=== PATIENT | female | born 1990 | race Caucasian/White ===

== ENCOUNTER 2023-04-16 10:00 | Outpatient (RCR) | payer BC, SELFPAY | END 2023-06-29 08:00 | disposition home or self-care (01) | LOC: PT 10:00 | DX: N81.89 Other female genital prolapse (principal) | CPT/HCPCS: 20561; 97110; 97112; 97161 ==

== ENCOUNTER 2023-06-30 09:12 | Outpatient (RCR) | payer BC, SELFPAY | END 2023-07-16 15:53 | disposition home or self-care (01) | LOC: PT 09:12 | PROVIDERS: PCP Advanced Practice Midwife; Visit Provider Advanced Practice Midwife | DX: N81.89 Other female genital prolapse (principal) | CPT/HCPCS: 20561; 97110 ==

== ENCOUNTER 2025-01-07 07:20 | Observation (INO) | payer BC, SELFPAY ==
[2025-01-07 07:20] VITALS: BP 78/54; PULSE 110; O2SAT 98
[2025-01-07 07:32] VITALS: BP 109/59; PULSE 89; O2SAT 100
[2025-01-07] MEDS: 0.9 % SODIUM CHLORIDE 1,000 ML 999 ML IV ×2 (07:40→09:01)
--- OUTSIDE RECORDS SUMMARY | 2025-01-07 07:45 | XMS_ITS | Encounter Summary ---
Author Organization [facility] Address [address] [place] [address] Care Team Providers Care Funeral Service Apprentice Name Role Phone Caren Travis APRN.CNM Unavailable [phone] Source Comments In the event this information is protected by the Federal Confidentiality of Alcohol and Drug AbusePatient Records regulations: The Federal rules restrict any use of the information to criminally investigate or prosecute any alcohol or drug abuse patient.[facility] Encounter Details Date Type Department Care Team (Late st Contact Info) Description 06/24/2024 Patient Msg Psychiatry [address] [place] [address] Provider, Ccf neuro psych testing Social History Tobacco Use Types Packs/Day Years Used Date Smoking Tobacco: Former Cigarettes Q uit: 11/2019 Smokeless Tobacco: Never Alcohol Use Standard Drinks/Week Comments No 0 (1 standard drink = 0.6 oz pur e alcohol) PHQ-2 Answer Date Recorded PHQ-2 score 2 06/23/2024 [place] Depression Scale Answer Date Recorded [place] Depression Scale Total 21 07/10/2023 The thought of harming myself has occurred to me . Never 07/10/2023 Area Deprivation Index Answer Date Rafael rded National Score (1-100), lower number is lower ri 78 11/05/2022 State Score (1-10), lower number is lower risk 6 11/05/2022 Data from: https://www.neighborhoodatlas.medicine.[facility]/. Last address used for calculation [address] 11/05/2022 Comments Unknown Sex and Gender Information Value Date Recorded Sex Assigned at Female 10/31/2020 8:49 PM EDT Legal Sex Female 10:06 AM EST Gender Identity Female 10/31/2020 8:49 PM EDT Sexual Orientation Straight 10/31/2020 8: 49 PM EDT documented as of this encounter Functional Status * Are you deaf or do you have serious difficulty hearing? Answer Date of Assessment Author No 02/05/2023 7:49 AM EDT Darya Mckeon APRN.CNM * Are you blind or do you have serious difficulty seeing, even when wearing glasses? Answer Date of Assessment Author No 02/05/2023 7:49 AM EDT Darya Mckeon APRN.CNM * Do you have serious difficulty walking or climbing stairs? Answer Date of Assessment Author No 02/05/2023 7:49 AM EDT Darya Mckeon APRN.CNM * Do you have difficulty dressing or bathing? Answer Date of Assessment Author No 02/05/2023 7:49 AM EDT Darya Mckeon APRN.CNM * Because of a physical, mental, or emotional condition, do you have difficulty doing errands alone such as visiting a doctor's office or shopping? Answer Date of Assessment Author No 02/05/2023 7:49 AM EDT Darya Mckeon APRN.CNM documented as of this encounter Mental Status * Because of a physical, mental, or emotional condition, do you have serious difficulty concentrating, remembering, or making decisions? Answer Entry Date Author No 02/05/2023 7:49 AM EDT Darya Mckeon APRN.CNM documented in this encounter Plan of Treatment Upcoming Encounters Date Type Department Care Team (Late st Contact Info) Description 01/10/2025 6:00 PM EDT Routine Office Visit Maternal Medicine [address] [facility] [address] [place] [address] Anatomy 01/20/2025 3:00 PM EDT Routine Office Visit Obstetrics/Gynecolog y [address] [address] Marina Mnaley, MICROBIOLOGY LAB ASSISTANT.CNM [address] [place] [address] ob/ per Marina 02/10/2025 2:30 PM EDT Office Visit Obstetrics/Gynecolog y [address] [address] Marina Manley, MICROBIOLOGY LAB ASSISTANT.CNM [address] [place] [address] Annual 02/22/2025 1:15 PM EDT Routine Office Visit Obstetrics/Gynecolog y [address] [address] Marina Manley, MICROBIOLOGY LAB ASSISTANT.CNM [address] [place] [address] OB monthly 03/22/2025 10:45 AM EDT Routine Office Visit Obstetrics/Gynecolog y [address] [address] Marina Manley, MICROBIOLOGY LAB ASSISTANT.CNM [address] [place] [address] OB bi-weekly 04/05/2025 10:45 AM EDT Routine Office Visit Obstetrics/Gynecolog y [address] [address] Marina Manley, MICROBIOLOGY LAB ASSISTANT.CNM [address] [place] [address] OB bi-weekly 04/19/2025 10:30 AM EDT Routine Office Visit Obstetrics/Gynecolog y [address] [address] Marina Manley, MICROBIOLOGY LAB ASSISTANT.CNM [address] [place] [address] OB bi-weekly 05/03/2025 8:45 AM EST Routine Office Visit Obstetrics/Gynecolog y [address] [address] Marina Manley, MICROBIOLOGY LAB ASSISTANT.CNM [address] [place] [address] OB weekly 05/10/2025 8:45 AM EST Routine Office Visit Obstetrics/Gynecolog y [address] [address] Marina Manley, MICROBIOLOGY LAB ASSISTANT.CNM [address] [place] [address] OB weekly 05/17/2025 8:45 AM EST Routine Office Visit Obstetrics/Gynecolog y [address] [address] Marina Manley, MICROBIOLOGY LAB ASSISTANT.CNM [address] [place] [address] OB weekly 05/24/2025 8:45 AM EST Routine Office Visit Obstetrics/Gynecolog y [address] [address] Marina Manley, MICROBIOLOGY LAB ASSISTANT.CNM [address] [place] [address] OB weekly 05/31/2025 8:45 AM EST Routine Office Visit Obstetrics/Gynecolog y [address] [address] Marina Manley, MICROBIOLOGY LAB ASSISTANT.CNM [address] [place] [address] OB weekly 06/07/2025 8:45 AM EST Routine Office Visit Obstetrics/Gynecolog y [address] [address] Marina Manley, MICROBIOLOGY LAB ASSISTANT.CNM [address] [place] [address] OB weekly documented as of this encounter Visit Diagnoses Not on filedocumented in this encounter Care Teams Funeral Service Apprentice Relationship Specialty Start Date End Date Caren Travis APRN.CNM [address] [place] [address] Vocational Training Director Stock Grader 02/03/23 documented as of this encounter
--- OUTSIDE RECORDS SUMMARY | 2025-01-07 07:45 | XMS_ITS | Encounter Summary ---
Author Organization [facility] Address [address] [place] [address] Care Team Providers Care Healthcare Market Consultant Name Role Phone Caren Travis APRN.CNM Unavailable Source Comments In the event this information is protected by the Federal Confidentiality of Alcohol and Drug AbusePatient Records regulations: The Federal rules restrict any use of the information to criminally investigate or prosecute any alcohol or drug abuse patient.[facility] Encounter Details Date Type Department Care Team (Late st Contact Info) Description 01/10/2023 Patient Msg Obstetrics/Gynecolog y [address] [place] [address] Tamy Rand MD [address] [place] [address] Questionnaire Submission Social History Tobacco Use Types Packs/Day Years Used Date Smoking Tobacco: Former Cigarettes Q uit: 11/2019 Smokeless Tobacco: Never Alcohol Use Standard Drinks/Week Comments No 0 (1 standard drink = 0.6 oz pur e alcohol) Fields Depression Scale Answer Date Recorded Fields Depression Scale Total 2 01/30/2021 The thought of harming myself has occurred to me . Never 01/30/2021 Area Deprivation Index Answer Date Rafael rded National Score (1-100), lower number is lower ri sk 78 11/05/2022 State Score (1-10), lower number is lower risk 6 11/05/2022 Data from: https://www.neighborhoodatlas.medicine.[facility]/. Last address used for calculation [address] 11/05/2022 Comments Yes Sex and Gender Information Value Date Recorded Sex Assigned at Female 10/31/2020 8:49 PM EDT Legal Sex Female 10:06 AM EST Gender Identity Female 10/31/2020 8:49 PM EDT Sexual Orientation Straight 10/31/2020 8: 49 PM EDT documented as of this encounter Functional Status * Are you deaf or do you have serious difficulty hearing? Answer Date of Assessment Author No 01/10/2021 10:30 AM EDT Christen Smith RN * Are you blind or do you have serious difficulty seeing, even when wearing glasses? Answer Date of Assessment Author No 01/10/2021 10:30 AM EDT Christen Smith RN * Do you have serious difficulty walking or climbing stairs? Answer Date of Assessment Author No 01/10/2021 10:30 AM SAJANT Christen Smith RN * Do you have difficulty dressing or bathing? Answer Date of Assessment Author No 01/10/2021 10:30 AM EDT Christen Smith RN * Because of a physical, mental, or emotional condition, do you have difficulty doing errands alone such as visiting a doctor's office or shopping? Answer Date of Assessment Author No 01/10/2021 10:30 AM EDChristen Farley RN documented as of this encounter Mental Status * Because of a physical, mental, or emotional condition, do you have serious difficulty concentrating, remembering, or making decisions? Answer Entry Date Author No 01/10/2021 10:30 AM Christen Camacho RN documented in this encounter Plan of Treatment Upcoming Encounters Date Type Department Care Team (Late st Contact Info) Description 01/10/2025 6:00 PM EDT Routine Office Visit Maternal Medicine 850 [place] [address] Anatomy 01/20/2025 3:00 PM EDT Routine Office Visit Obstetrics/Gynecolog y [address] [address] Marina Manley, FINANCIAL INSTITUTION MANAGER.CNM [address] [place] [address] ob/ per Marina 02/10/2025 2:30 PM EDT Office Visit Obstetrics/Gynecolog y [address] [address] Marina Manley, FINANCIAL INSTITUTION MANAGER.CNM [address] [place] [address] Annual 02/22/2025 1:15 PM EDT Routine Office Visit Obstetrics/Gynecolog y [address] [address] Marina Manley, FINANCIAL INSTITUTION MANAGER.CNM [address] [place] [address] OB monthly 03/22/2025 10:45 AM EDT Routine Office Visit Obstetrics/Gynecolog y [address] [address] Marina Manley, FINANCIAL INSTITUTION MANAGER.CNM [address] [place] [address] OB bi-weekly 04/05/2025 10:45 AM EDT Routine Office Visit Obstetrics/Gynecolog y [address] [address] Marina Manley, FINANCIAL INSTITUTION MANAGER.CNM [address] [place] [address] OB bi-weekly 04/19/2025 10:30 AM EDT Routine Office Visit Obstetrics/Gynecolog y [address] [address] Marina Manley, FINANCIAL INSTITUTION MANAGER.CNM [address] [place] [address] OB bi-weekly 05/03/2025 8:45 AM EST Routine Office Visit Obstetrics/Gynecolog y [address] [address] Marina Manley, FINANCIAL INSTITUTION MANAGER.CNM [address] [place] [address] OB weekly 05/10/2025 8:45 AM EST Routine Office Visit Obstetrics/Gynecolog y [address] [address] Marina Manley, FINANCIAL INSTITUTION MANAGER.CNM [address] [place] [address] OB weekly 05/17/2025 8:45 AM EST Routine Office Visit Obstetrics/Gynecolog y [address] [address] Marina Manley, FINANCIAL INSTITUTION MANAGER.CNM [address] [place] [address] OB weekly 05/24/2025 8:45 AM EST Routine Office Visit Obstetrics/Gynecolog y [address] [address] Marina Manley, FINANCIAL INSTITUTION MANAGER.CNM [address] [place] [address] OB weekly 05/31/2025 8:45 AM EST Routine Office Visit Obstetrics/Gynecolog y [address] [address] Marina Manley, FINANCIAL INSTITUTION MANAGER.CNM [address] [place] [address] OB weekly 06/07/2025 8:45 AM EST Routine Office Visit Obstetrics/Gynecolog y [address] [address] Marina Manley, FINANCIAL INSTITUTION MANAGER.CNM [address] [place] [address] OB weekly documented as of this encounter Visit Diagnoses Not on filedocumented in this encounter Care Teams Healthcare Market Consultant Relationship Specialty Start Date End Date Caren Travis APRN.TREVON [address] [place] [address] Junior Designer Photoengraving Photographer 02/03/23 documented as of this encounter
--- OUTSIDE RECORDS SUMMARY | 2025-01-07 07:45 | XMS_ITS | Encounter Summary ---
Author Organization [facility] Address [address] [place] [address] Care Team Providers Care Roustabout Name Role Phone Caren Travis APRN.CNM Unavailable [phone] Source Comments In the event this information is protected by the Federal Confidentiality of Alcohol and Drug AbusePatient Records regulations: The Federal rules restrict any use of the information to criminally investigate or prosecute any alcohol or drug abuse patient.[facility] Encounter Details Date Type Department Care Team (Late st Contact Info) Description 01/07/2023 Patient M[address] [address] Provider, Ccf Completed FMLA Social History Tobacco Use Types Packs/Day Years Used Date Smoking Tobacco: Former Cigarettes Q uit: 11/2019 Smokeless Tobacco: Never Alcohol Use Standard Drinks/Week Comments No 0 (1 standard drink = 0.6 oz pur e alcohol) Hopkins Depression Scale Answer Date Recorded [place] Depression Scale Total 2 01/30/2021 The thought of harming myself has occurred to me . Never 01/30/2021 Area Deprivation Index Answer Date Rafael rded National Score (1-100), lower number is lower ri sk 78 11/05/2022 State Score (1-10), lower number is lower risk 6 11/05/2022 Data from: https://www.neighborhoodatlas.[facility]/. Last address used for calculation [address] 11/05/2022 Comments Yes Sex and Gender Information [...] 01/10/2021 10:30 AM SAJANT Christen Smith RN documented as of this encounter Mental Status * Because of a physical, mental, or emotional condition, do you have serious difficulty concentrating, remembering, or making decisions? Answer Entry Date Author No 01/10/2021 10:30 AM EDT Christen Smith RN documented in this encounter Plan of Treatment Upcoming Encounters Date Type Department Care Team (Late st Contact Info) Description 01/10/2025 6:00 PM EDT Routine Office Visit Maternal Medicine [address] [place] [address] Anatomy 01/20/2025 3:00 PM EDT Routine Office Visit Obstetrics/Gynecolog y [address] [place] [address] Marina Manley, DRIVER MESSENGER.CNM [address] [place] [address] ob/ per Marina 02/10/2025 2:30 PM EDT Office Visit Obstetrics/Gynecolog y [address] [address] Marina Manley, DRIVER MESSENGER.CNM [address] [place] [address] Annual 02/22/2025 1:15 PM EDT Routine Office Visit Obstetrics/Gynecolog y [address] [address] Marina Manley, DRIVER MESSENGER.CN [address] [place] [address] OB monthly 03/22/2025 10:45 AM EDT Routine Office Visit Obstetrics/Gynecolog y [address] [address] Marina Manley, DRIVER MESSENGER.CNM [address] [place] [address] OB bi-weekly 04/05/2025 10:45 AM EDT Routine Office Visit Obstetrics/Gynecolog y [address] [address] Marina Manley, DRIVER MESSENGER.CNM [address] [place] [address] OB bi-weekly 04/19/2025 10:30 AM EDT Routine Office Visit Obstetrics/Gynecolog y [address] [address] Marina Manley, DRIVER MESSENGER.CNM [address] [place] [address] OB bi-weekly 05/03/2025 8:45 AM EST Routine Office Visit Obstetrics/Gynecolog y [address] [address] Marina Manley, DRIVER MESSENGER.CNM [address] [place] [address] OB weekly 05/10/2025 8:45 AM EST Routine Office Visit Obstetrics/Gynecolog y [address] [address] Marina Manley, DRIVER MESSENGER.CNM [address] [place] [address] OB weekly 05/17/2025 8:45 AM EST Routine Office Visit Obstetrics/Gynecolog y [address] [address] Marina Manley, DRIVER MESSENGER.CNM [address] [place] [address] OB weekly 05/24/2025 8:45 AM EST Routine Office Visit Obstetrics/Gynecolog y [address] [address] Marina Manley, DRIVER MESSENGER.CNM [address] [place] [address] OB weekly 05/31/2025 8:45 AM EST Routine Office Visit Obstetrics/Gynecolog y [address] [address] Marina Manley, DRIVER MESSENGER.CNM [address] [place] [address] OB weekly 06/07/2025 8:45 AM EST Routine Office Visit Obstetrics/Gynecolog y [address] [address] Marina Manley, DRIVER MESSENGER.CNM [address] [place] [address] OB weekly documented as of this encounter Visit Diagnoses Not on filedocumented in this encounter Care Teams Roustabout Relationship Specialty Start Date End Date Caren Travis APRN.TREVON [address] [place] [id number] Veterinarian Poultry Patient Navigator 02/03/23 documented as of this encounter
--- OUTSIDE RECORDS SUMMARY | 2025-01-07 07:45 | XMS_ITS | Encounter Summary ---
Author Organization [facility] Address [address] [place] [address] Care Team Providers Care Ferryboat Ticket Taker Name Role Phone Caren Travis APRN.CNM Unavailable [phone] Source Comments In the event this information is protected by the Federal Confidentiality of Alcohol and Drug AbusePatient Records regulations: The Federal rules restrict any use of the information to criminally investigate or prosecute any alcohol or drug abuse patient.[facility] Encounter Details Date Type Department Care Team (Late st Contact Info) Description 12/02/2022 Patient Msg Obstetrics/Gynecology [address] [place] [id number] Provider, Ccf please call to yasmani 12/16 Chrissie Patel Social History Tobacco Use Types Packs/Day Years Used Date Smoking Tobacco: Former Cigarettes Q uit: 11/2019 Smokeless Tobacco: Never Alcohol Use Standard Drinks/Week Comments No 0 (1 standard drink = 0.6 oz pur e alcohol) Eidson Depression Scale Answer Date Recorded E[place]son Depression Scale Total 2 01/30/2021 The thought of harming myself has occurred to me . Never 01/30/2021 Area Deprivation Index Answer Date Rafael rded National Score (1-100), lower number is lower ri 78 11/05/2022 State Score (1-10), lower number is lower risk 6 11/05/2022 Data from: https://www.neighborhoodatlas.[facility]/. Last address used for calculation [address] [...] Assessment Author No 01/10/2021 10:30 AM EDT Chritsen Smith RN * Do you have difficulty dressing or bathing? Answer Date of Assessment Author No 01/10/2021 10:30 AM EDT Christen Smith RN * Because of a physical, mental, or emotional condition, do you have difficulty doing errands alone such as visiting a doctor's office or shopping? Answer Date of Assessment Author No 01/10/2021 10:30 AM EDT Christen Smith RN documented as of this [...] EDT Routine Office Visit Maternal Medicine [address] [place] [address] Anatomy 01/20/2025 3:00 PM EDT Routine Office Visit Obstetrics/Gynecolog y 850 [facility] [address] [place] [address] Marina Manley, MECHANICAL INTEGRITY ENGINEER.CNM [address] [place] [address] ob/ per Marina 02/10/2025 2:30 PM EDT Office Visit Obstetrics/Gynecolog y [address] [address] Marina Manley, MECHANICAL INTEGRITY ENGINEER.CNM [address] [place] [address] Annual 02/22/2025 1:15 PM EDT Routine Office Visit Obstetrics/Gynecolog y [address] [address] Marina Manley, MECHANICAL INTEGRITY ENGINEER.CNM [address] [place] [address] OB monthly 03/22/2025 10:45 AM EDT Routine Office Visit Obstetrics/Gynecolog y [address] [address] Marina Manley, MECHANICAL INTEGRITY ENGINEER.CNM [address] [place] [address] OB bi-weekly 04/05/2025 10:45 AM EDT Routine Office Visit Obstetrics/Gynecolog y [address] [address] Marina Manley, MECHANICAL INTEGRITY ENGINEER.CNM [address] [place] [address] OB bi-weekly 04/19/2025 10:30 AM EDT Routine Office Visit Obstetrics/Gynecolog y [address] [address] Marina Manley, MECHANICAL INTEGRITY ENGINEER.CNM [address] [place] [address] OB bi-weekly 05/03/2025 8:45 AM EST Routine Office Visit Obstetrics/Gynecolog y [address] [address] Marina Manley, MECHANICAL INTEGRITY ENGINEER.CNM [address] [place] [address] OB weekly 05/10/2025 8:45 AM EST Routine Office Visit Obstetrics/Gynecolog y [address] [address] Marina Manley, MECHANICAL INTEGRITY ENGINEER.CNM [address] [place] [address] OB weekly 05/17/2025 8:45 AM EST Routine Office Visit Obstetrics/Gynecolog y [address] [address] Marina Manley, MECHANICAL INTEGRITY ENGINEER.CNM [address] [place] [address] OB weekly 05/24/2025 8:45 AM EST Routine Office Visit Obstetrics/Gynecolog y [address] [address] Marina Manley, MECHANICAL INTEGRITY ENGINEER.CNM [address] [place] [address] OB weekly 05/31/2025 8:45 AM EST Routine Office Visit Obstetrics/Gynecolog y [address] [address] Marina Manley, MECHANICAL INTEGRITY ENGINEER.CNM [address] [place] [address] OB weekly 06/07/2025 8:45 AM EST Routine Office Visit Obstetrics/Gynecolog y [address] [address] Marina Manley, MECHANICAL INTEGRITY ENGINEER.CNM [address] [place] [address] OB weekly documented as of this encounter Visit Diagnoses Not on filedocumented in this encounter Care Teams Ferryboat Ticket Taker Relationship Specialty Start Date End Date Caren Travis APRN.CNM [address] [place] [address] Trouble Locater Sheet Metal Welder 02/03/23 documented as of this encounter
--- OUTSIDE RECORDS SUMMARY | 2025-01-07 07:45 | XMS_ITS | Encounter Summary ---
Author Organization [facility] Address [address] [place] [address] Care Team Providers Care Knitting Machine Operator Automatic Name Role Phone Caren Travis APRN.CNM Unavailable [phone] Source Comments In the event this information is protected by the Federal Confidentiality of Alcohol and Drug AbusePatient Records regulations: The Federal rules restrict any use of the information to criminally investigate or prosecute any alcohol or drug abuse patient.[facility] Encounter Details Date Type Department Care Team (Late st Contact Info) Description 05/14/2024 Patient Msg Psychiatry [address] [place] [address] Provider, Ccf Appointment Request Social History Tobacco Use Types Packs/Day Years Used Date Smoking Tobacco: Former Cigarettes Q uit: 11/2019 Smokeless Tobacco: Never Alcohol Use Standard Drinks/Week Comments No 0 (1 standard drink = 0.6 oz pur e alcohol) PHQ-2 Answer Date Recorded PHQ-2 score 1 04/30/2024 [place] Depression Scale Answer Date Recorded [place] Depression Scale Total 21 07/10/2023 The thought of harming myself has occurred to me . Never 07/10/2023 Area Deprivation Index Answer Date Rafael rded National Score (1-100), lower number is lower ri 78 11/05/2022 State Score (1-10), lower number is lower risk 6 11/05/2022 Data from: https://www.neighborhoodatlas.[facility]/. Last address used for calculation [address] [...] EDT Routine Office Visit Maternal Medicine [address] [facility] [address] [place] [address] Anatomy 01/20/2025 3:00 PM EDT Routine Office Visit Obstetrics/Gynecolog y [address] [address] Marina Manley, RESEARCH ASST.CNM [address] [place] [address] ob/ per Marina 02/10/2025 2:30 PM EDT Office Visit Obstetrics/Gynecolog y [address] [address] Marina Manley, RESEARCH ASST.CNM [address] [place] [address] Annual 02/22/2025 1:15 PM EDT Routine Office Visit Obstetrics/Gynecolog y [address] [address] Marina Manley, RESEARCH ASST.CNM [address] [place] [address] OB monthly 03/22/2025 10:45 AM EDT Routine Office Visit Obstetrics/Gynecolog y [address] [address] Marina Manley, RESEARCH ASST.CNM [address] [place] [address] OB bi-weekly 04/05/2025 10:45 AM EDT Routine Office Visit Obstetrics/Gynecolog y [address] [address] Marina Manley, RESEARCH ASST.CNM [address] [place] [address] OB bi-weekly 04/19/2025 10:30 AM EDT Routine Office Visit Obstetrics/Gynecolog y [address] [address] Marina Manley, RESEARCH ASST.CNM [address] [place] [address] OB bi-weekly 05/03/2025 8:45 AM EST Routine Office Visit Obstetrics/Gynecolog y [address] [address] Marina Manley, RESEARCH ASST.CNM [address] [place] [address] OB weekly 05/10/2025 8:45 AM EST Routine Office Visit Obstetrics/Gynecolog y [address] [address] Marina Manley, RESEARCH ASST.CNM [address] [place] [address] OB weekly 05/17/2025 8:45 AM EST Routine Office Visit Obstetrics/Gynecolog y [address] [address] Marina Manley, RESEARCH ASST.CNM [address] [place] [address] OB weekly 05/24/2025 8:45 AM EST Routine Office Visit Obstetrics/Gynecolog y [address] [address] Marina Manley, RESEARCH ASST.CNM [address] [place] [address] OB weekly 05/31/2025 8:45 AM EST Routine Office Visit Obstetrics/Gynecolog y [address] [address] Marina Manley, RESEARCH ASST.CNM [address] [place] [address] OB weekly 06/07/2025 8:45 AM EST Routine Office Visit Obstetrics/Gynecolog y [address] [address] Marina Manley, RESEARCH ASST.CNM [address] [place] [address] OB weekly documented as of this encounter Visit Diagnoses Not on filedocumented in this encounter Care Teams Knitting Machine Operator Automatic Relationship Specialty Start Date End Date Caren Travis APRN.CNM [address] [place] [address] Javascript Front End Developer Greens Picker 02/03/23 documented as of this encounter
--- OUTSIDE RECORDS SUMMARY | 2025-01-07 07:45 | XMS_ITS | Encounter Summary ---
Author Organization [facility] Address [address] [place] [address] Care Team Providers Care Java Software Architect Name Role Phone Caren Travis APRN.CNM Unavailable [phone] Source Comments In the event this information is protected by the Federal Confidentiality of Alcohol and Drug AbusePatient Records regulations: The Federal rules restrict any use of the information to criminally investigate or prosecute any alcohol or drug abuse patient.[facility] Encounter Details Date Type Department Care Team (Late st Contact Info) Description 10/08/2024 Patient Msg Gynecology [address] [id number] Torito Zavala, Research Coordinator [facility] and [facility] Researchers seek your help with a study Social History Tobacco Use Types Packs/Day Years Used Date Smoking Tobacco: Former Cigarettes Q uit: 11/2019 Smokeless Tobacco: Never Alcohol Use Standard Drinks/Week Comments No 0 (1 standard drink = 0.6 oz pur e alcohol) PHQ-2 Answer Date Recorded PHQ-2 score 1 08/03/2024 [place] Depression Scale Answer Date Recorded [place] Depression Scale Total 21 07/10/2023 The thought of harming myself has occurred to me . Never 07/10/2023 Area Deprivation Index Answer Date Rafael rded National Score (1-100), lower number is lower ri sk 78 11/05/2022 State Score (1-10), lower number is lower risk 6 11/05/2022 Data from: https://www.neighborhoodatlas.medicine.[facility].edu/. Last address used for calculation [address] [...] EDT Routine Office Visit Maternal Medicine [address] [place] [address] Anatomy 01/20/2025 3:00 PM EDT Routine Office Visit Obstetrics/Gynecolog y [address] [address] Marina Manley, HEALTH AND SAFETY INSPECTOR.CNM [address] [place] [address] ob/ per Marina 02/10/2025 2:30 PM EDT Office Visit Obstetrics/Gynecolog y [address] [address] Marina Manley, HEALTH AND SAFETY INSPECTOR.CNM [address] [place] [address] Annual 02/22/2025 1:15 PM EDT Routine Office Visit Obstetrics/Gynecolog y [address] [address] Marina Manley, HEALTH AND SAFETY INSPECTOR.CNM [address] [place] [address] OB monthly 03/22/2025 10:45 AM EDT Routine Office Visit Obstetrics/Gynecolog y [address] [address] Marina Manley, HEALTH AND SAFETY INSPECTOR.CNM [address] [place] [address] OB bi-weekly 04/05/2025 10:45 AM EDT Routine Office Visit Obstetrics/Gynecolog y [address] [address] Marina Manley, HEALTH AND SAFETY INSPECTOR.CNM [address] [place] [address] OB bi-weekly 04/19/2025 10:30 AM EDT Routine Office Visit Obstetrics/Gynecolog y [address] [address] Marina Manley, HEALTH AND SAFETY INSPECTOR.CNM [address] [place] [address] OB bi-weekly 05/03/2025 8:45 AM EST Routine Office Visit Obstetrics/Gynecolog y [address] [address] Marina Manley, HEALTH AND SAFETY INSPECTOR.CNM [address] [place] [address] OB weekly 05/10/2025 8:45 AM EST Routine Office Visit Obstetrics/Gynecolog y [address] [address] Marina Manley, HEALTH AND SAFETY INSPECTOR.CN [address] [place] [address] OB weekly 05/17/2025 8:45 AM EST Routine Office Visit Obstetrics/Gynecolog y [address] [address] Marina Manley, HEALTH AND SAFETY INSPECTOR.CNM [address] [place] [address] OB weekly 05/24/2025 8:45 AM EST Routine Office Visit Obstetrics/Gynecolog y [address] [address] Marina Manley, HEALTH AND SAFETY INSPECTOR.CN [address] [place] [address] OB weekly 05/31/2025 8:45 AM EST Routine Office Visit Obstetrics/Gynecolog y [address] [address] Marina Manley, HEALTH AND SAFETY INSPECTOR.CNM [address] [place] [address] OB weekly 06/07/2025 8:45 AM EST Routine Office Visit Obstetrics/Gynecolog y [address] [address] Marina Manley, HEALTH AND SAFETY INSPECTOR.OSIRISM [address] [place] [address] OB weekly documented as of this encounter Visit Diagnoses Not on filedocumented in this encounter Care Teams Java Software Architect Relationship Specialty Start Date End Date Caren Travis, HEALTH AND SAFETY INSPECTOR.TREVON [address] [place] [address] Zumba Instructor Ironer Hand 02/03/23 documented as of this encounter
--- OUTSIDE RECORDS SUMMARY | 2025-01-07 07:45 | XMS_ITS | Encounter Summary ---
Author Organization [facility] Address [address] [place] [address] Care Team Providers Care Pellet Post Inspector Name Role Phone Caren Travis APRN.CNM Unavailable [phone] Source Comments In the event this information is protected by the Federal Confidentiality of Alcohol and Drug AbusePatient Records regulations: The Federal rules restrict any use of the information to criminally investigate or prosecute any alcohol or drug abuse patient.[facility] Encounter Details Date Type Department Care Team (Late st Contact Info) Description 02/04/2023 [place] [id number] [phone] Provider, Ccf Technical Lead Enrollment Social History Tobacco Use Types Packs/Day Years Used Date Smoking Tobacco: Former Cigarettes Q uit: 11/2019 Smokeless Tobacco: Never Alcohol Use Standard Drinks/Week Comments No 0 (1 standard drink = 0.6 oz pur e alcohol) [place] Depression Scale Answer Date Recorded [place] Depression Scale Total 2 01/30/2021 The thought of harming myself has occurred to me . Never 01/30/2021 Area Deprivation Index Answer Date Rafael rded National Score (1-100), lower number is lower ri sk 78 11/05/2022 State Score (1-10), lower number is lower risk 6 11/05/2022 Data from: https://www.neighborhoodatlas.[facility]/. Last address used for calculation [address] 11/05/2022 Comments No Sex and Gender Information Value Date Recorded [...] EDT Routine Office Visit Maternal Medicine [address] [place] [address] Anatomy 01/20/2025 3:00 PM EDT Routine Office Visit Obstetrics/Gynecolog y [address] [facility] [address] [place] [address] Marina Manley, WEIGHER PRODUCTION.CNM [address] [place] [address] ob/ per Marina 02/10/2025 2:30 PM EDT Office Visit Obstetrics/Gynecolog y [address] [address] Marina Manley, WEIGHER PRODUCTION.CN [place] [place] [address] Annual 02/22/2025 1:15 PM EDT Routine Office Visit Obstetrics/Gynecolog y [address] [address] Marina Manley, WEIGHER PRODUCTION.CN [address] [place] [address] OB monthly 03/22/2025 10:45 AM EDT Routine Office Visit Obstetrics/Gynecolog y [address] [address] Marina Manley, WEIGHER PRODUCTION.CNM [address] [address] OB bi-weekly 04/05/2025 10:45 AM EDT Routine Office Visit Obstetrics/Gynecolog y [address] [address] Marina Manley, WEIGHER PRODUCTION.CN [address] [place] [address] OB bi-weekly 04/19/2025 10:30 AM EDT Routine Office Visit Obstetrics/Gynecolog y [address] [address] Marina Manley, WEIGHER PRODUCTION.CNM [address] [address] OB bi-weekly 05/03/2025 8:45 AM EST Routine Office Visit Obstetrics/Gynecolog y [address] [address] Marina Manley, WEIGHER PRODUCTION.CNM [address] [place] [address] OB weekly 05/10/2025 8:45 AM EST Routine Office Visit Obstetrics/Gynecolog y [address] [address] Marina Manley, WEIGHER PRODUCTION.CNM [address] [place] [address] OB weekly 05/17/2025 8:45 AM EST Routine Office Visit Obstetrics/Gynecolog y [address] [address] Marina Manley, WEIGHER PRODUCTION.CNM [address] [place] [address] OB weekly 05/24/2025 8:45 AM EST Routine Office Visit Obstetrics/Gynecolog y [address] [address] Marina Manley, WEIGHER PRODUCTION.CNM [address] [place] [address] OB weekly 05/31/2025 8:45 AM EST Routine Office Visit Obstetrics/Gynecolog y [address] [address] Marina Manley, WEIGHER PRODUCTION.CNM [address] [place] [address] OB weekly 06/07/2025 8:45 AM EST Routine Office Visit Obstetrics/Gynecolog y [address] [address] Marina Manley, WEIGHER PRODUCTION.CNM [address] [place] [address] OB weekly documented as of this encounter Visit Diagnoses Not on filedocumented in this encounter Care Teams Pellet Post Inspector Relationship Specialty Start Date End Date Caern Travis APRN.TREVON [address] [place] [id number] Pediatric Surgeon Hand Violin Maker 02/03/23 documented as of this encounter
--- OUTSIDE RECORDS SUMMARY | 2025-01-07 07:45 | XMS_ITS | Clinical Summary ---
Author Organization [employer] Address [id number] [address] [place] [address] Care Team Providers Care Photographic Intelligence Officer Name Role Phone Unavailable Primary Care Provider Unavailabl e Allergies No known active allergies Medications magnesium oxide (MAGOX) 400 mg tablet Active SYMBICORT 160-4.5 mcg/actuation inhaler Inhale 2 puffs in the morning and 2 puffs before bedtime. 04/15/2022 Active aspirin-acetami nophen-caffeine (EXCEDRIN EXTRA STRENGTH) 250-250-65 mg per tablet 2 tablets as needed Orally every 6 hrs Active albuterol (PROVENTIL HFA;VENTOLIN HFA) 90 mcg/actuation inhaler every 6 (six) hours as needed. Active vit,qzvw11-vulx -folic 29 mg iron- 1 mg tablet Take by mouth daily. Active ascorbic acid, vitamin C, (VITAMIN C) 1000 mg tablet Take 1 tablet (1,000 mg total) by mouth in the morning. Takes 4-5 times a week. Active Active Problems Problem Noted Date Diagnosed Date Dizziness 04/04/2022 Headache 04/04/2022 Bilateral hearing loss 04/04/2022 Family History Medical History Relation Name Comments Hearing loss Father Cancer Maternal Grandmother uterine and ovarian Cancer Paternal Grandfather colon a nd lung Relation Name Status Comments Father Maternal Grandmother Paternal Grandfather Social History Tobacco Use Types Packs/Day Years Used Date Smoking Tobacco: Former Cigarettes 0.5 6 2 014 - 2020 Smokeless Tobacco: Never Tobacco Cessation:Counseling Given: Not Answered Alcohol Use Standard Drinks/Week Comments Not Currently 0 (1 standard drink = 0.6 oz pur e alcohol) Childcare Answer Date Recorded Childcare Unknown 12/07/2018 Employment Answer Date Recorded Employment Unknown 12/07/2018 Comments Unknown Sex and Gender Information Value Date Recorded Sex Assigned at Not on file Legal Sex Female 12:04 PM EDT Gender Identity Not on file Sexual Orientation Not on file Last Filed Vital Signs Vital Sign Reading Time Taken Comments Blood Pressure - - Pulse - - Temperature 36.8 C (98.3 F) 03/05/2023 9:47 AM EDT Respiratory Rate - - Oxygen Saturation - - Inhaled Oxygen Concentration - - Weight 75.8 kg (167 lb) 03/05/2023 9:47 AM EDT Height 149.9 cm (4' 11 ) 03/05/2023 9:47 AM EDT Body Mass Index 33.73 03/05/2023 9:47 AM EDT Plan of Treatment Health Maintenance Due Date Last Done Comments Depression Screening 2004 Pap Smear 2013 COVID-19 Vaccine (5 - 4-2 5 season) 2024 04/27/2022, 09/27/2021, 03/20/2021, Additional history exists Adult BMI Screening 03/05/2024 03/05/2023 Tobacco Screening 03/05/2024 03/05/2023 Influenza Vaccine 02/28/2025 04/27/2022 DTaP,Tdap and Td Vaccines (7 - Td or Tdap) 11/06/2032 11/06/2022, 12/26/1997, 08/20/1994, Additional history exists Medical Devices Not on file Insurance [facility]
--- OUTSIDE RECORDS SUMMARY | 2025-01-07 07:45 | XMS_ITS | Encounter Summary ---
Author Organization [facility] Address [address] [place] [address] Care Team Providers Care Information Systems Specialist Name Role Phone Caren Travis APRN.CNM Unavailable [phone] Source Comments In the event this information is protected by the Federal Confidentiality of Alcohol and Drug AbusePatient Records regulations: The Federal rules restrict any use of the information to criminally investigate or prosecute any alcohol or drug abuse patient.[facility] Encounter Details Date Type Department Care Team (Late st Contact Info) Description 04/30/2024 Patient Msg Psychiatry [address] [place] [address] Provider, Ccf Behavioral Health Appt Social History Tobacco Use Types Packs/Day Years Used Date Smoking Tobacco: Former Cigarettes Q uit: 11/2019 Smokeless Tobacco: Never Alcohol Use Standard Drinks/Week Comments No 0 (1 standard drink = 0.6 oz pur e alcohol) PHQ-2 Answer Date Recorded PHQ-2 score 1 04/30/2024 [place] Depression Scale Answer Date Recorded [place] Depression Scale Total 21 07/10/2023 The thought of harming myself has occurred to me . Never 07/10/2023 Area Deprivation Index Answer Date Rafael rded National Score (1-100), lower number is lower ri 78 11/05/2022 State Score (1-10), lower number is lower risk 6 11/05/2022 Data from: https://www.neighborhoodatlas.medicine.[facility]/. Last address used for calculation [address] [...] EDT Routine Office Visit Maternal Medicine [address] [place] [address] Anatomy 01/20/2025 3:00 PM EDT Routine Office Visit Obstetrics/Gynecolog y [address] [address] Marina Manley, SHIP PAINTER HELPER.CNM [address] [place] [address] ob/ per Marina 02/10/2025 2:30 PM EDT Office Visit Obstetrics/Gynecolog y [address] [address] Marina Manley, SHIP PAINTER HELPER.CNM [address] [place] [address] Annual 02/22/2025 1:15 PM EDT Routine Office Visit Obstetrics/Gynecolog y [address] [address] Marina Manley, SHIP PAINTER HELPER.CNM [address] [place] [address] OB monthly 03/22/2025 10:45 AM EDT Routine Office Visit Obstetrics/Gynecolog y [address] [address] Marina Manley, SHIP PAINTER HELPER.CNM [address] [place] [address] OB bi-weekly 04/05/2025 10:45 AM EDT Routine Office Visit Obstetrics/Gynecolog y [address] [address] Marina Manley, SHIP PAINTER HELPER.CNM [address] [place] [address] OB bi-weekly 04/19/2025 10:30 AM EDT Routine Office Visit Obstetrics/Gynecolog y [address] [address] Marina Manley, SHIP PAINTER HELPER.CNM [address] [place] [address] OB bi-weekly 05/03/2025 8:45 AM EST Routine Office Visit Obstetrics/Gynecolog y [address] [address] Marina Manley, SHIP PAINTER HELPER.CNM [address] [place] [address] OB weekly 05/10/2025 8:45 AM EST Routine Office Visit Obstetrics/Gynecolog y [address] [address] Marina Manley, SHIP PAINTER HELPER.CNM [address] [place] [address] OB weekly 05/17/2025 8:45 AM EST Routine Office Visit Obstetrics/Gynecolog y [address] [address] Marina Manley, SHIP PAINTER HELPER.CNM [address] [place] [address] OB weekly 05/24/2025 8:45 AM EST Routine Office Visit Obstetrics/Gynecolog y [address] [address] Marina Manley, SHIP PAINTER HELPER.CNM [address] [place] [address] OB weekly 05/31/2025 8:45 AM EST Routine Office Visit Obstetrics/Gynecolog y [address] [address] Marina Manley, SHIP PAINTER HELPER.CNM [address] [place] [address] OB weekly 06/07/2025 8:45 AM EST Routine Office Visit Obstetrics/Gynecolog y [address] [address] Marina Manley, SHIP PAINTER HELPER.CNM [address] [place] [address] OB weekly documented as of this encounter Visit Diagnoses Not on filedocumented in this encounter Care Teams Information Systems Specialist Relationship Specialty Start Date End Date Caren Travis APRN.CNM [address] [place] [address] Paper Sample Clerk Electric Dolly Operator 02/03/23 documented as of this encounter
--- OUTSIDE RECORDS SUMMARY | 2025-01-07 07:45 | XMS_ITS | Encounter Summary ---
Author Organization [facility] Address [address] [place] [address] Care Team Providers Care Laser Engraver Name Role Phone Caren Travis APRN.CNM Unavailable [phone] Source Comments In the event this information is protected by the Federal Confidentiality of Alcohol and Drug AbusePatient Records regulations: The Federal rules restrict any use of the information to criminally investigate or prosecute any alcohol or drug abuse patient.[facility] Encounter Details Date Type Department Care Team (Late st Contact Info) Description 01/13/2024 Patient [facility] [address] [place] [address] Provider, Ccdaniela HEWITT APPNT WITH Lauro CASTILLO Social History Tobacco Use Types Packs/Day Years Used Date Smoking Tobacco: Former Cigarettes Q uit: 11/2019 Smokeless Tobacco: Never Alcohol Use Standard Drinks/Week Comments No 0 (1 standard drink = 0.6 oz pur e alcohol) PHQ-2 Answer Date Recorded PHQ-2 score 2 09/14/2023 [place] Depression Scale Answer Date Recorded [place] Depression Scale Total 21 07/10/2023 The thought of harming myself has occurred to me . Never 07/10/2023 Area Deprivation Index Answer Date Rafael rded National Score (1-100), lower number is lower ri sk 78 11/05/2022 State Score (1-10), lower number is lower risk 6 11/05/2022 Data from: https://www.neighborhoodatlas.medicine.[facility]/. Last address used for calculation [address] [...] EDT Routine Office Visit Maternal Medicine [address] [facility] [address] [place] [address] Anatomy 01/20/2025 3:00 PM EDT Routine Office Visit Obstetrics/Gynecolog y [address] [address] Marina Manley, DINKEY SKINNER.CNM [address] [place] [address] ob/ per Marina 02/10/2025 2:30 PM EDT Office Visit Obstetrics/Gynecolog y [address] [address] Marina Manley, DINKEY SKINNER.CNM [address] [place] [address] Annual 02/22/2025 1:15 PM EDT Routine Office Visit Obstetrics/Gynecolog y [address] [address] Marina Manley, DINKEY SKINNER.CNM [address] [place] [address] OB monthly 03/22/2025 10:45 AM EDT Routine Office Visit Obstetrics/Gynecolog y [address] [address] Marina Manley, DINKEY SKINNER.CNM [address] [place] [address] OB bi-weekly 04/05/2025 10:45 AM EDT Routine Office Visit Obstetrics/Gynecolog y [address] [address] Marina Manley, DINKEY SKINNER.CNM [address] [place] [address] OB bi-weekly 04/19/2025 10:30 AM EDT Routine Office Visit Obstetrics/Gynecolog y [address] [address] Marina Manley, DINKEY SKINNER.CNM [address] [place] [address] OB bi-weekly 05/03/2025 8:45 AM EST Routine Office Visit Obstetrics/Gynecolog y [address] [address] Marina Manley, DINKEY SKINNER.CNM [address] [place] [address] OB weekly 05/10/2025 8:45 AM EST Routine Office Visit Obstetrics/Gynecolog y [address] [address] Marina Manley, DINKEY SKINNER.CNM [address] [place] [address] OB weekly 05/17/2025 8:45 AM EST Routine Office Visit Obstetrics/Gynecolog y [address] [address] Marina Manley, DINKEY SKINNER.CNM [address] [place] [address] OB weekly 05/24/2025 8:45 AM EST Routine Office Visit Obstetrics/Gynecolog y [address] [address] Marina Manley, DINKEY SKINNER.CNM [address] [place] [address] OB weekly 05/31/2025 8:45 AM EST Routine Office Visit Obstetrics/Gynecolog y [address] [address] Marina Manley, DINKEY SKINNER.CNM [address] [place] [address] OB weekly 06/07/2025 8:45 AM EST Routine Office Visit Obstetrics/Gynecolog y [address] [address] Marina Manley, DINKEY SKINNER.OSIRISM [address] [place] [address] OB weekly documented as of this encounter Visit Diagnoses Not on filedocumented in this encounter Care Teams Laser Engraver Relationship Specialty Start Date End Date Caren Travis, DINKEY SKINNER.OSIRIS [address] [place] [address] Sales Consultant Insurance Schedule Announcer 02/03/23 documented as of this encounter
--- OUTSIDE RECORDS SUMMARY | 2025-01-07 07:45 | XMS_ITS | Encounter Summary ---
Author Organization [facility] Address [address] [place] [address] Care Team Providers Care Floral Design Teacher Name Role Phone Caren Travis APRN.CNM Unavailable [phone] Source Comments In the event this information is protected by the Federal Confidentiality of Alcohol and Drug AbusePatient Records regulations: The Federal rules restrict any use of the information to criminally investigate or prosecute any alcohol or drug abuse patient.[facility] Encounter Details Date Type Department Care Team (Late st Contact Info) Description 10/06/2024 Patient Msg Obstetrics/Gynecology 1450 [facility] [address] [place] [id number] Provider, Ccf Important: Your 10/13/24 Appointment Has Changed Times. Social History Tobacco Use Types Packs/Day Years Used Date Smoking Tobacco: Former Cigarettes Q uit: 11/2019 Smokeless Tobacco: Never Alcohol Use Standard Drinks/Week Comments No 0 (1 standard drink = 0.6 oz pur e alcohol) PHQ-2 Answer Date Recorded PHQ-2 score 1 08/03/2024 [place] Depression Scale Answer Date Recorded [place] Depression Scale Total 21 07/10/2023 The thought of harming myself has occurred to me . Never 07/10/2023 Area Deprivation Index Answer Date Rafael rded National Score (1-100), lower number is lower ri sk 78 11/05/2022 State Score (1-10), lower number is lower risk 6 11/05/2022 Data from: https://www.neighborhoodatlas.medicine.[facility]/. Last address used for calculation 128 [...] Author No 02/05/2023 7:49 AM EDT Darya Mckoen APRN.CNM documented in this encounter Plan of Treatment Upcoming Encounters Date Type Department Care Team (Late st Contact Info) Description 01/10/2025 6:00 PM EDT Routine Office Visit Maternal Medicine [address] [place] [address] Anatomy 01/20/2025 3:00 PM EDT Routine Office Visit Obstetrics/Gynecolog y [address] [address] Marina Manley, YARN TESTER.CNM [address] [place] [address] ob/ per Marina 02/10/2025 2:30 PM EDT Office Visit Obstetrics/Gynecolog y [address] [address] Marina Manley, YARN TESTER.CNM 1450 [place] [address] Annual 02/22/2025 1:15 PM EDT Routine Office Visit Obstetrics/Gynecolog y [address] [address] Marina Manley, YARN TESTER.CNM 1450 [place] [address] OB monthly 03/22/2025 10:45 AM EDT Routine Office Visit Obstetrics/Gynecolog y [address] [address] Marina Manley, YARN TESTER.CNM 1450 [place] [address] OB bi-weekly 04/05/2025 10:45 AM EDT Routine Office Visit Obstetrics/Gynecolog y [address] [address] Marina Manley, YARN TESTER.CNM 1450 [place] [address] OB bi-weekly 04/19/2025 10:30 AM EDT Routine Office Visit Obstetrics/Gynecolog y [address] [address] Marina Manley, YARN TESTER.CNM 1450 [facility] [place] [address] OB bi-weekly 05/03/2025 8:45 AM EST Routine Office Visit Obstetrics/Gynecolog y [address] [facility] RAS [address] [place] [address] Marina Manley, YARN TESTER.CNM [address] [place] [address] OB weekly 05/10/2025 8:45 AM EST Routine Office Visit Obstetrics/Gynecolog y [address] [address] Marina Manley, YARN TESTER.CN [address] [place] [address] OB weekly 05/17/2025 8:45 AM EST Routine Office Visit Obstetrics/Gynecolog y [address] [address] Marina Manley, YARN TESTER.CNM [address] [place] [address] OB weekly 05/24/2025 8:45 AM EST Routine Office Visit Obstetrics/Gynecolog y [address] [address] Marina Manley, YARN TESTER.CN [address] [place] [address] OB weekly 05/31/2025 8:45 AM EST Routine Office Visit Obstetrics/Gynecolog y [address] [address] Marina Manley, YARN TESTER.CNM [address] [place] [address] OB weekly 06/07/2025 8:45 AM EST Routine Office Visit Obstetrics/Gynecolog y [address] [address] Marina Manley, YARN TESTER.TREVON [address] [place] [address] OB weekly documented as of this encounter Visit Diagnoses Not on filedocumented in this encounter Care Teams Floral Design Teacher Relationship Specialty Start Date End Date Caren Travis, YARN TESTER.TREVON [address] [place] [address] Social Science Professor Resident Care Associate 02/03/23 documented as of this encounter
--- OUTSIDE RECORDS SUMMARY | 2025-01-07 07:45 | XMS_ITS | Encounter Summary ---
Author Organization [facility] Address [address] [place] [address] Care Team Providers Care Admitted Attorneys Name Role Phone Caren Travis APRN.CNM Unavailable [phone] Source Comments In the event this information is protected by the Federal Confidentiality of Alcohol and Drug AbusePatient Records regulations: The Federal rules restrict any use of the information to criminally investigate or prosecute any alcohol or drug abuse patient.[facility] Encounter Details Date Type Department Care Team (Late st Contact Info) Description 09/18/2023 Patient Msg Psychiatry [address] [facility] [address] [phone] Nettie Asif, Research Nurse After-Visit Summary Social History Tobacco Use Types Packs/Day Years Used Date Smoking Tobacco: Former Cigarettes Q uit: 11/2019 Smokeless Tobacco: Never Alcohol Use Standard Drinks/Week Comments No 0 (1 standard drink = 0.6 oz pur e alcohol) PHQ-2 Answer Date Recorded PHQ-2 score 2 09/14/2023 [place] Depression Scale Answer Date Recorded [place] Depression Scale Total 21 07/10/2023 The thought of harming myself has occurred to me . Never 07/10/2023 Area Deprivation Index Answer Date Rafael rded National Score (1-100), lower number is lower ri sk 78 11/05/2022 State Score (1-10), lower number is lower risk 6 11/05/2022 Data from: https://www.neighborhoodatlas.medicine.[facility]/. Last address used for calculation [address] [...] EDT Routine Office Visit Maternal Medicine [address] [place], [place] [id number] Anatomy 01/20/2025 3:00 PM EDT Routine Office Visit Obstetrics/Gynecolog y [address] [address] Marina Manley, LOAN ASSOCIATE.CNM [address] [place] [address] ob/ per Marina 02/10/2025 2:30 PM EDT Office Visit Obstetrics/Gynecolog y [address] [address] Marina Manley, LOAN ASSOCIATE.CNM [address] [place] [address] Annual 02/22/2025 1:15 PM EDT Routine Office Visit Obstetrics/Gynecolog y [address] [address] Marina Manley, LOAN ASSOCIATE.CNM [address] [place] [address] OB monthly 03/22/2025 10:45 AM EDT Routine Office Visit Obstetrics/Gynecolog y [address] [address] Marina Manley, LOAN ASSOCIATE.CNM 1450 [place] [address] OB bi-weekly 04/05/2025 10:45 AM EDT Routine Office Visit Obstetrics/Gynecolog y [address] [address] Marina Manley, LOAN ASSOCIATE.CNM 1450 [place] [address] OB bi-weekly 04/19/2025 10:30 AM EDT Routine Office Visit Obstetrics/Gynecolog y [address] [address] Marina Manley, LOAN ASSOCIATE.CNM [address] [place] [address] OB bi-weekly 05/03/2025 8:45 AM EST Routine Office Visit Obstetrics/Gynecolog y [address] [address] Marina Manley, LOAN ASSOCIATE.CNM [address] [place] [address] OB weekly 05/10/2025 8:45 AM EST Routine Office Visit Obstetrics/Gynecolog y [address] [address] Marina Manley, LOAN ASSOCIATE.CNM [address] [place] [address] OB weekly 05/17/2025 8:45 AM EST Routine Office Visit Obstetrics/Gynecolog y [address] [address] Marina Manley, LOAN ASSOCIATE.CNM 1450 [place] [address] OB weekly 05/24/2025 8:45 AM EST Routine Office Visit Obstetrics/Gynecolog y [address] [address] Marina Manley, LOAN ASSOCIATE.CNM 1450 [place] [address] OB weekly 05/31/2025 8:45 AM EST Routine Office Visit Obstetrics/Gynecolog y [address] [address] Marina Manley, LOAN ASSOCIATE.CNM [address] [place] [address] OB weekly 06/07/2025 8:45 AM EST Routine Office Visit Obstetrics/Gynecolog y [address] [address] Marina Manley, LOAN ASSOCIATE.CNM [address] [place] [address] OB weekly documented as of this encounter Visit Diagnoses Not on filedocumented in this encounter Care Teams Admitted Attorneys Relationship Specialty Start Date End Date Caren Travis, LOAN ASSOCIATE.OSIRIS [address] [place] [address] House Principal Election Judge 02/03/23 documented as of this encounter
--- OUTSIDE RECORDS SUMMARY | 2025-01-07 07:45 | XMS_ITS | Encounter Summary ---
Author [facility] Address [id number] [address] [place] [address] Care Team Providers Care Quartz Orientator Name Role Phone Unavailable Primary Care Provider Unavailabl e Encounter Details Date Type Department Care Team (Late st Contact Info) Description 08/28/2022 Orders Only [facility] - ENT [address] [place] [address], [address] [place] [phone] Christian Bryan MD [address] [place] [address] [address] [place] [address] Social History Tobacco Use Types Packs/Day Years Used Date Smoking Tobacco: Former Smokeless Tobacco: Never Alcohol Use Standard Drinks/Week Comments Not Currently 0 (1 standard drink = 0.6 oz pur e alcohol) Childcare Answer Date Recorded Childcare Unknown 12/07/2018 Employment Answer Date Recorded Employment Unknown 12/07/2018 Comments Unknown Sex and Gender Information Value Date Recorded Sex Assigned at Not on file Legal Sex Female 12:04 PM EDT Gender Identity Not on file Sexual Orientation Not on file COVID-19 Exposure Response Date Recorded In the last month, have you been in contact with someone who was confirmed or suspected to have Coronavirus / COVID-19? No / Unsure 08/28/2022 9:23 AM EST documented as of this encounter Plan of Treatment Not on file documented as of this encounter Procedures Procedure Name Priority Date/Time Associated Diagnosis Comments COMPREHENSIVE HEARING TEST Routine 08/28/2022 9:30 AM EST documented in this encounter Results * Comprehensive hearing test (08/28/2022 9:30 AM EST) Narrative MANUALLY TRANSCRIBED RESULTS - 08/28/2022 9:30 AM EST Audiology evaluation was completed on 08/28/2022 us Christian Bryan MD AUDIOLOGY SERVICES ORDERABLE S Final Result MANUALLY TRANSCRIBED RESULTS documented in this encounter Visit Diagnoses Not on filedocumented in this encounter
--- OUTSIDE RECORDS SUMMARY | 2025-01-07 07:45 | XMS_ITS | Encounter Summary ---
Author Organization [facility] Address [address] [place] [address] Care Team Providers Care Assistant Casino Shift Manager Name Role Phone Caren Travis APRN.CNM Unavailable Source Comments In the event this information is protected by the Federal Confidentiality of Alcohol and Drug AbusePatient Records regulations: The Federal rules restrict any use of the information to criminally investigate or prosecute any alcohol or drug abuse patient.[facility] Encounter Details Date Type Department Care Team (Late st Contact Info) Description 10/01/2024 [place] [address] Provider, Ccf Resource Guide Social History Tobacco Use Types Packs/Day Years Used Date Smoking Tobacco: Former Cigarettes Q uit: 11/2019 Smokeless Tobacco: Never Alcohol Use Standard Drinks/Week Comments No 0 (1 standard drink = 0.6 oz pur e alcohol) PHQ-2 Answer Date Recorded PHQ-2 score 1 08/03/2024 [place] Depression Scale Answer Date Recorded [place] Depression Scale Total 21 07/10/2023 The thought of harming myself has occurred to me . Never 07/10/2023 Area Deprivation Index Answer Date Rafael rded National Score (1-100), lower number is lower ri sk 78 11/05/2022 State Score (1-10), lower number is lower risk 6 11/05/2022 Data from: https://www.neighborhoodatlas.[facility]/. Last address used for calculation [...] EDT Routine Office Visit Maternal Medicine [address] [place] [address] Anatomy 01/20/2025 3:00 PM EDT Routine Office Visit Obstetrics/Gynecolog y [address] [address] Marina Manley, ELDERLY SITTER.CNM [address] [place] [address] ob/ per Marina 02/10/2025 2:30 PM EDT Office Visit Obstetrics/Gynecolog y [address] [address] Marina Manley, ELDERLY SITTER.CNM [address] [place] [address] Annual 02/22/2025 1:15 PM EDT Routine Office Visit Obstetrics/Gynecolog y [address] [address] Marina Manley, ELDERLY SITTER.CNM [address] [place] [address] OB monthly 03/22/2025 10:45 AM EDT Routine Office Visit Obstetrics/Gynecolog y [address] [address] Marina Manley, ELDERLY SITTER.CNM [address] [place] [address] OB bi-weekly 04/05/2025 10:45 AM EDT Routine Office Visit Obstetrics/Gynecolog y [address] [address] Marina Manley, ELDERLY SITTER.CNM [address] [place] [address] OB bi-weekly 04/19/2025 10:30 AM EDT Routine Office Visit Obstetrics/Gynecolog y [address] [address] Mraina Manley, ELDERLY SITTER.CNM [address] [place] [address] OB bi-weekly 05/03/2025 8:45 AM EST Routine Office Visit Obstetrics/Gynecolog y [address] [address] Marina Manley, ELDERLY SITTER.CNM [address] [place] [address] OB weekly 05/10/2025 8:45 AM EST Routine Office Visit Obstetrics/Gynecolog y [address] [address] Marina Manley, ELDERLY SITTER.CNM 1450 [place] [address] OB weekly 05/17/2025 8:45 AM EST Routine Office Visit Obstetrics/Gynecolog y [address] [address] Marina Manley, ELDERLY SITTER.CNM 1450 [place] [address] OB weekly 05/24/2025 8:45 AM EST Routine Office Visit Obstetrics/Gynecolog y [address] [address] Marina Manley, ELDERLY SITTER.CNM 1450 [place] [address] OB weekly 05/31/2025 8:45 AM EST Routine Office Visit Obstetrics/Gynecolog y [address] [address] Marina Manley, ELDERLY SITTER.CNM 1450 [place] [address] OB weekly 06/07/2025 8:45 AM EST Routine Office Visit Obstetrics/Gynecolog y [address] [address] Marina Manley, ELDERLY SITTER.CNM 1450 [place] [address] OB weekly documented as of this encounter Visit Diagnoses Not on filedocumented in this encounter Care Teams Assistant Casino Shift Manager Relationship Specialty Start Date End Date Caren Travis APRN.TREVON [address] [place] [address] Mobile Phone Salesperson Photo Retoucher 02/03/23 documented as of this encounter
--- OUTSIDE RECORDS SUMMARY | 2025-01-07 07:45 | XMS_ITS | Encounter Summary ---
Author Organization [employer] Address [id number] [address] [place] [address] Care Team Providers Care Trim Technician Name Role Phone Unavailable Primary Care Provider Unavailabl e Reason for Referral * Diagnostic Imaging (Routine) - Closed Specialty Diagnoses / Procedures Referred By Contac t Referred To Contact Radiology Diagnoses Pain Procedures MR brain with and without contrast [facility] [address] [place] [phone] Phone: tel: fax: Referral ID Status Reason Start Date Expiration Date Visits Re quested Visits Authorized [id number] Closed 05/13/2022 05/13/2023 1 1 Encounter Details Date Type Department Care Team (Late st Contact Info) Description 05/13/2022 Orders Only [facility] [address] [place] [phone] Transcribe, Orders Support User Pain (Primary Dx) Social History Tobacco Use Types Packs/Day Years [...] have Coronavirus / COVID-19? No / Unsure 05/15/2022 10:47 AM EST documented as of this encounter Plan of Treatment Not on file documented as of this encounter Results * MR brain with and without contrast (04/11/2022 10:20 AM EDT) us Scanning Provider External IMG MRI ORDERABLES Fi nal Result documented in this encounter Visit Diagnoses Diagnosis Pain- Primary Generalized pain documented in this encounter
--- OUTSIDE RECORDS SUMMARY | 2025-01-07 07:45 | XMS_ITS | Encounter Summary ---
Author Organization [facility] Address [address] [place] [address] Care Team Providers Care Lead Systems Analyst Name Role Phone Caren Travis APRN.CNM Unavailable [phone] Source Comments In the event this information is protected by the Federal Confidentiality of Alcohol and Drug AbusePatient Records regulations: The Federal rules restrict any use of the information to criminally investigate or prosecute any alcohol or drug abuse patient.[facility] Encounter Details Date Type Department Care Team (Late st Contact Info) Description 01/13/2024 Patient Msg Physical Therapy [address] [place] [address] Christen Arce, PT [address] [place] [address] Appointment Request Social History Tobacco Use Types Packs/Day Years Used Date Smoking Tobacco: Former Cigarettes Q uit: 11/2019 Smokeless Tobacco: Never Alcohol Use Standard Drinks/Week Comments No 0 (1 standard drink = 0.6 oz pur e alcohol) PHQ-2 Answer Date Recorded PHQ-2 score 2 09/14/2023 [place] Depression Scale Answer Date Recorded [place] Depression Scale Total 21 07/10/2023 The thought of harming myself has occurred to me . Never 07/10/2023 Area Deprivation Index Answer Date Rafael rded National Score (1-100), lower number is lower ri sk 78 11/05/2022 State Score (1-10), lower number is lower risk 6 11/05/2022 Data from: https://www.neighborhoodatlas.medicine.[facility]/. Last address used for calculation 128 [...] Visit Maternal Medicine [address] [place] [address] Anatomy 01/20/2025 3:00 PM EDT Routine Office Visit Obstetrics/Gynecolog y [address] [address] Marina Manley, TECHNICIAN SUBMARINE CABLE EQUIPMENT.CNM 1450 [place] [address] ob/ per Marina 02/10/2025 2:30 PM EDT Office Visit Obstetrics/Gynecolog y [address] [address] Marina Manley, TECHNICIAN SUBMARINE CABLE EQUIPMENT.CNM 1450 [place] [address] Annual 02/22/2025 1:15 PM EDT Routine Office Visit Obstetrics/Gynecolog y [address] [address] Marina Manley, TECHNICIAN SUBMARINE CABLE EQUIPMENT.CNM 1450 [place] [address] OB monthly 03/22/2025 10:45 AM EDT Routine Office Visit Obstetrics/Gynecolog y [address] [address] Marina Manley, TECHNICIAN SUBMARINE CABLE EQUIPMENT.CN [address]50 [place] [address] OB bi-weekly 04/05/2025 10:45 AM EDT Routine Office Visit Obstetrics/Gynecolog y [address] [address] Marina Manley, TECHNICIAN SUBMARINE CABLE EQUIPMENT.CNM [address] [place] [address] OB bi-weekly 04/19/2025 10:30 AM EDT Routine Office Visit Obstetrics/Gynecolog y [address] [address] Marina Manley, TECHNICIAN SUBMARINE CABLE EQUIPMENT.CNM [address] [place] [address] OB bi-weekly 05/03/2025 8:45 AM EST Routine Office Visit Obstetrics/Gynecolog y [address] [address] Marina Manley, TECHNICIAN SUBMARINE CABLE EQUIPMENT.CNM [address] [place] [address] OB weekly 05/10/2025 8:45 AM EST Routine Office Visit Obstetrics/Gynecolog y [address] [address] Marina Manley, TECHNICIAN SUBMARINE CABLE EQUIPMENT.CNM [address] [place] [address] OB weekly 05/17/2025 8:45 AM EST Routine Office Visit Obstetrics/Gynecolog y [address] [address] Marina Manley, TECHNICIAN SUBMARINE CABLE EQUIPMENT.CNM [address] [place] [address] OB weekly 05/24/2025 8:45 AM EST Routine Office Visit Obstetrics/Gynecolog y [address] [address] Marina Manley, TECHNICIAN SUBMARINE CABLE EQUIPMENT.CNM [address] [place] [address] OB weekly 05/31/2025 8:45 AM EST Routine Office Visit Obstetrics/Gynecolog y [address] [address] Marina Manley, TECHNICIAN SUBMARINE CABLE EQUIPMENT.CNM [address] [place] [address] OB weekly 06/07/2025 8:45 AM EST Routine Office Visit Obstetrics/Gynecolog y [address] [address] Marina Manley, TECHNICIAN SUBMARINE CABLE EQUIPMENT.TREVON [address] [place] [address] OB weekly documented as of this encounter Visit Diagnoses Not on filedocumented in this encounter Care Teams Lead Systems Analyst Relationship Specialty Start Date End Date Caren Travis, TECHNICIAN SUBMARINE CABLE EQUIPMENT.TREVON [address] [place] [address] Lead Designer Setter Up 02/03/23 documented as of this encounter
--- NOTE | 2025-01-07 07:46 | CA_ITS ---
Patient Name: NELLA DA SILVA MR#: [id number] : 1990 Exam Date: 01/07/2025 Ordering Doctor: DR JAY NEGRON . ECHOCARDIOGRAM REPORT PROCEDURE: CA ECHO LIMITED INDICATIONS: Lightheadedness, 19 weeks COMPARISON: None. DESCRIPTION: Limited ECHOCARDIOGRAM Real-time transthoracic echocardiography with 2D and M-mode performed. QUALITY: Technical quality was good. Limited echocardiogram per physician order. LEFT VENTRICLE: Normal chamber size. Normal left ventricular wall thickness. Normal left ventricle systolic function without segmental motion abnormalities, estimated left ventricular ejection fraction is 65%. LV EF: Normal left ventricular ejection fraction, (>55%). DIASTOLIC: ATRIAL SEPTUM: Appears intact LEFT ATRIUM: Normal chamber size. RIGHT ATRIUM: Normal chamber size. RIGHT VENTRICLE: Normal chamber size. TRICUSPID VALVE: Normal mobility and thickness. MITRAL VALVE: Normal mobility and thickness. There is no mitral annular calcification. AORTIC VALVE: Normal trileaflet appearance. No visible sclerosis. Normal leaflet mobility. AORTIC ROOT: Normal diameter and appearance. PULMONIC VALVE: Normal thickness and mobility. PERICARDIUM: No evidence of pericardial effusion. IVC: Collapes with inspirations. IVC is normal in size. PLEURA: CONCLUSION: Normal left ventricular systolic function without wall motion abnormalities, estimated ejection fraction 65% Adult Echocardiography Procedure Report Left Ventricle LVEDD (3.7 - 5.6 cm): 3.94 cm LVESD (2.2 - 4.0 cm): 2.68 cm LVIVS thickness (0.6 - 1.2 cm): 1.05 cm LVPW thickness (0.5 - 1.0 cm): 0.96 cm e': E - e': LVOT Max Gradient: LVOT Area (cm2): Peak Velocity (LVOT): Mean Velocity (LVOT): LVOT Diameter 2.12 cm Left Ventricular Ejection Fraction: 75.27 % Left Atrium LA Volume Index (2D A2C): 28.76 ml/m2 Left Atrium Systolic Dimension: 3.02 cm Mitral Valve MV E to A Ratio: MV Max Gradient: MV Mean Gradient: Mitral Valve A-Wave Peak Velocity: Mitral Valve E-Wave Peak Velocity: Cardiovascular Orifice Area: Right Ventricle RV Internal Diastolic Dimension: Aorta AO Root Diam: 2.77 cm Ascending Ao Diam: Aortic Valve AoV Area (Peak Juan M): AoV Area (VTI): Deceleration [place]: Pressure Half-Time: Peak Velocity(Antegrade Flow): Peak Gradient(Antegrade Flow): Mean Velocity(Antegrade Flow): Mean Gradient(Antegrade Flow): Velocity Time Integral: Tricuspid Valve Peak Velocity (Regurgitant Flow): Peak Velocity: Pulmonic Valve Mean Gradient: Mean Velocity: Peak Velocity: Peak Gradient: Right Atrium Right Atrium Systolic Pressure: 54.44 ml, 54.44 ml Dictated by: Emma Cardoza MD on 01/07/2025 at 17:04 Approved by: Emma Cardoza MD on 01/07/2025 at 17:09
--- NOTE | 2025-01-07 07:46 | ECG_ITS ---
[facility] Test Date: 2025-01-07 Pat Name: NELLA DA SILVA Department: Room: 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
--- OUTSIDE RECORDS SUMMARY | 2025-01-07 07:46 | XMS_ITS | Encounter Summary ---
Author Organization [facility] Address [address] [place] [address] Care Team Providers Care Storm Sash Maker Name Role Phone Caren Travis CNM Unavailable [phone] Source Comments In the event this information is protected by the Federal Confidentiality of Alcohol and Drug AbusePatient Records regulations: The Federal rules restrict any use of the information to criminally investigate or prosecute any alcohol or drug abuse patient.[facility] Encounter Details Date Type Department Care Team (Late st Contact Info) Description 12/17/2024 [place] [address] [place] [address] Marina Manley APRN.CNM [address] [place] [address] Social History Tobacco Use Types Packs/Day Years Used Date Smoking Tobacco: Former Cigarettes Q uit: 11/2019 Passive Smoke Exposure: Never Smokeless Tobacco: Never Alcohol Use Standard Drinks/Week Comments No 0 (1 standard drink = 0.6 oz pur e alcohol) PHQ-2 Answer Date Recorded PHQ-2 score 1 10/31/2024 [place] Depression Scale Answer Date Recorded [place] Depression Scale Total 21 07/10/2023 The thought of harming myself has occurred to me . Never 07/10/2023 Area Deprivation Index Answer Date Rafael rded National Score (1-100), lower number is lower ri sk 65 10/13/2024 State Score (1-10), lower number is lower risk 4 10/13/2024 Data from: https://www.neighborhoodatlas.medicine.[facility]/. Last address used for calculation [address] 10/13/2024 Estimated Date of Delivery Comme nts Yes 06/04/2025 Based on Ultraso und Sex and Gender Information Value Date Recorded [...] Entry Date Author No 02/05/2023 7:49 AM EDDarya Mckeon APRN.CNM documented in this encounter Plan of Treatment Upcoming Encounters Date Type Department Care Team (Late st Contact Info) Description 01/10/2025 6:00 PM EDT Routine Office Visit Maternal Medicine [address] [address] Anatomy 01/20/2025 3:00 PM EDT Routine Office Visit Obstetrics/Gynecolog y [address] [address] Marina Manley, FEED IN WORKER.CNM [address] [place] [address] ob/ per Marina 02/10/2025 2:30 PM EDT Office Visit Obstetrics/Gynecolog y [address] [address] Marina Manley, FEED IN WORKER.CNM [address] [place] [address] Annual 02/22/2025 1:15 PM EDT Routine Office Visit Obstetrics/Gynecolog y [address] [address] Marina Manley, FEED IN WORKER.CNM [address] [place] [address] OB monthly 03/22/2025 10:45 AM EDT Routine Office Visit Obstetrics/Gynecolog y [address] [address] Marina Manley, FEED IN WORKER.CNM [address] [place] [address] OB bi-weekly 04/05/2025 10:45 AM EDT Routine Office Visit Obstetrics/Gynecolog y [address] [address] Marina Manley, FEED IN WORKER.CNM [address] [place] [address] OB bi-weekly 04/19/2025 10:30 AM EDT Routine Office Visit Obstetrics/Gynecolog y [address] [address] Marina Manley, FEED IN WORKER.CNM [address] [place] [address] OB bi-weekly 05/03/2025 8:45 AM EST Routine Office Visit Obstetrics/Gynecolog y [address] [address] Marina Manley, FEED IN WORKER.CNM [address] [place] [address] OB weekly 05/10/2025 8:45 AM EST Routine Office Visit Obstetrics/Gynecolog y [address] [address] Marina Manley, FEED IN WORKER.CNM [address] [place] [address] OB weekly 05/17/2025 8:45 AM EST Routine Office Visit Obstetrics/Gynecolog y [address] [address] Marina Manley, FEED IN WORKER.CNM [address] [place] [address] OB weekly 05/24/2025 8:45 AM EST Routine Office Visit Obstetrics/Gynecolog y [address] [address] Marina Manley, FEED IN WORKER.CNM [address] [place] [address] OB weekly 05/31/2025 8:45 AM EST Routine Office Visit Obstetrics/Gynecolog y [address] [address] Marina Manley, FEED IN WORKER.CNM [address] [place] [address] OB weekly 06/07/2025 8:45 AM EST Routine Office Visit Obstetrics/Gynecolog y [address] [place] [address] Marina Manley, FEED IN WORKER.TREVON [address] [place] [address] OB weekly documented as of this encounter Visit Diagnoses Not on filedocumented in this encounter Care Teams Storm Sash Maker Relationship Specialty Start Date End Date Caren Travis, FEED IN WORKER.TREVON [address] [place] [address] Boiler Maker Head Of Partner Development 02/03/23 documented as of this encounter
--- OUTSIDE RECORDS SUMMARY | 2025-01-07 07:46 | XMS_ITS | Encounter Summary ---
Author Organization [facility] Address [address] [place] [address] Care Team Providers Care Sba Business Development Officer Name Role Phone Caren Travis APRN.CNM Unavailable [phone] Source Comments In the event this information is protected by the Federal Confidentiality of Alcohol and Drug AbusePatient Records regulations: The Federal rules restrict any use of the information to criminally investigate or prosecute any alcohol or drug abuse patient.[facility] Encounter Details Date Type Department Care Team (Late st Contact Info) Description 06/11/2022 [place] [address] Provider, [facility] Questionnaire Submission Social History Tobacco Use Types Packs/Day Years Used Date Smoking Tobacco: Former Cigarettes Q uit: 11/2019 Smokeless Tobacco: Never Alcohol Use Standard Drinks/Week Comments No 0 (1 standard drink = 0.6 oz pur e alcohol) [place] Depression Scale Answer Date Recorded [place] Depression Scale Total 2 01/30/2021 The thought of harming myself has occurred to me . Never 01/30/2021 Area Deprivation Index Answer Date Rafael rded National Score (1-100), lower number is lower ri sk Not on file 12/28/2020 State Score (1-10), lower number is lower risk N ot on file 12/28/2020 Data from: https://www.[facility] systematlas.[facility]/. Last address used for calculation Not on file 12/28/2020 Comments No Sex and Gender Information Value [...] EDT Routine Office Visit Maternal Medicine [address] [place] [address] Anatomy 01/20/2025 3:00 PM EDT Routine Office Visit Obstetrics/Gynecolog y [address] [place] [address] Marina Manley, REWORKER.CNM [address] [place] [address] ob/ per Marina 02/10/2025 2:30 PM EDT Office Visit Obstetrics/Gynecolog y [address] [place] [address] Marina Manley, REWORKER.CNM [address] [place] [address] Annual 02/22/2025 1:15 PM EDT Routine Office Visit Obstetrics/Gynecolog y [address] [place] [address] Marina Manley, REWORKER.CNM [address] [place] [address] OB monthly 03/22/2025 10:45 AM EDT Routine Office Visit Obstetrics/Gynecolog y [address] [address] Marina Manley, REWORKER.CNM [address] [place] [address] OB bi-weekly 04/05/2025 10:45 AM EDT Routine Office Visit Obstetrics/Gynecolog y [address] [address] Marina Manley, REWORKER.CNM [address] [place] [address] OB bi-weekly 04/19/2025 10:30 AM EDT Routine Office Visit Obstetrics/Gynecolog y [address] [address] Marina Manley, REWORKER.CNM [address] [place] [address] OB bi-weekly 05/03/2025 8:45 AM EST Routine Office Visit Obstetrics/Gynecolog y [address] [place] [address] Marina Manley, REWORKER.CNM [address] [place] [address] OB weekly 05/10/2025 8:45 AM EST Routine Office Visit Obstetrics/Gynecolog y [address] [address] Marina Manley, REWORKER.CNM [address] [place] [address] OB weekly 05/17/2025 8:45 AM EST Routine Office Visit Obstetrics/Gynecolog y [address] [address] Marina Manley, REWORKER.CNM [address] [place] [address] OB weekly 05/24/2025 8:45 AM EST Routine Office Visit Obstetrics/Gynecolog y [address] [address] Marina Manley, REWORKER.CNM [address] [place] [address] OB weekly 05/31/2025 8:45 AM EST Routine Office Visit Obstetrics/Gynecolog y [address] [address] Marina Manley, REWORKER.CNM [address] [place] [address] OB weekly 06/07/2025 8:45 AM EST Routine Office Visit Obstetrics/Gynecolog y [address] [address] Marina Manley, REWORKER.CNM [address] [place] [address] OB weekly documented as of this encounter Visit Diagnoses Not on filedocumented in this encounter Care Teams Sba Business Development Officer Relationship Specialty Start Date End Date Caren Travis APRN.OSIRIS [address] [place] [id number] Crayon Grader Senior Java Programmer Analyst 02/03/23 documented as of this encounter
--- OUTSIDE RECORDS SUMMARY | 2025-01-07 07:46 | XMS_ITS | Clinical Summary ---
Author Organization [facility] Address [facility] [place] [address] Care Team Providers Care Lease Broker Name Role Phone Caren Travis APRN.CNM Unavailable [phone] Allergies No known active allergies Medications budesonide-form oterol (SYMBICORT) 160-4.5 mcg/actuation inhaler Active vit/iron fum/folic ac ( 1 + 1 ORAL) Active albuterol HFA (PROVENTIL HFA, VENTOLIN HFA) 90 mcg/actuation inhaler 2 puffs as needed Inhalation every 4 hrs Active cholecalciferol (VITAMIN D-3) 50 mcg (2,000 unit) tablet Take 2,000 Units by mouth once daily. Active magnesium oxide (MAG-OX) 400 mg (241.3 mg magnesium) tablet TAKE 1 TABLET BY MOUTH TWICE A DAY 180 tablet 2 4 Active FLUoxetine (PROZAC) 20 mg capsuleIndicati ons:ELISA (generalized anxiety disorder),Post- depression Take 1 capsule by mouth once daily. Take in addition to the 10mg tab for a total of 30mg 90 capsule 2 4 03/21/20 25 Active aspirin, enteric coated (ECOTRIN LOW STRENGTH) 81 mg EC tabletIndicatio ns: care, subsequent in first trimester (HCC) Take 1 tablet by mouth once daily. 90 tablet 3 5 Active buPROPion XL (WELLBUTRIN XL) 150 mg 24 hr tabletIndicatio ns:ELISA (generalized anxiety disorder),Post- depression Take 1 tablet by mouth once daily. 90 tablet 1 5 Active FLUoxetine (PROZAC) 10 mg capsuleIndicati ons:ELISA (generalized anxiety disorder),Post- depression TAKE 1 CAPSULE BY MOUTH ONCE DAILY. TAKE IN ADDITION TO THE 20MG FOR A TOTAL OF 30MG 90 capsule 5 03/02/20 25 Active ondansetron (ZOFRAN) 4 mg tablet Take 1 tablet by mouth every 8 hours as needed for nausea/vomiting . 60 tablet 1 5 Active Active Problems Problem Noted Date Diagnosed Date care, subsequent in [facility] 10/13/2024 Overview (10/13/2024): Care Checklist Vaccines: [] Flu vaccine [] declined [] RSV vaccine 32 - 36 12/04 (Feb - Jul) [] declined [] COVID vaccine [] declined [] TDaP 27-36 [] declined First trimester: [x] Dating US [x] 1st tri labs [x] Pap smear (repeat jan 2025 for HPV pos) [] Carrier screening [x] declined [] NIPT screening [x] declined [] First trimester anatomy scan [x] declined [x] universal ASA ordered (start 12w-16w) [] declined [] M Power Consult [x] not indicated [x] declined Second trimester: [] Anatomy scan [] Mode of Delivery - [] Feeding - [] Pump ordered [] Diabetes screen [] CBC, RPR [] Behavioral Health Screening Third trimester (28-30 weeks): [] Consent [] Contraception [] Math And Science Instructor [] TeamBirth handout Third trimester (36-40 weeks): [] GBS [] Presentation - [] Scheduled [] yes - Hibiclens, pre-op instructions, CBC, T&S ordered [] no [] H&P [] Preferences worksheet [] Scanned in EMR [] Patient to bring copy to hospital [] Declined Spasm of muscle 08/29/2023 Coccydynia 08/29/2023 Chronic tension-type headache, not intractable 0 07/10/2022 Migraines 11/01/2020 Mild intermittent asthma without complication Overview (01/15/2023): Hospitalized as a child and 2018 as an adult. Never intubated. No problems since starting steriods. Estimated Date of Delivery Comme nts Yes 06/04/2025 Based on Ultraso und Resolved Problems Problem Noted Date Diagnosed Date Resolved Date Encounter for planned induction of labor 02/03/2023 02/03/2023 Normal labor and delivery 02/03/2023 Vaginal delivery 02/03/2023 03/31/2023 Encounter for supervision of normal first in second trimester 09/04/2022 02/03/2023 Heart palpitations 07/10/2022 Overview (09/04/2022): 09/04/22: Pt stopped taking metop and stopped using/needing inhaler. Intermittent, but was affecting sleep. Started on metoprolol in Jun 2020. Discussed risk and benefits of use during . If using will need FG starting at 28 weeks. - Nancy Quiroga APRN.CNM Amniotic fluid leaking 01/08/202101/08 care following vaginal delivery 01/08/2021 03/31/2023 At risk for difficulty 01/08/2021 07/10/2022 History of premature rupture of membranes (PPROM) 11/01/2020 01/09/2021 Overview (11/01/2020): PPROM and delivery at 36w6d. Reports was in a stressful relationship with FOB#1. - Nancy Quiroga APRN.CNM History of pre-eclampsia 11/01/202012/2022 Overview (12/30/2022): Noted in chart with first but not reported by client. Without severe features. With FOB#1. - Nancy Quiroga APRN.CNM Low-lying placenta 11/01/2020 Overview (11/01/2020): Noted on anatomy scan at 18 wks on 08/16/20 1 cm from the internal os . Has been on pelvic rest. Is having a repeat US at 32wks at [place]. Will provide copy of US after completion. - Nancy Quiroga APRN.CNM History of depression 11/01/2020 01/09/2021 Overview (11/01/2020): Related to challenges with FOB#1. - Nancy Quiroga APRN.CNM History of delivery, currently 11/01/2020 01/09/2021 Overview (11/01/2020): See PPROM Rh negative state in antepartum period 11/01/2020 02/03/2023 Overview (11/01/2020): Received 3rd trimester Rhogam. - Nancy Quiroga APRN.CNM Encounters Date Type Department Care Team Description 12/30/2024 Get Medical Advice Obstetrics/Gynecol ogy [address] [facility] [address] [place] [address] Marina Manley APRN.CNM Anti-emetic 12/17/2024 [place] [address] [place] [address] Marina Manley APRN.CNM 12/16/2024 9:00 AM EDT Routine Office Visit Obstetrics/Gynecol ogy [address] [facility] [address] [place] [address] Marina Manley APRN.CNM 15 weeks gestation of (HCC) (Primary Dx); care, subsequent in second trimester (HCC) 12/14/2024 Travel 12/02/2024 Refill Psychiatry [address] [facility] [address] [place] [address] Camille Pavon APRN.RN ONCOLOGY RESEARCH Refill Request 11/11/2024 9:00 AM EDT Routine Office Visit Obstetrics/Gynecol ogy [address] [facility] [address] [place] [address] Marina Manley APRN.CNM care, subsequent in first trimester (HCC) (Primary Dx) 11/11/2024 Travel 11/05/2024 Get Medical Advice Obstetrics/Gynecol ogy [address] [place] [address] Marina Manley APRN.CNM Appt on 11/1111/02/2024 9:30 AM EDT [facility] Psychiatry [address] [place] [address] Camille Pavon APRN.RN ONCOLOGY RESEARCH Obsessive-compulsive disorder, unspecified type (Primary Dx); ELISA (generalized anxiety disorder); Post- depression 10/13/2024 9:30 AM EDT Initial Office Visit Obstetrics/Gynecol ogy [address] [place] [address] Marina Manley APRN.CNM care, subsequent in first trimester (HCC) (Primary Dx); 6 weeks gestation of (HCC) [Z3A.01] 10/13/2024 Get Medical Advice Obstetrics/Gynecol ogy [address] [place] [address] Marina Manley APRN.CNM Question about restrictions 10/13/2024 Get Medical Advice Psychiatry [address] [place] [phone] Provider, [facility] Medication change 10/08/2024 Patient Msg Gynecology [address] [address] Torito Zavala, Research Coordinator [facility] and [facility] Researchers seek your help with a study from Last 3 Months Immunizations Immunization Administration Dates Next Due Haemophilus influenzae b (Hi b) vaccine, unspecified formulation 09/04/1993,01/31/1993,1992 RhoD immune globulin 11/06/2022 diphtheria tetanus pertussis (DTP) vaccine 09/04/1993,01/31/1993,1992 diphtheria tetanus pertussis (DTaP) vaccine, unspecified formulation 12/26/1997,08/20/1994 hepatitis B (HepB) vaccine, 3-dose series, age 0 yr - 19 yr (ENGERIX B-PEDS, RECOMBIVAX HB-PEDS) 09/04/1993,01/31/1993,1992 influenza (ccIIV4) vaccine, age 6+ mo, quadrivalent, PF (FLUCELVAX) 04/27/2022 measles mumps rubella (MMR) vaccine (M-M-R II, PRIORIX) 12/26/1997,09/04/1993 poliovirus (OPV) vaccine, tr ivalent, live, oral (ORIMUNE) 12/26/1997,09/04/1993,01/31/1993,1992 tetanus diphtheria pertussis (Tdap) vaccine, age 7+ yr (ADACEL, BOOSTRIX) 11/06/2022 Family History Medical History Relation Comments Cervical Cancer Maternal Grandmother Uterine Cancer Maternal Grandmother Colon Cancer Paternal Grandfather Relation Status Comments Maternal Grandmother Paternal Grandfather Social History Tobacco Use Types Packs/Day Years Used Date Smoking Tobacco: Former Cigarettes Q uit: 11/2019 Passive Smoke Exposure: Never Smokeless Tobacco: Never Tobacco Cessation:Counseling Given: Not Answered Alcohol Use Standard Drinks/Week Comments No 0 (1 standard drink = 0.6 oz pur e alcohol) PHQ-2 Answer Date Recorded PHQ-2 score 1 10/31/2024 [place] Depression Scale Answer Date Recorded [place] Depression Scale Total 21 07/10/2023 The thought of harming myself has occurred to me . Never 07/10/2023 Area Deprivation Index Answer Date Rafael rded National Score (1-100), lower number is lower ri sk 65 10/13/2024 State Score (1-10), lower number is lower risk 4 10/13/2024 Data from: https://www.neighborhoodatlas.medicine.[facility].edu/. Last address used for calculation [address] 10/13/2024 Estimated Date of Delivery Comme nts Yes 06/04/2025 Based on Ultraso und Sex and Gender Information Value Date Recorded Sex Assigned at Female 10/31/2020 8:49 PM EDT Legal Sex Female 10:06 AM EST Gender Identity Female 10/31/2020 8:49 PM EDT Sexual Orientation Straight 10/31/2020 8: 49 PM EDT Last Filed Vital Signs Vital Sign Reading Time Taken Comments Blood Pressure 102/64 12/16/2024 8:55 AM EDT Pulse 84 12/16/2024 8:55 AM EDT Temperature 36.5 C (97.7 F) 02/05/2023 8:21 AM EDT Respiratory Rate 17 02/05/2023 8:21 AM EDT Oxygen Saturation 97% 02/05/2023 8:21 AM EDT Inhaled Oxygen Concentration - - Weight 76 kg (167 lb 8.8 oz) 12/16/2024 8:55 AM EDT Height 149.9 cm (4' 11 ) 02/03/2024 2:10 PM EDT Body Mass Index 33.84 02/03/2024 2:10 PM EDT Plan of Treatment Upcoming Encounters Date Type Department Care Team (Late st Contact Info) Description 01/10/2025 6:00 PM EDT Routine Office Visit Maternal Medicine [address] [facility] [address] [place] [id number] Anatomy 01/20/2025 3:00 PM EDT Routine Office Visit Obstetrics/Gynecolog y [address] [address] Marina Manley, STAFF WEAPONS OFFICER.CNM [address] [place] [address] ob/ per Marina 02/10/2025 2:30 PM EDT Office Visit Obstetrics/Gynecolog y [address] [address] Marina Manley, STAFF WEAPONS OFFICER.CNM [address] [place] [address] Annual 02/22/2025 1:15 PM EDT Routine Office Visit Obstetrics/Gynecolog y [address] [address] Marina Manley, STAFF WEAPONS OFFICER.CNM [address] [place] [address] OB monthly 03/22/2025 10:45 AM EDT Routine Office Visit Obstetrics/Gynecolog y [address] [address] Marina Manley, STAFF WEAPONS OFFICER.CNM [address] [place] [address] OB bi-weekly 04/05/2025 10:45 AM EDT Routine Office Visit Obstetrics/Gynecolog y [address] [address] Marina Manley, STAFF WEAPONS OFFICER.CNM [address] [place] [address] OB bi-weekly 04/19/2025 10:30 AM EDT Routine Office Visit Obstetrics/Gynecolog y [address] [address] Marina Manley, STAFF WEAPONS OFFICER.CNM [address] [place] [address] OB bi-weekly 05/03/2025 8:45 AM EST Routine Office Visit Obstetrics/Gynecolog y [address] [address] Marina Manley, STAFF WEAPONS OFFICER.CNM [address] [place] [address] OB weekly 05/10/2025 8:45 AM EST Routine Office Visit Obstetrics/Gynecolog y [address] [address] Marina Manley, STAFF WEAPONS OFFICER.CNM [address] [place] [address] OB weekly 05/17/2025 8:45 AM EST Routine Office Visit Obstetrics/Gynecolog y [address] [address] Marina Manley, STAFF WEAPONS OFFICER.CNM [address] [place] [address] OB weekly 05/24/2025 8:45 AM EST Routine Office Visit Obstetrics/Gynecolog y [address] [address] Marina Manley, STAFF WEAPONS OFFICER.CNM [address] [place] [address] OB weekly 05/31/2025 8:45 AM EST Routine Office Visit Obstetrics/Gynecolog y [address] [place] [address] Marina Manley, STAFF WEAPONS OFFICER.CNM [address] [place] [address] OB weekly 06/07/2025 8:45 AM EST Routine Office Visit Obstetrics/Gynecolog y [address] [place] [address] Marina Manley, STAFF WEAPONS OFFICER.CNM [address] [place] [address] OB weekly Health Maintenance Due Date Last Done Comments Annual PCP Team Chronic Dise ase Visit 2010 Anxiety Screening 2010 Depression Screening 2010 Covid-19 Vaccine (6 2023-2 5 season) 2024 05/15/2023, 04/27/2022, 09/27/2021, Additional history exists Cervical Cancer Screening 02/02/20252023, 02/03/2024, 03/08/2021 Influenza Vaccine (#1) 2025 , 04/14/2023, 04/27/2022 RSV Vaccine (1 - Risk pregna nt 1-dose series) 04/09/2025 DTaP,Tdap,Td Vaccine (7 - Td or Tdap) 11/06/2032 11/06/2022, 12/26/1997, 08/20/1994, Additional history exists Hepatitis B Vaccine Completed 09/04/1993, 01/31/1993, 1992 HIV Screening Completed 12/16/2024, 07/10/2022 Hepatitis C Screening Completed 12/16/2024, 023 Procedures Procedure Name Priority Date/Time Associated Diagnosis Comments PROTEIN CREATININE RATIO Routine 12/16/2024 12:20 PM EDT care, subsequent in first trimester (HCC) TYPE + SCREEN Routine 06/19/202 5 8:40 AM EDT care, subsequent in first trimester (HCC) COMPREHENSIVE METABOLIC PANEL Routine 12/16/2024 8:40 AM EDT care, subsequent in first trimester (HCC) COMPLETE BLOOD COUNT Routine 12/16/2024 8:40 AM EDT care, subsequent in first trimester (HCC) HEPATITIS C ANTIBODY IA WITH CONFIRMATION Routine 12/16/2024 8:40 AM EDT care, subsequent in first trimester (HCC) HEP B SURF AG SCRN Routine 12/16/2024 8: 40 AM EDT care, subsequent in first trimester (HCC) HIV 1/2 COMBO WITH REFLEX TO DIFFERENTIATION Routine 12/16/2024 8:40 AM EDT care, subsequent in first trimester (HCC) SYPHILIS TREPONEMAL W/REFLEX Routine 12/16/2024 8:40 AM EDT care, subsequent in first trimester (HCC) RUBELLA IGG AB Routine 12/16/2024 8:40 AM EDT care, subsequent in first trimester (HCC) TSH BLD Routine 12/16/2024 8:40 AM EDT care, subsequent in first trimester (HCC) VITAMIN D 25 HYDROXY Routine 12/16/2024 8:40 AM EDT care, subsequent in first trimester (HCC) HEMOGLOBIN A1C Routine 12/16/2024 8:40 AM EDT care, subsequent in first trimester (HCC) URINE OB DIP B/O Routine 12/16/2024 15 weeks gestation of (HCC) BACTERIAL CULTURE, URINE Routine 10/13/2024 10:27 AM EDT care, subsequent in first trimester (HCC) POC RAT TRAPPER ULTRASOUND Routine 10/13/2024 9:3 6 AM EDT care, subsequent in first trimester (HCC) PAP TEST Routine 02/03/2024 2:46 PM EDT Encounter for screening for malignant neoplasm of cervix from Last 3 Months or Most Recently Relevant to Health Maintenance Results * PROTEIN / CREATININE RATIO (12/16/2024 12:20 PM EDT) Protein, Urine Random <4 0 - 20 mg/dL 12/16/2024 6:25 PM EDT [facility] Creatinine, Ur Random (UCRR) 55.1 20.0 - 300.0 mg/dL 12/16/2024 6:25 PM EDT [facility] Protein/Creat Ratio <0.07 <0.15 mg/mg 12/16/2024 6:25 PM EDT [facility] Comment: Adult Proteinuria Categories: <0.15 mg/mg is considered normal to mildly increased 0.15 - 0.50 mg/mg is considered moderately increased >0.50 mg/mg is considered severely increased KDIGO. (2013). KDIGO 2012 Clinical Practice Guideline for the Evaluation and Management of Chronic Kidney Disease. Official Journal of the International Society of Nephrology, 3(1), 1-150. Urine URINE SPECIMEN / Unknown Non Blood / Unknown 12/16/2024 12:20 PM EDT 12/16/2024 12:20 PM EDT us Marina Manley APRN.[facility] Final Res ult [facility] [address] [facility] [place] [address] [address], * SYPHILIS TREPONEMAL W/REFLEX (12/16/2024 8:40 AM EDT) Syphilis Treponemal Screen Nonreactive Nonreactive 12/16/2024 9:18 PM EDT [facility] Syphilis Interpretation Cannot exclude recent Treponemal infection if specimen collected within 7-10 days after appearance of suspect lesions or 2-3 weeks after an exposure. Clinical correlation is required. 12/16/2024 9:18 PM EDT [facility] Blood BLOOD SPECIMEN / Unknown Venipuncture / Unknown 12/16/2024 8:40 AM EDT 12/16/2024 8:41 AM EDT us Marina T Vineet STAFF WEAPONS OFFICER.CNM LABORATORY Final Res ult Performing Organization Address [facility]/ZIP Co de Phone Number [facility] [address] [address], [place] * HIV 1/2 COMBO WITH REFLEX TO DIFFERENTIATION (12/16/2024 8:40 AM EDT) HIV 12 Combo (Ag/Ab) Nonreactive Nonreactive 12/16/2024 9:14 PM EDT [facility] HIV-1/2 AB (Confirmatory) 12/16/2024 9:14 PM EDT [facility] Comment:Test not indicated. HIV Interpretation 12/16/2024 9:14 PM EDT [facility] Comment: No evidence of HIV-1 or HIV-2 infection. Should recent infection be suspected, repeat testing may be considered 2-3 weeks after this draw. [place] Rev. Code 3701.243(E): This information has been disclosed to you from confidential records protected from disclosure by state law. You shall make no further disclosure of this information without the specific, written, and informed release of the individual to whom it pertains or as otherwise permitted by state law. A general authorization for the release of medical or other information is not sufficient for the purpose of the release of HIV test results or diagnoses. Blood BLOOD SPECIMEN / Unknown Venipuncture / Unknown 12/16/2024 8:40 AM EDT 12/16/2024 8:41 AM EDT us Marina T Vineet STAFF WEAPONS OFFICER.CNM LABORATORY Final Res ult Performing Organization Address City/[facility]/ZIP Co de Phone Number [facility] [address] [facility] [place] [address] [address], [place] * RUBELLA IGG ANTIBODY (12/16/2024 8:40 AM EDT) Rubella IgG, Qual Positive Positive 12/16/2024 10:14 PM EDT [facility] Comment:The result suggests recent or past exposure to Rubella virus or history of Rubella vaccination. Positive result may also be seen due to presence of passively-transferred antibodies. Please correlate with patient's history. Blood BLOOD SPECIMEN / Unknown Venipuncture / Unknown 12/16/2024 8:40 AM EDT 12/16/2024 8:41 AM EDT Marina Manley APRN.[facility]Best LABORAT[facility] Final Res ult Performing Organization Address [facility] Co de Phone Number [facility] [address] [place], [place] [phone], [place] * VITAMIN D 25 HYDROXY (12/16/2024 8:40 AM EDT) Pathologist [facility] Vitamin D 25 Hydroxy 33.5 31.0 - 80.0 ng/mL 12/16/2024 10:15 PM EDT [facility] Blood BLOOD SPECIMEN / Unknown Venipuncture / Unknown 12/16/2024 8:40 AM EDT 12/16/2024 8:41 AM EDT Marina Manley APRN.CN LABORATORY Final Res ult Performing Organization Address City/[facility]/ZIP Co de Phone Number [facility] [address] [place], [place] [phone], [place] * THYROID STIMULATING HORMONE (12/16/2024 8:40 AM EDT) TSH 3.510 0.270 - 4.200 mIU/L 12/16/2024 8:37 PM EDT [facility] Comment: If the patient is , TSH reference range varies by gestational period: First Trimester (weeks 9-12): 0.180-2.990 mIU/L Second Trimester: 0.110-3.980 mIU/L Third Trimester: 0.480-4.710 mIU/L Ld Machado et al. A Practical Approach for the Verifications and Determination of Site- and Trimester-Specific Reference Intervals for Thyroid Function tests in . Thyroid, 2019:29:3:412-420. Peryc Barrios et al. 2017 Guidelines of the [place] Thyroid Association for the Diagnosis and Management of Thyroid Disease during and the . Thyroid, 2017:27:3:315-389. Blood BLOOD SPECIMEN / Unknown Venipuncture / Unknown 12/16/2024 8:40 AM EDT 12/16/2024 8:41 AM EDT us Marina T Vineet STAFF WEAPONS OFFICER.CN LABORATORY Final Res ult Performing Organization Address [facility] Co de Phone Number [facility] [address] [place] [address], [place] * HEMOGLOBIN A1C (12/16/2024 8:40 AM EDT) Pathologist [facility] Hemoglobin A1C 4.8 4.3 - 5.6 % 12/16/2024 10:15 PM EDT [facility] Comment:[place] Diabetes As sociation guidelines indicate that patients with HgbA1c in the range 5.7-6.4% are at increased risk for development of diabetes, and intervention by lifestyle modification may be beneficial. HgbA1c greater or equal to 6.5% is considered diagnostic of diabetes. Estimated Average Glucose 91 mg/dL 12/16/2024 10:15 PM EDT [facility] Comment:eAG: (Estimated aver age glucose) is a calculated value from HgbA1c and is service support representative of the average blood glucose level in the last 2-3 month period. Blood BLOOD SPECIMEN / Unknown Venipuncture / Unknown 12/16/2024 8:40 AM EDT 12/16/2024 8:41 AM EDT us Marina T Vineet STAFF WEAPONS OFFICER.CNM LABORATORY Final Res ult Performing Organization Address City/[facility]/ZIP Co de Phone Number [facility] [address] [place] [address], [place] * HEPATITIS B SURFACE ANTIGEN (12/16/2024 8:40 AM EDT) [facility] HBsAg Negative Negative 12/16/2024 9:13 PM EDT [facility] Blood BLOOD SPECIMEN / Unknown Venipuncture / Unknown 12/16/2024 8:40 AM EDT 12/16/2024 8:41 AM EDT us Marina Manley STAFF WEAPONS OFFICER.CNM LABORATORY Final Res ult [facility] [address] [facility] [address] [place] [address], [place] * (ABNORMAL) COMPREHENSIVE METABOLIC PANEL (12/16/2024 8:40 AM EDT) [facility] Protein, Total 6.3 6.3 - 8.0 g/dL 12/16/2024 8:33 PM EDT [facility] Albumin 3.6(L) 3.9 - 4.9 g/dL 12/16/2024 8:33 PM EDT [facility] Calcium, Total 9.1 8.5 - 10.2 mg/dL 12/16/2024 8:33 PM EDT [facility] Bilirubin, Total 0.2 0.2 - 1.3 mg/dL 12/16/2024 8:33 PM EDT [facility] Alkaline Phosphatase 75 34 - 123 U/L 12/16/2024 8:33 PM EDT [facility] AST 23 13 - 35 U/L 12/16/2024 8:33 PM EDT [facility] ALT 19 7 - 38 U/L 12/16/2024 8:33 PM EDT [facility] Glucose 71(L) 74 - 99 mg/dL 12/16/2024 8:33 PM EDT [facility] Comment: The [place] Diabetes Association (ADA) provides guidance for cutoff values for fasting glucose and random glucose. The ADA defines fasting as no caloric intake for at least 8 hours. Fasting plasma glucose results between 100 to 125 mg/dL indicate increased risk for diabetes (prediabetes). Fasting plasma glucose results greater than or equal to 126 mg/dL meet the criteria for diagnosis of diabetes. In the absence of unequivocal hyperglycemia, results should be confirmed by repeat testing. In a patient with classic symptoms of hyperglycemia or hyperglycemic crisis, random plasma glucose results greater than or equal to 200 mg/dL meet the criteria for diagnosis of diabetes. Reference: Standards of Medical Care in Diabetes 2016, [place] Diabetes Association. Diabetes Care. 2016.39(Suppl 1). BUN 7 7 - 21 mg/dL 12/16/2024 8:33 PM EDT [facility] Creatinine 0.60 0.58 - 0.96 mg/dL 12/16/2024 8:33 PM EDT [facility] Sodium 136 136 - 144 mmol/L 12/16/2024 8:33 PM EDT [facility] Potassium 3.8 3.7 - 5.1 mmol/L 12/16/2024 8:33 PM EDT [facility] Chloride 104 98 - 107 mmol/L 12/16/2024 8:33 PM EDT [facility] CO2 19(L) 22 - 30 mmol/L 12/16/2024 8:33 PM EDT [facility] Anion Gap 13 8 - 15 mmol/L 12/16/2024 8:33 PM EDT [facility] Estimated Glomerular Filtration Rate 122 >=60 mL/min/1.7 3m 12/16/2024 8:33 PM EDT [facility] Comment:Estimated Glomerular Filtration Rate (eGFR) is calculated using the 2020 CKD-EPI creatinine equation. This equation utilizes serum creatinine, sex, and age as parameters. The creatinine assay has traceable calibration to isotope dilution- mass spectrometry. Refer to KDIGO guidelines for clinical interpretation. In patients with unstable renal function, e.g. those with acute kidney injury, the eGFR may not accurately reflect actual GFR. Blood BLOOD SPECIMEN / Unknown Venipuncture / Unknown 12/16/2024 8:40 AM EDT 12/16/2024 8:41 AM EDT us Marina Manley STAFF WEAPONS OFFICER.[facility] Final Res ult [facility] [address] [address], [place] * COMPLETE BLOOD COUNT (12/16/2024 8:40 AM EDT) WBC 7.49 3.70 - 11.00 k/uL 12/16/2024 12:01 PM EDT [facility] RBC 4.17 3.90 - 5.20 m/uL 12/16/2024 12:01 PM EDT [facility] Hemoglobin 12.0 11.5 - 15.5 g/dL 12/16/2024 12:01 PM EDT [facility] Hematocrit 36.5 36.0 - 46.0 % 12/16/2024 12:01 PM EDT [facility] MCV 87.5 80.0 - 100.0 fL 12/16/2024 12:01 PM EDT [facility] MCH 28.8 26.0 - 34.0 pg 12/16/2024 12:01 PM EDT [facility] MCHC 32.9 30.5 - 36.0 g/dL 12/16/2024 12:01 PM EDT [facility] RDW-CV 13.2 11.5 - 15.0 % 12/16/2024 12:01 PM EDT [facility] Platelet Count 215 150 - 400 k/uL 12/16/2024 12:01 PM EDT [facility] MPV 10.8 9.0 - 12.7 fL 12/16/2024 12:01 PM EDT [facility] Absolute nRBC <0.01 <0.01 k/uL 12/16/2024 12:01 PM EDT [facility] Blood BLOOD SPECIMEN / Unknown Venipuncture / Unknown 12/16/2024 8:40 AM EDT 12/16/2024 8:41 AM EDT us Marina Manley STAFF WEAPONS OFFICER.CNM LABORATORY Final Res ult [facility] [address] [id number], [place] * TYPE + SCREEN (12/16/2024 8:40 AM EDT) Pathologist [facility] ABO A 12/16/2024 4:02 PM EDT [facility] Rh(D) Negative 12/16/2024 4:02 PM EDT [facility] Comment:Corrected result: Pr eviously reported as Invalid on 12/16/2024 at 4:01 PM EDT. Antibody Screen Negative 4:02 PM EDT [facility] Comment:Patient has a previo us clinically significant antibody Type and Screen Expiration 12/19/2024 23:59 12/16/2024 4:02 PM EDT [facility] Blood BLOOD SPECIMEN / Unknown Venipuncture / Unknown 12/16/2024 8:40 AM EDT 12/16/2024 8:41 AM EDT us Marina Manley STAFF WEAPONS OFFICER.OS[facility]IS BLOOD BANK Edited Re sult - Final Performing Organization Address City/[facility]/ZIP Co de Phone Number [facility] BLOOD BANK [address] [address], [place] * HEPATITIS C ANTIBODY IA WITH CONFIRMATION (12/16/2024 8:40 AM EDT) [facility] Hep C Antibody IA Negative Negative 12/16/2024 9:51 PM EDT [facility] Comment:The result suggests no evidence of infection with Hepatitis C virus. Should recent infection be suspected, repeat testing may be considered 4-6 weeks after this draw. Blood BLOOD SPECIMEN / Unknown Venipuncture / Unknown 12/16/2024 8:40 AM EDT 12/16/2024 8:41 AM EDT us Marina Manley STAFF WEAPONS OFFICER.CNM LABORATORY Final Res ult Performing Organization Address City/[facility]/ZIP Co de Phone Number [facility] [address] [address], [place] * URINE OB DIP B/O (12/16/2024) Pathologist [facility] Protein, Urine neg Neg mg/dL Glucose, Urine neg Neg mg/dL Back Office Procedure us Marina Manley APRN.CNM BACK OFFICE PROCEDURES Fi nal Result * BACTERIAL CULTURE, URINE (10/13/2024 10:27 AM EDT) Culture, Urine No growth (<1,000 CFU/ml) 10/14/2024 10:18 AM EDT [facility] Urine MID-STREAM URINE SPECIMEN / Unknown Non Blood / Unknown 10/13/2024 10:27 AM EDT 10/13/2024 3:54 PM EDT us Marina Manley APRN.CNM MICROBIOLOGY Final Res ult [facility] [address] [address], [place] * POC RAT TRAPPER ULTRASOUND (10/13/2024 9:36 AM EDT) Anatomical Region Laterality Modality Other 10/13/2024 9:36 AM EDT Narrative 10/13/2024 12:22 PM EDT Indication Viability; confirm cardiac activity Impression Single intrauterine gestational sac, CRL indicates discrepancy from clinical dates, DIANDRA 06/04/2025 based on today's ultrasound, FHR 113 bpm cardiac activity is visualized Recommendations Follow up for 1st Trimester Anatomy with Nuchal Translucency as clinically indicated if desired. Method Transabdominal ultrasound examination, Transvaginal ultrasound examination Caballero . Number of embryos: 1 Dating LMP on: 08/22/2024 GA by LMP 7 w + 3 d DIANDRA by LMP: 05/29/2025 Ultrasound examination on: 10/13/2024 GA by U/S based upon: CRL GA by U/S 6 w + 4 d DIANDRA by U/S: 06/04/2025 Assigned: based on the LMP, selected on 10/13/2024 Assigned GA 7 w + 3 d Assigned DIANDRA: 05/29/2025 Biometry Standard FHR 113 bpm CRL 6.9 mm 6w 4d <1% Hadlock Assessment Gestational sac: visualized Location: intrauterine Yolk sac: visualized Embryo: visualized CRL 6.9 mm 6w 4d <1% Hadlock Cardiac activity: present FHR 113 bpm General Evaluation Cardiac activity present. FHR 113 bpm Performed By: Marina Manley CNM Read By: Marina Manley CNM Marina Manley APRN.CNM [facility] Final Res ult * PAP TEST (02/03/2024 2:46 PM EDT) Case Report Gynecologic Cytology Report Case: [id number] Authorizing Provider: Marina Manley APRN.CNM Collected: 02/03/2024 02:46 PM Ordering Location: Obstetrics/Gyneco logy Received: 02/03/2024 06:19 PM First Screen: Marissa Slater Rescreen: Rody Gilmore CT, ASCP Specimen: Pap Test, ThinPrep, Cervix 02/16/2024 9:19 AM EDT [facility] Specimen Adequacy Satisfactory for interpretation. 02/16/2024 9:19 AM EDT [facility] Interpretation Negative for intraepithelial lesion or malignancy. 02/16/2024 9:19 AM [facility] at 0919 EDT Clinical History Routine Exam 2023 9:19 AM EDT [facility] LMP 10/27/2023 02/16/2024 9:19 AM EDT [facility] HPV Reflex Yes HPV 02/16/2024 9:19 AM EDT [facility] Pap Disclaimer The Pap Smear is a screening test for cervical cancer. False negative results occur with all screening tests, emphasizing the need for rescreening at recommended intervals, and clinical correlation. 02/16/2024 9:19 AM EDT [facility] PAP Vegetable Grader Comment This specimen has been analyzed by the CashsquarePrep Imaging System, an automated imaging and review system, which assists the laboratory in evaluating cells on ThinPrep Pap tests. Following automated imaging, selected dotson from every slide are reviewed by a epic cadence analyst. 02/16/2024 9:19 AM EDT [facility] Performing Lab Technical component, epic cadence analyst screening performed at [facility], [address] [place] [address] CLIA# [id number] Diagnostic interpretation performed at [facility], [address] [place] [address] CLIA# [id number] Phototypesetter Operator: Ck Matthews M.D. 02/16/2024 9:19 AM EDT [facility] Sterile Fluid/Body Fluid CERVICAL / Unknown Non Blood / Unknown 02/03/2024 2:46 PM EDT 02/03/2024 6:19 PM EDT us Marina Manley APRN.TREVON CYTOLOGY Final Res ult [facility] [address] [place] [address], [facility] [address] [facility] [address] [place] [address], [email or web address] [address] [place] [address], from Last 3 Months or Most Recently Relevant to Health Maintenance Insurance [facility] PPO Care Teams Lease Broker Relationship Specialty Start Date End Date Caren Travis APRN.CNM [address] [place] [address] [facility] Director 02/03/23
--- OUTSIDE RECORDS SUMMARY | 2025-01-07 07:46 | XMS_ITS | Encounter Summary ---
Author Organization [facility] Address [address] [place] [address] Care Team Providers Care Automotive Tire Tester Name Role Phone Caren Travis APRN.CNM Unavailable [phone] Source Comments In the event this information is protected by the Federal Confidentiality of Alcohol and Drug AbusePatient Records regulations: The Federal rules restrict any use of the information to criminally investigate or prosecute any alcohol or drug abuse patient.[facility] Encounter Details Date Type Department Care Team (Late st Contact Info) Description 07/16/2023 Patient Msg Obstetrics/Gynecology [address] [facility] [address] [place] [address] Provider, [facility] resources Social History Tobacco Use Types Packs/Day Years Used Date Smoking Tobacco: Former Cigarettes Q uit: 11/2019 Smokeless Tobacco: Never Alcohol Use Standard Drinks/Week Comments No 0 (1 standard drink = 0.6 oz pur e alcohol) Goodman Depression Scale Answer Date Recorded Goodman Depression Scale Total 21 07/10/2023 The thought of harming myself has occurred to me . Never 07/10/2023 Area Deprivation Index Answer Date Rafael rded National Score (1-100), lower number is lower ri sk 78 11/05/2022 State Score (1-10), lower number is lower risk 6 11/05/2022 Data from: https://www.neighborhoodatlas.[facility]/. Last address used for calculation [address] [...] EDT Routine Office Visit Maternal Medicine [address] [place] [address] Anatomy 01/20/2025 3:00 PM EDT Routine Office Visit Obstetrics/Gynecolog y [address] [address] Marina Manley, ASSISTANT COOK.CNM [address] [place] [address] ob/ per Marina 02/10/2025 2:30 PM EDT Office Visit Obstetrics/Gynecolog y [address] [address] Marina Manley, ASSISTANT COOK.CNM [address] [place] [address] Annual 02/22/2025 1:15 PM EDT Routine Office Visit Obstetrics/Gynecolog y [address] [address] Marina Manley, ASSISTANT COOK.CNM [address] [place] [address] OB monthly 03/22/2025 10:45 AM EDT Routine Office Visit Obstetrics/Gynecolog y [address] [address] Marina Manley, ASSISTANT COOK.CNM [address] [place] [address] OB bi-weekly 04/05/2025 10:45 AM EDT Routine Office Visit Obstetrics/Gynecolog y [address] [address] Marina Manley, ASSISTANT COOK.CNM [address] [place] [address] OB bi-weekly 04/19/2025 10:30 AM EDT Routine Office Visit Obstetrics/Gynecolog y [address] [address] Marina Manley, ASSISTANT COOK.CNM [address] [place] [address] OB bi-weekly 05/03/2025 8:45 AM EST Routine Office Visit Obstetrics/Gynecolog y [address] [address] Marina Manley, ASSISTANT COOK.CNM [address] [place] [address] OB weekly 05/10/2025 8:45 AM EST Routine Office Visit Obstetrics/Gynecolog y [address] [address] Marina Manley, ASSISTANT COOK.CNM [address] [place] [address] OB weekly 05/17/2025 8:45 AM EST Routine Office Visit Obstetrics/Gynecolog y [address] [address] Marina Manley, ASSISTANT COOK.CNM [address] [place] [address] OB weekly 05/24/2025 8:45 AM EST Routine Office Visit Obstetrics/Gynecolog y [address] [address] Marina Manley, ASSISTANT COOK.CNM [address] [place] [address] OB weekly 05/31/2025 8:45 AM EST Routine Office Visit Obstetrics/Gynecolog y [address] [address] Marina Manley, ASSISTANT COOK.CNM [address] [place] [address] OB weekly 06/07/2025 8:45 AM EST Routine Office Visit Obstetrics/Gynecolog y [address] [address] Marina Manley, ASSISTANT COOK.CNM [address] [place] [address] OB weekly documented as of this encounter Visit Diagnoses Not on filedocumented in this encounter Care Teams Automotive Tire Tester Relationship Specialty Start Date End Date Caren Travis APRN.TREVON [address] [place] [address] Certified Peer Specialist Supervisor Metalizing 02/03/23 documented as of this encounter
--- OUTSIDE RECORDS SUMMARY | 2025-01-07 07:46 | XMS_ITS | Encounter Summary ---
Author Organization [facility] Address [address] [place] [address] Care Team Providers Care Electric Frying Pan Repairer Name Role Phone Pcp, Liberty MAYFIELD Primary Care Provider Caren Wiggins APRN.[facility] Unavailable [phone] Source Comments In the event this information is protected by the Federal Confidentiality of Alcohol and Drug AbusePatient Records regulations: The Federal rules restrict any use of the information to criminally investigate or prosecute any alcohol or drug abuse patient.[facility] Encounter Details Date Type Department Care Team (Late st Contact Info) Description 01/30/2021 Patient Msg Obstetrics/Gynecology [address] [facility] [address] [place] [address] Provider, [facility]cf resources Social History Tobacco Use Types Packs/Day Years Used Date Smoking Tobacco: Former Cigarettes Q uit: 11/2019 Smokeless Tobacco: Never Alcohol Use Standard Drinks/Week Comments No 0 (1 standard drink = 0.6 oz pur e alcohol) Kiron Depression Scale Answer Date Recorded Kiron Depression Scale Total 2 01/30/2021 The thought of harming myself has occurred to me . Never 01/30/2021 Area Deprivation Index Answer Date Rafael rded National Score (1-100), lower number is lower ri sk Not on file 12/28/2020 State Score (1-10), lower number is lower risk N ot on file 12/28/2020 Data from: https://www.neighborhoodatlas.medicine[facility]/. Last address used for calculation Not on file 12/28/2020 Comments No Sex and Gender Information Value Date Recorded Sex Assigned at Female 10/31/2020 8:49 PM EDT Legal Sex Female 10:06 AM EST Gender Identity Female 10/31/2020 8:49 PM EDT Sexual Orientation Straight 10/31/2020 8: 49 PM EDT COVID-19 Exposure Response Date Recorded In the last month, have you been in contact with someone who was confirmed or suspected to have Coronavirus / COVID-19? No / Unsure 01/11/2021 1:13 PM EDT documented as of this encounter [...] Maternal Medicine [address] [place] [address] Anatomy 01/20/2025 3:00 PM EDT Routine Office Visit Obstetrics/Gynecolog y [address] [address] Marina Manley, PORTABLE TRACKMAN.CNM [address] [place] [address] ob/ per Marina 02/10/2025 2:30 PM EDT Office Visit Obstetrics/Gynecolog y [address] [address] Marina Manley, PORTABLE TRACKMAN.CNM [address] [place] [address] Annual 02/22/2025 1:15 PM EDT Routine Office Visit Obstetrics/Gynecolog y [address] [address] Marina Manley, PORTABLE TRACKMAN.CNM [address] [place] [address] OB monthly 03/22/2025 10:45 AM EDT Routine Office Visit Obstetrics/Gynecolog y [address] [address] Marina Manley, PORTABLE TRACKMAN.CNM [address] [place] [address] OB bi-weekly 04/05/2025 10:45 AM EDT Routine Office Visit Obstetrics/Gynecolog y [address] [address] Marina Manley, PORTABLE TRACKMAN.CNM [address] [place] [address] OB bi-weekly 04/19/2025 10:30 AM EDT Routine Office Visit Obstetrics/Gynecolog y [address] [address] Marina Manley, PORTABLE TRACKMAN.CNM [address] [place] [address] OB bi-weekly 05/03/2025 8:45 AM EST Routine Office Visit Obstetrics/Gynecolog y [address] [address] Marina Manley, PORTABLE TRACKMAN.CNM [address] [place] [address] OB weekly 05/10/2025 8:45 AM EST Routine Office Visit Obstetrics/Gynecolog y [address] [address] Marina Manley, PORTABLE TRACKMAN.CNM [address] [place] [address] OB weekly 05/17/2025 8:45 AM EST Routine Office Visit Obstetrics/Gynecolog y [address] [address] Marina Manley, PORTABLE TRACKMAN.CNM [address] [place] [address] OB weekly 05/24/2025 8:45 AM EST Routine Office Visit Obstetrics/Gynecolog y [address] [address] Marina Manley, PORTABLE TRACKMAN.CN [address] [place] [address] OB weekly 05/31/2025 8:45 AM EST Routine Office Visit Obstetrics/Gynecolog y [address] [address] Marina Manley, PORTABLE TRACKMAN.CNM [address] [place] [address] OB weekly 06/07/2025 8:45 AM EST Routine Office Visit Obstetrics/Gynecolog y [address] [place] [address] Marina Manley, PORTABLE TRACKMAN.TREVON [address] [place] [address] OB weekly documented as of this encounter Visit Diagnoses Not on filedocumented in this encounter Care Teams Electric Frying Pan Repairer Relationship Specialty Start Date End Date Liberty Darling APRN PCP - General 10/18/20 05/29/21 Caren Travis, PORTABLE TRACKMAN.CN [address] [place] [address] Timing Adjuster Ordnance Keeper 02/03/23 documented as of this encounter
--- OUTSIDE RECORDS SUMMARY | 2025-01-07 07:46 | XMS_ITS | Encounter Summary ---
Author Organization [facility] Address [address] [place] [address] Care Team Providers Care Associate Broker Name Role Phone Caren Travis CNM Unavailable [phone] Source Comments In the event this information is protected by the Federal Confidentiality of Alcohol and Drug AbusePatient Records regulations: The Federal rules restrict any use of the information to criminally investigate or prosecute any alcohol or drug abuse patient.[facility] Encounter Details Date Type Department Care Team (Late st Contact Info) Description 12/30/2024 Get Medical Advice Obstetrics/Gynecology [address] [place] [id number] Marina Manley APRN.M [address] [place] [address] Anti-emetic Social History Tobacco Use Types Packs/Day Years Used Date Smoking Tobacco: Former Cigarettes Q uit: 11/2019 Passive Smoke Exposure: Never Smokeless Tobacco: Never Alcohol Use Standard Drinks/Week Comments No 0 (1 standard drink = 0.6 oz pur e alcohol) PHQ-2 Answer Date Recorded PHQ-2 score 1 10/31/2024 Solomon Depression Scale Answer Date Recorded Solomon Depression Scale Total 21 07/10/2023 The thought of harming myself has occurred to me . Never 07/10/2023 Area Deprivation Index Answer Date Rafael rded National Score (1-100), lower number is lower ri sk 65 10/13/2024 State Score (1-10), lower number is lower risk 4 10/13/2024 Data from: https://www.neighborhoodatlas.[facility]/. Last address used for calculation [address] [...] of Assessment Author No 02/05/2023 7:49 AM SAJANT Darya Mckeon APRN.CNM * Do you have serious difficulty walking or climbing stairs? Answer Date of Assessment Author No 02/05/2023 7:49 AM SAJANT Darya Mckeon APRN.CNM * Do you have difficulty dressing or bathing? Answer Date of Assessment Author No 02/05/2023 7:49 AM EDT Darya Mckeon APRN.CNM * Because of a physical, mental, or emotional condition, do you have difficulty doing errands alone such as visiting a doctor's office or shopping? Answer Date of Assessment Author No 02/05/2023 7:49 AM Darya Elizabeth APRN.CNM documented as of this encounter Mental [...] EDT Routine Office Visit Maternal Medicine [address] [address] Anatomy 01/20/2025 3:00 PM EDT Routine Office Visit Obstetrics/Gynecolog y [address] [address] Marina Manley, ORTHOTICS TECHNICIAN.CNM [address] [place] [address] ob/ per Marina 02/10/2025 2:30 PM EDT Office Visit Obstetrics/Gynecolog y [address] [address] Marina Manley, ORTHOTICS TECHNICIAN.CNM [address] [place] [address] Annual 02/22/2025 1:15 PM EDT Routine Office Visit Obstetrics/Gynecolog y [address] [address] Marina Manley, ORTHOTICS TECHNICIAN.CNM [address] [place] [address] OB monthly 03/22/2025 10:45 AM EDT Routine Office Visit Obstetrics/Gynecolog y [address] [address] Marina Manley, ORTHOTICS TECHNICIAN.CNM [address] [place] [address] OB bi-weekly 04/05/2025 10:45 AM EDT Routine Office Visit Obstetrics/Gynecolog y [address] [address] Marina Manley, ORTHOTICS TECHNICIAN.CNM [address] [place] [address] OB bi-weekly 04/19/2025 10:30 AM EDT Routine Office Visit Obstetrics/Gynecolog y [address] [address] Marina Manley, ORTHOTICS TECHNICIAN.CNM [address] [place] [address] OB bi-weekly 05/03/2025 8:45 AM EST Routine Office Visit Obstetrics/Gynecolog y [address] [address] Marina Manley, ORTHOTICS TECHNICIAN.CNM [address] [place] [address] OB weekly 05/10/2025 8:45 AM EST Routine Office Visit Obstetrics/Gynecolog y [address] [address] Marina Manley, ORTHOTICS TECHNICIAN.CNM [address] [place] [address] OB weekly 05/17/2025 8:45 AM EST Routine Office Visit Obstetrics/Gynecolog y [address] [address] Marina Manley, ORTHOTICS TECHNICIAN.CNM [address] [place] [address] OB weekly 05/24/2025 8:45 AM EST Routine Office Visit Obstetrics/Gynecolog y [address] [address] Marina Manley, ORTHOTICS TECHNICIAN.CNM [address] [place] [address] OB weekly 05/31/2025 8:45 AM EST Routine Office Visit Obstetrics/Gynecolog y [address] [address] Marina Manley, ORTHOTICS TECHNICIAN.CNM [address] [place] [address] OB weekly 06/07/2025 8:45 AM EST Routine Office Visit Obstetrics/Gynecolog y [address] [place] [address] Marina Manley, ORTHOTICS TECHNICIAN.TREVON [address] [place] [address] OB weekly documented as of this encounter Visit Diagnoses Not on filedocumented in this encounter Care Teams Associate Broker Relationship Specialty Start Date End Date Caren Traivs, ORTHOTICS TECHNICIAN.TREVON [address] [place] [address] Spaghetti Machine Operator Certified Scrum Master 02/03/23 documented as of this encounter
--- OUTSIDE RECORDS SUMMARY | 2025-01-07 07:48 | XMS_ITS | CCD ---
Author Organization [facility] Care Team Providers Care Change Management Expert Name Role Phone MATHIEU MCCLAIN Admitting Unavailable MATHIEU MCCLAIN Attending Unavailable ZANDRA, DR SANCHEZ Primary Care Unavailable MATHIEU MCCLAIN Consulting Unavailable MISC, DR HOBSON Admitting Unavailable MISC, DR HOBSON Attending Unavailable DE PAZ, DR SANCHEZ Primary Care Unavailable Unavailable Primary Care Provider UnavailKEVYN De La O Attending Linda vailable KEVYN STEWARD Admitting Linda vailable Angy CREDIT ASSOCIATE.Caren LESTER Unavailable [phone] KD TRIPP Attending Unavailable PAVONMONI Attending Unavailable SELF Referring Unavailable PAVON MONI Attending Unavailable PAVON, MONI Attending Unavailable PAVON, MONI Referring Unavailable ELI, MARINA T Attending Unavailable PAVON, MONI Attending Unavailable SELF Referring Unavailable ELI, MARINA T Attending Unavailable ELI, MARINA T Attending Unavailable ELI, MARINA T Referring Unavailable ELI, MARINA T Attending Unavailable Allergies Allergy Classification Reported Allergen(s) Allergy Type Date of Onset Reaction(s) Facility (1 source) [facility]; Translations: [Mis-ENV] Propensity to adverse reactions (disorder) 4 [facility] Medications Current Medications Medication Drug Class(es) Dates Sig (Normalized) Sig (Original) aspirin 81 mg delayed release oral tablet (19 sources) Platelet Aggregation Inhibitor, Nonsteroidal Anti-inflammatory Drug Start: 10-13-2024 take 1 tablet by mouth once daily aspirin, enteric coated (ECOTRIN LOW STRENGTH) 81 mg EC tablet Indications: care, subsequent in first trimester (HCC) Take 1 tablet by mouth once daily. 90 tablet 3 10/13/2024 Active aspirin, enteric coated (ASPIRIN, ENTERIC COATED) 81 mg EC tablet Take 81 mg by mouth. 0 Active Comment on above: Take 81 mg by mouth. Budesonide / formoterol (20 sources) Corticosteroid, beta2-Adrenergic Agonist budesonide-form oterol (SYMBICORT) 160-4.5 mcg/actuation inhaler Active budesonide-formo terol (SYMBICORT) 160-4.5 mcg/actuation inhaler 24 hr buPROPion hydrochloride 150 mg extended release oral tablet (20 sources) Aminoketone Start: 2023 End: 11-02-2024 take 1 tablet by mouth once daily buPROPion XL (WELLBUTRIN XL) 150 mg 24 hr tablet Indications: ELISA (generalized anxiety disorder) , Post- depression Take 1 tablet by mouth once daily. 90 tablet 1 11/02/2024 Active Start: 07-10-2023 End: 2023 take 1 tablet by mouth twice daily buPROPion SR (WELLBUTRIN SR) 150 mg 12 hr tablet Indications: anxiety Take 1 tablet by mouth two times a day. 180 tablet 1 07/10/2023 2023 Discontinued Comment on above: Take 1 tablet by rik th once daily. Take 1 tablet by rik th two times a day. cholecalciferol 0.05 mg oral tablet (20 sources) Vitamin D take 1 tablet by mouth once daily cholecalciferol (VITAMIN D-3) 50 mcg (2,000 unit) tablet Take 2,000 Units by mouth once daily. Active Comment on above: Take 2,000 Units by mouth once daily. FLUoxetine 10 mg oral capsule (20 sources) Serotonin Reuptake Inhibitor Start: 03-24-20 End: 03-02-20 take 1 capsule by mouth once daily FLUoxetine (PROZAC) 10 mg capsule Indications: ELISA (generalized anxiety disorder) , Post- depression TAKE 1 CAPSULE BY MOUTH ONCE DAILY. TAKE IN ADDITION TO THE 20MG FOR A TOTAL OF 30MG 90 capsule 12/02/2024 03/02/2025 Active Start: 09-18-2023 End: 03-21-2025 take 1 capsule by mouth once daily FLUoxetine (PROZAC) 20 mg capsule Indications: ELISA (generalized anxiety disorder) , Post- depression Take 1 capsule by mouth once daily. Take in addition to the 10mg tab for a total of 30mg 90 capsule 2 06/24/2024 03/21/2025 Active Start: 08-19-2023 End: 09-25-2023 take 1 capsule by mouth once daily, then take 2 capsules by mouth once daily FLUoxetine (PROZAC) 10 mg capsule Take 1 capsule by mouth once daily for 7 days, THEN 2 capsules once daily. 90 capsule 0 08/19/2023 09/18/2023 Discontinued Comment on above: Take 1 capsule by mo [facility] once daily for 7 days, THEN 2 capsules once daily. Take 1 capsule by mo [facility] once daily. magnesium oxide 400 mg oral tablet (20 sources) Start: 06-13-2023 End: 05-10-2024 take 1 tablet by mouth twice daily magnesium oxide (MAG-OX) 400 mg (241.3 mg magnesium) tablet TAKE 1 TABLET BY MOUTH TWICE A DAY 180 tablet 2 05/10/2024 Active Start: 07-10-2022 take 1 tablet by rik twice daily magnesium oxide (MAG-OX) 400 mg (241.3 mg magnesium) tablet Take 1 tablet by mouth twice daily. 120 tablet 3 07/10/2022 Active End: 07-10-2022 magnesium oxide 400 mg magne sium tab Comment on above: Take 1 tablet by rik twice daily. take 1 tablet by rik twice a day ondansetron 4 mg oral tablet (1 source) Serotonin-3 Receptor Antagonist Start: take 1 tablet by mouth every eight hours as needed ondansetron (ZOFRAN) 4 mg tablet Take 1 tablet by mouth every 8 hours as needed for nausea/vomiting. 60 tablet 1 12/30/2024 Active vit/iron fum/folic ac ( 1 + 1 ORAL) (20 sources) vit/iro n fum/folic ac ( 1 + 1 ORAL) Active vit/iro n fum/folic ac ( 1 + 1 ORAL) Completed/Discontinued Medications Medication Drug Class(es) Dates Sig (Normalized) Sig (Original) acetaminophen 250 mg / aspirin 250 mg / caffeine 65 mg oral tablet (1 source) Platelet Aggregation Inhibitor, Nonsteroidal Anti-inflammatory Drug, Central Nervous System Stimulant, Methylxanthine End: 07-10-2022 take 2 tablets by mouth every six hours as needed Aspirin-Acetamino phen-Caffeine (EXCEDRIN MIGRAINE) 250-250-65 mg per tablet 2 tablets as needed Orally every 6 hrs 0 07/10/2022 Discontinued (Course of therapy completed) Comment on above: 2 tablets as needed Orally every 6 hrs [id number] 200 actuat albuterol 0.09 mg/actuat metered dose inhaler (20 sources) beta2-Adrenergic Agonist Start: 10-20-2020 End: 08-07-2022 albuterol HFA (PROVENTIL HFA, VENTOLIN HFA) 90 mcg/actuation inhaler take 2 puff(s) by in halation every four hours as needed albuterol HFA (PROVENTIL HFA, VENTOLIN H FA) 90 mcg/actuation inhaler 2 puffs as needed Inhalation every 4 hrs Active Comment on above: 2 puffs as needed In halation every 4 hrs Ascorbic Acid (1 source) Vitamin C End: 07-10-19 ascorbic acid (VITAMIN C ORAL) Take by mouth. 0 07/10/2022 Discontinued (Course of therapy completed) Comment on above: Take by mouth. cyproheptadine hydrochloride 4 mg oral tablet (6 sources) Start: 10-02-19 End: 12-31-19 take 1 tablet by mouth every eight hours as needed cyproheptadine (PERIACTIN) 4 mg tablet Take 1 tablet by mouth three times daily as needed. 30 tablet 1 10/01/2022 12/30/2022 Discontinued (Discontinued by Patient) Comment on above: Take 1 tablet by rik three times daily as needed. fluconazole 200 mg oral tablet (1 source) Azole Antifungal Start: 02-29-20 fluconazole (DIFLUCAN) 200 mg tablet Take two tablets on the first day. Then take one tablet daily for 14 days. 16 tablet 0 02/28/2023 Active Comment on above: Take two tablets on the first day. Then take one tablet daily for 14 days. Folic Acid (1 source) End: 07-10-19 FOLIC ACID ORAL Take by mouth. 0 07/10/2022 Discontinued Comment on above: Take by mouth. metoclopramide 10 mg oral tablet (6 sources) Dopamine-2 Receptor Antagonist Start: 10-02-19 End: 12-31-19 take 1 tablet by mouth every eight hours as needed metoclopramide HCl (REGLAN) 10 mg tablet Take 1 tablet by mouth three times daily as needed. 30 tablet 1 10/01/2022 12/30/2022 Discontinued (Discontinued by Patient) Comment on above: Take 1 tablet by rik three times daily as needed. 24 hr metoprolol succinate 25 mg extended release oral tablet (4 sources) beta-Adrenergic Kirill Start: 04-15-20 End: 08-07-19 23 take 1 tablet by mouth every twenty-four hours metoprolol succinate ER (TOPROL XL) 25 mg 24 hr tablet Take 25 mg by mouth. 0 04/15/2022 08/07/2022 Discontinued (Discontinued by Patient) Comment on above: Take 25 mg by mouth. vit B complex no.12/niacin,B3, (VITAMIN B COMPLEX NO.12-NIACIN ORAL) (1 source) End: 07-10-19 23 vit B complex no.12/niacin,B3, (VITAMIN B COMPLEX NO.12-NIACIN ORAL) Take by mouth. 0 07/10/2022 Discontinued (Course of therapy completed) Comment on above: Take by mouth. Problems Active Problems Problem Classification Problem Date Documented Da te Episodic/Chronic Anxiety disorders (12 sources) Generalized anxiety disorder; Translations: [Generalized anxiety disorder] Onset: 03-24-2024 2023 Chronic Asthma (20 sources) Mild intermittent asthma; Translations: [Mild intermittent asthma, uncomplicated] Onset: 07-26-2004 Chronic Headache; including migraine (20 sources) Chronic tension-type headache; Translations: [Chronic tension-type headache, not intractable] Onset: 11-01-2020 Chronic Miscellaneous mental health disorders (9 sources) depression; Translations: [ depression] Onset: 03-24-2024 09-18-2023 Episodic Other complications of (1 source) ; Translations: [ with inconclusive viability, not applicable or unspecified] Episodic Other complications of (1 source) Anxiety; Translations: [Other mental disorders complicating the puerperium] 2023 Episodic Other and delivery including normal (20 sources) Normal ; Translations: [Encounter for supervision of other normal , first trimester] Onset: 01-08-2021 Resolved: 03-31-2023 Episodic Other screening for suspected conditions (not mental disorders or infectious disease) (3 sources) Patient encounter status; Translations: [Encounter for other specified screening] Episodic Residual codes; unclassified (1 source) Gestation period, 19 weeks; Translations: [19 weeks gestation of ] Episodic Residual codes; unclassified (1 source) Gestation period, 23 weeks; Translations: [23 weeks gestation of ] Episodic Residual codes; unclassified (1 source) Gestation period, 28 weeks; Translations: [28 weeks gestation of ] Episodic Residual codes; unclassified (1 source) Gestation period, 34 weeks; Translations: [34 weeks gestation of ] Episodic Residual codes; unclassified (1 source) Gestation period, 36 weeks; Translations: [36 weeks gestation of ] Episodic Residual codes; unclassified (2 sources) Gestation period, 37 weeks; Translations: [37 weeks gestation of ] 01-06-2023 Episodic Residual codes; unclassified (1 source) Gestation period, 40 weeks; Translations: [40 weeks gestation of ] 01-27-2023 Episodic Residual codes; unclassified (1 source) 40 weeks gestation of ; Translations: [40 weeks gestation of ] Onset: 02-03-2023 Episodic Residual codes; unclassified (1 source) Failed encounter; Translations: [No-show for appointment] 04-30-2024 Episodic Residual codes; unclassified (1 source) Gestation period, 6 weeks; Translations: [Less than 8 weeks gestation of ] 10-13-2024 Episodic Residual codes; unclassified (1 source) 15 weeks gestation of ; Translations: [15 weeks gestation of (HCC)] Onset: 12-16-2024 Episodic Residual codes; unclassified (1 source) Less than 8 weeks gestation of ; Translations: [6 weeks gestation of (HCC)] Onset: 10-13-2024 Episodic Residual codes; unclassified (1 source) Gestation period, 15 weeks; Translations: [15 weeks gestation of ] 12-16-2024 Episodic Past or Other Problems Problem Classification Problem Date Documented Date Episodic/Chronic Cardiac dysrhythmias (20 sources) Palpitations; Translations: [Palpitations] Onset: 07-25-2021 Resolved: 09-04-2022 Episodic Hemorrhage during ; abruptio placenta; placenta previa (20 sources) Low lying placenta; Translations: [Low lying placenta NOS or without hemorrhage, unspecified trimester] Onset: 11-01-2020 Resolved: 01-08-2021 01-08-2021 Episodic Other complications of (20 sources) RhD negative; Translations: [Other specified related conditions, unspecified trimester] Onset: 11-01-2020 Resolved: 02-03-2023 01-09-2021 Episodic Other complications of (20 sources) H/O: premature delivery; Translations: [Supervision of other high risk pregnancies, unspecified trimester] Onset: 11-01-2020 Resolved: 01-09-2021 01-09-2021 Episodic Other complications of (2 sources) Other mental disorders complicating the puerperium; Translations: [Mental disorders of mother, condition or complication] Onset: 03-24-2024 03-24-2024 Episodic Other connective tissue disease (20 sources) Spasm; Translations: [Other muscle spasm] Onset: 08-29-2023 08-29-2023 Episodic Polyhydramnios and other problems of amniotic cavity (20 sources) Amniotic fluid leaking; Translations: [Premature rupture of membranes, unspecified as to length of time between rupture and onset of labor, unspecified weeks of gestation] Onset: 01-08-2021 Resolved: 01-08-2021 01-08-2021 Episodic Residual codes; unclassified (20 sources) History of pre-eclampsia; Translations: [Personal history of other complications of , childbirth and the puerperium] Onset: 11-01-2020 Resolved: 02-03-2023 Episodic Residual codes; unclassified (20 sources) History of premature rupture of membranes; Translations: [Personal history of other complications of , childbirth and the puerperium] Onset: 11-01-2020 Resolved: 01-09-2021 01-09-2021 Episodic Residual codes; unclassified (20 sources) H/O: depression; Translations: [Personal history of other complications of , childbirth and the puerperium] Onset: 11-01-2020 Resolved: 01-09-2021 01-09-2021 Episodic Residual codes; unclassified (20 sources) At risk for difficulty; Translations: [Other specified personal risk factors, not elsewhere classified] Onset: 01-08-2021 Resolved: 07-10-2022 07-10-2022 Episodic Spondylosis; intervertebral disc disorders; other back problems (20 sources) Pain in the coccyx; Translations: [Sacrococcygeal disorders, not elsewhere classified] Onset: 08-29-2023 08-29-2023 Episodic Results Test Name Value Interpretation Reference Range Facil ity 25(OH)D3 Paulina 2024 25-hydroxyvitamin D3 [Mass/Vol] 33.5 ng/mL Normal 31.0-80.0 [facility] Comment on above: Order Comment: Speci men Type: BLOOD SPECIMEN Ordering Facility: [facility] Address: [address] [place] [address] Performed By: #### R MILIG, 1986-08 #### [facility] CLIA [id number] [address] [place] [address] [place] CBC panel Auto (Bld)on 12-16 Erythrocyte distribution width (RBC) [Ratio] 13.2 % Normal 11.5-15.0 [facility] Comment on above: Order Comment: Speci men Type: BLOOD SPECIMEN Ordering Facility: [facility] Address: [address] [place] [address] Performed By: #### 5 8410-2 #### [facility] CLIA [id number] [address] [place] [address] [place] Hematocrit (Bld) [Volume fraction] 36.5 % Normal 36.0-46.0 [facility] Comment on above: Order Comment: Speci men Type: BLOOD SPECIMEN Ordering Facility: [facility] Address: [address] [place] [address] Performed By: #### 5 8410-2 #### [facility] CLIA [id number] [address] [place] [address] [place] Hemoglobin (Bld) [Mass/Vol] 12.0 g/dL Normal 11.5-15.5 [facility] Comment on above: Order Comment: Speci men Type: BLOOD SPECIMEN Ordering Facility: [facility] Address: [address] [place] [address] Performed By: #### 5 8410-2 #### [facility] CLIA [id number] [address] [place] [address] [place] MCH (RBC) [Entitic mass] 28.8 pg Normal 26.0-34.0 [facility] Comment on above: Order Comment: Speci men Type: BLOOD SPECIMEN Ordering Facility: [facility] Address: [address] [place] [address] Performed By: #### 5 8410-2 #### [facility] CLIA [id number] [address] [place] [address] [place] MCHC (RBC) [Mass/Vol] 32.9 g/dL Normal 30.5-36.0 [facility] Comment on above: Order Comment: Speci men Type: BLOOD SPECIMEN Ordering Facility: [facility] Address: [address] [place] [address] Performed By: #### 5 8410-2 #### [facility] CLIA [id number] [address] [place] [address] [place] MCV (RBC) [Entitic vol] 87.5 fL Normal 80.0-100.0 [facility] Comment on above: Order Comment: Speci men Type: BLOOD SPECIMEN Ordering Facility: [facility] Address: [address] [place] [address] Performed By: #### 5 8410-2 #### [facility] CLIA [id number] [address] [place] [address] [place] Nucleated RBC (Bld) [#/Vol] 10*3/uL Normal <0.01 [facility] Comment on above: Order Comment: Speci men Type: BLOOD SPECIMEN Ordering Facility: [facility] Address: [address] [place] [address] Performed By: #### 5 8410-2 #### [facility] CLIA [id number] [address] [id number] [address] [place] Platelet mean volume (Bld) [Entitic vol] 10.8 fL Normal 9.0-12.7 [facility] Comment on above: Order Comment: Speci men Type: BLOOD SPECIMEN Ordering Facility: [facility] Address: [address] [place] [address] Performed By: #### 5 8410-2 #### [facility] CLIA [id number] [address] [place] [address] [place] Platelets (Bld) [#/Vol] 215 10*3/uL Normal 150-400 [facility] Comment on above: Order Comment: Speci men Type: BLOOD SPECIMEN Ordering Facility: [facility] Address: [address] [place] [address] Performed By: #### 5 8410-2 #### [facility] CLIA [id number] [address] [place] [address] [place] RBC (Bld) [#/Vol] 4.17 10*6/uL Normal 3.90-5.20 [facility] Comment on above: Order Comment: Speci men Type: BLOOD SPECIMEN Ordering Facility: [facility] Address: [address] [place] [address] Performed By: #### 5 8410-2 #### [facility] CLIA [id number] [address] [place] [address] [place] WBC (Bld) [#/Vol] 7.49 10*3/uL Normal 3.70-11.00 [facility] Comment on above: Order Comment: Speci men Type: BLOOD SPECIMEN Ordering Facility: [facility] Address: [address] [place] [address] Performed By: #### 5 8410-2 #### [facility] CLIA [id number] [address] [place] [address] [place] Comprehensive metabolic 2000 panelon 12-16-2024 Albumin [Mass/Vol] 3.6 g/dL Low 3.9-4.9 [facility] Comment on above: Order Comment: Speci men Type: BLOOD SPECIMEN Ordering Facility: [facility] Address: [address] [place] [address] Performed By: #### 3 016-3, 58777-5 #### [facility] CLIA [id number] [address] [place] [address] [place] ALP [Catalytic activity/Vol] 75 U/L Normal 34-123 [facility] Comment on above: Order Comment: Speci men Type: BLOOD SPECIMEN Ordering Facility: [facility] Address: [address] [place] [address] Performed By: #### 3 016-3, 29090-8 #### [facility] CLIA [id number] [address] [place] [address] [place] ALT [Catalytic activity/Vol] 19 U/L Normal 7-38 [facility] Comment on above: Order Comment: Speci men Type: BLOOD SPECIMEN Ordering Facility: [facility] Address: [address] [place] [address] Performed By: #### 3 016-3, 59111-1 #### [facility] CLIA [id number] [address] [place] [address] [place] Anion gap [Moles/Vol] 13 mmol/L Normal 8-15 [facility] Comment on above: Order Comment: Speci men Type: BLOOD SPECIMEN Ordering Facility: [facility] Address: [address] [place] [address] Performed By: #### 3 016-3, 58769-9 #### [facility] CLIA [id number] [address] [place] [address] [place] AST [Catalytic activity/Vol] 23 U/L Normal 13-35 [facility] Comment on above: Order Comment: Speci men Type: BLOOD SPECIMEN Ordering Facility: [facility] Address: [address] [place], [place] [id number] Performed By: #### 3 016-3, #### [facility] CLIA [id number] [address] [place] [address] [place] Bilirubin [Mass/Vol] 0.2 mg/dL Normal 0.2-1.3 [facility] Comment on above: Order Comment: Speci men Type: BLOOD SPECIMEN Ordering Facility: [facility] Address: [address] [place] [address] Performed By: #### 3 016-3, #### [facility] CLIA [id number] [address] [place] [address] [place] Calcium [Mass/Vol] 9.1 mg/dL Normal 8.5-10.2 [facility] Comment on above: Order Comment: Speci men Type: BLOOD SPECIMEN Ordering Facility: [facility] Address: [address] [place] [address] Performed By: #### 3 3, #### [facility] CLIA [id number] [address] [place] [address] [place] Chloride [Moles/Vol] 104 mmol/L Normal 98-107 [facility] Comment on above: Order Comment: Speci men Type: BLOOD SPECIMEN Ordering Facility: [facility] Address: [address] [place] [address] Performed By: #### 3 016-3, #### [facility] CLIA [id number] [address] [place] [address] [place] CO2 [Moles/Vol] 19 mmol/L Low 22-30 [facility] Comment on above: Order Comment: Speci men Type: BLOOD SPECIMEN Ordering Facility: [facility] Address: [address] [place] [address] Performed By: #### 3 016-3, #### [facility] CLIA [id number] [address] [place] [address] [place] Creatinine [Mass/Vol] 0.60 mg/dL Normal 0.58-0.96 [facility] Comment on above: Order Comment: Renata hunt Type: BLOOD SPECIMEN Ordering Facility: [facility] Address: [address] [place] [address] Performed By: #### 3 016-3, 18162-9 #### [facility] CLIA [id number] [address] [place] [address] [place] Creatinine and Glomerular filtration rate.predicted panel (S/P/Bld) 122 mL/min/1.73m??? Normal >=60 [facility] Comment on above: Order Comment: Renata hunt Type: BLOOD SPECIMEN Ordering Facility: [facility] Address: [address] [place] [address] Result Comment: Isabela mated Glomerular Filtration Rate (eGFR) is calculated using the 2020 CKD-EPI creatinine equation. This equation utilizes serum creatinine, sex, and age as parameters. The creatinine assay has traceable calibration to isotope dilution-mass spectrometry. Refer to KDIGO guidelines for clinical interpretation. In patients with unstable renal function, e.g. those with acute kidney injury, the eGFR may not accurately reflect actual GFR. Performed By: #### 3 016-3, 31473-1 #### [facility] CLIA [id number] [address] [place] [address] [place] Glucose [Mass/Vol] 71 mg/dL Low 74-99 [facility] Comment on above: Order Comment: Renata hunt Type: BLOOD SPECIMEN Ordering Facility: [facility] Address: [address] [place] [address] Result Comment: The [place] [employer] (ADA) provides guidance for cutoff [...] Standards of Medical Care in Diabetes 2016, [place] [employer]. Diabetes Care. 2016.39(Suppl 1). Performed By: #### 3 016-3, 16490-6 #### [facility] CLIA [id number] [address] [place] [address] [place] Potassium [Moles/Vol] 3.8 mmol/L Normal 3.7-5.1 [facility] Comment on above: Order Comment: Speci men Type: BLOOD SPECIMEN Ordering Facility: [facility] Address: [address] [place] [address] Performed By: #### 3 -3, 59284-2 #### [facility] CLIA [id number] [address] [place] [place] [address] [place] Protein [Mass/Vol] 6.3 g/dL Normal 6.3-8.0 [facility] Comment on above: Order Comment: Speci men Type: BLOOD SPECIMEN Ordering Facility: [facility] Address: [address] [place] [address] Performed By: #### 3 3, 79338-0 #### [facility] CLIA [id number] [address] [place] [address] [place] Sodium [Moles/Vol] 136 mmol/L Normal 136-144 [facility] Comment on above: Order Comment: Speci men Type: BLOOD SPECIMEN Ordering Facility: [facility] Address: [address] [place], [place] [address] Performed By: #### 3 016-3, 04046-9 #### [facility] CLIA [id number] [address] [place], [place] [address] [place] Urea nitrogen [Mass/Vol] 7 mg/dL Normal 7-21 [facility] Comment on above: Order Comment: Speci men Type: BLOOD SPECIMEN Ordering Facility: [facility] Address: [address] [place], [place] [address] Performed By: #### 3 -3, 90328-5 #### [facility] CLIA [id number] [address] [place] [address] [place] HBV surface Ag Ser Qlon 11-28 HBV surface Ag Ql (S) Negative Normal Negative [facility] Comment on above: Order Comment: Speci men Type: BLOOD SPECIMEN Ordering Facility: [facility] Address: [address] [place] [address] Performed By: #### 5 195-3, 97369-6, 58054-7 #### [facility] CLIA [id number] [address] [place] [address] [place] HCV Ab Ser Qlon 12-16-2024 HCV Ab Ql (S) Negative Normal Negative [facility] Comment on above: Order Comment: Speci men Type: BLOOD SPECIMEN Ordering Facility: [facility] Address: [address] [place] [address] Result Comment: The result suggests no evidence of infection with Hepatitis C virus. Should recent infection be suspected, repeat testing may be considered 4-6 weeks after this draw. Performed By: #### 1 6128-1 #### [facility] CLIA [id number] [address] [place] [address] [place] [facility] [place] HIV 1+2 Ab IA Qlon HIV 1 and 2 Ab IA.rapid Nom (S/P/Bld) Normal [facility] Comment on above: Order Comment: Speci men Type: BLOOD SPECIMEN Ordering Facility: [facility] Address: [address] [place] [address] Result Comment: Test not indicated. Performed By: #### 5 195-3, 99389-6, 69802-1 #### [facility] CLIA [id number] [address] [place] [address] [place] [facility] [place] HIV 1+2 Ab+HIV1 p24 Ag IA Ql Non-Reactive Normal Nonreactive [facility] Comment on above: Order Comment: Speci men Type: BLOOD SPECIMEN Ordering Facility: [facility] Address: [address] [place] [address] Performed By: #### 5 195-3, 61020-6, 70801-5 #### [facility] CLIA [id number] [address] [place] [address] [place] HIV immunoassay testing algorithm interpretation (S/P/Bld) [Interp] Normal [facility] Comment on above: Order Comment: Speci men Type: BLOOD SPECIMEN Ordering Facility: [facility] Address: [address] [place] [address] Result Comment: No e vidence of HIV-1 or HIV-2 infection. Should recent infection be suspected, repeat testing may be considered 2-3 weeks after this draw. [place] Rev. Code 3701.243(E): This information has been [...] release of HIV test results or diagnoses. Performed By: #### 5 195-3, 00506-6, 13212-6 #### [facility] CLIA [id number] [address] [place] [address] [place] HbA1c (Bld)on 12-16-2024 Average glucose Estimated from glycated hemoglobin (Bld) [Mass/Vol] 91 mg/dL Normal [facility] Comment on above: Order Comment: Speci men Type: BLOOD SPECIMEN Ordering Facility: [facility] Address: [address] [place] [address] Result Comment: eAG: (Estimated average glucose) is a calculated value from HgbA1c and is territory account representative of the average blood glucose level in the last 2-3 month period. Performed By: #### 5 5454-3 #### [facility] CLIA [id number] [address] [place] [address] [place] HbA1c (Bld) [Mass fraction] 4.8 % Normal 4.3-5.6 [facility] Comment on above: Order Comment: Renata hunt Type: BLOOD SPECIMEN Ordering Facility: [facility] Address: [address] [place] [address] Result Comment: [place] Diabetes Association guidelines indicate that patients with HgbA1c in the range 5.7-6.4% are at increased risk for development of diabetes, and intervention by lifestyle modification may be beneficial. HgbA1c greater or equal to 6.5% is considered diagnostic of diabetes. Performed By: #### 5 5454-3 #### [facility] CLIA [id number] [address] [place] [address] [place] Prot/Creat Uron 12-16-2024 Protein/Creatinine (U) [Mass ratio] mg/g Normal <0.15 [facility] Comment on above: Order Comment: Renata hunt Type: BLOOD SPECIMEN Ordering Facility: [facility] Address: [address] [place] [address] Result Comment: Adul t Proteinuria Categories: <0.15 mg/mg is considered normal to mildly increased 0.15 - 0.50 mg/mg is considered moderately increased >0.50 mg/mg is considered severely increased KDIGO. (2013). KDIGO 2012 Clinical Practice Guideline for the Evaluation and Management of Chronic Kidney Disease. Official Journal of the International Society of Nephrology, 3(1), 1-150. Performed By: #### 5 195-3, 56572-1, 10157-7 #### [facility] CLIA [id number] [address] [place] [address] [place] Protein/Creatinine (U) [Mass ratio]on 12-16-2024 Creatinine (U) [Mass/Vol] 55.1 mg/dL Normal 20.0-300.0 [facility] Comment on above: Order Comment: Renata hunt Type: BLOOD SPECIMEN Ordering Facility: [facility] Address: [address] [place] [address] Performed By: #### 5 195-3, 19743-7, 09909-0 #### [facility] CLIA [id number] [address] [place] [address] [place] Protein (U) [Mass/Vol] mg/dL Normal 0-20 [facility] Comment on above: Order Comment: Renata hunt Type: BLOOD SPECIMEN Ordering Facility: [facility] Address: [address] [place] [address] Performed By: #### 5 195-3, 21363-1, 68597-5 #### [facility] CLIA [id number] [address] [place] [address] [place] RUBELLA IGG ANTIBODYon 12-16 RUBELLA IGG AB, QUAL Positive Normal Positive [facility] Comment on above: Order Comment: Renata hunt Type: BLOOD SPECIMEN Ordering Facility: [facility] Address: [address] [place] [address] Result Comment: The result suggests recent or past exposure to Rubella virus or history of Rubella vaccination. Positive result may also be seen due to presence of passively-transferred antibodies. Please correlate with patient's history. Performed By: #### R UBIGG, 1986-08 #### [facility] CLIA [id number] [address] [place] [address] [place] Reagin and Treponema pallidu m IgG and IgM [Interp]on 12-16-2024 T. pallidum IgG+IgM IA Ql (S) Non-Reactive Normal Nonreactive [facility] Comment on above: Order Comment: Renata hunt Type: BLOOD SPECIMEN Ordering Facility: [facility] Address: [address] [place] [address] Performed By: #### 5 195-3, 31751-0, 59779-9 #### [facility] CLIA [id number] [address] [place] [address] [place] Reagin+T pallidum IgG+IgM Se rPl-Impon 12-16-2024 Reagin and Treponema pallidum IgG and IgM [Interp] Cannot exclude recent Treponemal infection if specimen collected within 7-10 days after appearance of suspect lesions or 2-3 weeks after an exposure. Clinical correlation is required. Normal [facility] Comment on above: Order Comment: Speci marilee Type: BLOOD SPECIMEN Ordering Facility: [facility] Address: [address] [place] [address] Performed By: #### 5 195-3, 98622-2, 52358-2 #### [facility] CLIA [id number] [address] [place] [address] [place] TSH SerPl-aCncon 12-16-2024 TSH Qn 3.510 m[IU]/L Normal 0.270-4.200 [facility] Comment on above: Order Comment: Renata hunt Type: BLOOD SPECIMEN Ordering Facility: [facility] Address: [address] [place] [address] Result Comment: If t he patient is , TSH reference range varies by gestational period: First Trimester (weeks 9-12): 0.180-2.990 mIU/L Second Trimester: 0.110-3.980 mIU/L Third Trimester: 0.480-4.710 mIU/L Ld Machado et al. A Practical Approach for the Verifications and Determination of Site- and Trimester-Specific Reference Intervals for Thyroid Function tests in . Thyroid, 2019:29:3:412-420. Percy Barrios, et al. 2017 Guidelines of the [place] Thyroid Association for the Diagnosis and Management of Thyroid Disease during and the . Thyroid, 2017:27:3:315-389. Performed By: #### 3 016-3, 87078-9 #### [facility] CLIA [id number] [address] [place] [address] [place] TYPE + SCREEN PRENATALon ABO A Normal [facility] Comment on above: Order Comment: Renata hunt Type: BLOOD SPECIMEN Ordering Facility: [facility] Address: [address] [place] [address] Performed By: #### 5 195-3, 65614-6, 11684-1 #### [facility] CLIA [id number] [address] [place] [address] [place] Rh Nom (Bld) Negative Normal [facility] Comment on above: Order Comment: Speci men Type: BLOOD SPECIMEN Ordering Facility: [facility] Address: [address] [place] [address] Result Comment: [place] ected result: Previously reported as Invalid on 12/16/2024 at 4:01 PM EDT. Performed By: #### 5 195-3, 00244-6, 45724-2 #### [facility] CLIA [id number] [address] [place] [address] [place] [facility] TYPE AND SCREEN EXPIRATION 12/19/2024 23:59 Normal [facility] Comment on above: Order Comment: Speci men Type: BLOOD SPECIMEN Ordering Facility: [facility] Address: [address] [place] [address] Performed By: #### 5 195-3, 85236-7, 29935-3 #### [facility] CLIA [id number] [address] [place] [address] [place] URINE OB DIP B/Oon 5 Glucose Ql (U) Negative Neg mg/dL [facility] Protein.monoclonal (U) [Mass/Vol] Negative Neg mg/dL [facility] Bacteria Ur Culton 5 Bacteria identified Cx Nom (U) CULTURE, URINE: No growth (<1,000 CFU/ml) Normal [facility] Comment on above: Performed By: #### 5 195-3, 23379-2, 77614-6 #### [facility] CLIA [id number] [address] [place] [address] [place] POC ANALYST COMPETITIVE INTELLIGENCE ULTRASOUNDon 10-14-19 25 Indication Viability; confirm cardiac activity Impression Single intrauterine gestational sac, CRL indicates discrepancy from clinical dates, DIANDRA 06/04/2025 based on today's ultrasound, FHR 113 bpm cardiac activity is visualized Recommendations Follow up for 1st Trimester Anatomy with Nuchal Translucency as clinically indicated if desired. Method Transabdominal ultrasound examination, Transvaginal ultrasound examination Tran . Number of embryos: 1 Dating LMP [...] present. FHR 113 bpm Performed By: Marina Benitez CNM Read By: Marina Benitez CNM MATERNAL MEDICINE [facility] Radiology Study observation (narrative) [facility] CNOVon 02-03-2024 CNOV Office Visit ([facility] ) NELLA DA SILVA ([id number]) 1990 F Date Time Provider Department 02/03/24 2:00 PM MARINA BENITEZ [facility] During your visit today, we recorded the following information about you: Blood pressure Weight Height 112/58 76.8 kg 1.499 m Michelle Cifuentes MA 02/03/2024 2:11 PM Signed Reserve Officer offered: Patient declines. Marina Benitez APRN.CNM 02/03/2024 2:38 PM Signed Nella is a 33 year old who presents for an annual gynecologic exam without complaints. Menses: no cycles with nursing. 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 Without severe features. - Nancy Quiroga APRN.CNM 11/01/2020: History of delivery, currently Comment: See PPROM No date: depression 11/01/2020: Rh negative state in antepartum period Comment: Received 3rd trimester Rhogam. - Nancy Quiroga APRN.CNM PAST SURGICAL HISTORY 2005: PAST SURGICAL HISTORY OF Comment: right foot FAMILY HISTORY Problem Relation Age of Onset Cervical Cancer Maternal Grandmother Uterine Cancer Maternal Grandmother Colon Cancer Paternal Grandfather SOCIAL HISTORY Social History Tobacco Use Smoking status: Former Types: Cigarettes Quit date: 11/2019 Years since quittin.1 Smokeless tobacco: Never Vaping Use Vaping Use: Never used Substance Use Topics Alcohol use: No Drug use: No REVIEW OF SYSTEMS Abdomen: No abdominal pain, nausea, vomiting, diarrhea, or constipation. No bloating, early satiety, indigestion, or increased flatulence. Bladder: No dysuria, gross hematuria, urinary frequency, urinary urgency, or incontinence. Breast: No breast lumps, nipple d/c, overlying skin changes, redness or skin retraction. Allergies and current medication updated:Yes EXAM: BP 112/58 Ht 4' 11 (1.50m) Wt 169 lb 6.4 oz (76.8kg) LMP 04/22/2022 BMI 34.20 kg/(m2). GENERAL: pleasant, female in no apparent distress HEENT: Normocephalic, atraumatic, mucus membranes moist, and no lesions NECK: Supple, full range of motion, no adenopathy, and thyroid normal DERMATOLOGY: Normal, without lesions, non-icteric, and non-hirsute BREAST: soft, non-tender, symmetric, no dominant mass, normal nipple-areolar complex, no lymphadenopathy, and no nipple discharge CHEST: Normal inspiratory effort ABDOMEN: soft, non-tender, and no masses PELVIC: external genitalia normal, normal Bartholin's glands, urethra, [place]'s glands, no vulvar lesions, no cervical lesions, good vaginal support, physiologic discharge present, normal appearing perineal body and perianal region BIMANUAL: uterus normal size, shape and consistency, no adnexal masses, and non-tender RECTOVAGINAL: deferred. NEURO: alert and oriented x3,exam grossly non-focal EXTREMITIES: normal ASSESSMENT/PLAN: 1) Health maintenance: Pap done with HPV. Mammogram starting age 40. Nutrition, exercise and routine health maintenance exams reviewed. 2) Contraception: none. Contraceptive options reviewed and information provided. TTC. Discussed SSRI use and prenatals. 3) STD screening: Declined STD check. 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 #:[id number] Prescriptions as of 02/03/2024 - FLUoxetine (PROZAC) 20 mg capsule Take 1 capsule by mouth once daily. - buPROPion XL (WELLBUTRIN XL) 150 mg 24 hr tablet Take 1 tablet by mouth once daily. - magnesium oxide (MAG-OX) 400 mg (241.3 mg magnesium) tablet take 1 tablet by mouth twice a day - cholecalciferol (VITAMIN D-3) 50 mcg (2,000 unit) tablet Take 2,000 Units by mouth once daily. - albuterol HFA (PROVENTIL HFA, VENTOLIN HFA) 90 mcg/actuation inhaler 2 puffs as needed Inhalation every 4 hrs - budesonide-formoterol (SYMBICORT) 160-4.5 mcg/actuation inhaler - prenata (more content not included)... Normal [facility] HIGH RISK HUMAN PAPILLOMA INES (HPV), PCR FOR DETECTION AND GENOTYPINGon 02-03-2024 HPV 16 Ag Ql (Unsp spec) Not detected Normal Not detected [facility] Comment on above: Order Comment: Speci men Type: BLOOD SPECIMEN Ordering Facility: [facility] Address: [address] [place] [address] Performed By: #### 5 195-3, 50907-5, 25761-8 #### [facility] CLIA [id number] [address] [place] [address] [place] HPV 18 Ag Ql (Unsp spec) Not detected Normal Not detected [facility] Comment on above: Order Comment: Speci men Type: BLOOD SPECIMEN Ordering Facility: [facility] Address: [address] [place] [address] Performed By: #### 5 195-3, 60091-4, 91534-3 #### [facility] CLIA [id number] [address] [place] [address] [place] HPV 31+33+35+39+45+51+5 2+56+58+59+66+68 DNA ADA+probe Ql (Cvx) Detected Abnormal Not detected [facility] Comment on above: Order Comment: Speci men Type: BLOOD SPECIMEN Ordering Facility: [facility] Address: [address] [place] [address] Result Comment: High Risk HPV Other Type includes HPV types 31, 33, 35, 39, 45, 51, 52, 56, 58, 59, 66 and 68. Performed By: #### 5 195-3, 24174-0, 76644-8 #### [facility] CLIA [id number] [address] [place] [address] [place] PAP TESTon 02-03-2024 ADEQUACY Satisfactory for interpretation. Normal [facility] Comment on above: Order Comment: Speci men Type: BLOOD SPECIMEN Ordering Facility: [facility] Address: [address] [place] [address] Performed By: #### 5 195-3, 12436-0, 65331-0 #### [facility] CLIA [id number] [address] [place] [address] [place] CASE REPORT Normal [facility] Comment on above: Order Comment: Speci men Type: BLOOD SPECIMEN Ordering Facility: [facility] Address: [address] [place] [address] Result Comment: Gyne cologic Cytology Report Case: [id number] Authorizing Provider: Marina Benitez APRN.CNBest Collected: 02/03/2024 02:46 PM Ordering Location: Obstetrics/Gynecology Received: 02/03/2024 06:19 PM First Screen: Manosky, Marissa Rescreen: Deirdre, Rody, CT, ASCP Specimen: Pap Test, ThinPrep, Cervix Performed By: #### 5 195-3, 56538-1, 38864-5 #### [facility] CLIA [id number] [address] [place] [address] [place] CLINICAL HISTORY, CYTOLOGY, BROOM HANDLE DIPPER Routine Exam Normal [facility] Comment on above: Order Comment: Speci men Type: BLOOD SPECIMEN Ordering Facility: [facility] Address: [address] [place] [address] Performed By: #### 5 195-3, 85320-0, 51193-8 #### [facility] CLIA [id number] [address] [place], [place] [address] [place] FINAL PERFORMING LAB Normal [facility] Comment on above: Order Comment: Speci men Type: BLOOD SPECIMEN Ordering Facility: [facility] Address: [address] [place], [place] [address] Result Comment: Tech nical component, assembler installer general screening performed at [facility], [address] [place] [address] CLIA# [id number] Diagnostic interpretation performed at [facility], [address] [place] [address] CLIA# [id number] Singing Waiter Or Waitress: Ck Matthews M.D. Performed By: #### 5 195-3, 14825-2, 00410-6 #### [facility] CLIA [id number] [address] [place] [address] [place] HPV REFLEX Yes HPV Normal [facility] Comment on above: Order Comment: Speci men Type: BLOOD SPECIMEN Ordering Facility: [facility] Address: [address] [place], [place] [address] Performed By: #### 5 195-3, 32691-3, 69488-9 #### [facility] CLIA [id number] [address] [place], [place] [address] [place] INTERPRETATION, CYTOLOGY, BROOM HANDLE DIPPER Normal [facility] Comment on above: Order Comment: Speci men Type: BLOOD SPECIMEN Ordering Facility: [facility] Address: [address] [place] [address] Result Comment: Nega tive for intraepithelial lesion or malignancy. Performed By: #### 5 195-3, 55469-8, 87840-4 #### [facility] CLIA [id number] [address] [place] [address] [place] LMP 10/27/2023 Normal [facility] Comment on above: Order Comment: Speci men Type: BLOOD SPECIMEN Ordering Facility: [facility] Address: [address] [place] [address] Performed By: #### 5 195-3, 69200-2, 60266-7 #### [facility] CLIA [id number] [address] [place], [place] [address] [place] PAP DISCLAIMER COMMENT The Pap Smear is a screening test for cervical cancer. False negative results occur with all screening tests, emphasizing the need for rescreening at recommended intervals, and clinical correlation. Normal [facility] Comment on above: Order Comment: Speci men Type: BLOOD SPECIMEN Ordering Facility: [facility] Address: [address] [place] [address] Performed By: #### 5 195-3, 27283-2, 14446-5 #### [facility] CLIA [id number] [address] [place] [address] OF [facility] PAP ANALOG IC DESIGN ARCHITECT COMMENT This specimen has been analyzed by the ThinPrep Imaging System, an automated imaging and review system, which assists the laboratory in evaluating cells on ThinPrep Pap tests. Following automated imaging, selected dotson from every slide are reviewed by a assembler installer general. Normal [facility] Comment on above: Order Comment: Speci men Type: BLOOD SPECIMEN Ordering Facility: [facility] Address: [address] [place] [address] Performed By: #### 5 195-3, 72800-6, 13116-6 #### [facility] CLIA [id number] [address] [place] [address] [place] CBC panel Auto (Bld)on 02-03 Erythrocyte distribution width (RBC) [Ratio] 13.4 % Normal 11.5-15.0 [facility] Comment on above: Order Comment: Speci men Type: BLOOD SPECIMEN Ordering Facility: [facility] Address: [address] [place] [address] Performed By: #### 5 8410-2 #### [facility] CLIA [id number] [address] [place] [address] [place] Hematocrit (Bld) [Volume fraction] 36.0 % Normal 36.0-46.0 [facility] Comment on above: Order Comment: Speci men Type: BLOOD SPECIMEN Ordering Facility: [facility] Address: [address] [address] Performed By: #### 5 8410-2 #### [facility] CLIA [id number] [address] [place] [address] [place] Hemoglobin (Bld) [Mass/Vol] 12.1 g/dL Normal 11.5-15.5 [facility] Comment on above: Order Comment: Speci men Type: BLOOD SPECIMEN Ordering Facility: [facility] Address: [address] [place] [address] Performed By: #### 5 8410-2 #### [facility] CLIA [id number] [address] [place] [address] STATES [facility] MCH (RBC) [Entitic mass] 29.5 pg Normal 26.0-34.0 [facility] Comment on above: Order Comment: Speci men Type: BLOOD SPECIMEN Ordering Facility: [facility] Address: [address] [place] [address] Performed By: #### 5 8410-2 #### [facility] CLIA [id number] [address] [place] [address] [place] MCHC (RBC) [Mass/Vol] 33.6 g/dL Normal 30.5-36.0 [facility] Comment on above: Order Comment: Speci men Type: BLOOD SPECIMEN Ordering Facility: [facility] Address: [address] [place] [address] Performed By: #### 5 8410-2 #### [facility] CLIA [id number] [address] [place] [address] STATES [facility] MCV (RBC) [Entitic vol] 87.8 fL Normal 80.0-100.0 [facility] Comment on above: Order Comment: Speci men Type: BLOOD SPECIMEN Ordering Facility: [facility] Address: [address] [place] [address] Performed By: #### 5 8410-2 #### [facility] CLIA [id number] [address] [place] [address] [place] Nucleated RBC (Bld) [#/Vol] 10*3/uL Normal <0.01 [facility] Comment on above: Order Comment: Speci men Type: BLOOD SPECIMEN Ordering Facility: [facility] Address: [address] [place] [address] Performed By: #### 5 8410-2 #### [facility] CLIA [id number] [address] [place] [address] [place] Platelet mean volume (Bld) [Entitic vol] 11.1 fL Normal 9.0-12.7 [facility] Comment on above: Order Comment: Speci men Type: BLOOD SPECIMEN Ordering Facility: [facility] Address: [address] [address] Performed By: #### 5 8410-2 #### [facility] CLIA [id number] [place] [address] [place] Platelets (Bld) [#/Vol] 157 10*3/uL Normal 150-400 [facility] Comment on above: Order Comment: Speci men Type: BLOOD SPECIMEN Ordering Facility: [facility] Address: [address] [place] [address] Performed By: #### 5 8410-2 #### [facility] CLIA [id number] [address] [place] [address] [place] RBC (Bld) [#/Vol] 4.10 10*6/uL Normal 3.90-5.20 [facility] Comment on above: Order Comment: Speci men Type: BLOOD SPECIMEN Ordering Facility: [facility] Address: [address] [place] [address] Performed By: #### 5 8410-2 #### [facility] CLIA [id number] [address] [place] [address] [place] WBC (Bld) [#/Vol] 11.19 10*3/uL High 3.70-11.00 [facility] Comment on above: Order Comment: Speci men Type: BLOOD SPECIMEN Ordering Facility: [facility] Address: [address] [place] [address] Performed By: #### 5 8410-2 #### [facility] CLIA [id number] [address] [place] [address] [place] HISTORY PHYSICALon HISTORY PHYSICAL HNO ID: [id number] Author: Kevyn Steward APRN.CNM Service: Obstetrics Author Type: Sponge Clipper Type: HANDP Filed: 02/03/2023 10:04 AM Note Text: SERVICE DATE: 02/03/2023 SERVICE TIME: 8:45 AM PHYSICAL EXAM MUST BE COMPLETED ON ADMISSION The History and Physical (completed in the past 30 days) has been reviewed and the patient has been examined. The contents accurately reflect the patient's condition with the following additions or revisions since the HANDP was completed. CC: Induction of labor for late term BP 109/68 Pulse 90 Temp 36.5 ?C (97.7 ?F) (Oral) Resp 20 Ht 149.9 cm (4' 11 ) Wt 83 kg (183 lb) LMP 04/22/2022 SpO2 98% BMI 36.96 kg/m? POST DELIVERY CONTRACEPTION: Discussed post-delivery contraception options. Patient received written information about post-delivery contraception options. Patient does not desire post-delivery contraception. Examination indicates no changes. Current OB/Cervical examination indicates: Dilation: 1.5 (02/03/23942 : Brenda Shore, KATHIE) cm Station: -3 (02/03/23942 : Brenda Shore, KATHIE) Effacement: 50 (02/03/23942 : Brenda Shore, KATHIE) % Pelvimetry: Pelvimetry clinically assessed as adequate; last baby 6 lb 11 oz (2020) Presentation: Vertex, asynclitic- on LBSUS eye sockets visualized facing maternal abdomen and arm over face EFW: 7.5# per Senthil's EFM: Category I, reactive GBS: negative Current OB plan: Proceed with Induction: misoprostol (Cytotec) and Cervical ripening balloon (CRB). Traditional admission orders placed. Encouraged patient to perform forward leaning inversions in order to better position fetus in the pelvis. Plan of care discussed with: Provider, RN, Patient and Family/Significant Other: Rj . This HANDP can be found in notes on 01/15 completed by Nancy Quiroga APRN.CNM. SIGNATURE: Kevyn Steward APRN.CNM PATIENT NAME: Nella Da Silva DATE: 02/03/2023 TIME: 8:45 AM PAGER: Mckinley Meeks [facility] LD NOTEon 02-03-2023 LD NOTE HNO ID: [id number] Author: Kevyn Steward APRN.CNM Service: Obstetrics Author Type: Sponge Clipper Type: LANDD Delivery Note Filed: 02/03/2023 6:39 PM Note Text: OBSTETRICS DELIVERY SUMMARY - VAGINAL DELIVERY Gestational Age at Delivery: 41w0d Service Date: 02/03/2023 Service Time: 6:20 PM Labor Events Rupture Date: 02/03/2023 Rupture Time: 5:32 PM Total Time from ROM to Delivery: 0h 07m Rupture Type: SROM Fluid Color: Clear Fluid Odor: No Odor Induction: Yes Induction Method: Misoprostol;Cervical Ripening Balloon (CRB) Pedrito Da Silva [[id number]] Episiotomy/Laceration : Episiotomy: None Lacerations: None Date and Time of : Date of : 02/03/23 Time of : 1739 Delivery Information: Primary Reason for Delivery : Late Term - 41 weeks Additional Clinicial Indicator(s) for delivery: N/A Delivery type: Vaginal, Spontaneous Intrapartum Complications: None Delivery between 24 - 34 weeks?: No Presentation: Vertex Shoulder Dystocia Present: No Vacuum Used: No Forceps Used: No Presentation AND Position Presentation: Vertex Position: OA, MEAGAN Cord: Complications: Nuchal with Compression Nuchal Cord Findings: x 1 Delayed Cord Clampin-60 sec Placenta: Delivered: 02/03/2023 5:46 PM Removal: Spontaneous Appearance: Intact Anesthesia: Method: None Measurements, Apgars: One Minute : 7 Five Minute : 9 Resuscitation Team Present: Yes Type of Resuscitation Team Needed: Planned Resuscitation Needed: No, see Peds Delivery Attendance Note/Progress Note I/O Blood Loss per time range on right. 02/03/23 1615 - 02/03/23 1811 Calculated Blood Loss (mL) Hospital Encounter 100 Total 100 cc This CNM called by bedside RN d/t patient spontaneously pushing with contractions Upon entering the room, CNM found patient laboring in the tub, uncomfortable and endorsing constant pressure Patient stood up in the tub and SROM'd FHR noted to be in 80s. Patient assisted to bed by CNM and RN Cervix checked, found to be C/C/+1. No cord appreciated Patient initially in hands and knees position but then assisted onto her back where she pushed effectively over two contractions Infant head delivered in OA and restituted to MEAGAN position over intact perineum Nuchal x1 was easily reducable With next contraction, anterior shoulder delivered with ease followed by posterior shoulder and the rest of the body Baby was born into FOB's hands to maternal abdomen, delayed cord clamping x30 seconds Cord was doubly clamped and cut by FOB. Infant handed off to awaiting peds team Cord gasses and type and screen collected and sent Jaspreet placenta delivered spontaneously, appears grossly intact with 3VC Fundus firm and below level of umbilicus. Bleeding minimal. Vulva and vagina inspected, no lacerations noted Delivery events reviewed with patient and , all questions and concerns addressed No LARC A digital sweep of the vaginal canal was performed by Kevyn Steward APRN.CNM and it was ascertained that no instruments or other foreign bodies are retained within the cavity. Sponge, lap, and needle counts were correct times two. Mother and baby are stable and bonding and skin to skin. Baby is in mother's arms. Expected post-delivery care and anticipated transfer reviewed. Plan of care discussed with: Provider, RN, Patient and Family/Significant Other: Rj . SIGNATURE: Kevyn Steward APRN.CNM PATIENT NAME: Nella Da Silva DATE: February 03, 2023 TIME: 6:11 PM [facility] TYPE + SCREEN PRENATALon ABO A Normal [facility] Comment on above: Order Comment: Speci men Type: BLOOD SPECIMEN Ordering Facility: [facility] Address: [address] [place] [address] Performed By: #### T SPN #### [facility] CLIA [id number] [address] [place] [address] [place] HISTORICAL AB SCR STATUS Negative [facility] Comment on above: Order Comment: Speci men Type: BLOOD SPECIMEN Ordering Facility: [facility] Address: [address] [address] Performed By: #### T SPN #### [facility] CLIA [id number] [place] [address] [place] Rh Nom (Bld) Negative [facility] Comment on above: Order Comment: Speci men Type: BLOOD SPECIMEN Ordering Facility: [facility] Address: [address] [address] Performed By: #### T SPN #### [facility] CLIA [id number] [id number] [facility] TYPE AND SCREEN EXPIRATION 02/06/2023 23:59 Normal [facility] Comment on above: Order Comment: Speci men Type: BLOOD SPECIMEN Ordering Facility: [facility] Address: [place] [address] Performed By: #### T SPN #### [facility] CLIA [id number] [id number] [place] URINE OB DIP B/Oon 3 Glucose Ql (U) Negative Neg mg/dL [facility] Protein.monoclonal (U) [Mass/Vol] Negative Neg mg/dL [facility] URINE OB DIP B/Oon 3 Glucose Ql (U) Negative Neg mg/dL [facility] Protein.monoclonal (U) [Mass/Vol] Negative Neg mg/dL [facility] URINE OB DIP B/Oon 3 Glucose Ql (U) Negative Neg mg/dL [facility] Protein.monoclonal (U) [Mass/Vol] Negative Neg mg/dL [facility] URINE OB DIP B/Oon 3 Glucose Ql (U) Negative Neg mg/dL [facility] Protein.monoclonal (U) [Mass/Vol] Negative Neg mg/dL [facility] CBC panel Auto (Bld)on 11-06 Erythrocyte distribution width (RBC) [Ratio] 13.2 % 11.5 - 15.0 % [facility] Hematocrit (Bld) [Volume fraction] 38.8 % 36.0 - 46.0 % [facility] Hemoglobin (Bld) [Mass/Vol] 12.5 g/dL 11.5 - 15.5 g/dL [facility] MCH (RBC) [Entitic mass] 29.8 pg 26.0 - 34.0 pg [facility] MCHC (RBC) [Mass/Vol] 32.2 g/dL 30.5 - 36.0 g/dL [facility] MCV (RBC) [Entitic vol] 92.4 fL 80.0 - 100.0 fL [facility] Nucleated RBC (Bld) [#/Vol] <0.01 k/uL [facility] Platelet mean volume (Bld) [Entitic vol] 10.5 fL 9.0 - 12.7 fL [facility] Platelets (Bld) [#/Vol] 179 10*3/uL 150 - 400 k/uL [facility] RBC (Bld) [#/Vol] 4.20 10*6/uL 3.90 - 5.20 m/uL [facility] WBC (Bld) [#/Vol] 10.38 10*3/uL 3.70 - 11 .00 k/uL [facility] GEST GLUC SCREEN, 1-HR, 50 G M, NON-FASTINGon 11-06-2022 Glucose [Mass/Vol] 126 mg/dL 74 - 134 mg/dL Cl [facility] TYPE + SCREEN PRENATALon ABO A [facility] HIstorical Ab Scr Status Negative [facility] Rh Nom (Bld) Negative [facility] Type and Screen Expiration 11/09/2022 23:59 [facility] URINE OB DIP B/Oon Glucose Ql (U) Negative Neg mg/dL [facility] Protein.monoclonal (U) [Mass/Vol] Negative Neg mg/dL [facility] OBSTETRIC ULTRASOUND WHIon 0 09-04-2022 [facility] TYPE + SCREEN PRENATALon ABO A [facility] HIstorical Ab Scr Status Negative [facility] Rh Nom (Bld) Negative [facility] Type and Screen Expiration 07/13/2022 23:59 [facility] CBC panel Auto (Bld)on 07-10 Erythrocyte distribution width (RBC) [Ratio] 12.5 % 11.5 - 15.0 % [facility] Hematocrit (Bld) [Volume fraction] 38.4 % 36.0 - 46.0 % [facility] Hemoglobin (Bld) [Mass/Vol] 13.0 g/dL 11.5 - 15.5 g/dL [facility] MCH (RBC) [Entitic mass] 29.6 pg 26.0 - 34.0 pg [facility] MCHC (RBC) [Mass/Vol] 33.9 g/dL 30.5 - 36.0 g/dL [facility] MCV (RBC) [Entitic vol] 87.5 fL 80.0 - 100.0 fL [facility] Nucleated RBC (Bld) [#/Vol] <0.01 k/uL [facility] Platelet mean volume (Bld) [Entitic vol] 10.6 fL 9.0 - 12.7 fL [facility] Platelets (Bld) [#/Vol] 212 10*3/uL 150 - 400 k/uL [facility] RBC (Bld) [#/Vol] 4.39 10*6/uL 3.90 - 5.20 m/uL [facility] WBC (Bld) [#/Vol] 7.82 10*3/uL 3.70 - 11. 00 k/uL [facility] POC ANALYST COMPETITIVE INTELLIGENCE ULTRASOUNDon 07-10-19 23 [facility] Vital Signs Date Time Vital Sign Value Performing Clinician Faci lity 12-16-2024 08:55-0400 Body mass index (BMI) [Ratio] 33.84 kg/m2 Marina Eli CREDIT ASSOCIATE.CNM Work Phone: [facility] 12-16-2024 08:55-0400 Body weight 76 kg Marina Eli CREDIT ASSOCIATE.CNM Work Phone: [facility] 12-16-2024 08:55-0400 Diastolic blood pressure 64 mm[Hg] Marina Eli CREDIT ASSOCIATE.CNM Work Phone: [facility] 12-16-2024 08:55-0400 Heart rate 84 /min Marina Eli CREDIT ASSOCIATE.CNM Work Phone: [facility] 12-16-2024 08:55-0400 Systolic blood pressure 102 mm[Hg] Marina Eli CREDIT ASSOCIATE.CNM Work Phone: [facility] 02-03-2024 14:10-0400 Body height 149.9 cm Marina Eli CREDIT ASSOCIATE.CNM Work Phone: [facility] 02-03-2024 14:10-0400 Body mass index (BMI) [Ratio] 34.21 kg/m2 Marina Eli CREDIT ASSOCIATE.CNM Work Phone: [facility] 02-03-2024 14:10-0400 Body weight 76.84 kg Marina Eli CREDIT ASSOCIATE.CNM Work Phone: [facility] 02-03-2024 14:10-0400 Diastolic blood pressure 58 mm[Hg] Marina Lei CREDIT ASSOCIATE.CNM Work Phone: [facility] 02-03-2024 14:10-0400 Systolic blood pressure 112 mm[Hg] Marina Eli CREDIT ASSOCIATE.CNM Work Phone: [facility] 01-27-2023 14:46-0400 Body height 149.9 cm Chrissie Patel CREDIT ASSOCIATE.CN P Work Phone: [facility] 01-27-2023 14:46-0400 Body weight 83.01 kg Chrissie Patel CREDIT ASSOCIATE.CN P Work Phone: [facility] 01-27-2023 14:46-0400 Diastolic blood pressure 64 mm[Hg] Chrissie Patel CREDIT ASSOCIATE.SCHOOL PHOTOGRAPHER Work Phone: [facility] 01-27-2023 14:46-0400 Heart rate 102 /min Chrissie Patel CREDIT ASSOCIATE.CN P Work Phone: [facility] 01-27-2023 14:46-0400 Systolic blood pressure 104 mm[Hg] Chrissie Patel CREDIT ASSOCIATE.SCHOOL PHOTOGRAPHER Work Phone: [facility] 01-06-2023 12:00-0400 Body height 149.9 cm Nancy Wan CREDIT ASSOCIATE.CNM Work Phone: [facility] 01-06-2023 12:00-0400 Body weight 80.74 kg Nancy Wan CREDIT ASSOCIATE.CNM Work Phone: [facility] 01-06-2023 12:00-0400 Diastolic blood pressure 63 mm[Hg] Nancy Wan CREDIT ASSOCIATE.CNM Work Phone: [facility] 01-06-2023 12:00-0400 Heart rate 104 /min Nancy Wan CREDIT ASSOCIATE.CNM Work Phone: [facility] 01-06-2023 12:00-0400 Systolic blood pressure 110 mm[Hg] Nancy Wan CREDIT ASSOCIATE.CNM Work Phone: [facility] 12-30-2022 14:06-0400 Body height 149.9 cm Nancy Quiroga CREDIT ASSOCIATE.CNM Work Phone: [facility] 12-30-2022 14:06-0400 Body weight 80.29 kg Nancy Junaid CREDIT ASSOCIATE.CNM Work Phone: [facility] 12-30-2022 14:06-0400 Diastolic blood pressure 62 mm[Hg] Nancy Wan CREDIT ASSOCIATE.CNM Work Phone: [facility] 12-30-2022 14:06-0400 Heart rate 103 /min Nancy Wan CREDIT ASSOCIATE.CNM Work Phone: [facility] 12-30-2022 14:06-0400 Systolic blood pressure 130 mm[Hg] Nancy Wan CREDIT ASSOCIATE.CNM Work Phone: [facility] 12-16-2022 11:12-0400 Body height 149.9 cm Chrissie Patel CREDIT ASSOCIATE.CN P Work Phone: [facility] 12-16-2022 11:12-0400 Body weight 78.02 kg Chrissie Patel CREDIT ASSOCIATE.CN P Work Phone: [facility] 12-16-2022 11:12-0400 Diastolic blood pressure 70 mm[Hg] Chrissie Patel CREDIT ASSOCIATE.SCHOOL PHOTOGRAPHER Work Phone: [facility] 12-16-2022 11:12-0400 Heart rate 91 /min Chrissie Patel CREDIT ASSOCIATE.CN P Work Phone: [facility] 12-16-2022 11:12-0400 Systolic blood pressure 110 mm[Hg] Chrissie Patel CREDIT ASSOCIATE.SCHOOL PHOTOGRAPHER Work Phone: [facility] 11-05-2022 13:45-0400 Body height 149.9 cm Marina Eli CREDIT ASSOCIATE.CNM Work Phone: [facility] 11-05-2022 13:45-0400 Body weight 74.12 kg Marina Eli CREDIT ASSOCIATE.CNM Work Phone: [facility] 11-05-2022 13:45-0400 Diastolic blood pressure 59 mm[Hg] Marina Eli CREDIT ASSOCIATE.CNM Work Phone: [facility] 11-05-2022 13:45-0400 Heart rate 77 /min Marina Eli CREDIT ASSOCIATE.CNM Work Phone: [facility] 11-05-2022 13:45-0400 Systolic blood pressure 110 mm[Hg] Marian Eli CREDIT ASSOCIATE.CNM Work Phone: [facility] 10-01-2022 12:56-0400 Diastolic blood pressure 59 mm[Hg] Marina Eli CREDIT ASSOCIATE.CNM Work Phone: [facility] 10-01-2022 12:56-0400 Systolic blood pressure 100 mm[Hg] Marina Eli CREDIT ASSOCIATE.CNM Work Phone: [facility] 09-04-2022 09:40-0500 Body height 149.9 cm Amilcar Cardoza MD Work Phone: [facility] 09-04-2022 09:40-0500 Body weight 69.76 kg Amilcar Cardoza MD Work Phone: [facility] 07-10-2022 13:17-0500 Body height 149.9 cm Nancy Quiroga CREDIT ASSOCIATE.CNM Work Phone: [facility] 07-10-2022 13:17-0500 Body weight 65.32 kg Nancy Quiroga CREDIT ASSOCIATE.CNM Work Phone: [facility] 07-10-2022 13:17-0500 Diastolic blood pressure 62 mm[Hg] Nancy Quiroga CREDIT ASSOCIATE.CNM Work Phone: [facility] 07-10-2022 13:17-0500 Heart rate 88 /min Nancy Quiroga CREDIT ASSOCIATE.CNM Work Phone: [facility] 07-10-2022 13:17-0500 Systolic blood pressure 100 mm[Hg] Nancy Junaid CREDIT ASSOCIATE.CNM Work Phone: [facility] Encounters Encounter Date Encounter Type Care Provider Facility Start: 12-30-2024 End: 12-30-2024 ambulatory Marina T Eli CREDIT ASSOCIATE.CNBest Work Phone: Obstetrics/Gynecology Comment on above: Anti-emetic Start: 12-16-2024 End: 12-16-2024 Patient encounter procedure Marina T Eli CREDIT ASSOCIATE.CNBest Work Phone: Obstetrics/Gynecology Comment on above: 15 weeks gestation o f (HCC) (Primary Dx); care, subsequent in second trimester (HCC) Start: 12-16-2024 End: 12-16-2024 ambulatory MARINA T ELI Facility:[facility] Start: 12-02-2024 End: 12-02-2024 Refill Moni Pavon APRN.CNP Work Phone: Psychiatry Comment on above: Refill Request Start: 11-11-2024 End: 11-11-2024 Patient encounter procedure Marina T Eli CREDIT ASSOCIATE.TREVON Work Phone: Obstetrics/Gynecology Comment on above: care, subse quent in first trimester (HCC) (Primary Dx) Start: 11-11-2024 End: 11-11-2024 ambulatory MARINA T ELI Facility:[facility] Start: 11-05-2024 End: 11-09-2024 ambulatory Marina T Eli CREDIT ASSOCIATE.TREVON Work Phone: Obstetrics/Gynecology Comment on above: Appt on 10/28 Start: 11-02-2024 End: 11-02-2024 [facility] Moni Pavon APRN.CNP Work Phone: Psychiatry Comment on above: Obsessive-compulsive disorder, unspecified type (Primary Dx); ELISA (generalized anxiety disorder); Post- depression Start: 10-13-2024 End: 10-13-2024 Patient encounter procedure Marina T Eli CREDIT ASSOCIATE.TREVON Work Phone: Obstetrics/Gynecology Comment on above: care, subse quent in first trimester (HCC) (Primary Dx); 6 weeks gestation of (HCC) [Z3A.01] Start: 10-13-2024 End: 11-04-2024 ambulatory Marina T Eli CREDIT ASSOCIATE.CNM Work Phone: Obstetrics/Gynecology Comment on above: Question about pregn anahy restrictions Medication change Start: 08-30-2024 End: 08-30-2024 Refill Moni Pavon APRN.SCHOOL PHOTOGRAPHER Work Phone: Psychiatry Comment on above: Med Change Request Start: 2024 End: 2024 [facility] Moni Savanah LINDSAYN.SCHOOL PHOTOGRAPHER Work Phone: Psychiatry Comment on above: ELISA (generalized anx iety disorder) (Primary Dx); Post- depression Start: 06-24-2024 End: 06-24-2024 [facility] Monilainey Pavon CREDIT ASSOCIATE.SCHOOL PHOTOGRAPHER Work Phone: Psychiatry Comment on above: ELISA (generalized anx iety disorder) (Primary Dx); Post- depression Start: 05-09-2024 End: 05-10-2024 Refill Nancy Quiroga APRN.CNM Work Phone: Obstetrics/Gynecology Comment on above: Refill Request Start: 04-30-2024 End: 04-30-2024 Patient encounter procedure Moni Savanah [place].SCHOOL PHOTOGRAPHER Work Phone: Psychiatry Comment on above: No-show for appointm ent (Primary Dx) Start: 04-30-2024 End: 04-30-2024 Telemedicine consultation with patient Moni Torrezthanh [place].SCHOOL PHOTOGRAPHER Work Phone: Psychiatry Start: 03-24-2024 End: 03-24-2024 [facility] Moni Pavon CREDIT ASSOCIATE.SCHOOL PHOTOGRAPHER Work Phone: Psychiatry Comment on above: ELISA (generalized anx iety disorder) (Primary Dx); Post- depression; anxiety Start: 02-17-2024 End: 02-17-2024 ambulatory Marina T Eli CREDIT ASSOCIATE.CNM Work Phone: Obstetrics/Gynecology Comment on above: Pap results Start: 02-12-2024 Refill Moni degroot APRN.SCHOOL PHOTOGRAPHER Work Phone: Psychiatry Comment on above: Refill Request Start: 02-03-2024 End: 02-03-2024 ambulatory MARINA BENITEZ Facility:[facility] Start: 02-03-2024 End: 02-03-2024 Patient encounter procedure Marina Benitez APRN.CNM Work Phone: Obstetrics/Gynecology Comment on above: Encounter for screen ing for malignant neoplasm of cervix (Primary Dx); 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) w/o abn findings Start: 02-03-2024 End: 02-03-2024 Patient encounter status Marina Benitez CREDIT ASSOCIATE.CNM Work Phone: [facility] Start: 11-21-2023 End: 11-21-2023 ambulatory Christen Arce PT Work Phone: Physical Therapy Comment on above: Spasm of muscle (Marian clare Dx); Coccydynia Start: 10-17-2023 End: 10-17-2023 ambulatory Christen Arce PT Work Phone: Physical Therapy Comment on above: Spasm of muscle (Marian clare Dx); Coccydynia Start: 09-24-2023 End: 09-24-2023 ambulatory Christen Arce PT Work Phone: Physical Therapy Comment on above: Spasm of muscle (Marian clare Dx); Coccydynia Start: 09-18-2023 End: 09-18-2023 [facility] Nettie Asif APRN.SCHOOL PHOTOGRAPHER Work Phone: Psychiatry Comment on above: ELISA (generalized anx iety disorder) (Primary Dx); Post- depression Start: 08-29-2023 End: 08-29-2023 ambulatory Christen Arce PT Work Phone: Physical Therapy Comment on above: care foll owing vaginal delivery; Spasm of muscle; Coccydynia Start: 08-18-2023 ambulatory Nettie PECKSCHOOL PHOTOGRAPHER Work Phone: Psychiatry Comment on above: Medication Check-in Start: 08-15-2023 End: 08-15-2023 ambulatory KD TRIPP Not Available Start: 2023 End: 2023 [facility] Nettie Asif CREDIT ASSOCIATE.SCHOOL PHOTOGRAPHER Work Phone: Psychiatry Comment on above: ELISA (generalized anx iety disorder) (Primary Dx); anxiety Start: 04-17-2023 Telephone encounter Nancy DENNIS RN.OSIRISM Work Phone: Obstetrics/Gynecology Comment on above: Orders (PT initial e xamination form ) Start: 04-07-2023 Telephone encounter Nancy DENNIS RN.OSIRISM Work Phone: Obstetrics/Gynecology Comment on above: 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 Facility:[facility] Start: 01-27-2023 End: 01-27-2023 Patient encounter procedure Chrissie Patel CREDIT ASSOCIATE.SCHOOL PHOTOGRAPHER Work Phone: Obstetrics/Gynecology Comment on above: 40 weeks gestation o f (Primary Dx); Rh negative state in antepartum period; Encounter for supervision of normal first in second trimester; History of pre-eclampsia Start: 01-08-2023 End: 01-08-2023 Patient encounter procedure Tamy Rand MD Work Phone: Obstetrics/Gynecology Comment on above: 37 weeks gestation o f (Primary Dx) Start: 01-07-2023 Telephone encounter Nancy DENNIS RN.OSIRISM Work Phone: [facility] Comment on above: FMLA Paperwork Start: 01-06-2023 End: 01-06-2023 Patient encounter procedure Nancy Quiroga APRN.TREVON Work Phone: Obstetrics/Gynecology Comment on above: 37 weeks gestation o f (Primary Dx); Encounter for supervision of other normal in third trimester [Z34.83] Start: 12-30-2022 End: 12-30-2022 Patient encounter procedure Nancy Quiroga CREDIT ASSOCIATE.CNM Work Phone: Obstetrics/Gynecology Comment on above: Encounter for superv ision of other normal in third trimester (Primary Dx); History of pre-eclampsia; 36 weeks gestation of Start: 12-16-2022 End: 12-16-2022 Patient encounter procedure Chrissie Patel CREDIT ASSOCIATE.SCHOOL PHOTOGRAPHER Work Phone: Obstetrics/Gynecology Comment on above: 34 weeks gestation o f (Primary Dx); Encounter for supervision of normal first in second trimester; Rh negative state in antepartum period Start: 11-06-2022 End: 11-06-2022 Nursing evaluation of patient and report Nurse Vb Developer [facility] Work Phone: Obstetrics/Gynecology Comment on above: Rh negative state in antepartum period (Primary Dx) Start: 11-05-2022 End: 11-05-2022 Patient encounter procedure Marina T Eli CREDIT ASSOCIATE.CNM Work Phone: Obstetrics/Gynecology Comment on above: 28 weeks gestation o f (Primary Dx); care in third trimester Start: 10-22-2022 ambulatory Marina T Eli CREDIT ASSOCIATE.CNM Work Phone: [facility] Start: 10-22-2022 Patient encounter procedure Marina T Eli CREDIT ASSOCIATE.CNM Work Phone: Obstetrics/Gynecology Comment on above: Appointment scheduli ng Start: 10-01-2022 End: 10-01-2022 Patient encounter procedure Marina T Eli CREDIT ASSOCIATE.CNM Work Phone: Obstetrics/Gynecology Comment on above: care in sec ond trimester [Z34.92 (ICD-10-CM)] (Primary Dx); 23 weeks gestation of [Z3A.23 (ICD-10-CM)] Start: 09-04-2022 End: 09-04-2022 Patient encounter procedure Amilcar Cardoza MD Work Phone: Maternal Medicine Comment on above: Encounter for anatomic survey (Primary Dx); 19 weeks gestation of Start: 08-08-2022 End: 08-08-2022 Patient encounter procedure Marina T Eli CREDIT ASSOCIATE.CNM Work Phone: Obstetrics/Gynecology Comment on above: care in sec ond trimester (Primary Dx) Start: 08-07-2022 End: 08-07-2022 Patient encounter procedure Nancy Quiroga APRN.CNM Work Phone: Obstetrics/Gynecology Comment on above: Encounter for superv ision of other normal , second trimester [Z34.82 (ICD-10-CM)] (Primary Dx) Start: 08-07-2022 Telephone encounter Nancy DENNIS RN.CNM Work Phone: Obstetrics/Gynecology Comment on above: Appointment Start: 07-10-2022 Telephone encounter Nancy DENNIS RN.CNM Work Phone: Obstetrics/Gynecology Comment on above: Follow Up Start: 07-10-2022 End: 07-10-2022 Patient encounter procedure Nancy Quiroga APRN.CNM Work Phone: Obstetrics/Gynecology Comment on above: Encounter for superv ision of other normal in first trimester (Primary Dx); Chronic tension-type headache, not intractable; Mild intermittent asthma without complication; Heart palpitations with incon clusive viability, single or unspecified fetus (Primary Dx) Start: 04-11-[address] DOCTOR CARTER Facility :[facility] Start: 07-25-2021 End: 07-26-2021 ambulatory MATHIEU MCCLAIN Facility:[facility] Procedures Date Procedure Procedure Detail Performing Clinician Start: 12-16-2024 Urnls dip stick/tabl et rgnt non-auto w/o micrscp Marina Benitez APRN.CNM Work Phone: Start: 12-16-2024 Antibody screen MARINA CUMMINS Comment on above: Order Comment: Speci men Type: BLOOD SPECIMEN Ordering Facility: [facility] Address: [address] [place] [address] Result Comment: Kirsten ent has a previous clinically significant antibody Performed By: #### 5 [id number], [id number], 40225-6 #### [facility] CLIA [id number] [address] [place], [place] [id number] [place] Start: 10-13-2024 Us uterus l imited 1/> fetuses Marina T Eli CREDIT ASSOCIATE.CNM Work Phone: Start: 02-03-2023 Antibody screen CHANDANNATHAN NICHELLE Comment on above: Order Comment: Speci men Type: BLOOD SPECIMEN Ordering Facility: [facility] Address: [address] [place] [address] Performed By: #### T SPN #### [facility] CLIA [id number] [place] Start: 01-27-2023 URINE OB DIP B/O Chrissie E Patel CREDIT ASSOCIATE.SCHOOL PHOTOGRAPHER Work Phone: Start: 01-06-2023 URINE OB DIP B/O Nancy Wa n CREDIT ASSOCIATE.CNM Work Phone: Start: 12-30-2022 URINE OB DIP B/O Nancy Wa n CREDIT ASSOCIATE.CNM Work Phone: Start: 12-16-2022 URINE OB DIP B/O Chrissie E Patel CREDIT ASSOCIATE.SCHOOL PHOTOGRAPHER Work Phone: Start: 11-06-2022 Antibody screen Marina S hire CREDIT ASSOCIATE.CNM Work Phone: Start: 11-05-2022 URINE OB DIP B/O Marina T Eli CREDIT ASSOCIATE.CNM Work Phone: Start: 09-04-2022 Us preg uterus after 1st trimest 1/ gestation Marina T Eli CREDIT ASSOCIATE.CNM Work Phone: Start: 07-11-2022 Antibody screen Nancy Quiroga CREDIT ASSOCIATE.CNM Work Phone: Start: 07-10-2022 Us uterus l imited 1/> fetuses Nancy Quiroga CREDIT ASSOCIATE.CNM Work Phone: Plan of Treatment Date Care Activity Detail Author Start: 11-06-2032 Urine microalbumin profile [facility] Start: 03-08-2026 PAP TESTING PAP TESTING [facility] Start: 03-08-2026 Screening for malign ant neoplasm of cervix Pap Testing [facility] Start: 06-07-2025 End: 06-07-2025 Patient encounter procedure 06/07/2025 8:45 AM EST Routine Office Visit Obstetrics/Gynecology [address] [address] Marina Benitez, CREDIT ASSOCIATE.CNM [address] [place] [address] OB weekly Obstetrics/Gynecolog y Comment on above: OB weekly Start: 05-31-2025 End: 05-31-2025 Patient encounter procedure 05/31/2025 8:45 AM EST Routine Office Visit Obstetrics/Gynecology [address] [address] Marina Benitez, CREDIT ASSOCIATE.CNM [address] [place] [address] OB weekly Obstetrics/Gynecolog y Comment on above: OB weekly Start: 05-24-2025 End: 05-24-2025 Patient encounter procedure 05/24/2025 8:45 AM EST Routine Office Visit Obstetrics/Gynecology [address] [address] Marina Benitez, CREDIT ASSOCIATE.CNM [address] [place] [address] OB weekly Obstetrics/Gynecolog y Comment on above: OB weekly Start: 05-17-2025 End: 05-17-2025 Patient encounter procedure 05/17/2025 8:45 AM EST Routine Office Visit Obstetrics/Gynecology [address] [address] Marina Benitez, CREDIT ASSOCIATE.CNM [address] [place] [address] OB weekly Obstetrics/Gynecolog y Comment on above: OB weekly Start: 05-10-2025 End: 05-10-2025 Patient encounter procedure 05/10/2025 8:45 AM EST Routine Office Visit Obstetrics/Gynecology [address] [address] Marina Benitez APRN.CNM [address] [place] [address] OB weekly Obstetrics/Gynecolog y Comment on above: OB weekly Start: 05-03-2025 End: 05-03-2025 Patient encounter procedure 05/03/2025 8:45 AM EST Routine Office Visit Obstetrics/Gynecology [address] [address] Marina Benitez, CREDIT ASSOCIATE.CNM [address] [place] [address] OB weekly Obstetrics/Gynecolog y Comment on above: OB weekly Start: 04-19-2025 End: 04-19-2025 Patient encounter procedure 04/19/2025 10:30 AM EDT Routine Office Visit Obstetrics/Gynecology [address] [address] Marina Benitez, CREDIT ASSOCIATE.CNM [address] [place] [address] OB bi-weekly Obstetrics/Gynecolog y Comment on above: OB bi-weekly Start: 04-09-2025 RSV Vaccine (1 - Ris k 1-dose series) RSV Vaccine (1 - Risk 1-dose series) [facility] Start: 04-05-2025 End: 04-05-2025 Patient encounter procedure 04/05/2025 10:45 AM EDT Routine Office Visit Obstetrics/Gynecology [address] [address] Marina Benitez, CREDIT ASSOCIATE.CNM [address] [place] [address] OB bi-weekly Obstetrics/Gynecolog y Comment on above: OB bi-weekly Start: 03-22-2025 End: 03-22-2025 Patient encounter procedure 03/22/2025 10:45 AM EDT Routine Office Visit Obstetrics/Gynecology [address] [facility] [address] [place] [address] Marina Benitez APRN.CN [address] [place] [address] OB bi-weekly Obstetrics/Gynecolog y Comment on above: OB bi-weekly Start: 02-28-2025 Influenza vaccination Influenza Vacc ine (#1) [facility] Start: 02-22-2025 End: 02-22-2025 Patient encounter procedure 02/22/2025 1:15 PM EDT Routine Office Visit Obstetrics/Gynecology 850 [facility] [address] [place] [address] Marina Benitez APRN.CN [address] [place] [address] OB monthly Obstetrics/Gynecolog y Comment on above: OB monthly Start: 02-10-2025 End: 02-10-2025 Patient encounter procedure 02/10/2025 2:30 PM EDT Office Visit Obstetrics/Gynecology [address] [address] Marina Benitez APRN.CN [address] [place] [address] Annual Obstetrics/Gynecolog y Comment on above: Annual Start: 02-02-2025 Screening for malign ant neoplasm of cervix Cervical Cancer Screening [facility] Start: 01-20-2025 End: 01-20-2025 Patient encounter procedure 01/20/2025 3:00 PM EDT Routine Office Visit Obstetrics/Gynecology 850 [facility] [address] [place] [address] Marina Benitez APRN.CN [address] [place] [address] ob/ per Marina Obstetrics/Gynecolog y Comment on above: ob/ per Marina Start: 01-10-2025 End: 01-10-2025 Patient encounter procedure 01/10/2025 6:00 PM EDT Routine Office Visit Maternal Medicine [address] [facility] [address] [place] [address] Anatomy Maternal Medicine Comment on above: Anatomy Start: 01-04-2025 End: 01-04-2025 ambulatory 01/04/2025 8:30 AM EDT [facility] Psychiatry [address] [facility] [address] [place] [address] Moni Pavon, CREDIT ASSOCIATE.SCHOOL PHOTOGRAPHER [address] [facility] [address] [place] [address] virtual visit Psychiatry Comment on above: virtual visit Start: 12-16-2024 End: 12-16-2024 Patient encounter procedure 12/16/2024 9:00 AM EDT Routine Office Visit Obstetrics/Gynecology 850 [facility] [address] [place] [address] Marina Benitez APRN.CNM [address] [place] [address] ob/ per Marina Obstetrics/Gynecolog y Comment on above: ob/ per Marina Start: 11-11-2024 End: 11-11-2024 Patient encounter procedure 11/11/2024 9:00 AM EDT Routine Office Visit Obstetrics/Gynecology 850 [facility] [address] [place] [address] Marina Benitez APRN.CNM [address] [place] [address] ob per Marina Obstetrics/Gynecolog y Comment on above: ob per Marina Start: 11-02-2024 End: 11-02-2024 ambulatory 11/02/2024 9:30 AM EDT [facility] Psychiatry [address] [facility] [address] [place] [address] Moni Pavon, CREDIT ASSOCIATE.SCHOOL PHOTOGRAPHER [address] [facility] [place] [address] Psychiatry Start: 10-13-2024 End: 01-12-2025 25-hydroxyvitamin D3 [Mass/volume] in Serum or Plasma VITAMIN D 25 HYDROXY Lab Routine care, subsequent in first trimester (HCC) Expected: 10/13/2024, Expires: 01/12/2025 [facility] Comment on above: Expected: 10/13/2024 , Expires: 01/12/2025 Start: 10-13-2024 End: 01-12-2025 CBC panel - Blood by Automated count COMPLETE BLOOD COUNT Lab Routine care, subsequent in first trimester (HCC) Expected: 10/13/2024, Expires: 01/12/2025 [facility] Comment on above: Expected: 10/13/2024 , Expires: 01/12/2025 Start: 10-13-2024 End: 01-12-2025 Comprehensive metabolic 2000 panel - Serum or Plasma COMPREHENSIVE METABOLIC PANEL Lab Routine care, subsequent in first trimester (HCC) Expected: 10/13/2024, Expires: 01/12/2025 [facility] Comment on above: Expected: 10/13/2024 , Expires: 01/12/2025 Start: 10-13-2024 End: 01-12-2025 Hemoglobin A1c in Blood HEMOGLOBIN A1C Lab Routine care, subsequent in first trimester (HCC) Expected: 10/13/2024, Expires: 01/12/2025 [facility] Comment on above: Expected: 10/13/2024 , Expires: 01/12/2025 Start: 10-13-2024 End: 01-12-2025 Hepatitis B virus surface Ag [Presence] in Serum HEPATITIS B SURFACE ANTIGEN Lab Routine care, subsequent in first trimester (HCC) Expected: 10/13/2024, Expires: 01/12/2025 [facility] Comment on above: Expected: 10/13/2024 , Expires: 01/12/2025 Start: 10-13-2024 End: 01-12-2025 Hepatitis C virus Ab [Presence] in Serum HEPATITIS C ANTIBODY IA WITH CONFIRMATION Lab Routine care, subsequent in first trimester (HCC) Expected: 10/13/2024, Expires: 01/12/2025 [facility] Comment on above: Expected: 10/13/2024 , Expires: 01/12/2025 Start: 10-13-2024 End: 01-12-2025 HIV 1+2 Ab [Presence] in Serum or Plasma by Immunoassay HIV 1/2 COMBO WITH REFLEX TO DIFFERENTIATION Lab Routine care, subsequent in first trimester (HCC) Expected: 10/13/2024, Expires: 01/12/2025 [facility] Comment on above: Expected: 10/13/2024 , Expires: 01/12/2025 Start: 10-13-2024 End: 10-13-2025 OBSTETRIC ULTRASOUND WHI OBSTETRIC ULTRASOUND WHI Anc Imaging Routine care, subsequent in first trimester (HCC) Expected: 10/13/2024, Expires: 10/13/2025 [facility] Comment on above: Expected: 10/13/2024 , Expires: 10/13/2025 Start: 10-13-2024 End: 01-12-2025 Protein/Creatinine [Mass Ratio] in Urine PROTEIN / CREATININE RATIO Lab Routine care, subsequent in first trimester ([facility]) Expected: 10/13/2024, Expires: 01/12/2025 [facility] Comment on above: Expected: 10/13/2024 , Expires: 01/12/2025 Start: 10-13-2024 End: 01-12-2025 RUBELLA IGG ANTIBODY RUBELLA IGG ANTIBODY Lab Routine care, subsequent in first trimester ([facility]) Expected: 10/13/2024, Expires: 01/12/2025 [facility] Comment on above: Expected: 10/13/2024 , Expires: 01/12/2025 Start: 10-13-2024 End: 01-12-2025 SYPHILIS TREPONEMAL W/REFLEX SYPHILIS TREPONEMAL W/REFLEX Lab Routine care, subsequent in first trimester (HCC) Expected: 10/13/2024, Expires: 01/12/2025 [facility] Comment on above: Expected: 10/13/2024 , Expires: 01/12/2025 Start: 10-13-2024 End: 01-12-2025 Thyrotropin [Units/volume] in Serum or Plasma THYROID STIMULATING HORMONE Lab Routine care, subsequent in first trimester (HCC) Expected: 10/13/2024, Expires: 01/12/2025 [facility] Comment on above: Expected: 10/13/2024 , Expires: 01/12/2025 Start: 10-13-2024 End: 01-12-2025 TYPE + SCREEN TYPE + SCREEN Blood Bank Routine care, subsequent in first trimester (HCC) Expected: 10/13/2024, Expires: 01/12/2025 [facility] Comment on above: Expected: 10/13/2024 , Expires: 01/12/2025 Start: 2024 End: 2024 ambulatory 2024 2:30 PM EST [facility] Psychiatry [address] [place] [address] Moni Pavon, CREDIT ASSOCIATE.SCHOOL PHOTOGRAPHER [address] [place] [address] vv Psychiatry Comment on above: vv Start: 04-30-2024 End: 04-30-2024 ambulatory 04/30/2024 2:30 PM EDT [facility] Psychiatry [address] [facility] [address] [place] [id number] Moni Pavon, CREDIT ASSOCIATE.SCHOOL PHOTOGRAPHER [address] [place] [address] Psychiatry Start: 03-24-2024 End: 03-24-2024 ambulatory 03/24/2024 2:00 PM EDT [facility] Psychiatry [address] [facility] [address] [place] [address] Moni Pavon, CREDIT ASSOCIATE.SCHOOL PHOTOGRAPHER [address] [facility], [address] [place] [address] AKIKO former Nettie Asif pt/ med check Psychiatry Comment on above: AKIKO former Nettie orona pt/ med check Start: 03-08-2024 PAP TESTING PAP TESTING [facility] Start: 03-08-2024 Screening for malign ant neoplasm of cervix Cervical Cancer Screening [facility] Start: 02-29-2024 Covid-19 Vaccine ( season) Covid-19 Vaccine ( season) [facility] Start: 02-29-2024 Influenza vaccination Influenza Vacc ine (#1) [facility] Start: 02-03-2024 End: 02-03-2024 Patient encounter procedure 02/03/2024 2:00 PM EDT Office Visit Obstetrics/Gynecology [address] [place] [address] Marina Benitez, CREDIT ASSOCIATE.CN [address] [place] [address] Annual Obstetrics/Gynecolog y Comment on above: Annual Start: 12-26-2023 End: 12-26-2023 ambulatory 12/26/2023 12:30 PM EDT OT/PT/Speech Visit Physical Therapy [address] [place] [address] Christen Arce, PT [address] [place] [address] Z39.2 (ICD-10-CM) - care following vaginal delivery Physical Therapy Comment on above: Z39.2 (ICD-10-CM) - care following vaginal delivery Start: 11-21-2023 End: 11-21-2023 ambulatory 11/21/2023 9:45 AM EDT OT/PT/Speech Visit Physical Therapy [address] [place] [address] Christen Arce, PT [address] [place] [address] Z39.2 (ICD-10-CM) - care following vaginal delivery Physical Therapy Comment on above: Z39.2 (ICD-10-CM) - care following vaginal delivery Start: 10-17-2023 End: 10-17-2023 ambulatory 10/17/2023 9:45 AM EDT OT/PT/Speech Visit Physical Therapy [address] [place] [address] Christen Arce, PT [address] [place] [address] Z39.2 (ICD-10-CM) - care following vaginal delivery Physical Therapy Comment on above: Z39.2 (ICD-10-CM) - care following vaginal delivery Start: 06-30-2023 Depression Assessment Depression Ass [facility] Start: 02-28-2023 Covid-19 Vaccine () Covid-19 Vaccine () [facility] Start: 02-28-2023 Influenza vaccination [facility] Start: 11-05-2022 End: 01-05-2023 25-hydroxyvitamin D3 [Mass/volume] in Serum or Plasma VITAMIN D 25 HYDROXY Lab Routine 28 weeks gestation of Expected: 11/05/2022, Expires: 01/05/2023 [facility] Work Phone: Comment on above: Expected: 11/05/2022 , Expires: 01/05/2023 Start: 11-05-2022 End: 01-05-2023 SYPHILIS TOTAL W/REFLEX SYPHILIS TOTAL W/REFLEX Lab Routine 28 weeks gestation of Expected: 11/05/2022, Expires: 01/05/2023 [facility] Work Phone: Comment on above: Expected: 11/05/2022 , Expires: 01/05/2023 Start: 08-08-2022 End: 08-08-2023 OBSTETRIC ULTRASOUND WHI OBSTETRIC ULTRASOUND WHI Anc Imaging Routine care in second trimester Expected: 08/08/2022, Expires: 08/08/2023 [facility] Work Phone: Comment on above: Expected: 08/08/2022 , Expires: 08/08/2023 Start: 2022 HPV TESTING HPV TESTING [facility] Start: 2022 Screening for malign ant neoplasm of cervix HPV Testing [facility] Start: 07-10-2022 End: 07-10-2023 Hepatitis B virus surface Ag [Presence] in Serum [facility] Work Phone: Comment on above: Expected: 07/10/2022 (Approximate), Expires: 07/10/2023 Start: 07-10-2022 End: 09-09-2022 Hepatitis C virus Ab [Presence] in Serum [facility] Work Phone: Comment on above: Expected: 07/10/2022 (Approximate), Expires: 09/09/2022 Start: 07-10-2022 End: 01-11-2024 HIV 1+2 Ab [Presence] in Serum or Plasma by Immunoassay [facility] Work Phone: Comment on above: Expected: 07/10/2022 (Approximate), Expires: 07/10/2023 Start: 07-10-2022 End: 07-10-2023 RUBELLA IGG AB [facility] Work Phone: Comment on above: Expected: 07/10/2022 (Approximate), Expires: 07/10/2023 Start: 07-10-2022 End: 07-10-2023 SYPHILIS TOTAL W/REFLEX [facility] Work Phone: Comment on above: Expected: 07/10/2022 (Approximate), Expires: 07/10/2023 Start: 06-30-2022 DEPRESSION ASSESSMENT DEPRESSION ASS ESSMENT [facility] Start: 2011 Urine microalbumin profile DTAP,TDAP,TD (1 - Tdap) [facility] Start: 2010 ANNUAL PCP TEAM HOSPITALITY ASSOCIATE SARAH DISEASE VISIT ANNUAL PCP TEAM CHRONIC DISEASE VISIT [facility] Start: 2010 Anxiety Screening Anxiety Screening [facility] Start: 2010 Depression Screening Depression Scre ening [facility] Start: 2010 HEPATITIS C SCREENING HEPATITIS C SC REENING [facility] Start: 2010 HIV SCREENING HIV SCREENING [facility] Start: 2010 SPIROMETRY SPIROMETRY [facility] Start: 1998 PNEUMOCOCCAL (1 - PCV) PNEUMOCOCCAL (1 - PCV) [facility] Start: 1998 Pneumococcal vaccination [facility] Start: 1992 HEPATITIS B (1 of 3 - 3-dose series) HEPATITIS B (1 of 3 - 3-dose series) [facility] 25-hydroxyvitamin D3 [Mass/volume] in Serum or Plasma VITAMIN D 25 HYDROXY Lab Routine 28 weeks gestation of 11/06/2022 10:06 AM EDT [facility] Work Phone: Bacteria identified in Urine by Culture URINE CULTURE Microbiology Routine Encounter for supervision of other normal in first trimester 07/10/2022 2:18 PM EST [facility] Work Phone: Bacteria identified in Urine by Culture BACTERIAL CULTURE, URINE Microbiology Routine care, subsequent in first trimester ([facility]) 10/13/2024 10:27 AM T [facility] Chlamydia trachomatis+Neisseria gonorrhoeae DNA [Presence] in Unspecified specimen by ADA with probe detection GONORRHEA/CHLAMYDIA NAAT Lab Routine care, subsequent in first trimester ([facility]) Ordered: 10/13/2024 [facility] Work Phone: Comment on above: Ordered: 10/13/2024 INDUCTION L&D INDUCTION L&D Pr ocedures Routine 40 weeks gestation of 1 Occurrences starting 01/27/2023 [facility] Work Phone: Comment on above: 1 Occurrences starti ng 01/27/2023 PAP TEST PAP TEST Lab Elkin james Encounter for screening for malignant neoplasm of cervix 02/03/2024 2:46 PM [facility] Work Phone: POC ANALYST COMPETITIVE INTELLIGENCE ULTRASOUND POC ANALYST COMPETITIVE INTELLIGENCE ULTRASO UND Anc Imaging Routine Encounter for supervision of other normal in first trimester Ordered: 07/10/2022 [facility] Work Phone: Comment on above: Ordered: 07/10/2022 ROUTINE, GR OUP B STREP PCR ROUTINE, GROUP B STREP PCR Microbiology Routine 36 weeks gestation of Encounter for supervision of other normal in third trimester 12/30/2022 2:51 PM [facility] Work Phone: SYPHILIS TOTAL W/REFLEX SYPHILIS TOTAL W/REFLEX Lab Routine 28 weeks gestation of 11/06/2022 10:06 AM [facility] Work Phone: Therapeutic prophylactic/dx injection subq/im THER/PROPH/DIAG INJ, SC/IM Procedures Routine Rh negative state in antepartum period Ordered: 11/06/2022 [facility] Work Phone: Comment on above: Ordered: 11/06/2022 [facility] Immunizations Immunization Date Immunization Notes Care Provider Fa cili 04-21-2024 influenza virus vacc ine, unspecified formulation Marina Eli CREDIT ASSOCIATE.CNM Work Phone: [facility] 04-14-2023 influenza virus vacc ine, unspecified formulation Marina Eli CREDIT ASSOCIATE.CNM Work Phone: [facility] 11-06-2022 RHO(D) immune globul in- IV or IM Nurse Work Phone: [facility] 11-06-2022 tetanus toxoid, redu mario diphtheria toxoid, and acellular pertussis vaccine, adsorbed Nurse Work Phone: [facility] 04-27-2022 Influenza, injectabl e, Madin Crocker Canine Kidney, preservative free, quadrivalent Marina Eli CREDIT ASSOCIATE.CNM Work Phone: [facility] 04-27-2022 influenza virus vacc ine, unspecified formulation Nancy Junaid CREDIT ASSOCIATE.CNM Work Phone: [facility] 12-26-1997 diphtheria, tetanus toxoids and acellular pertussis vaccine, unspecified formulation Marina Eli CREDIT ASSOCIATE.CNM Work Phone: [facility] 12-26-1997 measles, mumps and rubella virus vaccine Marina Eli CREDIT ASSOCIATE.CNM Work Phone: [facility] 12-26-1997 trivalent poliovirus vaccine, live, oral Marina Eli CREDIT ASSOCIATE.CNM Work Phone: [facility] 08-20-1994 diphtheria, tetanus toxoids and acellular pertussis vaccine, unspecified formulation Marina Eli CREDIT ASSOCIATE.CNM Work Phone: [facility] 09-04-1993 diphtheria, tetanus toxoids and pertussis vaccine Marina Eli CREDIT ASSOCIATE.CNM Work Phone: [facility] 09-04-1993 haemophilus influenz ae type b vaccine, conjugate unspecified formulation Marina Eli CREDIT ASSOCIATE.CNM Work Phone: [facility] 09-04-1993 hepatitis B vaccine, pediatric or pediatric/adolescent dosage Marina Eli CREDIT ASSOCIATE.CNM Work Phone: [facility] 09-04-1993 measles, mumps and rubella virus vaccine Marina Eli CREDIT ASSOCIATE.CNM Work Phone: [facility] 09-04-1993 trivalent poliovirus vaccine, live, oral Marina Eli CREDIT ASSOCIATE.CNM Work Phone: [facility] 01-31-1993 diphtheria, tetanus toxoids and pertussis vaccine Marina Eli CREDIT ASSOCIATE.CNM Work Phone: [facility] 01-31-1993 haemophilus influenz ae type b vaccine, conjugate unspecified formulation Marina Eli CREDIT ASSOCIATE.CNM Work Phone: [facility] 01-31-1993 hepatitis B vaccine, pediatric or pediatric/adolescent dosage Marina Eli CREDIT ASSOCIATE.CNM Work Phone: [facility] 01-31-1993 trivalent poliovirus vaccine, live, oral Marina Eli CREDIT ASSOCIATE.CNM Work Phone: [facility] 1990 diphtheria, tetanus toxoids and pertussis vaccine Marina Eli CREDIT ASSOCIATE.CNM Work Phone: [facility] 1990 haemophilus influenz ae type b vaccine, conjugate unspecified formulation Marina Eli CREDIT ASSOCIATE.CNM Work Phone: [facility] 1990 hepatitis B vaccine, pediatric or pediatric/adolescent dosage Marina Eli CREDIT ASSOCIATE.CNM Work Phone: [facility] 1990 trivalent poliovirus vaccine, live, oral Marina Eli CREDIT ASSOCIATE.CNM Work Phone: [facility] Payers Date Payer Category [facility] [id number] 2022 Unknown [id number] 2020 Unknown [id number] 2019 Unknown [id number] 1992 Unknown [id number] 1992 Unknown [id number] 1992 Unknown [id number] Social History Date Type Detail Facility Start: 07-10-2022 End: 12-16-2024 Tobacco smoking status NHIS Ex-smoker [facility] End: 11-29-2019 History of tobacco use Current smoker [facility] End: 11-29-2019 History of tobacco use Cigarette Smoker [facility] Start: 07-10-2022 End: 12-16-2024 Tobacco use and exposure Smokeless tobacco non-user [facility] Start: 07-10-2022 End: 12-16-2024 Alcohol intake Current non-drinker of alcohol (finding) [facility] Start: 05-06-2022 [facility] Start: 1990 Sex Assigned At Female [facility] Start: 01-06-2023 End: 10-13-2024 History of Social function [facility] Start: 01-06-2023 End: 10-13-2024 Tobacco use panel [facility] The thought of gisselle ng myself has occurred to me Never [facility] National Score (1-100), lower number is lower risk 78 [facility] Start: 10-31-2020 Gender identity Identifies as female gender (finding) [facility] Start: 10-31-2020 Sexual orientation Heterosexual (flaca fleming) [facility] NEGATED: Highlighted rowStart: NINF History of tobacco use Passive smoker [facility] Goals Date Patient Goal Desired Activity /State Personal health goal Functional Status Date Assessment Result Facility 02-05-2023 Are you deaf, or do you have serious difficulty hearing No 02/05/2023 7:49 AM EDT Darya Mckeon APRN.CNM No [facility] Work Phone: 02-05-2023 Are you blind, or do you have serious difficulty seeing, even when wearing glasses No 02/05/2023 7:49 AM EDT Darya Mckeon, CHAPARRO.CNM [facility] 02-05-2023 Do you have serious difficulty walking or climbing stairs No 02/05/2023 7:49 AM EDT Darya Mckeon, CREDIT ASSOCIATE.CNM [facility] 02-05-2023 Do you have difficul ty dressing or bathing No 02/05/2023 7:49 AM EDT Darya Mckeon, CHAPARRO.CNM [facility] 02-05-2023 Because of a physica l, mental, or emotional condition, do you have difficulty doing errands alone such as visiting a physician's office or shopping No 02/05/2023 7:49 AM EDT Darya Mckeon, CHAPARRO.CNM No [facility] Mental Status Date Assessment Result Facility 02-05-2023 Because of a physica l, mental, or emotional condition, do you have serious difficulty concentrating, remembering, or making decisions No 02/05/2023 7:49 AM EDT Darya Mckeon APRN.CNM No [facility] Clinical Notes 01-08-2021 to 12-16-2024 Quick Notes - Marina Benitez APRN.OSIRISM - 12/16/2024 8:42 AM EDTPrenatal Quick Notes - Marina Benitez APRN.CNM - 12/16/2024 8:42 AM Moni Brown APRN.SCHOOL PHOTOGRAPHER - 11/02/2024 9:24 AM EDT Note Date & Type Note Facility 12-16-2024 Miscellaneous Notes Nella is a 34 yo here at 15 weeks for a return visit care Declines labs Declines 12 week/16 week scan Would like only anatomy scan No concerns today Getting new ob labs today F/U in 4 weeks Marina Bneitez CNM documented in this encounter [facility] 12-16-2024 Progress note Formatting of t his note might be different from the original. Nella is a 34 yo here at 15 weeks for a return visit care Declines labs Declines 12 week/16 week scan Would like only anatomy scan No concerns today Getting new ob labs today F/U in 4 weeks aMrina Benitez CNM [facility] 12-02-2024 Telephone encounter Note The following medication(s) is being requested: LAST APPT - 11/02/24 NEXT APPT - 01/04/25 Requested Prescriptions Pending Prescriptions Disp Refills FLUoxetine (PROZAC) 10 mg capsule [Pharmacy Med Name: FLUOXETINE HCL 10 MG CAPSULE] 90 capsule 0 Sig: TAKE 1 CAPSULE BY MOUTH ONCE DAILY. TAKE IN ADDITION TO THE 20MG FOR A TOTAL OF 30MG Please process accordingly Karla Lozano [facility] 12-02-2024 Miscellaneous Notes The following medication(s) is being requested: LAST APPT - 11/02/24 NEXT APPT - 01/04/25 Requested Prescriptions Pending Prescriptions Disp Refills FLUoxetine (PROZAC) 10 mg capsule [Pharmacy Med Name: FLUOXETINE HCL 10 MG CAPSULE] 90 capsule 0 Sig: TAKE 1 CAPSULE BY MOUTH ONCE DAILY. TAKE IN ADDITION TO THE 20MG FOR A TOTAL OF 30MG Please process accordingly Karla Lozano documented in this encounter [facility] 11-11-2024 Progress note Formatting of t his note might be different from the original. Virtual visit today- patient consents Nella is a 34 yo here at 10 weeks for a return OB visit care Needs blood pressure cuff, didn't get one at last visit Doppler 170 Still need anatomy scan on the book and new ob labs Still having nausea Bought unisom but didn't start taking it yet This last week has been better Encouraged labs, scheduling US F/U in 4 weeks Marina Benitez CNM [facility] 11-11-2024 Miscellaneous Notes Virtual visit today- patient consents Nella is a 34 yo here at 10 weeks for a return OB visit care Needs blood pressure cuff, didn't get one at last visit Doppler 170 Still need anatomy scan on the book and new ob labs Still having nausea Bought unisom but didn't start taking it yet This last week has been better Encouraged labs, scheduling US F/U in 4 weeks Marina Benitez CNM documented in this encounter [facility] 11-02-2024 Note HNO ID: [id number] Author: MONI PAVON APRN.CNP Service: ? Author Type: Nurse Practitioner Type: Progress Notes Filed: 11/02/2024 09:58 Note Text: FOLLOW UP - PSYCHIATRIC PROGRESS NOTE Visit Type:Virtual Visit utilizing two-way audio and video for at least a portion of the visit. Consent for virtual visit obtained verbally. Confidentiality limitations with virtual visits reviewed with the patient and guardian, if present, who have accepted the risk verbally prior to proceeding with encounter. I have communicated my name and active licensure. The patient's identity and physical location were verified at the time of this visit. Either the patient or their legal territory account representative has been informed of the risks and benefits of -- and alternatives to -- treatment through a remote evaluation and consents to proceed with the evaluation remotely. Reason for Visit: Outpatient follow-up and safety monitoring of previously prescribed psychiatric medication, psychotherapy or other treatment Recording using ambient Cloudamize software for draft documentation of the visit was discussed with the patient/authorized territory account representative; all questions welcomed and answered. Patient/authorized territory account representative agreed to proceed CC: Nella is a 34-year-old female with a history of anxiety, depression, and OCD, presenting for follow-up. Continued eval for ELISA, PPD, OCD HPI: Patient last seen on 08/04/24 Most recent meds: prozac 30mg, wellbutrin XL 150mg Counseling at [facility]- biweekly Anxiety and Depression: - Currently 9 weeks . - Noted increased anxiety and depressive symptoms during the first trimester. - Taking Prozac 30 mg and Wellbutrin 150mg; started Prozac last year. - Sees counselor biweekly at [facility] counseling - Previous improved mental health; experienced significant anxiety and depressive thoughts and obsessive thoughts in PP period - Recently completed weaning from . Obsessive-Compulsive Disorder: - Noted increase in OCD behaviors, particularly counting, over the past few weeks. - Describes counting as a comforting behavior when feeling overwhelmed. - OCD behaviors were previously less disruptive since starting Prozac. - Significant increase in OCD behaviors after the of her second child, which improved during her last . Risks and benefits of the medication, including any black box warnings, were discussed with the patient. Interval Progress: Same PATIENT DATA: Generalized Anxiety Disorder Scale (ELISA-7) 06/23/2024 08/03/2024 10/31/2024 ELISA - 7 SCORES Score 5 9 5 (0-4) minimal anxiety, (5-9) mild anxiety, (10-14) moderate anxiety, (15-21) severe anxiety Patient Health Questionnaire (PHQ-9) 06/23/2024 08/03/2024 10/31/2024 PHQ-9 Score 9 8 4 (0-4) minimal depression, (5-9) mild depression, (10-14) moderate depression, (15-19) moderately severe depression, (20-27) severe depression PROMIS Global Health 03/24/2024 06/23/2024 10/31/2024 PROMIS Global Health - (T-Scores - the mean of general population = 50. Five points is a clinically meaningful difference.) Physical T-Score 50.8 50.8 54.1 Mental T-Score 41.1 38.8 45.8 PAST MEDICAL HISTORY Diagnosis Date Anxiety state Asthma (HCC) Bilateral hearing loss History of pre-eclampsia 11/01/2020 Noted in chart with first but not reported by client. Without severe features. - Nancy Quiroga APRN.CNM History of delivery, currently ([facility]) 11/01/2020 See PPROM depression Rh negative state in antepartum period ([facility]) 11/01/2020 Received 3rd trimester Rhogam. - Nancy Quiroga APRN.CNM PAST SURGICAL HISTORY Procedure Laterality Date PAST SURGICAL HISTORY OF 2004 right foot Current Outpatient Medications Medication Sig Dispense Refill aspirin, enteric coated (ECOTRIN LOW STRENGTH) 81 mg EC tablet Take 1 tablet by mouth once daily. 90 tablet 3 FLUoxetine (PROZAC) 10 mg capsule Take 1 capsule by mouth once daily. Take in addition to the 20mg for a total of 30mg 90 capsule 0 buPROPion XL (WELLBUTRIN XL) 150 mg 24 hr tablet Take 1 tablet by mouth once daily. 90 tablet 1 FLUoxetine (PROZAC) 20 mg capsule Take 1 capsule by mouth once daily. Take in addition to the 10mg tab for a total of 30mg 90 capsule 2 magnesium oxide (MAG-OX) 400 mg (241.3 mg magnesium) tablet TAKE 1 TABLET BY MOUTH TWICE A DAY 180 tablet 2 cholecalciferol (VITAMIN D-3) 50 mcg (2,000 unit) tablet Take 2,000 Units by mouth once daily. (Patient not taking: Reported on 10/13/2024) albuterol HFA (PROVENTIL HFA, VENTOLIN HFA) 90 mcg/actuation inhaler 2 puffs as needed Inhalation every 4 hrs budesonide-formoterol (SYMBICORT) 160-4.5 mcg/actuation inhaler vit/iron fum/folic ac ( 1 + 1 ORAL) No current facility-administered medications for this visit. ROS: Denies acute physical health issues a this time PFSH: Lives in [facility] in house with and 4 children. W (more content not included)... [facility] 11-02-2024 History of Presen t illness Narrative FOLLOW UP - PSYCHIATRIC PROGRESS NOTE Visit Type:Virtual Visit utilizing two-way audio and video for at least a portion of the visit. Consent for virtual visit obtained verbally. Confidentiality limitations with virtual visits reviewed with the patient and guardian, if present, who have accepted the risk verbally prior to proceeding with encounter. I have communicated my name and active licensure. The patient's identity and physical location were verified at the time of this visit. Either the patient or their legal territory account representative has been informed of the risks and benefits of -- and alternatives to -- treatment through a remote evaluation and consents to proceed with the evaluation remotely. Reason for Visit: Outpatient follow-up and safety monitoring of previously prescribed psychiatric medication, psychotherapy or other treatment Recording using ambient Cloudamize software for draft documentation of the visit was discussed with the patient/authorized territory account representative; all questions welcomed and answered. Patient/authorized territory account representative agreed to proceed CC: Nella is a 34-year-old female with a history of anxiety, depression, and OCD, presenting for follow-up. Continued eval for ELISA, PPD, OCD HPI: Patient last seen on 08/04/24 Most recent meds: prozac 30mg, wellbutrin XL 150mg Counseling at [facility]- biweekly Anxiety and Depression: - Currently 9 weeks . - Noted increased anxiety and depressive symptoms during the first trimester. - Taking Prozac 30 mg and Wellbutrin 150mg; started Prozac last year. - Sees counselor biweekly at [facility] counseling - Previous improved mental health; experienced significant anxiety and depressive thoughts and obsessive thoughts in PP period - Recently completed weaning from . Obsessive-Compulsive Disorder: - Noted increase in OCD behaviors, particularly counting, over the past few weeks. - Describes counting as a comforting behavior when feeling overwhelmed. - OCD behaviors were previously less disruptive since starting Prozac. - Significant increase in OCD behaviors after the of her second child, which improved during her last . Risks and benefits of the medication, including any black box warnings, were discussed with the patient. Interval Progress: Same PATIENT DATA: Generalized Anxiety Disorder Scale (ELISA-7) 06/23/2024 08/03/2024 10/31/2024 ELISA - 7 SCORES Score 5 9 5 (0-4) minimal anxiety, (5-9) mild anxiety, (10-14) moderate anxiety, (15-21) severe anxiety Patient Health Questionnaire (PHQ-9) 06/23/2024 08/03/2024 10/31/2024 PHQ-9 Score 9 8 4 (0-4) minimal depression, (5-9) mild depression, (10-14) moderate depression, (15-19) moderately severe depression, (20-27) severe depression PROMIS Global Health 03/24/2024 06/23/2024 10/31/2024 PROMIS Global Health - (T-Scores - the mean of general population = 50. Five points is a clinically meaningful difference.) Physical T-Score 50.8 50.8 54.1 Mental T-Score 41.1 38.8 45.8 PAST MEDICAL HISTORY Diagnosis Date Anxiety state Asthma ([facility]) Bilateral hearing loss History of pre-eclampsia 11/01/2020 Noted in chart with [facility] but not reported by client. Without severe features. - Nancy Quiroga APRN.CNM History of delivery, currently ([facility]) 11/01/2020 See PPROM depression Rh negative state in antepartum period ([facility]) 11/01/2020 Received 3rd trimester Rhogam. - Nancy Quiroga APRN.CNM PAST SURGICAL HISTORY Procedure Laterality Date PAST SURGICAL HISTORY OF 2004 right foot Current Outpatient Medications Medication Sig Dispense Refill aspirin, enteric coated (ECOTRIN LOW STRENGTH) 81 mg EC tablet Take 1 tablet by mouth once daily. 90 tablet 3 FLUoxetine (PROZAC) 10 mg capsule Take 1 capsule by mouth once daily. Take in addition to the 20mg for a total of 30mg 90 capsule 0 buPROPion XL (WELLBUTRIN XL) 150 mg 24 hr tablet Take 1 tablet by mouth once daily. 90 tablet 1 FLUoxetine (PROZAC) 20 mg capsule Take 1 capsule by mouth once daily. Take in addition to the 10mg tab for a total of 30mg 90 capsule 2 magnesium oxide (MAG-OX) 400 mg (241.3 mg magnesium) tablet TAKE 1 TABLET BY MOUTH TWICE A DAY 180 tablet 2 cholecalciferol (VITAMIN D-3) 50 mcg (2,000 unit) tablet Take 2,000 Units by mouth once daily. (Patient not taking: Reported on 10/13/2024) albuterol HFA (PROVENTIL HFA, VENTOLIN HFA) 90 mcg/actuation inhaler 2 puffs as needed Inhalation every 4 hrs budesonide-formoterol (SYMBICORT) 160-4.5 mcg/actuation inhaler vit/iron fum/folic ac ( 1 + 1 ORAL) No current facility-administered medications for this visit. ROS: Denies acute physical health issues a this time PFSH: Lives in [facility] in house with and 4 children. 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 MENTAL STATUS EXAM: CONSTITUTIONAL: Well groomed, Appropriately dressed ORIENTATION: Person, Place, Time and Situation MEMORY: Recent intact, Remote intact CONCENTRATION: Normal MOOD: euthymic, but anxious AFFECT: Full and appropriate to topic SPEECH : Clear & distinct LANGUAGE : Normal ASSOCIATIONS: Intact THOUGHT PROCESS : Logical, Coherent, and Rational PROGRESSION : There was no evidence of disturbance in thought perception or progression. FUND OF KNOWLEDGE : Appropriate and Adequate SUICIDE: None HOMICIDE: None DATA REVIEWED: Psychiatric scales and Electronic medical record DIAGNOSIS: 1. ELISA (generalized anxiety disorder) (F41.1) -Anxiety higher d/t first trimester and recent weaning. This higher anxiety has led to increase compulsive behavioras noted below -Hold off on medication changes per patient preference 2. Obsessive-compulsive disorder, unspecified type (F42.9) - Noted increase in anxiety and OCD behaviors, including catastrophic thoughts and compulsive counting, likely exacerbated by hormonal changes associated with and recent weaning from . - Currently on Prozac 30 mg and Wellbutrin; discussed potential increase of Prozac to 40 mg if symptoms worsen. - Refilled Wellbutrin XL 150mg prescription at [facility] in [place]. - Continues biweekly counseling with Deborah Vasquez at [facility]. - Scheduled follow-up in two months on January 04 at 0830. 3. 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 - No new interventions required at this time. GAF: -70-61 Some mild symptoms or some difficulty in social, occupational, or school functioning, but generally functioning pretty well. TREATMENT PLAN: - Continue Prozac 30 mg PO QD. - Continue Wellbutrin XL 150mg - Patient to continue biweekly counseling sessions with [facility] - Discussed potential increase of Prozac to 40 mg if OCD behaviors become more disruptive; patient to notify if adjustment is desired. - Follow-up appointment scheduled for January 04 at 08:30. -Patient is first trimester- current medications have been reviewed for use in and patient perceives benefits to outweigh risks Discussed medication dosage, usage, goals of therapy, and side effects. MEDICATION CHANGES: See treatment plan above Follow Up: 8 weeks I spent a total of 24 minutes on the date of the service which included preparing to see the patient, [id number] patient care, completing clinical documentation, obtaining and/or reviewing separately obtained history, counseling and educating the patient/family/caregiver, and ordering medications, tests, or procedures. ADD ON PSYCHOTHERAPY CODE : No SIGNATURE: Moni Pavon APRN.CNP PATIENT NAME: Nella Da Silva DATE: November 02, 2024 TIME: 9:24 AM documented in this encounter [facility] 10-13-2024 Instructions Marina Benitez APRN.CN - 10/13/2024 10:03 AM EDT B6 (pyridoxine) and Unisom (Doxylamine) 1)Start with 10-12.5 mg of pyridoxine (vitamin B6) three times a day for 2 days. 2)If not fully effective, Increase to 12.5 mg of pyridoxine four times a day for 2 days. 3)If not fully effective, Increase to 25 mg of pyridoxine three times a day for 2 days. 4)If not fully effective, Continue 25 mg pyridoxine 3 times a day, and add 12.5 mg of doxylamine (1/2 Unisom) before bedtime each day for 2 days. 5)If not fully effective, Continue 25 mg pyridoxine 3 times a day, and take 12.5 mg of doxylamine (1/2 Unisom) twice a day. 6)If not fully effective, Continue 25 mg pyridoxine 3 times a day, and take 12.5 mg of doxylamine (1/2 Unisom) three times a day. 7)If not fully effective, Continue 25 mg pyridoxine 3 times a day, and 25mg doxylamine (Unisom) at night and 12.5mg doxylamine (1/2 unisom) in the morning and afternoon documented in this encounter [facility] 10-13-2024 Note HNO ID: [id number] Author: MARINA BENITEZ APRN.CNM Service: ? Author Type: Sponge Clipper Type: Progress Notes Filed: 10/13/2024 10:33 Note Text: INITIAL OB ASSESSMENT HPI: Nella is a 34 year old White Female here to establish Obstetrical Care. Patient's last menstrual period was 08/22/2024 (exact date). from OB Dating Form. was planned Complaints: No OB History Gravida5 Para3 Term2 Preterm1 AB1 Living3 SAB1 IAB0 Ectopic0 Multiple0 Live Births3 Previous history: Prior : No History of 4th degree laceration: No History of shoulder dystocia: No History of Hypertensive disorders including pre-eclampsia or gestational hypertension: Pre E without severe features in first History of gestational diabetes: No Patient's Risk Screening for delivery: Have you had a prior tran between 20w and 36w6d? No Did you present in active spontaneous labor or have ruptured membranes, or advanced cervical dilation (greater than or equal to 4 cm) or effacement? No How many pregnancies have you had before? 4 Did you have a previous baby with a GBS Infection? No Please select all that apply for any prior : N/A MEDICAL/PSYCHOSOCIAL HISTORY: History of hemorrhage or bleeding concerns: No Thyroid Disease: No History of chronic hypertension: No History of pre-existing diabetes: No ABO/RH(D) Date Value Ref Range Status 01/08/2021 A NEGATIVE Final No weight on file for this encounter. Last Pap: 02/16/2024 History of abnormal pap: No, HPV pos Prior treatment for cervical dysplasia: none. Last HPV: 02/16/2024 History of STDs: HPV Partner History of STDs: HPV Did you have a partner with Herpes? No Tobacco use: No E-Cigarette/Vaping Use: No Caffeine use: No Drug use: No Alcohol use: No Multivitamin with Folic acid: Yes Would refuse blood transfusion if medically necessary: No Social Needs: How often does this describe you? I don't have enough money to pay my bills: Never Within the past 12 months, have you worried that your food would run out before you had money to buy more? Never In the past 12 months, has lack of reliable transportation kept you from going to medical appointments or work, or from getting things needed for daily living? Never In the past 12 months, have you had any concerns about having a place to live, or about the condition or quality of your housing? Never Would you like more information on any of the following (please check all that apply)? Not interested Social History: Do you have any history of depression, anxiety, PTSD, or other mood problems? Yes Do you have a history of abuse or trauma that may impact your experience? No Are you currently employed? Yes Depression/Anxiety Screening: denies symptoms of depression. OB Depression and Anxiety Screening- This Encounter (since 10/12/2024) Over the past 2 weeks have you felt down, depressed, or hopeless? Negative Over the past two weeks, have you felt little interest or pleasure in doing things?? Negative Feeling nervous, anxious or on edge 0-Not at all Not being able to stop or control worrying 0-Not al all Anxiety Pre-Screening Total (If >/= 3 additional questions will be reviewed) 0 Genetic Screening: Partner present: Yes Patient verbalized knowledge of partner family health history: No Do you or your partner have any personal or family history of defects not previously discussed: No Do you have history of a complicated by anomaly, genetic condition, or demise: No Preeclampsia Risk Screening: Screening for prevention of preeclampsia: High risk factors: History of pre-eclampsia, especially when accompanied by an adverse outcome Moderate risk ractors: Obesity (body mass index greater than 30) OB Risk Screening: Completed, no positive findings documented. Marital Status:Co-habitating Partner: Name: Rj Age: 41 PAST MEDICAL HISTORY Diagnosis Date Anxiety state Asthma ([facility]) Bilateral hearing loss History of pre-eclampsia 11/01/2020 Noted in chart with first but not reported by client. Without severe features. - Nancy Quiroga APRN.TREVON History of delivery, currently ([facility]) 11/01/2020 See PPROM depression Rh negative state in antepartum period ([facility]) 11/01/2020 Received 3rd trimester Rhogam. - Nancy Quiroga APRN.TREVON PAST SURGICAL HISTORY Procedure Laterality Date PAST SURGICAL HISTORY OF 2004 right foot Current Outpatient Medications Medication Sig Dispense Refill buPROPion XL (WELLBUTRIN XL) 150 mg 24 hr tablet Take 1 tablet by mouth once daily. 90 tablet 1 FLUoxetine (PROZAC) 20 mg capsule Take 1 capsule by mouth once daily. Take in addition to the 10mg tab for a total of 30mg 90 capsule 2 budesonide-formoterol (SYMBICORT) 160-4.5 mcg/actuation inhaler vit/iron fum/folic ac ( 1 + 1 ORAL) (more content not included)... [facility] 10-13-2024 History of Presen t illness Narrative Images from the original note were not included. INITIAL OB ASSESSMENT HPI: Nella is a 34 year old White Female here to establish Obstetrical Care. Patient's last menstrual period was 08/22/2024 (exact date). from OB Dating Form. was planned Complaints: No OB History Gravida5 Para3 Term2 Preterm1 AB1 Living3 SAB1 IAB0 Ectopic0 Multiple0 Live Births3 Previous history: Prior : No History of 4th degree laceration: No History of shoulder dystocia: No History of Hypertensive disorders including pre-eclampsia or gestational hypertension: Pre E without severe features in first History of gestational diabetes: No Patient's Risk Screening for delivery: Have you had a prior tran between 20w and 36w6d? No Did you present in active spontaneous labor or have ruptured membranes, or advanced cervical dilation (greater than or equal to 4 cm) or effacement? No How many pregnancies have you had before? 4 Did you have a previous baby with a GBS Infection? No Please select all that apply for any prior : N/A MEDICAL/PSYCHOSOCIAL HISTORY: History of hemorrhage or bleeding concerns: No Thyroid Disease: No History of chronic hypertension: No History of pre-existing diabetes: No ABO/RH(D) Date Value Ref Range Status 01/08/2021 A NEGATIVE Final No weight on file for this encounter. Last Pap: 02/16/2024 History of abnormal pap: No, HPV pos Prior treatment for cervical dysplasia: none. Last HPV: 02/16/2024 History of STDs: HPV Partner History of STDs: HPV Did you have a partner with Herpes? No Tobacco use: No E-Cigarette/Vaping Use: No Caffeine use: No Drug use: No Alcohol use: No Multivitamin with Folic acid: Yes Would refuse blood transfusion if medically necessary: No Social Needs: How often does this describe you? I don't have enough money to pay my bills: Never Within the past 12 months, have you worried that your food would run out before you had money to buy more? Never In the past 12 months, has lack of reliable transportation kept you from going to medical appointments or work, or from getting things needed for daily living? Never In the past 12 months, have you had any concerns about having a place to live, or about the condition or quality of your housing? Never Would you like more information on any of the following (please check all that apply)? Not interested Social History: Do you have any history of depression, anxiety, PTSD, or other mood problems? Yes Do you have a history of abuse or trauma that may impact your experience? No Are you currently employed? Yes Depression/Anxiety Screening: denies symptoms of depression. OB Depression and Anxiety Screening- This Encounter (since 10/12/2024) Over the past 2 weeks have you felt down, depressed, or hopeless? Negative Over the past two weeks, have you felt little interest or pleasure in doing things? Negative Feeling nervous, anxious or on edge 0-Not at all Not being able to stop or control worrying 0-Not al all Anxiety Pre-Screening Total (If >/= 3 additional questions will be reviewed) 0 Genetic Screening: Partner present: Yes Patient verbalized knowledge of partner family health history: No Do you or your partner have any personal or family history of defects not previously discussed: No Do you have history of a complicated by anomaly, genetic condition, or demise: No Preeclampsia Risk Screening: Screening for prevention of preeclampsia: High risk factors: History of pre-eclampsia, especially when accompanied by an adverse outcome Moderate risk ractors: Obesity (body mass index greater than 30) OB Risk Screening: Completed, no positive findings documented. Marital Status:Co-habitating Partner: Name: Rj Age: 41 PAST MEDICAL HISTORY Diagnosis Date Anxiety state Asthma (HCC) Bilateral hearing loss History of pre-eclampsia 11/01/2020 Noted in chart with first but not reported by client. Without severe features. - Nancy Quiroga APRN.CNM History of delivery, currently ([facility]) 11/01/2020 See PPROM depression Rh negative state in antepartum period ([facility]) 11/01/2020 Received 3rd trimester Rhogam. - Nancy Quiroga APRN.CNM PAST SURGICAL HISTORY Procedure Laterality Date PAST SURGICAL HISTORY OF 2004 right foot Current Outpatient Medications Medication Sig Dispense Refill buPROPion XL (WELLBUTRIN XL) 150 mg 24 hr tablet Take 1 tablet by mouth once daily. 90 tablet 1 FLUoxetine (PROZAC) 20 mg capsule Take 1 capsule by mouth once daily. Take in addition to the 10mg tab for a total of 30mg 90 capsule 2 budesonide-formoterol (SYMBICORT) 160-4.5 mcg/actuation inhaler vit/iron fum/folic ac ( 1 + 1 ORAL) aspirin, enteric coated (ECOTRIN LOW STRENGTH) 81 mg EC tablet Take 1 tablet by mouth once daily. 90 tablet 3 FLUoxetine (PROZAC) 10 mg capsule Take 1 capsule by mouth once daily. Take in addition to the 20mg for a total of 30mg 90 capsule 0 magnesium oxide (MAG-OX) 400 mg (241.3 mg magnesium) tablet TAKE 1 TABLET BY MOUTH TWICE A DAY 180 tablet 2 cholecalciferol (VITAMIN D-3) 50 mcg (2,000 unit) tablet Take 2,000 Units by mouth once daily. (Patient not taking: Reported on 10/13/2024) albuterol HFA (PROVENTIL HFA, VENTOLIN HFA) 90 mcg/actuation inhaler 2 puffs as needed Inhalation every 4 hrs No current facility-administered medications for this visit. Allergies As of Date: 10/13/2024 (No Known Allergies) Fully Assessed 10/13/2024 Does patient have penicillin allergy: No REVIEW OF SYSTEMS: GENERAL: Negative for: Fever or Chills HEENT: Negative for: Headache, Impaired Vision, Ringing in Ears, Nosebleeds NECK: Negative for: Swelling, Pain, Stiffness RESPIRATORY: Negative for: Cough, Shortness of breath, Wheezing GASTROINTESTINAL: Negative for: Heartburn, Constipation, Diarrhea, Blood in stool, Vomiting MUSCULOSKELETAL: Negative for: Muscle or joint pain, stiffness, Joint swelling NEUROLOGIC/PSYCHIATRIC: Negative for: Weakness, Paralysis, Numbness, Tingling, Tremor, Anxiety, Depression, Memory loss SKIN: Negative for: Rash, Itching GENITOURINARY: Negative for: vaginal itching, vaginal discharge, hematuria or dysuria SENSITIVE EXAM: The sensitive examination was discussed with the Patient or Patient's Authorized Veneer Matcher. As applicable, any other physician, advance practice provider, medical student, or other health professional student that will be observing or involved in the sensitive examination for educational or training purposes was discussed with the Patient or Authorized Veneer Matcher. The Patient or Authorized Veneer Matcher has agreed to proceed with the sensitive examination. (Sensitive examination includes inspection and/or palpation of the breasts, pelvis, prostate and anorectal regions). PHYSICAL EXAM: LMP 08/22/2024 GENERAL: pleasant in no apparent distress DERMATOLOGY: Normal, without lesions, non-icteric, and non-hirsute NECK: Supple, full range of motion, no adenopathy, and thyroid normal CHEST: Normal inspiratory effort BREAST: deferred lymphadenopathy, and no nipple discharge ABDOMEN: soft, non-tender, and no masses NEURO: alert and oriented x3,exam grossly non-focal PELVIS: External genitalia normal without lesions. Perineal body intact. No vaginal or cervical lesions. Cervix closed. Uterus 6 week size. No adnexal masses or tenderness. Clinical Pelvimetry: Pelvimetry clinically assessed as adequate Limited OB ultrasound exam: single intrauterine and positive cardiac activity SBIRT Nella Da Silva was given the 4P's screening tool. Nella answered as follows: OB Opioid Screening - Last Recorded (since 01/17/2024) Did any of your parents have a problem with alcohol or other drug use? Yes MOB father alcoholic Does your partner have a problem with alcohol or other drug use? No In the past, have you had difficulties in your life because of alcohol or other drugs, including prescription medications? No In the past month have you drunk any alcohol or used other drugs? No Are you taking medication for pain during the either prescribed or not? No Based on the screen and further questions, she is considered at Low risk due to:No past or current use. Positive reinforcement of current behavior. Marina Benitez APRN.CNM ASSESSMENT: 34 year old at 6w4d wks gestational age PLAN: 1) Patient oriented to practice. Patient given new OB orientation folder. Discussed nutrition, folic acid supplementation, dietary guidelines, exercise, smoking, alcohol, caffeine, and drug use. Discussed gestational weight gain guidelines. Discussed routine OB labs including STD/HIV. Reviewed midwifery and rn provider relations services that are available. 2) Screening: Hemoglobin A1C: ordered Baby Aspirin: The patient has been counseled about the potential benefits of low dose aspirin in and our recommendation that this be offered to all patients, regardless of whether they meet the high risk criteria specified above. She Accepts Aneuploidy Screening: Discussed aneuploidy screening, nuchal translucency/first trimester early anatomy ultrasound and NIPT. The risks/benefits and limitations of NIPT/aneuploidy screening were reviewed including the potential for false negative and false positive results. The availability of genetic counseling was reviewed. Information on aneuploidy screening was provided. The patient declines screening Myriad Carrier Screening: Discussed myriad carrier screening. We discussed the availability of professional-society guided carrier screening and reviewed the conditions screened and limitations of screening. The availability of genetic counseling was reviewed. Information on carrier screening was provided. The patient Declines 3) Patient offered option of Virtual Visits. Patient unsure. May consider in future. 4) History of hypertension: Preeclampsia Discussed starting Aspirin 81 mg daily at 12 weeks. Ordered baseline CMP and Protein/Creatinine Ratio today 5) LMP irregular, dates changes based on early US Follow up in 4 weeks or sooner prn. Marina Benitez APRN.CNM OB point of care ultrasound was performed. See imaging tab for details. Marina Benitez APRN.CNM documented in this encounter [facility] 08-30-2024 Telephone encounter Note Next appt: 11/02/2024 Last appt: 2024 Request is for a 90 day supply [facility] Work Phone: 08-30-2024 Miscellaneous Notes Next appt: 11/02/2024 Last appt: 2024 Request is for a 90 day supply documented in this encounter [facility] 2024 Note HNO ID: [id number] Author: MONI PAVON APRN.SCHOOL PHOTOGRAPHER Service: ? Author Type: Nurse Practitioner Type: Progress Notes Filed: 2024 14:58 Note Text: FOLLOW UP - PSYCHIATRIC PROGRESS NOTE Visit Type:Virtual Visit utilizing two-way audio and video for at least a portion of the visit. Consent for virtual visit obtained verbally. Confidentiality limitations with virtual visits reviewed with the patient and guardian, if present, who have accepted the risk verbally prior to proceeding with encounter. I have communicated my name and active licensure. The patient's identity and physical location were verified at the time of this visit. Either the patient or their legal territory account representative has been informed of the risks and benefits of -- and alternatives to -- treatment through a remote evaluation and consents to proceed with the evaluation remotely. Reason for Visit: Outpatient follow-up and safety monitoring of previously prescribed psychiatric medication, psychotherapy or other treatment CC: I am feeling a bit better Continued eval for ELISA and PPD HPI: Patient last seen on 06/24/24 Most recent meds: Prozac 30mg, wellbutrin XL 150mg Patient states overall she is doing well. Did not follow-up with neuro psych testing for ADHD as she is currently trying to get . Reviewed and current meds. Prior to stabilization on current meds patient reports mood and anxiety is poorly controlled. Reviewed Antidepressants can increase risk for adaptation syndrome that is transient and self-limiting in up to one third of newborns exposed to antidepressants prenatally. Also reviewed risks of untreated anxiety during and including, but not limited to, intrauterine growth restriction, anxiety, depression AND psychosis, failure to thrive, AND deficits in childhood social-emotional development. Patient perceives benefits of meds ot outweigh rissk. Risks and benefits of the medication, including any black box warnings, were discussed with the patient. Interval Progress: Slightly improved PATIENT DATA: Generalized Anxiety Disorder Scale (ELISA-7) 04/30/2024 06/23/2024 08/03/2024 ELISA - 7 SCORES Score 5 5 9 (0-4) minimal anxiety, (5-9) mild anxiety, (10-14) moderate anxiety, (15-21) severe anxiety Patient Health Questionnaire (PHQ-9) 04/30/2024 06/23/2024 08/03/2024 PHQ-9 Score 5 9 8 (0-4) minimal depression, (5-9) mild depression, (10-14) moderate depression, (15-19) moderately severe depression, (20-27) severe depression PROMIS Global Health 11/21/2023 03/24/2024 06/23/2024 PROMIS Global Health - (T-Scores - the mean of general population = 50. Five points is a clinically meaningful difference.) Physical T-Score 50.8 50.8 50.8 Mental T-Score 45.8 41.1 38.8 PAST MEDICAL HISTORY Diagnosis Date Anxiety state Asthma Bilateral hearing loss History of pre-eclampsia 11/01/2020 Noted in chart with first but not reported by client. Without severe features. - Nancy Quiroga APRN.CNM History of delivery, currently 11/01/2020 See PPROM depression Rh negative state in antepartum period 11/01/2020 Received 3rd trimester Rhogam. - Nancy Quiroga APRN.CNM PAST SURGICAL HISTORY Procedure Laterality Date PAST SURGICAL HISTORY OF 2004 right foot Current Outpatient Medications Medication Sig Dispense Refill buPROPion XL (WELLBUTRIN XL) 150 mg 24 hr tablet Take 1 tablet by mouth once daily. 90 tablet 1 FLUoxetine (PROZAC) 20 mg capsule Take 1 capsule by mouth once daily. Take in addition to the 10mg tab for a total of 30mg 90 capsule 2 FLUoxetine (PROZAC) 10 mg capsule Take 1 capsule by mouth once daily. Take in addition to the 20mg for a total of 30mg 30 capsule 2 magnesium oxide (MAG-OX) 400 mg (241.3 mg magnesium) tablet TAKE 1 TABLET BY MOUTH TWICE A DAY 180 tablet 2 cholecalciferol (VITAMIN D-3) 50 mcg (2,000 unit) tablet Take 2,000 Units by mouth once daily. albuterol HFA (PROVENTIL HFA, VENTOLIN HFA) 90 mcg/actuation inhaler 2 puffs as needed Inhalation every 4 hrs budesonide-formoterol (SYMBICORT) 160-4.5 mcg/actuation inhaler vit/iron fum/folic ac ( 1 + 1 ORAL) No current facility-administered medications for this visit. ROS: Denies acute physical health issues PFSH: Lives in [facility] in house with and 4 children. 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 MENTAL STATUS EXAM: CONSTITUTIONAL: Well groomed, Appropriately dressed ORIENTATION: Person, Place, Time and Situation MEMORY: Recent intact, Remote intact CONCENTRATION: Normal MOOD: okay AFFECT: Full and appropriate to topic (more content not included)... [facility] 2024 History of Presen t illness Narrative FOLLOW UP - PSYCHIATRIC PROGRESS NOTE Visit Type:Virtual Visit utilizing two-way audio and video for at least a portion of the visit. Consent for virtual visit obtained verbally. Confidentiality limitations with virtual visits reviewed with the patient and guardian, if present, who have accepted the risk verbally prior to proceeding with encounter. I have communicated my name and active licensure. The patient's identity and physical location were verified at the time of this visit. Either the patient or their legal territory account representative has been informed of the risks and benefits of -- and alternatives to -- treatment through a remote evaluation and consents to proceed with the evaluation remotely. Reason for Visit: Outpatient follow-up and safety monitoring of previously prescribed psychiatric medication, psychotherapy or other treatment CC: I am feeling a bit better Continued eval for ELISA and PPD HPI: Patient last seen on 06/24/24 Most recent meds: Prozac 30mg, wellbutrin XL 150mg Patient states overall she is doing well. Did not follow-up with neuro psych testing for ADHD as she is currently trying to get . Reviewed and current meds. Prior to stabilization on current meds patient reports mood and anxiety is poorly controlled. Reviewed Antidepressants can increase risk for adaptation syndrome that is transient and self-limiting in up to one third of newborns exposed to antidepressants prenatally. Also reviewed risks of untreated anxiety during and including, but not limited to, intrauterine growth restriction, anxiety, depression & psychosis, failure to thrive, & deficits in childhood social-emotional development. Patient perceives benefits of meds ot outweigh rissk. Risks and benefits of the medication, including any black box warnings, were discussed with the patient. Interval Progress: Slightly improved PATIENT DATA: Generalized Anxiety Disorder Scale (ELISA-7) 04/30/2024 06/23/2024 08/03/2024 ELISA - 7 SCORES Score 5 5 9 (0-4) minimal anxiety, (5-9) mild anxiety, (10-14) moderate anxiety, (15-21) severe anxiety Patient Health Questionnaire (PHQ-9) 04/30/2024 06/23/2024 08/03/2024 PHQ-9 Score 5 9 8 (0-4) minimal depression, (5-9) mild depression, (10-14) moderate depression, (15-19) moderately severe depression, (20-27) severe depression PROMIS Global Health 11/21/2023 03/24/2024 06/23/2024 PROMIS Global Health - (T-Scores - the mean of general population = 50. Five points is a clinically meaningful difference.) Physical T-Score 50.8 50.8 50.8 Mental T-Score 45.8 41.1 38.8 PAST MEDICAL HISTORY Diagnosis Date Anxiety state Asthma Bilateral hearing loss History of pre-eclampsia 11/01/2020 Noted in chart with first but not reported by client. Without severe features. - Nancy Quiroga APRN.CNM History of delivery, currently 11/01/2020 See PPROM depression Rh negative state in antepartum period 11/01/2020 Received 3rd trimester Rhogam. - Nancy Quiroga APRN.CNM PAST SURGICAL HISTORY Procedure Laterality Date PAST SURGICAL HISTORY OF 2004 right foot Current Outpatient Medications Medication Sig Dispense Refill buPROPion XL (WELLBUTRIN XL) 150 mg 24 hr tablet Take 1 tablet by mouth once daily. 90 tablet 1 FLUoxetine (PROZAC) 20 mg capsule Take 1 capsule by mouth once daily. Take in addition to the 10mg tab for a total of 30mg 90 capsule 2 FLUoxetine (PROZAC) 10 mg capsule Take 1 capsule by mouth once daily. Take in addition to the 20mg for a total of 30mg 30 capsule 2 magnesium oxide (MAG-OX) 400 mg (241.3 mg magnesium) tablet TAKE 1 TABLET BY MOUTH TWICE A DAY 180 tablet 2 cholecalciferol (VITAMIN D-3) 50 mcg (2,000 unit) tablet Take 2,000 Units by mouth once daily. albuterol HFA (PROVENTIL HFA, VENTOLIN HFA) 90 mcg/actuation inhaler 2 puffs as needed Inhalation every 4 hrs budesonide-formoterol (SYMBICORT) 160-4.5 mcg/actuation inhaler vit/iron fum/folic ac ( 1 + 1 ORAL) No current facility-administered medications for this visit. ROS: Denies acute physical health issues PFSH: Lives in [facility] in house with and 4 children. 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 MENTAL STATUS EXAM: CONSTITUTIONAL: Well groomed, Appropriately dressed ORIENTATION: Person, Place, Time and Situation MEMORY: Recent intact, Remote intact CONCENTRATION: Normal MOOD: okay AFFECT: Full and appropriate to topic SPEECH : Clear & distinct LANGUAGE : Normal ASSOCIATIONS: Intact THOUGHT PROCESS : Logical, Coherent, and Rational PROGRESSION : There was no evidence of disturbance in thought perception or progression. FUND OF KNOWLEDGE : Appropriate and Adequate SUICIDE: None HOMICIDE: None DATA REVIEWED: Psychiatric scales and Electronic medical record DIAGNOSIS: ASSESSMENT/PLAN: 1. ELISA (generalized anxiety disorder) - ICD9: 300.02, ICD10: F41.1 (primary diagnosis) 2. 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 TREATMENT PLAN: 1. Continue prozac 30mg 2. Continue wellbutrin XL 150mg 3. Sent resources on neuro psych testing at previous appt- patient has Discussed medication dosage, usage, goals of therapy, and side effects. MEDICATION CHANGES: See treatment plan Follow Up: 4 weeks I spent a total of 12 minutes on the date of the service which included preparing to see the patient, [id number] patient care, completing clinical documentation, obtaining and/or reviewing separately obtained history, counseling and educating the patient/family/caregiver, and ordering medications, tests, or procedures. ADD ON PSYCHOTHERAPY CODE : SIGNATURE: Moni Pavon APRN.CNP PATIENT NAME: Nella Da Silva DATE: 2024 TIME: 2:45 PM documented in this encounter [facility] 06-24-2024 Note HNO ID: [id number] Author: MONI PAVON APRN.CNP Service: ? Author Type: Nurse Practitioner Type: Progress Notes Filed: 06/24/2024 08:52 Note Text: FOLLOW UP - PSYCHIATRIC PROGRESS NOTE Visit Type:Virtual Visit utilizing two-way audio and video for at least a portion of the visit. Consent for virtual visit obtained verbally. Confidentiality limitations with virtual visits reviewed with the patient and guardian, if present, who have accepted the risk verbally prior to proceeding with encounter. I have communicated my name and active licensure. The patient's identity and physical location were verified at the time of this visit. Either the patient or their legal territory account representative has been informed of the risks and benefits of -- and alternatives to -- treatment through a remote evaluation and consents to proceed with the evaluation remotely. Reason for Visit: Outpatient follow-up and safety monitoring of previously prescribed psychiatric medication, psychotherapy or other treatment CC: I have been good Continued eval for ELISA and PPD HPI: Patient last seen on 03/24/24 Most recent meds: Prozac 30mg, wellbutrin XL 150mg Currently connected to [facility] Patient reports that since changing to 30mg on the prozac she switched to daytime dosing as it was interfering with her sleep. States that anxiety is markedly improved on the increased dose. Motivation is somewhat exacerbated d/t seasonal changes. States that she does try to continue to get outside often to combat fatigue. Work is good - states she is doing a decent job staying focus. States that she has struggled at home with starting multiple tasks and not finishing. Patient reports no prior hx of ADHD dx- is agreeable to getting neuro psych testing- we discussed possible increase in wellbutrin to target executive dysfunction but patient wants to hold at this time Denies any personal cardiac issues States that she is still but starting the process of weaning. Sleep is okay averages about 6-7 hrs of sleep- denies any difficulty falling asleep or staying asleep - moderate daytime fatigue but states she is still able to function Risks and benefits of the medication, including any black box warnings, were discussed with the patient. Interval Progress: Slightly improved PATIENT DATA: Generalized Anxiety Disorder Scale (ELISA-7) 03/24/2024 04/30/2024 06/23/2024 ELISA - 7 SCORES Score 13 5 5 (0-4) minimal anxiety, (5-9) mild anxiety, (10-14) moderate anxiety, (15-21) severe anxiety Patient Health Questionnaire (PHQ-9) 03/24/2024 04/30/2024 06/23/2024 PHQ-9 Score 10 5 9 (0-4) minimal depression, (5-9) mild depression, (10-14) moderate depression, (15-19) moderately severe depression, (20-27) severe depression PROMIS Global Health 11/21/2023 03/24/2024 06/23/2024 PROMIS Global Health - (T-Scores - the mean of general population = 50. Five points is a clinically meaningful difference.) Physical T-Score 50.8 50.8 50.8 Mental T-Score 45.8 41.1 38.8 PAST MEDICAL HISTORY Diagnosis Date Anxiety state Asthma Bilateral hearing loss History of pre-eclampsia 11/01/2020 Noted in chart with [facility] but not reported by client. Without severe features. - Nancy Quiroga APRN.CNM History of delivery, currently 11/01/2020 See PPROM depression Rh negative state in antepartum period 11/01/2020 Received 3rd trimester Rhogam. - Nancy Quiroga APRN.CNM PAST SURGICAL HISTORY Procedure Laterality Date PAST SURGICAL HISTORY OF 2004 right foot Current Outpatient Medications Medication Sig Dispense Refill magnesium oxide (MAG-OX) 400 mg (241.3 mg magnesium) tablet TAKE 1 TABLET BY MOUTH TWICE A DAY 180 tablet 2 FLUoxetine (PROZAC) 20 mg capsule Take 1 capsule by mouth once daily. Take in addition to the 10mg tab for a total of 30mg 90 capsule 2 FLUoxetine (PROZAC) 10 mg capsule Take 1 capsule by mouth once daily. Take in addition to the 20mg for a total of 30mg 30 capsule 2 buPROPion XL (WELLBUTRIN XL) 150 mg 24 hr tablet Take 1 tablet by mouth once daily. 90 tablet 1 cholecalciferol (VITAMIN D-3) 50 mcg (2,000 unit) tablet Take 2,000 Units by mouth once daily. albuterol HFA (PROVENTIL HFA, VENTOLIN HFA) 90 mcg/actuation inhaler 2 puffs as needed Inhalation every 4 hrs budesonide-formoterol (SYMBICORT) 160-4.5 mcg/actuation inhaler vit/iron fum/folic ac ( 1 + 1 ORAL) No current facility-administered medications for this visit. ROS: Denies acute physical health issues at this time PFSH: Lives in [facility] in house with and 4 children. 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 ME (more content not included)... [facility] 06-24-2024 History of Presen t illness Narrative FOLLOW UP - PSYCHIATRIC PROGRESS NOTE Visit Type:Virtual Visit utilizing two-way audio and video for at least a portion of the visit. Consent for virtual visit obtained verbally. Confidentiality limitations with virtual visits reviewed with the patient and guardian, if present, who have accepted the risk verbally prior to proceeding with encounter. I have communicated my name and active licensure. The patient's identity and physical location were verified at the time of this visit. Either the patient or their legal territory account representative has been informed of the risks and benefits of -- and alternatives to -- treatment through a remote evaluation and consents to proceed with the evaluation remotely. Reason for Visit: Outpatient follow-up and safety monitoring of previously prescribed psychiatric medication, psychotherapy or other treatment CC: I have been good Continued eval for ELISA and PPD HPI: Patient last seen on 03/24/24 Most recent meds: Prozac 30mg, wellbutrin XL 150mg Currently connected to [facility] Patient reports that since changing to 30mg on the prozac she switched to daytime dosing as it was interfering with her sleep. States that anxiety is markedly improved on the increased dose. Motivation is somewhat exacerbated d/t seasonal changes. States that she does try to continue to get outside often to combat fatigue. Work is good - states she is doing a decent job staying focus. States that she has struggled at home with starting multiple tasks and not finishing. Patient reports no prior hx of ADHD dx- is agreeable to getting neuro psych testing- we discussed possible increase in wellbutrin to target executive dysfunction but patient wants to hold at this time Denies any personal cardiac issues States that she is still but starting the process of weaning. Sleep is okay averages about 6-7 hrs of sleep- denies any difficulty falling asleep or staying asleep - moderate daytime fatigue but states she is still able to function Risks and benefits of the medication, including any black box warnings, were discussed with the patient. Interval Progress: Slightly improved PATIENT DATA: Generalized Anxiety Disorder Scale (ELISA-7) 03/24/2024 04/30/2024 06/23/2024 ELISA - 7 SCORES Score 13 5 5 (0-4) minimal anxiety, (5-9) mild anxiety, (10-14) moderate anxiety, (15-21) severe anxiety Patient Health Questionnaire (PHQ-9) 03/24/2024 04/30/2024 06/23/2024 PHQ-9 Score 10 5 9 (0-4) minimal depression, (5-9) mild depression, (10-14) moderate depression, (15-19) moderately severe depression, (20-27) severe depression PROMIS Global Health 11/21/2023 03/24/2024 06/23/2024 PROMIS Global Health - (T-Scores - the mean of general population = 50. Five points is a clinically meaningful difference.) Physical T-Score 50.8 50.8 50.8 Mental T-Score 45.8 41.1 38.8 PAST MEDICAL HISTORY Diagnosis Date Anxiety state Asthma Bilateral hearing loss History of pre-eclampsia 11/01/2020 Noted in chart with [facility] but not reported by client. Without severe features. - Nancy Quiroga APRN.OSIRISM History of delivery, currently 11/01/2020 See PPROM depression Rh negative state in antepartum period 11/01/2020 Received 3rd trimester Rhogam. - Nancy Quiroga APRN.OSIRISM PAST SURGICAL HISTORY Procedure Laterality Date PAST SURGICAL HISTORY OF 2004 right foot Current Outpatient Medications Medication Sig Dispense Refill magnesium oxide (MAG-OX) 400 mg (241.3 mg magnesium) tablet TAKE 1 TABLET BY MOUTH TWICE A DAY 180 tablet 2 FLUoxetine (PROZAC) 20 mg capsule Take 1 capsule by mouth once daily. Take in addition to the 10mg tab for a total of 30mg 90 capsule 2 FLUoxetine (PROZAC) 10 mg capsule Take 1 capsule by mouth once daily. Take in addition to the 20mg for a total of 30mg 30 capsule 2 buPROPion XL (WELLBUTRIN XL) 150 mg 24 hr tablet Take 1 tablet by mouth once daily. 90 tablet 1 cholecalciferol (VITAMIN D-3) 50 mcg (2,000 unit) tablet Take 2,000 Units by mouth once daily. albuterol HFA (PROVENTIL HFA, VENTOLIN HFA) 90 mcg/actuation inhaler 2 puffs as needed Inhalation every 4 hrs budesonide-formoterol (SYMBICORT) 160-4.5 mcg/actuation inhaler vit/iron fum/folic ac ( 1 + 1 ORAL) No current facility-administered medications for this visit. ROS: Denies acute physical health issues at this time PFSH: Lives in [facility] in house with and 4 children. 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 MENTAL STATUS EXAM: CONSTITUTIONAL: Well groomed, Appropriately dressed ORIENTATION: Person, Place, Time and Situation MEMORY: Recent intact, Remote intact CONCENTRATION: Normal MOOD: euthymic AFFECT: Full and appropriate to topic SPEECH : Clear & distinct LANGUAGE : Normal ASSOCIATIONS: Intact THOUGHT PROCESS : Logical, Coherent, and Rational PROGRESSION : There was no evidence of disturbance in thought perception or progression. FUND OF KNOWLEDGE : Appropriate and Adequate SUICIDE: None HOMICIDE: None DATA REVIEWED: Psychiatric scales and Electronic medical record DIAGNOSIS: ASSESSMENT/PLAN: 1. ELISA (generalized anxiety disorder) - ICD9: 300.02, ICD10: F41.1 (primary diagnosis) - FLUOXETINE 20 MG CAPSULE - FLUOXETINE 10 MG CAPSULE - PROVIDER ORDERED FOLLOW UP 2. 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 Medical Decision Making: Problems: Moderate: 2+ stable chronic illnesses Risk: Moderate: Drug management Medical Decision Making Level: 4 - Moderate TREATMENT PLAN: 1. Continue prozac 30mg 2. Continue wellbutrin XL 150mg 3. Patient concerned about possible ADHD- sent neuro psych testing resources Discussed medication dosage, usage, goals of therapy, and side effects. MEDICATION CHANGES: Current medication regimen unchanged. Follow Up: 2 months I spent a total of 20 minutes on the date of the service which included preparing to see the patient, [id number] patient care, completing clinical documentation, obtaining and/or reviewing separately obtained history, counseling and educating the patient/family/caregiver, and ordering medications, tests, or procedures. ADD ON PSYCHOTHERAPY CODE : No SIGNATURE: Moni Pavon APRN.CNP PATIENT NAME: Nella Da Silva DATE: June 24, 2024 TIME: 8:32 AM documented in this encounter [facility] 05-10-2024 Telephone encounter Note Nella calling for Rx refill for: mag-ox Last visit with Clinic Nurse Provider: 06/10/2023 Medical Hx: PAST MEDICAL HISTORY Diagnosis Date Anxiety state Asthma Bilateral hearing loss History of pre-eclampsia 11/01/2020 Noted in chart with first but not reported by client. Without severe features. - Nancy Quiroga APRN.CNM History of delivery, currently 11/01/2020 See PPROM depression Rh negative state in antepartum period 11/01/2020 Received 3rd trimester Rhogam. - Nancy Quiroga APRN.CNM Problem List: ACTIVE PROBLEM LIST Mild Intermittent Asthma Without Complication Migraines Chronic Tension-Type Headache, Not Intractable Spasm of Muscle Coccydynia Last 10 BP values: Last 10 Encounter BP Readings: Date: BP: 02/03/2024 112/58 07/10/2023 106/70 03/31/2023 90/60 02/02/2023 107/66 01/27/2023 104/64 01/21/2023 115/60 01/15/2023 105/73 01/06/2023 110/63 12/30/2022 130/62 12/16/2022 110/70 Last Pap: pap neg +HPV 02/03/24 Pattie Claudio LPN [facility] 05-10-2024 Miscellaneous Notes Nella calling for Rx refill for: mag-ox Last visit with Clinic Nurse Provider: 06/10/2023 Medical Hx: PAST MEDICAL HISTORY Diagnosis Date Anxiety state Asthma Bilateral hearing loss History of pre-eclampsia 11/01/2020 Noted in chart with first but not reported by client. Without severe features. - Nancy Quiroga APRN.CNM History of delivery, currently 11/01/2020 See PPROM depression Rh negative state in antepartum period 11/01/2020 Received 3rd trimester Rhogam. - Nancy Quiroga APRN.TREVON Problem List: ACTIVE PROBLEM LIST Mild Intermittent Asthma Without Complication Migraines Chronic Tension-Type Headache, Not Intractable Spasm of Muscle Coccydynia Last 10 BP values: Last 10 Encounter BP Readings: Date: BP: 02/03/2024 112/58 07/10/2023 106/70 03/31/2023 90/60 02/02/2023 107/66 01/27/2023 104/64 01/21/2023 115/60 01/15/2023 105/73 01/06/2023 110/63 12/30/2022 130/62 12/16/2022 110/70 Last Pap: pap neg +HPV 02/03/24 Pattie Claudio LPN documented in this encounter [facility] 04-30-2024 Note HNO ID: [id number] Author: MONI PAVON APRN.CNP Service: ? Author Type: Nurse Practitioner Type: Progress Notes Filed: 04/30/2024 14:54 Note Text: Patient no showed for appointment. Will send my chart message with information on rescheduling. [facility] 04-30-2024 History of Presen t illness Narrative Patient no showed for appointment. Will send my chart message with information on rescheduling. documented in this encounter [facility] 03-24-2024 Note HNO ID: [id number] Author: MONI PAVON APRN.CNP Service: ? Author Type: Nurse Practitioner Type: Progress Notes Filed: 03/25/2024 09:47 Note Text: FOLLOW UP - PSYCHIATRIC PROGRESS NOTE Visit Type:Virtual Visit utilizing two-way audio and video for at least a portion of the visit. Consent for virtual visit obtained verbally. Confidentiality limitations with virtual visits reviewed with the patient and guardian, if present, who have accepted the risk verbally prior to proceeding with encounter. I have communicated my name and active licensure. The patient's identity and physical location were verified at the time of this visit. Either the patient or their legal territory account representative has been informed of the risks and benefits of -- and alternatives to -- treatment through a remote evaluation and consents to proceed with the evaluation remotely. Reason for Visit: Outpatient follow-up and safety monitoring of previously prescribed psychiatric medication, psychotherapy or other treatment Transfer from [facility] CC: Things are good Continued eval for ELISA and PPD HPI: Patient last seen on 09/18/23 Most recent meds: wellbutrin XL 150mg, prozac 20mg Reports since last seen she feels that mood and anxiety are overall well controlled Some mild OCD, states that she obsessive thoughts about cleaning, some compulsive counting (will count lines in the road, cracks on a sidewalk)- if not able to follow her routines gets very anxious. Sleep is fair , averages about 6 hrs, some nighttime waking d/t continued . Some daytime fatigue. Agreeable to increasing prozac to assist with anxiety/ OCD Patient feels there might be an ADHD component to what she is experiencing- reviewed that first step is to get anxiety/ ocd under control and long-term can work on assessing for ADHD Sees counselor once a week at [facility] Risks and benefits of the medication, including any black box warnings, were discussed with the patient. Interval Progress: Same PATIENT DATA: Generalized Anxiety Disorder Scale (ELISA-7) 2023 09/14/2023 03/24/2024 ELISA - 7 SCORES Score 21 8 13 (0-4) minimal anxiety, (5-9) mild anxiety, (10-14) moderate anxiety, (15-21) severe anxiety Patient Health Questionnaire (PHQ-9) 2023 09/14/2023 03/24/2024 PHQ-9 Score 17 13 10 (0-4) minimal depression, (5-9) mild depression, (10-14) moderate depression, (15-19) moderately severe depression, (20-27) severe depression PROMIS Global Health 2023 11/21/2023 03/24/2024 PROMIS Global Health - (T-Scores - the mean of general population = 50. Five points is a clinically meaningful difference.) Physical T-Score 50.8 50.8 50.8 Mental T-Score 33.8 45.8 41.1 PAST MEDICAL HISTORY Diagnosis Date Anxiety state Asthma Bilateral hearing loss History of pre-eclampsia 11/01/2020 Noted in chart with [facility] but not reported by client. Without severe features. - Nancy Quiroga APRN.CNM History of delivery, currently 11/01/2020 See PPROM depression Rh negative state in antepartum period 11/01/2020 Received 3rd trimester Rhogam. - Nancy Quiroga APRN.CNM PAST SURGICAL HISTORY Procedure Laterality Date PAST SURGICAL HISTORY OF 2005 right foot Current Outpatient Medications Medication Sig Dispense Refill buPROPion XL (WELLBUTRIN XL) 150 mg 24 hr tablet Take 1 tablet by mouth once daily. 90 tablet 1 FLUoxetine (PROZAC) 20 mg capsule Take 1 capsule by mouth once daily. 90 capsule 2 magnesium oxide (MAG-OX) 400 mg (241.3 mg magnesium) tablet take 1 tablet by mouth twice a day 180 tablet 2 cholecalciferol (VITAMIN D-3) 50 mcg (2,000 unit) tablet Take 2,000 Units by mouth once daily. albuterol HFA (PROVENTIL HFA, VENTOLIN HFA) 90 mcg/actuation inhaler 2 puffs as needed Inhalation every 4 hrs budesonide-formoterol (SYMBICORT) 160-4.5 mcg/actuation inhaler vit/iron fum/folic ac ( 1 + 1 ORAL) No current facility-administered medications for this visit. ROS: Denies acute physical healht issues at this time PFSH: Lives in [facility] in house with and 4 children. 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 MENTAL STATUS EXAM: CONSTITUTIONAL: Well groomed, Appropriately dressed ORIENTATION: Person, Place, Time and Situation MEMORY: Recent intact, Remote intact CONCENTRATION: Normal MOOD: anxious AFFECT: Full and appropriate to topic SPEECH : Clear AND distinct LANGUAGE : Normal ASSOCIATIONS: Intact THOUGHT PROCESS : Logical, Coherent, and Rational PROGRESSION : There was no evidence of disturbance in thought perception or progression. FUND OF KNOWLEDGE : Appropriate and Adequate SUICIDE: Non (more content not included)... [facility] 03-24-2024 History of Presen t illness Narrative FOLLOW UP - PSYCHIATRIC PROGRESS NOTE Visit Type:Virtual Visit utilizing two-way audio and video for at least a portion of the visit. Consent for virtual visit obtained verbally. Confidentiality limitations with virtual visits reviewed with the patient and guardian, if present, who have accepted the risk verbally prior to proceeding with encounter. I have communicated my name and active licensure. The patient's identity and physical location were verified at the time of this visit. Either the patient or their legal territory account representative has been informed of the risks and benefits of -- and alternatives to -- treatment through a remote evaluation and consents to proceed with the evaluation remotely. Reason for Visit: Outpatient follow-up and safety monitoring of previously prescribed psychiatric medication, psychotherapy or other treatment Transfer from [facility] CC: Things are good Continued eval for ELISA and PPD HPI: Patient last seen on 09/18/23 Most recent meds: wellbutrin XL 150mg, prozac 20mg Reports since last seen she feels that mood and anxiety are overall well controlled Some mild OCD, states that she obsessive thoughts about cleaning, some compulsive counting (will count lines in the road, cracks on a sidewalk)- if not able to follow her routines gets very anxious. Sleep is fair , averages about 6 hrs, some nighttime waking d/t continued . Some daytime fatigue. Agreeable to increasing prozac to assist with anxiety/ OCD Patient feels there might be an ADHD component to what she is experiencing- reviewed that first step is to get anxiety/ ocd under control and long-term can work on assessing for ADHD Sees counselor once a week at [facility] Risks and benefits of the medication, including any black box warnings, were discussed with the patient. Interval Progress: Same PATIENT DATA: Generalized Anxiety Disorder Scale (ELISA-7) 2023 09/14/2023 03/24/2024 ELISA - 7 SCORES Score 21 8 13 (0-4) minimal anxiety, (5-9) mild anxiety, (10-14) moderate anxiety, (15-21) severe anxiety Patient Health Questionnaire (PHQ-9) 2023 09/14/2023 03/24/2024 PHQ-9 Score 17 13 10 (0-4) minimal depression, (5-9) mild depression, (10-14) moderate depression, (15-19) moderately severe depression, (20-27) severe depression PROMIS Global Health 2023 11/21/2023 03/24/2024 PROMIS Global Health - (T-Scores - the mean of general population = 50. Five points is a clinically meaningful difference.) Physical T-Score 50.8 50.8 50.8 Mental T-Score 33.8 45.8 41.1 PAST MEDICAL HISTORY Diagnosis Date Anxiety state Asthma Bilateral hearing loss History of pre-eclampsia 11/01/2020 Noted in chart with [facility] but not reported by client. Without severe features. - Nancy Quiroga APRN.CNM History of delivery, currently 11/01/2020 See PPROM depression Rh negative state in antepartum period 11/01/2020 Received 3rd trimester Rhogam. - Nancy Quiroga APRN.CNM PAST SURGICAL HISTORY Procedure Laterality Date PAST SURGICAL HISTORY OF 2005 right foot Current Outpatient Medications Medication Sig Dispense Refill buPROPion XL (WELLBUTRIN XL) 150 mg 24 hr tablet Take 1 tablet by mouth once daily. 90 tablet 1 FLUoxetine (PROZAC) 20 mg capsule Take 1 capsule by mouth once daily. 90 capsule 2 magnesium oxide (MAG-OX) 400 mg (241.3 mg magnesium) tablet take 1 tablet by mouth twice a day 180 tablet 2 cholecalciferol (VITAMIN D-3) 50 mcg (2,000 unit) tablet Take 2,000 Units by mouth once daily. albuterol HFA (PROVENTIL HFA, VENTOLIN HFA) 90 mcg/actuation inhaler 2 puffs as needed Inhalation every 4 hrs budesonide-formoterol (SYMBICORT) 160-4.5 mcg/actuation inhaler vit/iron fum/folic ac ( 1 + 1 ORAL) No current facility-administered medications for this visit. ROS: Denies acute physical healht issues at this time PFSH: Lives in [facility] in house with and 4 children. 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 MENTAL STATUS EXAM: CONSTITUTIONAL: Well groomed, Appropriately dressed ORIENTATION: Person, Place, Time and Situation MEMORY: Recent intact, Remote intact CONCENTRATION: Normal MOOD: anxious AFFECT: Full and appropriate to topic SPEECH : Clear & distinct LANGUAGE : Normal ASSOCIATIONS: Intact THOUGHT PROCESS : Logical, Coherent, and Rational PROGRESSION : There was no evidence of disturbance in thought perception or progression. FUND OF KNOWLEDGE : Appropriate and Adequate SUICIDE: None HOMICIDE: None DATA REVIEWED: Psychiatric scales and Electronic medical record DIAGNOSIS: PRIMARY: ELISA and PPD, OCD traits Patient presents w/ some residual anxiety sx's and OCD traits. Agreeable to increase in prozac at this time. Also interested in exploring attention issues in the future but trying to conceive in the next year, discussed best practice is to get mood / anxiety in order and would recommend deferring any evaluation of attention until / completed and patient verbalized understanding. Denies si/hi GAF: -70-61 Some mild symptoms or some difficulty in social, occupational, or school functioning, but generally functioning pretty well. TREATMENT PLAN: 1. Increase prozac to 30mg at this time 2. Continue wellbutrin XL 150mg for energy/ concentration 3. Reviewed 988 in case of mental health emergency Discussed medication dosage, usage, goals of therapy, and side effects. MEDICATION CHANGES: See treatment plan Follow Up: 4 weeks I spent a total of 20 minutes on the date of the service which included preparing to see the patient, [id number] patient care, completing clinical documentation, obtaining and/or reviewing separately obtained history, counseling and educating the patient/family/caregiver, and ordering medications, tests, or procedures. ADD ON PSYCHOTHERAPY CODE : No SIGNATURE: Moni Pavon APRN.CNP PATIENT NAME: Nella Da Silva DATE: March 24, 2024 TIME: 2:10 PM documented in this encounter [facility] 02-17-2024 Telephone encounter Note FAMILY HISTORY[]Expand by Default FAMILY HISTORY Problem Relation Age of Onset Cervical Cancer Maternal Grandmother Uterine Cancer Maternal Grandmother Colon Cancer Paternal Grandfather [facility] 02-17-2024 Miscellaneous Notes FAMILY HISTORY[]Expand by Default FAMILY HISTORY Problem Relation Age of Onset Cervical Cancer Maternal Grandmother Uterine Cancer Maternal Grandmother Colon Cancer Paternal Grandfather documented in this encounter [facility] 02-12-2024 Telephone encounter Note The following medication(s) is being requested: Patient needs refill before appt with Lauro Pavon LAST APPT - 09/18/23 [facility] NEXT APPT - 03/24/24 Requested Prescriptions Pending Prescriptions Disp Refills buPROPion XL (WELLBUTRIN XL) 150 mg 24 hr tablet 90 tablet 1 Sig: Take 1 tablet by mouth once daily. Please process accordingly Brooke Turner [facility] 02-12-2024 Miscellaneous Notes The following medication(s) is being requested: Patient needs refill before appt with Lauro Pavon LAST APPT - 09/18/23 Lauro Asif NEXT APPT - 03/24/24 Requested Prescriptions Pending Prescriptions Disp Refills buPROPion XL (WELLBUTRIN XL) 150 mg 24 hr tablet 90 tablet 1 Sig: Take 1 tablet by mouth once daily. Please process accordingly Brooke Turner documented in this encounter [facility] 02-03-2024 Note HNO ID: [id number] Author: MARINA BENITEZ APRN.CNM Service: ? Author Type: Sponge Clipper Type: Progress Notes Filed: 02/03/2024 14:38 Note Text: Nella is a 33 year old who presents for an annual gynecologic exam without complaints. Menses: no cycles with nursing. 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 Without severe features. - Nancy Quiroga APRN.CNM 11/01/2020: History of delivery, currently Comment: See PPROM No date: depression 11/01/2020: Rh negative state in antepartum period Comment: Received 3rd trimester Rhogam. - Nancy Quiroga APRN.CNM PAST SURGICAL HISTORY 2005: PAST SURGICAL HISTORY OF Comment: right foot FAMILY HISTORY Problem Relation Age of Onset Cervical Cancer Maternal Grandmother Uterine Cancer Maternal Grandmother Colon Cancer Paternal Grandfather SOCIAL HISTORY Social History Tobacco Use Smoking status: Former Types: Cigarettes Quit date: 11/2019 Years since quittin.1 Smokeless tobacco: Never Vaping Use Vaping Use: Never used Substance Use Topics Alcohol use: No Drug use: No REVIEW OF SYSTEMS Abdomen: No abdominal pain, nausea, vomiting, diarrhea, or constipation. No bloating, early satiety, indigestion, or increased flatulence. Bladder: No dysuria, gross hematuria, urinary frequency, urinary urgency, or incontinence. Breast: No breast lumps, nipple d/c, overlying skin changes, redness or skin retraction. Allergies and current medication updated:Yes EXAM: BP 112/58 Ht 4' 11 (1.50m) Wt 169 lb 6.4 oz (76.8kg) LMP 04/22/2022 BMI 34.20 kg/(m2). GENERAL: pleasant, female in no apparent distress HEENT: Normocephalic, atraumatic, mucus membranes moist, and no lesions NECK: Supple, full range of motion, no adenopathy, and thyroid normal DERMATOLOGY: Normal, without lesions, non-icteric, and non-hirsute BREAST: soft, non-tender, symmetric, no dominant mass, normal nipple-areolar complex, no lymphadenopathy, and no nipple discharge CHEST: Normal inspiratory effort ABDOMEN: soft, non-tender, and no masses PELVIC: external genitalia normal, normal Bartholin's glands, urethra, [place]'s glands, no vulvar lesions, no cervical lesions, good vaginal support, physiologic discharge present, normal appearing perineal body and perianal region BIMANUAL: uterus normal size, shape and consistency, no adnexal masses, and non-tender RECTOVAGINAL: deferred. NEURO: alert and oriented x3,exam grossly non-focal EXTREMITIES: normal ASSESSMENT/PLAN: 1) Health maintenance: Pap done with HPV. Mammogram starting age 40. Nutrition, exercise and routine health maintenance exams reviewed. 2) Contraception: none. Contraceptive options reviewed and information provided. TTC. Discussed SSRI use and prenatals. 3) STD screening: Declined STD check. 4) Follow up one year or sooner as needed Marina Benitez APRN.TREVON [facility] 02-03-2024 History of Presen t illness Narrative Nella is a 33 year old who presents for an annual gynecologic exam without complaints. Menses: no cycles with nursing. 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 Without severe features. - Nancy Quiroga APRN.CNM 11/01/2020: History of delivery, currently Comment: See PPROM No date: depression 11/01/2020: Rh negative state in antepartum period Comment: Received 3rd trimester Rhogam. - Nancy Quiroga APRN.CNM PAST SURGICAL HISTORY 2005: PAST SURGICAL HISTORY OF Comment: right foot FAMILY HISTORY Problem Relation Age of Onset Cervical Cancer Maternal Grandmother Uterine Cancer Maternal Grandmother Colon Cancer Paternal Grandfather SOCIAL HISTORY Social History Tobacco Use Smoking status: Former Types: Cigarettes Quit date: 11/2019 Years since quittin.1 Smokeless tobacco: Never Vaping Use Vaping Use: Never used Substance Use Topics Alcohol use: No Drug use: No REVIEW OF SYSTEMS Abdomen: No abdominal pain, nausea, vomiting, diarrhea, or constipation. No bloating, early satiety, indigestion, or increased flatulence. Bladder: No dysuria, gross hematuria, urinary frequency, urinary urgency, or incontinence. Breast: No breast lumps, nipple d/c, overlying skin changes, redness or skin retraction. Allergies and current medication updated:Yes EXAM: BP 112/58 Ht 4' 11 (1.50m) Wt 169 lb 6.4 oz (76.8kg) LMP 04/22/2022 BMI 34.20 kg/(m^2). GENERAL: pleasant, female in no apparent distress HEENT: Normocephalic, atraumatic, mucus membranes moist, and no lesions NECK: Supple, full range of motion, no adenopathy, and thyroid normal DERMATOLOGY: Normal, without lesions, non-icteric, and non-hirsute BREAST: soft, non-tender, symmetric, no dominant mass, normal nipple-areolar complex, no lymphadenopathy, and no nipple discharge CHEST: Normal inspiratory effort ABDOMEN: soft, non-tender, and no masses PELVIC: external genitalia normal, normal Bartholin's glands, urethra, [place]'s glands, no vulvar lesions, no cervical lesions, good vaginal support, physiologic discharge present, normal appearing perineal body and perianal region BIMANUAL: uterus normal size, shape and consistency, no adnexal masses, and non-tender RECTOVAGINAL: deferred. NEURO: alert and oriented x3,exam grossly non-focal EXTREMITIES: normal ASSESSMENT/PLAN: 1) Health maintenance: Pap done with HPV. Mammogram starting age 40. Nutrition, exercise and routine health maintenance exams reviewed. 2) Contraception: none. Contraceptive options reviewed and information provided. TTC. Discussed SSRI use and prenatals. 3) STD screening: Declined STD check. 4) Follow up one year or sooner as needed Marina Benitez APRN.CNM documented in this encounter [facility] 02-03-2024 Nurse Note Reserve Officer offered: Patient declines. [facility] 02-03-2024 Nurse Note Reserve Officer offered: Patient declines. documented in this encounter [facility] 11-21-2023 History of Presen t illness Narrative Episode Visit Count: 4 Therapist That Will Accept/Oversee The Plan Of Care: Christen Arce Start of Care Date: 08/29/23 Onset Date: 02/03/23 Patient Identified by Name and Date of : Yes REHABILITATION AND SPORTS THERAPY PHYSICAL THERAPY TREATMENT NOTE ASSESSMENT: Nella Da Silva tolerated the session with no issues. She demonstrated improvements in core strength and lowered pain levels. Improved core strength. Doing well. More physically active. PLAN FOR NEXT VISIT: Progress core, side planks, more sagital plane hip work, manual therapy as needed. SUBJECTIVE: Doing core strengthening, feeling like belly is getting smaller. Gets muscle fatigue in back. More pain with more physical activity, gardening, etc. No pain / pressure vaginally. Pain: Pain Pain Level: 2 Pain Location: Low Back/Lumbar Spine- Midline Description: Dull Frequency: Continuous Post Treatment Pain Post Treatment Pain Level: No Change OBJECTIVE MEASURES WITH LEVEL OF FUNCTION: Pelvic Floor Muscle Assessment Consent for pelvic assessment/testing and treatment: Patient was educated regarding pelvic floor physical therapy assessment/treatment which may include pelvic floor and girdle muscle assessment externally or internally (vaginal or rectal approach)., Patient verbalized consent for the above treatment approaches today. Patient understands they have control of the treatment and an opportunity to stop treatment at any time. Pelvic Floor Manual Assessment Sacrum, sacral border: Bilateral Lumbar Paraspinals: Bilateral (min) Buttock: Bilateral (L>R min) Piriformis: Bilateral (L>R min) TREATMENT: Manual Therapy: 1: See above 2: Posterior low back, gluts 3: Distraction at SIJ Skilled Intervention: Manual skills to improve joint mobility, ROM, and decrease pain. Utilized anatomy knowledge of the therapist, and assessment of patient's response to intervention. Neuromuscular Re-Education: 1: Bridging with abduction 2: Quadruped arm/leg extension 3: Plank progression - wall to modified push up positions 4: Continue with heel slides / bridge Skilled Intervention: Patient education as noted. Billing Manual TherapyTreatment Minutes: 18 Neuromuscular Re-Education Treatment Minutes: 22 Total Session Time (minutes): 40 Session Start Time : 944 Session Stop Time : 1025 Christen Arce PT documented in this encounter [facility] 10-17-2023 History of Presen t illness Narrative Episode Visit Count: 3 Therapist That Will Accept/Oversee The Plan Of Care: Christen Arce Start of Care Date: 08/29/23 Onset Date: 02/03/23 Patient Identified by Name and Date of : Yes REHABILITATION AND SPORTS THERAPY PHYSICAL THERAPY TREATMENT NOTE ASSESSMENT: Nella Da Silva tolerated the session with no issues. She demonstrated onging low back pain. Constipation and pelvic floor symptoms improving. Needs work on TA / deep core correct activation and then progression. PLAN FOR NEXT VISIT: Ongoing progression of core, check in multiple positions, hip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 moderately severe depression, (20-27) severe depression PROMIS Global Health PROMIS Global Health - (T-Scores - the mean of general population = 50. Five points is a clinically meaningful difference.) 2023 Physical T-Score 50.8 Mental T-Score 33.8 MENTAL STATUS EXAMINATION: Appearance: Casually dressed Behavior: Behaves appropriately during the encounter Social relatedness: Euthymic Speech/Language: The patient demonstrates appropriate tone, prosody, meera, phonetics, and syntax Mood: 5-6 out of 10 most of the time Affect: Full and appropriate to topic Orientation: Person, Place, Time and Situation Associations: Intact and linear Hallucinations: None Delusions: None Suicidal Ideation: No suicidal ideation, intent or plan. Homicidal Ideation: No homicidal ideation, intent or plan. Insight: Appropriate Judgment: Appropriate IMPRESSION: Ms. Da Silva is a 33yo presenting with anxiety and depressive s/s. Was started on wellbutrin SR by CNM after discussing her s/s, including her concern/negative self-talk about weight gain and concern that mood could potentially worsen should that occur with an SSRI (which is why wellbutrin was chosen). Has been seeing some benefit from wellbutrin, though wonders if medication could be more helpful. Depressive s/s persist, reports recurring negative thoughts about herself, low motivation, difficulty concentrating d/t racing thoughts. Discussed options for med mgmt, including switching wellbutrin to XL to prevent inconsistent dosing with BID. After making this change to 150 mg, will consider further adjustments to regimen pending pt's response to this change (increasing wellbutrin v adding prozac-more wt neutral). Counseled pt to send update in a week after converting to XL. Risks and benefits of the medication, including any black box warnings, risks as applicable, the possible effect on any medical condition the patient may have, and the impact the medication may have on the patient's ability to safely operate any mode of transportation or machinery, and, any risk when taken with alcohol were discussed with the patient. Will also send refs for talk therapy as pt may benefit from additional cognitive restructuring skills as well as trauma-based therapy. DIAGNOSIS: PRIMARY: Anxiety Disorder Generalized Anxiety Disorder SECONDARY: Mood Disorder Major Depressive Disorder, Recurrent, Moderate and With Onset Other : post-traumatic s/s GAF: -60-51 Moderate symptoms or moderate difficulty in social, occupational or school functioning. PLAN: 1. Change wellbutrin SR to wellbutrin XL 150 mg, consider increase one week after change (pt to send MCM) -will start prozac for persisting/worsening anxiety or increase wellbutrin for mood 2. Therapy refs sent in AVS 3. RTC 6 weeks DISPOSITION: 09/17 1430 I spent a total of 60 minutes on the date of the service which included preparing to see the patient, [id number] patient care, and completing clinical documentation. ADD ON PSYCHOTHERAPY CODE : No SIGNATURE: Nettie Asif APRN.CNP PATIENT NAME: Nella Da Silva DATE: 2023 TIME: 9:05 AM PAGER : documented in this encounter [facility] 04-21-2023 Miscellaneous Notes Confirmation fax received regarding signed order. Pattie Claudio LPN Received PT initial examination form via fax from [facility] that requires provider signature. Placed on providers desk to review and sign (A.W) Pattie Claudio LPN documented in this encounter [facility] 04-07-2023 Miscellaneous Notes Pt called request PT orders be faxed to [facility] [phone] Faxed with confirmation Lynn Sun RN documented in this encounter [facility] 03-31-2023 Miscellaneous Notes Letter faxed Lynn Sun RN Please fax a letter for Nella noting she has been cleared to go back to work starting today, since her 6 wk PP visit. Her work fax is [phone] Attn: [employer] Administrator Work number [phone] Please also send her a copy of that letter via [employer] Thank you Nancy Quiroga APRN.CNM documented in this encounter [facility] 02-28-2023 Miscellaneous Notes Called pt and LVM that Diflucan sent to pharmacy. Silvia Portillo RN Please inform Diflucan treatment sent to pharmacy. Nancy Quiroga APRN.CNM Patient called with breast complaint. Symptoms: nipple pain and breast pain bilaterally : Yes: Date: 02/03/23 Fever/chills: no fever, feeling achy Any breast or nipple pain between feeds: Yes nipples cracked/bleeding: No Breast mass: No Breast redness: No Breast engorgement: No Breast Hardness: No 3 week infant being treated for thrust, pt using topical miconazole but over the last 3 day breast pain has worsen Will notify provider Gracie Tate RN documented in this encounter [facility] 02-05-2023 Note HNO ID: [id number] Author: Amelia Sue APRN.CNM Service: Obstetrics Author Type: Sponge Clipper Type: Progress Notes Filed: 02/05/2023 8:03 AM Note Text: Nella is a 32yo who is now on day#2, s/p uncomplicated . Patient is laying in bed and resting. Reports no questions or concerns. Feeling well overall, bleeding minimal. No issues with urination or BM. Pain level is appropriate. Reminded patient regarding her 2 week and 6 week visit. Already set up. Plan of care discussed with: Provider, RN, Patient and Family/Significant Other: Present . Amelia Sue APRN.CNM [facility] 02-04-2023 Note HNO ID: [id number] Author: Brandi Delgado APRN.CNM Service: Obstetrics Author Type: Sponge Clipper Type: Progress Notes Filed: 02/04/2023 10:18 AM Note Text: OBSTETRICS PROGRESS NOTE SERVICE DATE: February 04, 2023 SERVICE TIME: 10:17 AM ASSESSMENT: 32 year old female who is Day #1 status post Vaginal, Spontaneous delivery with male . Doing well, no concerns, going well. PLAN: Routine care. Encourage patient to use pain meds. . Control: none Discharge instructions given to patient regarding pelvic rest, bathing, stairs, walking, lifting, driving, and follow-up. Patient expresses understanding. Plan of care discussed with: Provider, RN, Patient. Anticipate discharge day: PPD #2 SUBJECTIVE: Patient has no current complaints. Tolerating PO intake. Urinating without difficulty. Passing flatus. Pain well controlled with current regimen. Lochia decreasing. Ambulating without difficulty. OBJECTIVE: PHYSICAL EXAM: Lungs: normal inspiratory effort Abdomen: Soft Fundus firm below umbilicus Non-distended Perineum: Perineum intact Extremities: No calf tenderness and No edema LAST VITALS: Pulse BP Resp O2 Sat Temp Pain 107 92/56 17 98 % 36.5 ?C (97.7 ?F) 2 Avg Min Max Vitals (last 12 hours) Flowsheet Row Name Average Min Max BP: Systolic 105 92 118 BP: Diastolic 59 56 62 Temp 36.6 ?C (97.8 ?F) 36.5 ?C (97.7 ?F) 36.6 ?C (97.9 ?F) Pulse 107 107 107 Resp 16.5 16 17 SpO2 98 % 98 % 98 % HT/WT/BMI: Height Weight BMI 149.9 cm (4' 11 ) 83 kg (183 lb) 36.96 LABS ABO/RH: 02/03/2023: A; Negative RUBELLA: 07/10/2022: Positive HANDH: Hematocrit (%) Date Value 02/03/2023 36.0 Hemoglobin (g/dL) Date Value 02/03/2023 12.1 Diagnostic tests reviewed for today's visit: Most recent labs SIGNATURE: Brandi Delgado APRN.CNM PATIENT NAME: Nella Da Silva DATE: February 04, 2023 TIME: 10:17 AM [facility] 02-03-2023 Note HNO ID: [id number] Author: Kevyn Steward APRN.CNM Service: Obstetrics Author Type: Sponge Clipper Type: Progress Notes Filed: 02/03/2023 3:14 PM Note Text: Misoprostol Progress Note Nella is endorsing more frequent, painful contractions. Pain is tolerable, requiring no interventions at this time. Aware of available pain management options. BP 112/62 Pulse 76 Temp 36.5 ?C (97.7 ?F) (Oral) Resp 20 Ht 149.9 cm (4' 11 ) Wt 83 kg (183 lb) LMP 04/22/2022 SpO2 98% BMI 36.96 kg/m? 02/03/23 0943 02/03/23 1455 Dilation: 1.5 1.5 Effacement (%): 50 50 Station: -3 -2 Presentation: Vertex EFM Category I Contractions q 2-3 mins - Miso #2 held d/t frequency of contractions and patient endorsing that she is feeling them. Kevyn Steward APRN.CNM [facility] 02-03-2023 Note HNO ID: [id number] Author: Kevyn Steward APRN.CNM Service: Obstetrics Author Type: Sponge Clipper Type: Procedures Filed: 02/03/2023 3:11 PM Note Text: Attestation signed by Caren Travis APRN.CNM at 02/03/2023 4:09 PM This CNM was present for kapadia CRB placement and exam. Back checked CRB which was found to be in position with cervix around. On Leopolds, head felt more engaged in the pelvis than with prior exam. Caren Travis APRN.CNM BEDSIDE PROCEDURE NOTE Cervical Ripening Balloon Procedure Date/Start Time: 02/03/2023 3:10 PM Performed by: Kevyn Steward APRN.CNM Authorized by: Kevyn Steward APRN.CNM Informed Consent Consent Obtained: Verbal [place] Protocol SIGN IN Personnel directly involved with the procedure wore the appropriate PPE. Special Equipment: N/A Patient/Surrogate Stated/Verified: Patient name, Date of , Relevant allergies and Intended procedure TIME OUT Procedure Details: Indications: Patient is a 32 year old year old female, 41w0d here for Induction of labor During digital exam, the catheter was guided over the registered nurse midwife's hand and into the cervix. A Kapadia Catheter was inserted through the cervical os, beyond internal os and approximately 70 cc of sterile saline slowly injected into the intrauterine portion of the balloon The catheter was taped to the inner thigh. Post-procedure Details: Patient tolerance: Patient tolerated the procedure well with no immediate complications Estimated Blood Loss (mL): 0 SIGNATURE: Kevyn Steward APRN.CNM PATIENT NAME: Nella Da Silva DATE: February 03, 2023 TIME: 3:10 PM [facility] 02-03-2023 History of Past i llness Narrative Problem Noted Date Diagnosed Date Resolved Date Encounter for planned induction of labor 02/03/2023 02/03/2023 Normal labor and delivery 02/03/2023 Encounter for supervision of normal first in second trimester 09/04/2022 02/03/2023 Heart palpitations 07/10/2022 Overview: 09/04/22: Pt stopped taking metop and stopped using/needing inhaler. Intermittent, but was affecting sleep. Started on metoprolol in Jun 2020. Discussed risk and benefits of use during . If using will need FG starting at 28 weeks. - Nancy Quiroga APRN.CNM Amniotic fluid leaking 01/08/202101/08 At risk for difficulty 01/08/2021 07/10/2022 History of premature rupture of membranes (PPROM) 11/01/2020 01/09/2021 Overview: PPROM and delivery at 36w6d. Reports was in a stressful relationship with FOB#1. - Nancy Quiroga APRN.CNM History of pre-eclampsia 11/01/202012/2022 Overview: Noted in chart with first but not reported by client. Without severe features. With FOB#1. - Nancy Quiroga APRN.CNM Low-lying placenta 11/01/2020 Overview: Noted on anatomy scan at 18 wks on 08/16/20 1 cm from the internal os . Has been on pelvic rest. Is having a repeat US at 32wks at [employer]. Will provide copy of US after completion. - Nancy Quiroga APRN.CNM History of depression 11/01/2020 01/09/2021 Overview: Related to challenges with FOB#1. - Nancy Quiroga APRN.CNM History of delivery, currently 11/01/2020 01/09/2021 Overview: See PPROM Rh negative state in antepartum period 11/01/2020 02/03/2023 Overview: Received 3rd trimester Rhogam. - Nancy Quiroga APRN.CNM documented as of this encounter (statuses as of 02/28/2023) [facility] History of Past illness Narrative* Problem Noted Date Diagnosed Date Resolved Date Encounter for planned induction of labor 02/03/2023 02/03/2023 Normal labor and delivery 02/03/2023 Vaginal delivery 02/03/2023 03/31/2023 Encounter for supervision of normal first in second trimester 09/04/2022 02/03/2023 Heart palpitations 07/10/2022 Overview: 09/04/22: Pt stopped taking metop and stopped [...] premature rupture of membranes (PPROM) 11/01/2020 01/09/2021 Overview: PPROM and delivery at 36w6d. Reports was in a stressful relationship with FOB#1. - Nancy Quiroga APRN.CNM History of pre-eclampsia 11/01/202012/2022 Overview: Noted in chart with first but not reported by client. Without severe features. With FOB#1. - Nancy Quiroga APRN.CNM Low-lying placenta 11/01/2020 Overview: Noted on anatomy scan at 18 wks on 08/16/20 1 cm from the internal os . Has been on pelvic rest. Is having a repeat US at 32wks at [place]. Will provide copy of US after completion. - Nancy Quiroga APRN.CNM History of depression 11/01/2020 01/09/2021 Overview: Related to challenges with FOB#1. - Nancy Quiroga APRN.CNM History of delivery, currently 11/01/2020 01/09/2021 Overview: See PPROM Rh negative state in antepartum period 11/01/2020 02/03/2023 Overview: Received 3rd trimester Rhogam. - Nancy Wan, CREDIT ASSOCIATE.CNM documented as of this encounter (statuses as of 04/01/2023) [facility] History of Past illness Narrative* Problem Noted Date Diagnosed Date Resolved Date Encounter for planned induction of labor 02/03/2023 02/03/2023 Normal labor and delivery 02/03/2023 Vaginal delivery 02/03/2023 03/31/2023 Encounter for supervision of normal first in second trimester 09/04/2022 02/03/2023 Heart palpitations 07/10/2022 Overview: 09/04/22: Pt stopped taking metop and stopped [...] premature rupture of membranes (PPROM) 11/01/2020 01/09/2021 Overview: PPROM and delivery at 36w6d. Reports was in a stressful relationship with FOB#1. - Nancy Quiroga APRN.CNM History of pre-eclampsia 11/01/202012/2022 Overview: Noted in chart with first but not reported by client. Without severe features. With FOB#1. - Nancy Quiroga APRN.CNM Low-lying placenta 11/01/2020 Overview: Noted on anatomy scan at 18 wks on 08/16/20 1 cm from the internal os . Has been on pelvic rest. Is having a repeat US at 32wks at [place]. Will provide copy of US after completion. - Nancy Quiroga APRN.CNM History of depression 11/01/2020 01/09/2021 Overview: Related to challenges with FOB#1. - Nancy Quiroga APRN.CNM History of delivery, currently 11/01/2020 01/09/2021 Overview: See PPROM Rh negative state in antepartum period 11/01/2020 02/03/2023 Overview: Received 3rd trimester Rhogam. - Nancy Quiroga APRN.CNM documented as of this encounter (statuses as of 04/11/2023) [facility]08-07-2023 History of Past illness Narrative* Problem Noted Date Diagnosed Date Resolved Date Encounter for planned induction of labor 02/03/2023 02/03/2023 Normal labor and delivery 02/03/2023 Vaginal delivery 02/03/2023 03/31/2023 Encounter for supervision of normal first in second trimester 09/04/2022 02/03/2023 Heart palpitations 07/10/2022 Overview: 09/04/22: Pt stopped taking metop and stopped [...] premature rupture of membranes (PPROM) 11/01/2020 01/09/2021 Overview: PPROM and delivery at 36w6d. Reports was in a stressful relationship with FOB#1. - Nancy Quiroga APRN.CNM History of pre-eclampsia 11/01/202012/2022 Overview: Noted in chart with first but not reported by client. Without severe features. With FOB#1. - Nancy Quiroga APRN.CNM Low-lying placenta 11/01/2020 Overview: Noted on anatomy scan at 18 wks on 08/16/20 1 cm from the internal os . Has been on pelvic rest. Is having a repeat US at 32wks at [place]. Will provide copy of US after completion. - Nancy Quiroga APRN.CNM History of depression 11/01/2020 01/09/2021 Overview: Related to challenges with FOB#1. - Nancy Quiroga APRN.CNM History of delivery, currently 11/01/2020 01/09/2021 Overview: See PPROM Rh negative state in antepartum period 11/01/2020 02/03/2023 Overview: Received 3rd trimester Rhogam. - Nancy Quiroga APRN.CNM documented as of this encounter (statuses as of 04/22/2023) [facility] History of Past illness Narrative* Problem Noted Date Diagnosed Date Resolved Date Encounter for planned induction of labor 02/03/2023 02/03/2023 Normal labor and delivery 02/03/2023 Vaginal delivery 02/03/2023 03/31/2023 Encounter for supervision of normal first in second trimester 09/04/2022 02/03/2023 Heart palpitations 07/10/2022 Overview: 09/04/22: Pt stopped taking metop and stopped [...] premature rupture of membranes (PPROM) 11/01/2020 01/09/2021 Overview: PPROM and delivery at 36w6d. Reports was in a stressful relationship with FOB#1. - Nancy Quiroga APRN.CNM History of pre-eclampsia 11/01/202012/2022 Overview: Noted in chart with first but not reported by client. Without severe features. With FOB#1. - Nancy Quiroga APRN.CNM Low-lying placenta 11/01/2020 Overview: Noted on anatomy scan at 18 wks on 08/16/20 1 cm from the internal os . Has been on pelvic rest. Is having a repeat US at 32wks at [place]. Will provide copy of US after completion. - Nancy Quiroga APRN.CNM History of depression 11/01/2020 01/09/2021 Overview: Related to challenges with FOB#1. - Nancy Quiroga APRN.CNM History of delivery, currently 11/01/2020 01/09/2021 Overview: See PPROM Rh negative state in antepartum period 11/01/2020 02/03/2023 Overview: Received 3rd trimester Rhogam. - Nancy Quiroga APRN.CNM documented as of this encounter (statuses as of 2023) [facility] History of Past illness Narrative* Problem Noted Date Diagnosed Date Resolved Date Encounter for planned induction of labor 02/03/2023 02/03/2023 Normal labor and delivery 02/03/2023 Vaginal delivery 02/03/2023 03/31/2023 Encounter for supervision of normal first in second trimester 09/04/2022 02/03/2023 Heart palpitations 07/10/2022 Overview: 09/04/22: Pt stopped taking metop and stopped [...] premature rupture of membranes (PPROM) 11/01/2020 01/09/2021 Overview: PPROM and delivery at 36w6d. Reports was in a stressful relationship with FOB#1. - Nancy Quiroga APRN.CNM History of pre-eclampsia 11/01/202012/2022 Overview: Noted in chart with first but not reported by client. Without severe features. With FOB#1. - Nancy Quiroga APRN.CNM Low-lying placenta 11/01/2020 Overview: Noted on anatomy scan at 18 wks on 08/16/20 1 cm from the internal os . Has been on pelvic rest. Is having a repeat US at 32wks at [place]. Will provide copy of US after completion. - Nancy Quiroga APRN.CNM History of depression 11/01/2020 01/09/2021 Overview: Related to challenges with FOB#1. - Nancy Quiroga APRN.CNM History of delivery, currently 11/01/2020 01/09/2021 Overview: See PPROM Rh negative state in antepartum period 11/01/2020 02/03/2023 Overview: Received 3rd trimester Rhogam. - Nancy Quiroga APRN.CNM documented as of this encounter (statuses as of 08/19/2023) [facility] History of Past illness Narrative* Problem Noted Date Diagnosed Date Resolved Date Encounter for planned induction of labor 02/03/2023 02/03/2023 Normal labor and delivery 02/03/2023 Vaginal delivery 02/03/2023 03/31/2023 Encounter for supervision of normal first in second trimester 09/04/2022 02/03/2023 Heart palpitations 07/10/2022 Overview: 09/04/22: Pt stopped taking metop and stopped [...] premature rupture of membranes (PPROM) 11/01/2020 01/09/2021 Overview: PPROM and delivery at 36w6d. Reports was in a stressful relationship with FOB#1. - Nancy Quiroga APRN.CNM History of pre-eclampsia 11/01/202012/2022 Overview: Noted in chart with first but not reported by client. Without severe features. With FOB#1. - Nancy Quiroga APRN.CNM Low-lying placenta 11/01/2020 Overview: Noted on anatomy scan at 18 wks on 08/16/20 1 cm from the internal os . Has been on pelvic rest. Is having a repeat US at 32wks at [place]. Will provide copy of US after completion. - Nancy Quiroga APRN.CNM History of depression 11/01/2020 01/09/2021 Overview: Related to challenges with FOB#1. - Nancy Quiroga APRN.CNM History of delivery, currently 11/01/2020 01/09/2021 Overview: See PPROM Rh negative state in antepartum period 11/01/2020 02/03/2023 Overview: Received 3rd trimester Rhogam. - Nancy Quiroga APRN.CNM documented as of this encounter (statuses as of 08/29/2023) [facility] History of Past illness Narrative* Problem Noted Date Diagnosed Date Resolved Date Encounter for planned induction of labor 02/03/2023 02/03/2023 Normal labor and delivery 02/03/2023 Vaginal delivery 02/03/2023 03/31/2023 Encounter for supervision of normal first in second trimester 09/04/2022 02/03/2023 Heart palpitations 07/10/2022 Overview: 09/04/22: Pt stopped taking metop and stopped [...] premature rupture of membranes (PPROM) 11/01/2020 01/09/2021 Overview: PPROM and delivery at 36w6d. Reports was in a stressful relationship with FOB#1. - Nancy Quiroga APRN.CNM History of pre-eclampsia 11/01/202012/2022 Overview: Noted in chart with first but not reported by client. Without severe features. With FOB#1. - Nancy Quiroga APRN.CNM Low-lying placenta 11/01/2020 Overview: Noted on anatomy scan at 18 wks on 08/16/20 1 cm from the internal os . Has been on pelvic rest. Is having a repeat US at 32wks at [place]. Will provide copy of US after completion. - Nancy Quiroga APRN.CNM History of depression 11/01/2020 01/09/2021 Overview: Related to challenges with FOB#1. - Nancy Quiroga APRN.CNM History of delivery, currently 11/01/2020 01/09/2021 Overview: See PPROM Rh negative state in antepartum period 11/01/2020 02/03/2023 Overview: Received 3rd trimester Rhogam. - Nancy Quiroga APRN.CNM documented as of this encounter (statuses as of 09/18/2023) [facility] History of Past illness Narrative* Problem Noted Date Diagnosed Date Resolved Date Encounter for planned induction of labor 02/03/2023 02/03/2023 Normal labor and delivery 02/03/2023 Vaginal delivery 02/03/2023 03/31/2023 Encounter for supervision of normal first in second trimester 09/04/2022 02/03/2023 Heart palpitations 07/10/2022 Overview: 09/04/22: Pt stopped taking metop and stopped [...] premature rupture of membranes (PPROM) 11/01/2020 01/09/2021 Overview: PPROM and delivery at 36w6d. Reports was in a stressful relationship with FOB#1. - Nancy Quiroga APRN.CNM History of pre-eclampsia 11/01/202012/2022 Overview: Noted in chart with first but not reported by client. Without severe features. With FOB#1. - Nancy Quiroga APRN.CNM Low-lying placenta 11/01/2020 Overview: Noted on anatomy scan at 18 wks on 08/16/20 1 cm from the internal os . Has been on pelvic rest. Is having a repeat US at 32wks at [place]. Will provide copy of US after completion. - Nancy Quiroga APRN.CNM History of depression 11/01/2020 01/09/2021 Overview: Related to challenges with FOB#1. - Nancy Quiroga APRN.CNM History of delivery, currently 11/01/2020 01/09/2021 Overview: See PPROM Rh negative state in antepartum period 11/01/2020 02/03/2023 Overview: Received 3rd trimester Rhogam. - Nancy Quiroga APRN.CNM documented as of this encounter (statuses as of 10/17/2023) [facility]08-07-2023 NoteHNO ID: [id number] Author: Kevyn Steward APRN.CNM Service: Obstetrics Author Type: Sponge Clipper Type: Progress Notes Filed: 02/03/2023 10:22 AM Note Text: Misoprostol Progress Note Nella is tolerating induction so far, no pain. BP 112/62 Pulse 76 Temp 36.5 ?C (97.7 ?F) (Oral) Resp 20 Ht 149.9 cm (4' 11 ) Wt 83 kg (183 lb) LMP 04/22/2022 SpO2 98% BMI 36.96 kg/m? 02/03/23 0943 Dilation: 1.5 Effacement (%): 50 Station: -3 Presentation: Vertex EFM Category I Contractions endorsed q 3 mins, patient not feeling them - Miso #1 placed vaginally by this CNBest Steward APRN.CNMMalden [id number] Miscellaneous Notes* Quick Notes - Chrissie Patel APRN.SCHOOL PHOTOGRAPHER - 01/27/2023 3:27 PM EDT at 40w0d Feeling well, no complaints Reports good FM No lof, vb or consistent contractions Desires elective induction at 41 weeks, scheduled for 6am on 02/03 Precautions reviewed/when to call Chrissie Patel APRN.CNP Problem List Items Addressed This Visit Hematology Rh negative state in antepartum period Overview Received 3rd trimester Rhogam. - Nancy Quiroga APRN.CNM Other History of pre-eclampsia Overview Noted in chart with first but not reported by client. Without severe features. With FOB#1. - Nancy Quiroga APRN.CNM Encounter for supervision of normal first in second trimester Other Visit Diagnoses 40 weeks gestation of - Primary Relevant Orders URINE OB DIP B/O (Completed) INDUCTION L&D [facility] Nurse Note* Meli Tompkins Ma - 01/27/2023 2:48 PM EDT Reserve Officer offered: Patient declines. documented in this encounterC[facility]07-12-2023 Miscellaneous Notes* Quick Notes - Tamy Rand MD - 01/08/2023 9:58 AM EDT AMBULATORY VIRTUAL VISIT Present at the visit today: Nella Da Silva Prior to beginning care, patient identified by and address. Patient consents to receiving care via a zoom interphase. Pt here for virtual consent. Pt without complaints. +FM, -LOF, -VB, -ctxns. Not able to check vitals or FHR at the moment. But has been reassuring and + FM. Discused L&D consents. Questions answered. Expressed understanding. Despite IT intervention and trouble shooting, unable to send via my chart. Will try to attach to this visit at a later time or sign in person. Tamy Rand MD documented in this encounterC[facility]07-[facility]-2023 Miscellaneous Notes* Telephone Encounter - Pattie Claudio LPN - 01/07/2023 3:22 PM EDT Signed FMLA completed. Patient notified. Pattie Claudio LPN * Telephone Encounter - Pattie Claudio LPN - 01/07/2023 2:34 PM EDT Received FMLA forms to complete. Filled out and placed on providers desk for signature. (R.S) Pattie Claudio LPN * Telephone Encounter - Marcy Roldan - 01/07/2023 12:01 PM EDTSummary: fmla Patient has been identified by name and date of : Yes, Provider Nancy Quiroga APRN.CNM Date 01/07/23Time 12pm Type of form: FMLA Form received via: Walk in When form is completed, send back via [employer]. Form has been forwarded to: DHEERAJ Roldan documented in this encounterC[facility]07-[facility]-2023 Miscellaneous Notes* Quick Notes - Nancy Quiroga APRN.CNM - 01/06/2023 12:13 PM EDT S: 32 year old at 37w0d here for return visit. Denies VB, LOF, or decreased FM No LARC Has appt with MD for consent to care Problems (from 07/10/22 to present) Problem Noted Resolved Encounter for supervision of normal first in second trimester 09/04/2022 by Miriam Macias No Chronic tension-type headache, not intractable 07/10/2022 by Nancy Quiroga APRN.TREVON No Rh negative state in antepartum period 11/01/2020 by Nancy Quiroga APRN.CNM No Overview Signed 11/01/2020 9:13 AM by Nancy Quiroga APRN.CNM Received 3rd trimester Rhogam. - Nancy Quiroga APRN.CNM Mild intermittent asthma without complication 07/26/2004 by Christiano John No Overview Addendum 09/04/2022 6:03 PM by Nancy Quiroga APRN.CNM Heart palpitations 07/10/2022 by Nancy Quiroga APRN.CNM 09/04/2022 by Miriam Macias Overview Addendum 09/04/2022 12:26 PM by Miriam Macias 09/04/22: Pt stopped taking metop and stopped using/needing inhaler. Intermittent, but was affecting sleep. Started on metoprolol in Jun 2020. Discussed risk and benefits of use during . If using will need FG starting at 28 weeks. - Nancy Quiroga APRN.CNM -labor precautions Nancy Quiroga APRN.CNM documented in this encounterCher[facility]07-03-2023 Miscellaneous Notes* Quick Notes - Nancy Quiroga APRN.CNM - 12/30/2022 2:41 PM EDT S: 32 year old at 36w0d here for return visit. Denies VB, LOF, or decreased FM GBS today Problems (from 07/10/22 to present) Problem Noted Resolved Encounter for supervision of normal first in second trimester 09/04/2022 by Miriam Macias No Chronic tension-type headache, not intractable 07/10/2022 by Nancy Quiroga APRN.CNM No Rh negative state in antepartum period 11/01/2020 by Nancy Quiroga APRN.CNM No Overview Signed 11/01/2020 9:13 AM by Nancy Quiroga APRN.CNM Received 3rd trimester Rhogam. - Nancy Quiroga APRN.CNM Mild intermittent asthma without complication 07/26/2004 by Christiano John No Overview Addendum 09/04/2022 6:03 PM by Nancy Quiroga APRN.CNBest Heart palpitations 07/10/2022 by Nancy Quiroga APRN.CNM 09/04/2022 by Miriam Macias Overview Addendum 09/04/2022 12:26 PM by Miriam Macias 09/04/22: Pt stopped taking metop and stopped using/needing inhaler. Intermittent, but was affecting sleep. Started on metoprolol in Jun 2020. Discussed risk and benefits of use during . If using will need FG starting at 28 weeks. - Nancy Quiroga APRN.CNM -[facility] virtual visit for consent -labor precuations -RTO weekly Nancy Quiroga APRN.CNM documented in this encounterC[facility]06-19-2023 Miscellaneous Notes* Quick Notes - Chrissie Patel APRN.CNP - 12/16/2022 11:22 AM EDT at 34w0d Reports good FM No lof, vb or cx Precautions reviewed Rtc x 2 weeks Chrissie Patel APRN.CNP Problem List Items Addressed This Visit Hematology Rh negative state in antepartum period Overview Received 3rd trimester Rhogam. - Nancy Quiroga APRN.CNM Other Encounter for supervision of normal first in second trimester Other Visit Diagnoses 34 weeks gestation of - Primary Relevant Orders URINE OB DIP B/O (Completed) documented in this encounterCher[facility] Hospital05-10-2023 History of Present illness Narrative* Pattie Claudio LPN - 11/06/2022 10:39 AM EDT Patient identified by name and date of . Nella Da Silva presents today for a vaccination of Tdap. Patient denies an allergy to latex: yes Patient denies a severe (life-threatening) allergy to a previous dose of Tdap, DTP, DTaP, DT or Td vaccine. Yes Patient denies history of epilepsy or neurological problems: Yes Patient is afebrile and denies being moderately or severely ill: Yes Patient denies history of Guillain-[place] Syndrome (a severe paralytic illness): Yes Tdap Adacel injection was given without incident. See immunizations for details of immunizations administered today. VIS sheet provided: Yes Provider Chrissie Patel CNP was present in office at time of injection. Pattie Claudio LPN * Pattie Claudio LPN - 11/06/2022 10:18 AM EDT Nella Da Silva 32 year old is here for her injection of Rhophylac. Nella Da Silva ABO/RH(D) (no units) Date Value 01/08/2021 A NEGATIVE Antibody Screen (no units) Date Value 07/10/2022 Negative 01/08/2021 POS Antibody Identified (no units) Date Value 01/08/2021 ANTI-D PRESENT. Nella Da Silva is RH Negative Rhophylac was given without incident. See immunizations for details of immunizations administered today. Provider Chrissie Patel CNP was present in office at time of injection Nella Da Silva was given her Rhophylac pocket card. Pattie Claudio LPN documented in this encounterC[facility]05-09-2023 Miscellaneous Notes* Quick Notes - Marina Benitez APRN.CNM - 11/05/2022 2:26 PM EDT Feeling well, good movement. No contractions, bleeding or leaking of fluid. RH neg- needs Rho D Needs glucose Will return tomorrow for glucose, TDAP and Rho D F/u in 2 weeks Marina Benitez CNM documented in this encounterCher[facility] Hospital04-25-2023 Miscellaneous Notes* Telephone Encounter - Lynn Sun - 10/22/2022 12:19 PM EDT Transferred to [facility] for scheduling Lynn Sun RN documented in this encounterCherrington Hospital04-04-2023 Miscellaneous Notes* Quick Notes - Marina Benitez APRN.CNM - 10/01/2022 12:51 PM EDT Virtual visit today Feeling well, good movement. No contractions, bleeding or leaking of fluid. Fatigue Still having headaches- magnesium and tylenol not helping Periactin and reglan ordered Glucose screening labs next visit will need Rho D at 28 weeks F/U in 4 weeks Marina Benitez CNM documented in this encounterCherrington Hospital02-09-2023 Miscellaneous Notes* Quick Notes - Marina Benitez APRN.CNM - 08/08/2022 4:47 PM EST Virtual visit today Feel well No bleeding or cramping Starting to feel movement Reviewed labs, ultrasound timing No concerns today F/U in 4 weeks Marina Benitez CNM documented in this encounterCherrington Hospital02-08-2023 Miscellaneous Notes* Quick Notes - Nancy Quiroga APRN.CNM - 08/07/2022 5:19 PM EST Running behind 30 min. Client could not wait. Has another engagement. Will reschedule virtual. Nancy Quiroga APRN.CNM documented in this encounterCher[facility] Hospital02-08-2023 Miscellaneous Notes* Telephone Encounter - Nancy Quiroga APRN.CNM - 08/07/2022 4:01 PM EST Running 30 in behind. Please help to resched virtual for another day. Was not able to wait. Nancy Quiroga APRN.CNM documented in this encounterCher[facility] Hospital01-21-2023 History of Present illness Narrative* Jose Alfredo Melchor MD - 07/20/2022 10:36 AM EST OB point of care ultrasound was performed. See imaging tab for details. Jose Alfredo Melchor MD documented in this encounterCher[facility]01-11-2023 History of Past illness Narrative* Problem Noted Date Resolved Date Heart palpitations 07/10/2022 09/04/2022 Overview: 09/04/22: Pt stopped taking metop and stopped using/needing inhaler. Intermittent, but was affecting sleep. Started on metoprolol in Jun 2020. Discussed risk and benefits of use during . If using will need FG starting at 28 weeks. - Nancy Quiroga APRN.CNM Amniotic fluid leaking 01/08/2021 care following vaginal delivery 01/0807/10/2022 At risk for difficulty 01/08/2021 07/10/2022 History of premature rupture of membrane s (PPROM) 11/01/2020 01/09/2021 Overview: PPROM and delivery at 36w6d. Reports was in a stressful relationship with FOB#1. - Nancy Quiroga APRN.CNM History of pre-eclampsia 11/01/2020 021 Overview: Noted in chart with first but not reported by client. Without severe features. - Nancy Quiroga APRN.CNM Low-lying placenta 11/01/2020 01/08/2021 Overview: Noted on anatomy scan at 18 wks on 08/16/20 1 cm from the internal os . Has been on pelvic rest. Is having a repeat US at 32wks at [place]. Will provide copy of US after completion. - Nancy Quiroga APRN.CNM History of depression 11/01/2020 01/09/2021 Overview: Related to challenges with FOB#1. - Nancy Qiuroga APRN.CNM History of delivery, currently 11/01/2020 01/09/2021 Overview: See PPROM documented as of this encounter (statuses as of 09/04/2022) [facility] of Past illness Narrative* Problem Noted Date Resolved Date Heart palpitations 07/10/2022 09/04/2022 Overview: 09/04/22: Pt stopped taking metop and stopped using/needing inhaler. Intermittent, but was affecting sleep. Started on metoprolol in Jun 2020. Discussed risk and benefits of use during . If using will need FG starting at 28 weeks. - Nancy Quiroga APRN.CNM Amniotic fluid leaking 01/08/2021 care following vaginal delivery 01/0807/10/2022 At risk for difficulty 01/08/2021 07/10/2022 History of premature rupture of membrane s (PPROM) 11/01/2020 01/09/2021 Overview: PPROM and delivery at 36w6d. Reports was in a stressful relationship with FOB#1. - Nancy Quiroga APRN.CNM History of pre-eclampsia 11/01/2020 021 Overview: Noted in chart with first but not reported by client. Without severe features. - Nancy Quiroga APRN.CNM Low-lying placenta 11/01/2020 01/08/2021 Overview: Noted on anatomy scan at 18 wks on 08/16/20 1 cm from the internal os . Has been on pelvic rest. Is having a repeat US at 32wks at [place]. Will provide copy of US after completion. - Nancy Quiroga APRN.CNM History of depression 11/01/2020 01/09/2021 Overview: Related to challenges with FOB#1. - Nancy Quiroga APRN.CNM History of delivery, currently 11/01/2020 01/09/2021 Overview: See PPROM documented as of this encounter (statuses as of 10/01/2022) [facility] of Past illness Narrative* Problem Noted Date Resolved Date Heart palpitations 07/10/2022 09/04/2022 Overview: 09/04/22: Pt stopped taking metop and stopped using/needing inhaler. Intermittent, but was affecting sleep. Started on metoprolol in Jun 2020. Discussed risk and benefits of use during . If using will need FG starting at 28 weeks. - Nancy Quiroga APRN.CNM Amniotic fluid leaking 01/08/2021 care following vaginal delivery 01/0807/10/2022 At risk for difficulty 01/08/2021 07/10/2022 History of premature rupture of membrane s (PPROM) 11/01/2020 01/09/2021 Overview: PPROM and delivery at 36w6d. Reports was in a stressful relationship with FOB#1. - Nancy Quiroga APRN.CNM History of pre-eclampsia 11/01/2020 021 Overview: Noted in chart with first but not reported by client. Without severe features. - Nancy Quiroga APRN.CNM Low-lying placenta 11/01/2020 01/08/2021 Overview: Noted on anatomy scan at 18 wks on 08/16/20 1 cm from the internal os . Has been on pelvic rest. Is having a repeat US at 32wks at [place]. Will provide copy of US after completion. - Nancy Quiroga APRN.CNM History of depression 11/01/2020 01/09/2021 Overview: Related to challenges with FOB#1. - Nancy Quiroga APRN.CNM History of delivery, currently 11/01/2020 01/09/2021 Overview: See PPROM documented as of this encounter (statuses as of 10/22/2022) [facility] of Past illness Narrative* Problem Noted Date Resolved Date Heart palpitations 07/10/2022 09/04/2022 Overview: 09/04/22: Pt stopped taking metop and stopped using/needing inhaler. Intermittent, but was affecting sleep. Started on metoprolol in Jun 2020. Discussed risk and benefits of use during . If using will need FG starting at 28 weeks. - Nancy Quiroga APRN.CNM Amniotic fluid leaking 01/08/2021 care following vaginal delivery 01/0807/10/2022 At risk for difficulty 01/08/2021 07/10/2022 History of premature rupture of membrane s (PPROM) 11/01/2020 01/09/2021 Overview: PPROM and delivery at 36w6d. Reports was in a stressful relationship with FOB#1. - Nancy Quiroga APRN.CNM History of pre-eclampsia 11/01/2020 021 Overview: Noted in chart with first but not reported by client. Without severe features. - Nancy Quiroga APRN.CNM Low-lying placenta 11/01/2020 01/08/2021 Overview: Noted on anatomy scan at 18 wks on 08/16/20 1 cm from the internal os . Has been on pelvic rest. Is having a repeat US at 32wks at [place]. Will provide copy of US after completion. - Nancy Quiroga APRN.CNM History of depression 11/01/2020 01/09/2021 Overview: Related to challenges with FOB#1. - Nancy Quiroga APRN.CNM History of delivery, currently 11/01/2020 01/09/2021 Overview: See PPROM documented as of this encounter (statuses as of 11/06/2022) [facility] History of Past illness Narrative* Problem Noted Date Resolved Date Heart palpitations 07/10/2022 09/04/2022 Overview: 09/04/22: Pt stopped taking metop and stopped using/needing inhaler. Intermittent, but was affecting sleep. Started on metoprolol in Jun 2020. Discussed risk and benefits of use during . If using will need FG starting at 28 weeks. - Nancy Quiroga APRN.CNM Amniotic fluid leaking 01/08/2021 care following vaginal delivery 01/0807/10/2022 At risk for difficulty 01/08/2021 07/10/2022 History of premature rupture of membrane s (PPROM) 11/01/2020 01/09/2021 Overview: PPROM and delivery at 36w6d. Reports was in a stressful relationship with FOB#1. - Nancy Quiroga APRN.CNM History of pre-eclampsia 11/01/2020 021 Overview: Noted in chart with first but not reported by client. Without severe features. - Nancy Quiroga APRN.CNM Low-lying placenta 11/01/2020 01/08/2021 Overview: Noted on anatomy scan at 18 wks on 08/16/20 1 cm from the internal os . Has been on pelvic rest. Is having a repeat US at 32wks at [place]. Will provide copy of US after completion. - Nancy Quiroga APRN.CNM History of depression 11/01/2020 01/09/2021 Overview: Related to challenges with FOB#1. - Nancy Quiroga APRN.CNM History of delivery, currently 11/01/2020 01/09/2021 Overview: See PPROM documented as of this encounter (statuses as of 11/06/2022) [facility] History of Past illness Narrative* Problem Noted Date Resolved Date Heart palpitations 07/10/2022 09/04/2022 Overview: 09/04/22: Pt stopped taking metop and stopped using/needing inhaler. Intermittent, but was affecting sleep. Started on metoprolol in Jun 2020. Discussed risk and benefits of use during . If using will need FG starting at 28 weeks. - Nancy Quiroga APRN.CNM Amniotic fluid leaking 01/08/2021 care following vaginal delivery 01/0807/10/2022 At risk for difficulty 01/08/2021 07/10/2022 History of premature rupture of membrane s (PPROM) 11/01/2020 01/09/2021 Overview: PPROM and delivery at 36w6d. Reports was in a stressful relationship with FOB#1. - Nancy Quiroga APRN.CNM History of pre-eclampsia 11/01/2020 021 Overview: Noted in chart with first but not reported by client. Without severe features. - Nancy Quiroga APRN.CNM Low-lying placenta 11/01/2020 01/08/2021 Overview: Noted on anatomy scan at 18 wks on 08/16/20 1 cm from the internal os . Has been on pelvic rest. Is having a repeat US at 32wks at [place]. Will provide copy of US after completion. - Nancy Quiroga APRN.CNM History of depression 11/01/2020 01/09/2021 Overview: Related to challenges with FOB#1. - Nancy Quiroga APRN.CNM History of delivery, currently 11/01/2020 01/09/2021 Overview: See PPROM documented as of this encounter (statuses as of 12/16/2022) [facility] History of Past illness Narrative* Problem Noted Date Resolved Date Heart palpitations 07/10/2022 09/04/2022 Overview: 09/04/22: Pt stopped taking metop and stopped using/needing inhaler. Intermittent, but was affecting sleep. Started on metoprolol in Jun 2020. Discussed risk and benefits of use during . If using will need FG starting at 28 weeks. - Nancy Quiroga APRN.CNM Amniotic fluid leaking 01/08/2021 care following vaginal delivery 01/0807/10/2022 At risk for difficulty 01/08/2021 07/10/2022 History of premature rupture of membrane s (PPROM) 11/01/2020 01/09/2021 Overview: PPROM and delivery at 36w6d. Reports was in a stressful relationship with FOB#1. - Nancy Quiroga APRN.CNM Low-lying placenta 11/01/2020 01/08/2021 Overview: Noted on anatomy scan at 18 wks on 08/16/20 1 cm from the internal os . Has been on pelvic rest. Is having a repeat US at 32wks at [place]. Will provide copy of US after completion. - Nancy Quiroga APRN.CNM History of depression 11/01/2020 01/09/2021 Overview: Related to challenges with FOB#1. - Nancy Quiroga APRN.CNM History of delivery, currently 11/01/2020 01/09/2021 Overview: See PPROM documented as of this encounter (statuses as of 12/31/2022) [facility] History of Past illness Narrative* Problem Noted Date Diagnosed Date Resolved Date Heart palpitations 07/10/2022 Overview: 09/04/22: Pt stopped taking metop and stopped using/needing inhaler. Intermittent, but was affecting sleep. Started on metoprolol in Jun 2020. Discussed risk and benefits of use during . If using will need FG starting at 28 weeks. - Nancy Quiroga APRN.CNM Amniotic fluid leaking 01/08/202101/08 care following vaginal delivery 01/08/2021 07/10/2022 At risk for difficulty 01/08/2021 07/10/2022 History of premature rupture of membranes (PPROM) 11/01/2020 01/09/2021 Overview: PPROM and delivery at 36w6d. Reports was in a stressful relationship with FOB#1. - Nancy Quiroga APRN.CNM Low-lying placenta 11/01/2020 Overview: Noted on anatomy scan at 18 wks on 08/16/20 1 cm from the internal os . Has been on pelvic rest. Is having a repeat US at 32wks at [place]. Will provide copy of US after completion. - Nancy Quiroga APRN.CNM History of depression 11/01/2020 01/09/2021 Overview: Related to challenges with FOB#1. - Nancy Quiroga APRN.CNM History of delivery, currently 11/01/2020 01/09/2021 Overview: See PPROM documented as of this encounter (statuses as of 01/06/2023) [facility] History of Past illness Narrative* Problem Noted Date Diagnosed Date Resolved Date Heart palpitations 07/10/2022 Overview: 09/04/22: Pt stopped taking metop and stopped using/needing inhaler. Intermittent, but was affecting sleep. Started on metoprolol in Jun 2020. Discussed risk and benefits of use during . If using will need FG starting at 28 weeks. - Nancy Quiroga APRN.CNM Amniotic fluid leaking 01/08/202101/08 care following vaginal delivery 01/08/2021 07/10/2022 At risk for difficulty 01/08/2021 07/10/2022 History of premature rupture of membranes (PPROM) 11/01/2020 01/09/2021 Overview: PPROM and delivery at 36w6d. Reports was in a stressful relationship with FOB#1. - Nancy Quiroga APRN.CNM Low-lying placenta 11/01/2020 Overview: Noted on anatomy scan at 18 wks on 08/16/20 1 cm from the internal os . Has been on pelvic rest. Is having a repeat US at 32wks at [place]. Will provide copy of US after completion. - Nancy Quiroga APRN.CNM History of depression 11/01/2020 01/09/2021 Overview: Related to challenges with FOB#1. - Nancy Quiroga APRN.CNM History of delivery, currently 11/01/2020 01/09/2021 Overview: See PPROM documented as of this encounter (statuses as of 01/07/2023) [facility] History of Past illness Narrative* Problem Noted Date Diagnosed Date Resolved Date Heart palpitations 07/10/2022 Overview: 09/04/22: Pt stopped taking metop and stopped using/needing inhaler. Intermittent, but was affecting sleep. Started on metoprolol in Jun 2020. Discussed risk and benefits of use during . If using will need FG starting at 28 weeks. - Nancy Quiroga APRN.CNM Amniotic fluid leaking 01/08/202101/08 care following vaginal delivery 01/08/2021 07/10/2022 At risk for difficulty 01/08/2021 07/10/2022 History of premature rupture of membranes (PPROM) 11/01/2020 01/09/2021 Overview: PPROM and delivery at 36w6d. Reports was in a stressful relationship with FOB#1. - Nancy Quiroga APRN.CNM Low-lying placenta 11/01/2020 Overview: Noted on anatomy scan at 18 wks on 08/16/20 1 cm from the internal os . Has been on pelvic rest. Is having a repeat US at 32wks at [place]. Will provide copy of US after completion. - Nancy Quiroga APRN.CNM History of depression 11/01/2020 01/09/2021 Overview: Related to challenges with FOB#1. - Nancy Quiroga APRN.CNM History of delivery, currently 11/01/2020 01/09/2021 Overview: See PPROM documented as of this encounter (statuses as of 01/09/2023) [facility] History of Past illness Narrative* Problem Noted Date Diagnosed Date Resolved Date Heart palpitations 07/10/2022 Overview: 09/04/22: Pt stopped taking metop and stopped using/needing inhaler. Intermittent, but was affecting sleep. Started on metoprolol in Jun 2020. Discussed risk and benefits of use during . If using will need FG starting at 28 weeks. - Nancy Quiroga APRN.CNM Amniotic fluid leaking 01/08/202101/08 care following vaginal delivery 01/08/2021 07/10/2022 At risk for difficulty 01/08/2021 07/10/2022 History of premature rupture of membranes (PPROM) 11/01/2020 01/09/2021 Overview: PPROM and delivery at 36w6d. Reports was in a stressful relationship with FOB#1. - Nancy Quiroga APRN.CNM Low-lying placenta 11/01/2020 Overview: Noted on anatomy scan at 18 wks on 08/16/20 1 cm from the internal os . Has been on pelvic rest. Is having a repeat US at 32wks at [place]. Will provide copy of US after completion. - Nancy Quiroga APRN.CNM History of depression 11/01/2020 01/09/2021 Overview: Related to challenges with FOB#1. - Nancy Quiroga APRN.CNM History of delivery, currently 11/01/2020 01/09/2021 Overview: See PPROM documented as of this encounter (statuses as of 01/28/2023) [facility]01-[facility] History of Present illness Narrative* Nancy Quiroga APRN.CNM - 07/10/2022 1:31 PM EST INITIAL OB ASSESSMENT OB Provider: Nancy Quiroga APRN.CNM HPI: Nella Da Silva is a 31 year old female here to establish Obstetrical Care. Patient's last menstrual period was 04/22/2022. from OB Dating Form. Cycle length: 23-26 days Complaints: denies bleeding. Nausea through week 9. was planned. OB History T1 L2 SAB1 IAB0 Ectopic0 Multiple0 Live Births2 G1: asthma uncontrolled. Was not on steriods at the time. PPROM delivered 36w5. PP Depression/Anxiety - on zoloft. BF G2: asthma well controlled. Term. PP Anxiety. No meds. BF. Still BF occasionally Prior : never History of delivery: Yes History of 4 th degree laceration: No History of abnormal pap: No Prior treatment for cervical dysplasia: none. 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 Without severe features. - Nancy Quiroga APRN.CNM History of delivery, currently 11/01/2020 See PPROM depression PAST SURGICAL HISTORY Procedure Laterality Date PAST SURGICAL HISTORY OF 2004 right foot Current Outpatient Medications on File Prior to Visit Medication Sig metoprolol succinate ER (TOPROL XL) 25 mg 24 hr tablet Take 25 mg by mouth. albuterol HFA (PROVENTIL HFA, VENTOLIN HFA) 90 mcg/actuation inhaler budesonide-formoterol (SYMBICORT) 160-4.5 mcg/actuation inhaler vit/iron fum/folic ac ( 1 + 1 ORAL) No current facility-administered medications on file prior to visit. Review of Systems: GENERAL: Negative for: Fever or Chills HEENT: hx of chronic MARTINEZ/migraines, hearing loss sec to osteoathritis NECK: Negative for: Swelling, Pain, Stiffness RESPIRATORY: occasional heart racing and SOB. Using albuterol daily with corticosteroids (Symbicort) GASTROINTESTINAL: Negative for: Heartburn, Constipation, Diarrhea, Blood in stool, Vomiting and Positive for: Constipation MUSCULOSKELETAL: Negative for: Muscle or joint pain, stiffness, Joint swelling NEUROLOGIC/PSYCHIATRIC: hx of depression and anxiety SKIN: Negative for: Rash, Itching GENITOURINARY: Negative for: vaginal itching, vaginal discharge, hematuria or dysuria PHYSICAL EXAM: BP 100/62 Pulse 88 Ht 4' 11 (1.50m) Wt 144 lb (65.3kg) LMP 04/22/2022 BMI29.07 kg/(m^2). Due to running out of time: PE deferred. May complete at next visit. Pap utd. Will Need PP pap Limited OB ultrasound exam: POC completed. Single IUP, dates consistent with LMP, FHT 158 OB Risk Screening: Completed, positive findings include: Patient answered 'Yes' to previous baby with a GBS Infection ASSESSMENT: 31 year old at 11w2d wks gestational age PLAN: 1) Patient oriented to practice. Discussed nutrition, folic acid supplementation, dietary guidelines, exercise, smoking, alcohol, caffeine, and drug use. Discussed routine OB labs including STD/HIV. Discussed aneuploidy screening options including serum screening and nuchal translucency. Patient declines all aneuploidy screening. 2) Hx of PTB - 36w6d and subsequent term at 40w5d. No interventions recommended 3) asthma - exacerbation in 1st trimester, no wheezing but chest tightness and can't take a deep breath. Relieved with albuterol. Using daily. Instructed to follow up with PCP who manages her asthma 4) heart palpitations - on metoprolol. Started in Jun of last year. Will need records for workup. Advised risk and benefits of taking metoprolol in . 5) Physical exam at next visit Follow up in 4 weeks or sooner prn. Nancy Quiroga APRN.CNM [facility] of Past illness Narrative* Problem Noted Date Resolved Date Amniotic fluid leaking 01/08/2021 care following vaginal delivery 01/0807/10/2022 At risk for difficulty 01/08/2021 07/10/2022 History of premature rupture of membrane s (PPROM) 11/01/2020 01/09/2021 Overview: PPROM and delivery at 36w6d. Reports was in a stressful relationship with FOB#1. - Nancy Quiroga APRN.CNM History of pre-eclampsia 11/01/2020 07 021 Overview: Noted in chart with first but not reported by client. Without severe features. - Nancy Quiroga APRN.CNM Low-lying placenta 11/01/2020 01/08/2021 Overview: Noted on anatomy scan at 18 wks on 08/16/20 1 cm from the internal os . Has been on pelvic rest. Is having a repeat US at 32wks at [place]. Will provide copy of US after completion. - Nancy Quiroga APRN.CNM History of depression 11/01/2020 01/09/2021 Overview: Related to challenges with FOB#1. - Nancy Quiroga APRN.CNM History of delivery, currently 11/01/2020 01/09/2021 Overview: See PPROM documented as of this encounter (statuses as of 07/11/2022) [facility] History of Past illness Narrative* Problem Noted Date Resolved Date Amniotic fluid leaking 01/08/2021 care following vaginal delivery 01/0807/10/2022 At risk for difficulty 01/08/2021 07/10/2022 History of premature rupture of membrane s (PPROM) 11/01/2020 01/09/2021 Overview: PPROM and delivery at 36w6d. Reports was in a stressful relationship with FOB#1. - Nancy Quiroga APRN.CNM History of pre-eclampsia 11/01/2020 021 Overview: Noted in chart with first but not reported by client. Without severe features. - Nancy Quiroga APRN.CNM Low-lying placenta 11/01/2020 01/08/2021 Overview: Noted on anatomy scan at 18 wks on 08/16/20 1 cm from the internal os . Has been on pelvic rest. Is having a repeat US at 32wks at [place]. Will provide copy of US after completion. - Nancy Quiroga APRN.CNM History of depression 11/01/2020 01/09/2021 Overview: Related to challenges with FOB#1. - Nancy Quiroga APRN.CNM History of delivery, currently 11/01/2020 01/09/2021 Overview: See PPROM documented as of this encounter (statuses as of 07/11/2022) [facility] History of Past illness Narrative* Problem Noted Date Resolved Date Amniotic fluid leaking 01/08/2021 care following vaginal delivery 01/0807/10/2022 At risk for difficulty 01/08/2021 07/10/2022 History of premature rupture of membrane s (PPROM) 11/01/2020 01/09/2021 Overview: PPROM and delivery at 36w6d. Reports was in a stressful relationship with FOB#1. - Nancy Quiroga APRN.CNM History of pre-eclampsia 11/01/2020 021 Overview: Noted in chart with first but not reported by client. Without severe features. - Nancy Quiroga APRN.CNM Low-lying placenta 11/01/2020 01/08/2021 Overview: Noted on anatomy scan at 18 wks on 08/16/20 1 cm from the internal os . Has been on pelvic rest. Is having a repeat US at 32wks at [place]. Will provide copy of US after completion. - Nancy Quiroga APRN.CNM History of depression 11/01/2020 01/09/2021 Overview: Related to challenges with FOB#1. - Nancy Quiroga APRN.CNM History of delivery, currently 11/01/2020 01/09/2021 Overview: See PPROM documented as of this encounter (statuses as of 07/20/2022) [facility] History of Past illness Narrative* Problem Noted Date Resolved Date Amniotic fluid leaking 01/08/2021 care following vaginal delivery 01/0807/10/2022 At risk for difficulty 01/08/2021 07/10/2022 History of premature rupture of membrane s (PPROM) 11/01/2020 01/09/2021 Overview: PPROM and delivery at 36w6d. Reports was in a stressful relationship with FOB#1. - Nancy Quiroga APRN.CNM History of pre-eclampsia 11/01/2020 021 Overview: Noted in chart with first but not reported by client. Without severe features. - Nancy Quiroga APRN.CNM Low-lying placenta 11/01/2020 01/08/2021 Overview: Noted on anatomy scan at 18 wks on 08/16/20 1 cm from the internal os . Has been on pelvic rest. Is having a repeat US at 32wks at [place]. Will provide copy of US after completion. - Nancy Quiroga APRN.CNM History of depression 11/01/2020 01/09/2021 Overview: Related to challenges with FOB#1. - Nancy Quiroga APRN.CNM History of delivery, currently 11/01/2020 01/09/2021 Overview: See PPROM documented as of this encounter (statuses as of 08/08/2022) [facility] of Past illness Narrative* Problem Noted Date Resolved Date Amniotic fluid leaking 01/08/2021 care following vaginal delivery 01/0807/10/2022 At risk for difficulty 01/08/2021 07/10/2022 History of premature rupture of membrane s (PPROM) 11/01/2020 01/09/2021 Overview: PPROM and delivery at 36w6d. Reports was in a stressful relationship with FOB#1. - Nancy Quiroga APRN.CNM History of pre-eclampsia 11/01/2020 Overview: Noted in chart with first but not reported by client. Without severe features. - Nancy Quiroga APRN.CNM Low-lying placenta 11/01/2020 01/08/2021 Overview: Noted on anatomy scan at 18 wks on 08/16/20 1 cm from the internal os . Has been on pelvic rest. Is having a repeat US at 32wks at [place]. Will provide copy of US after completion. - Nancy Quiroga APRN.CNM History of depression 11/01/2020 01/09/2021 Overview: Related to challenges with FOB#1. - Nancy Quiroga APRN.CNM History of delivery, currently 11/01/2020 01/09/2021 Overview: See PPROM documented as of this encounter (statuses as of 08/10/2022) [facility] of Past illness Narrative* Problem Noted Date Resolved Date Amniotic fluid leaking 01/08/2021 care following vaginal delivery 01/0807/10/2022 At risk for difficulty 01/08/2021 07/10/2022 History of premature rupture of membrane s (PPROM) 11/01/2020 01/09/2021 Overview: PPROM and delivery at 36w6d. Reports was in a stressful relationship with FOB#1. - Nancy Quiroga APRN.CNM History of pre-eclampsia 11/01/2020 021 Overview: Noted in chart with first but not reported by client. Without severe features. - Nancy Quiroga APRN.CNM Low-lying placenta 11/01/2020 01/08/2021 Overview: Noted on anatomy scan at 18 wks on 08/16/20 1 cm from the internal os . Has been on pelvic rest. Is having a repeat US at 32wks at [place]. Will provide copy of US after completion. - Nancy Quiroga APRN.CNM History of depression 11/01/2020 01/09/2021 Overview: Related to challenges with FOB#1. - Nancy Quiroga APRN.CNM History of delivery, currently 11/01/2020 01/09/2021 Overview: See PPROM documented as of this encounter (statuses as of 08/16/2022) [facility] Encounter for supervision of other normal in first trimester- Primary Chronic tension-type headache, not intractable Chronic tension type headache Mild intermittent asthma without complication Unspecified asthma Heart palpitations [facility] Diagnosis with inconclusive viability, single or unspecified fetus- Primary [facility] Diagnosis Encounter for supervision of other normal , second trimester [Z34.82 (ICD-10-CM)]- [facility] Diagnosis care in second trimester- Primary [facility] Diagnosis Encounter for anatomic survey- Primary 19 weeks gestation of state, incidental [facility] Diagnosis care in second trimester [Z34.92 (ICD-10-CM)]- Primary 23 weeks gestation of [Z3A.23 (ICD-10-CM)] state, incidental [facility] Diagnosis Rh negative state in antepartum period- Primary Rhesus isoimmunization affecting management of mother, antepartum condition [facility] Diagnosis 28 weeks gestation of - Primary state, incidental care in third trimester [facility] Diagnosis 34 weeks gestation of - Primary state, incidental Encounter for supervision of normal first in second trimester Supervision of normal first Rh negative state in antepartum period Rhesus isoimmunization affecting management of mother, antepartum condition [facility] Diagnosis Encounter for supervision of other normal in third trimester- Primary History of pre-eclampsia Personal history of other genital system and obstetric disorders 36 weeks gestation of state, incidental [facility] Diagnosis 37 weeks gestation of - Primary state, incidental Encounter for supervision of other normal in third trimester [Z34.83] [facility] Diagnosis 37 weeks gestation of - Primary state, incidental [facility] Diagnosis 40 weeks gestation of - Primary state, incidental Rh negative state in antepartum period Rhesus isoimmunization affecting management of mother, antepartum condition Encounter for supervision of normal first in second trimester Supervision of normal first History of pre-eclampsia Personal history of other genital system and obstetric disorders [facility]* Diagnosis ELISA (generalized anxiety disorder)- Primary Generalized anxiety disorder anxiety Mental disorders of mother, [facility] Diagnosis care following vaginal delivery Routine follow-up Spasm of muscle Coccydynia Other disorder of coccyx [facility] Diagnosis ELISA (generalized anxiety disorder)- Primary Generalized anxiety disorder Post- depression Mental disorders of mother, [facility] Diagnosis Spasm of muscle- Primary Coccydynia Other disorder of coccyx [facility]* Diagnosis Spasm of muscle- Primary Coccydynia Other disorder of coccyx [facility] Diagnosis Spasm of muscle- Primary Coccydynia Other disorder of coccyx [facility] Diagnosis Encounter for screening for malignant neoplasm of cervix- Primary Screening for malignant neoplasm of the cervix 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) w/o 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 findings documented in this encounter [facility] note* Diagnosis ELISA (generalized anxiety disorder)- Primary Generalized anxiety disorder Post- depression Mental disorders of mother, anxiety Mental disorders of mother, documented in this encounter [place] Hospital note* Diagnosis No-show for appointment- Primary documented in this encounter [facility] note* Diagnosis ELISA (generalized anxiety disorder)- Primary Generalized anxiety disorder Post- depression Mental disorders of mother, documented in this encounter [facility] note* Diagnosis LEISA (generalized anxiety disorder)- Primary Generalized anxiety disorder Post- depression Mental disorders of mother, documented in this encounter [facility] note* Diagnosis ELISA (generalized anxiety disorder) Generalized anxiety disorder Post- depression Mental disorders of mother, documented in this encounter [facility] note* Diagnosis care, subsequent in first trimester (HCC)- Primary 6 weeks gestation of (HCC) [Z3A.01] state, incidental documented in this encounter [facility] note* Diagnosis Obsessive-compulsive disorder, unspecified type- Primary ELISA (generalized anxiety disorder) Generalized anxiety disorder Post- depression Mental disorders of mother, documented in this encounter [facility] note* Diagnosis care, subsequent in first trimester (HCC)- Primary documented in this encounter [facility] note* Diagnosis ELISA (generalized anxiety disorder) Generalized anxiety disorder Post- depression Mental disorders of mother, documented in this encounter [facility] note* Diagnosis 15 weeks gestation of (HCC)- Primary state, incidental care, subsequent in second trimester (HCC) documented in this encounter [facility] for referral (narrative)* Diagnostic Procedure Only (Routine) - Pending Review Specialty Diagnoses / Procedures Referred By Mihaela beckett Referred To Contact [facility] Diagnoses care in second trimester Procedures OBSTETRIC ULTRASOUND WHI US PREG UTERUS AFTER 1ST TRIMEST GESTATION Marina Benitez, CREDIT ASSOCIATE.CNM [address] [place] [address] [facility] [address] [place] [address] Referral ID Status Reason Start Date Expiration Date Visits Requested Visits Authorized [id number] Pending Review Auto-Generat ed Referral 08/08/2022 08/08/2023 1 [facility] Diagnostic Procedure Only (Routine) - Closed Specialty Diagnoses / Procedures Referred By Mihaela beckett Referred To Contact [facility] Diagnoses care in second trimester Procedures OBSTETRIC ULTRASOUND WHI US PREG UTERUS AFTER 1ST TRIMEST GESTATION Marina Benitez APRN.CNM [address] [place] [address] [facility] [address] [place] [address] Referral ID Status Reason Start Date Expiration Date V isits Requested Visits Authorized [id number] Closed Auto-Generate d Referral 08/08/2022 08/08/2023 1 1 [facility] Summary Purpose Family History No Family History Records FoundNo Family History Records FoundNo Family History Records FoundNo Family History Records FoundNo Family History Records Found Advance Directives No Advanced Directives Records FoundNo Advanced Directives Records FoundNo Advanced Directives Records FoundNo Advanced Directives Records FoundNo Advanced Directives Records Found Health Concerns Problem Noted Date Diagnosed Date [place] 02/04/2023 Problem Noted Date Diagnosed Date [place] 02/04/2023 Problem Noted Date Diagnosed Date [place] F[place] 02/04/2023 Problem Noted Date Diagnosed Date [place] F[place] 02/04/2023 Problem Noted Date Diagnosed Date [place] Filling [place] 02/04/2023 Reason for Referral Specialty Diagnoses / Procedures Referred By Mihaela beckett Referred To Contact Diagnoses ELISA (generalized anxiety disorder) Procedures PROVIDER ORDERED FOLLOW UP OFFICE/OUTPATIENT [facility] MDM 60 MINUTES Nettie Asif APRN.SCHOOL PHOTOGRAPHER [address] [place] [address] Referral ID Status Reason Start Date Expiration Date Visits Requested Visits Authorized [id number] Authorized PCP Requested Referral 2023 08/03/2024 1 1 Specialty Diagnoses / Procedures Referred By Mihaela beckett Referred To Contact Diagnoses ELISA (generalized anxiety disorder) Post- depression anxiety Procedures PROVIDER ORDERED FOLLOW UP OFFICE/OUTPATIENT NEW HIGH MDM 60 MINUTES Moni Pavon APRN.SCHOOL PHOTOGRAPHER [address] [place] [address] Referral ID Status Reason Start Date Expiration Date Visits Requested Visits Authorized [id number] Authorized PCP Requested Referral 03/24/2025 1 1 Specialty Diagnoses / Procedures Referred By Contac t Referred To Contact Diagnoses ELISA (generalized anxiety disorder) Post- depression Procedures PROVIDER ORDERED FOLLOW UP OFFICE/OUTPATIENT NEW HIGH MDM 60 MINUTES Moni Pavon, [place].SCHOOL PHOTOGRAPHER [address] [place] [address] Referral ID Status Reason Start Date Expiration Date Visits Requested Visits Authorized [id number] Authorized PCP Requested Referral 07/25/2024 06/24/2025 1 1 Referral ID Status Reason Start Date Expiration Date Visits Requested Visits Authorized [id number] Authorized PCP Requested Referral 11/01/2024 2025 1 1 Additional Source Comments INFORMATION SOURCE (unrecogn ized section and content) DATE CREATED AUTHOR 04/10/2022 [facility] DATE CREATED AUTHOR AUTHOR'S ORGANIZ ATION 02/06/2023 [facility] DATE CREATED AUTHOR AUTHOR'S ORGANIZ ATION 08/17/2023 [facility] EPIC DATE CREATED AUTHOR AUTHOR'S ORGANIZ ATION 11/05/2024 [facility] DATE CREATED AUTHOR AUTHOR'S ORGANIZ ATION 12/19/2024 [facility] Source Comments (unrecognize d section and content) In the event this informatio n is protected by the Federal Confidentiality of Alcohol and Drug Abuse Patient Records regulations: The Federal rules restrict any use of the information to criminally investigate or prosecute any alcohol or drug abuse patient.[facility] the event this information is protected by the Federal Confidentiality of Alcohol and Drug Abuse Patient Records regulations: The Federal rules restrict any use of the information to criminally investigate or prosecute any alcohol or drug abuse patient.[facility] HospitalIn the event this information is protected by the Federal Confidentiality of Alcohol and Drug Abuse Patient Records regulations: The Federal rules restrict any use of the information to criminally investigate or prosecute any alcohol or drug abuse patient.[facility] HospitalIn the event this information is protected by the Federal Confidentiality of Alcohol and Drug Abuse Patient Records regulations: The Federal rules restrict any use of the information to criminally investigate or prosecute any alcohol or drug abuse patient.[facility] HospitalIn the event this information is protected by the Federal Confidentiality of Alcohol and Drug Abuse Patient Records regulations: The Federal rules restrict any use of the information to criminally investigate or prosecute any alcohol or drug abuse patient.[facility] HospitalIn the event this information is protected by the Federal Confidentiality of Alcohol and Drug Abuse Patient Records regulations: The Federal rules restrict any use of the information to criminally investigate or prosecute any alcohol or drug abuse patient.[facility] HospitalIn the event this information is protected by the Federal Confidentiality of Alcohol and Drug Abuse Patient Records regulations: The Federal rules restrict any use of the information to criminally investigate or prosecute any alcohol or drug abuse patient.[facility] HospitalIn the event this information is protected by the Federal Confidentiality of Alcohol and Drug Abuse Patient Records regulations: The Federal rules restrict any use of the information to criminally investigate or prosecute any alcohol or drug abuse patient.[facility] HospitalIn the event this information is protected by the Federal Confidentiality of Alcohol and Drug Abuse Patient Records regulations: The Federal rules restrict any use of the information to criminally investigate or prosecute any alcohol or drug abuse patient.[facility] HospitalIn the event this information is protected by the Federal Confidentiality of Alcohol and Drug Abuse Patient Records regulations: The Federal rules restrict any use of the information to criminally investigate or prosecute any alcohol or drug abuse patient.[facility] HospitalIn the event this information is protected by the Federal Confidentiality of Alcohol and Drug Abuse Patient Records regulations: The Federal rules restrict any use of the information to criminally investigate or prosecute any alcohol or drug abuse patient.[facility] HospitalIn the event this information is protected by the Federal Confidentiality of Alcohol and Drug Abuse Patient Records regulations: The Federal rules restrict any use of the information to criminally investigate or prosecute any alcohol or drug abuse patient.[facility] HospitalIn the event this information is protected by the Federal Confidentiality of Alcohol and Drug Abuse Patient Records regulations: The Federal rules restrict any use of the information to criminally investigate or prosecute any alcohol or drug abuse patient.[facility] HospitalIn the event this information is protected by the Federal Confidentiality of Alcohol and Drug Abuse Patient Records regulations: The Federal rules restrict any use of the information to criminally investigate or prosecute any alcohol or drug abuse patient.[facility] HospitalIn the event this information is protected by the Federal Confidentiality of Alcohol and Drug Abuse Patient Records regulations: The Federal rules restrict any use of the information to criminally investigate or prosecute any alcohol or drug abuse patient.[facility] HospitalIn the event this information is protected by the Federal Confidentiality of Alcohol and Drug Abuse Patient Records regulations: The Federal rules restrict any use of the information to criminally investigate or prosecute any alcohol or drug abuse patient.[facility] HospitalIn the event this information is protected by the Federal Confidentiality of Alcohol and Drug Abuse Patient Records regulations: The Federal rules restrict any use of the information to criminally investigate or prosecute any alcohol or drug abuse patient.[facility] HospitalIn the event this information is protected by the Federal Confidentiality of Alcohol and Drug Abuse Patient Records regulations: The Federal rules restrict any use of the information to criminally investigate or prosecute any alcohol or drug abuse patient.[facility] HospitalIn the event this information is protected by the Federal Confidentiality of Alcohol and Drug Abuse Patient Records regulations: The Federal rules restrict any use of the information to criminally investigate or prosecute any alcohol or drug abuse patient.[facility] HospitalIn the event this information is protected by the Federal Confidentiality of Alcohol and Drug Abuse Patient Records regulations: The Federal rules restrict any use of the information to criminally investigate or prosecute any alcohol or drug abuse patient.[facility] HospitalIn the event this information is protected by the Federal Confidentiality of Alcohol and Drug Abuse Patient Records regulations: The Federal rules restrict any use of the information to criminally investigate or prosecute any alcohol or drug abuse patient.[facility] HospitalIn the event this information is protected by the Federal Confidentiality of Alcohol and Drug Abuse Patient Records regulations: The Federal rules restrict any use of the information to criminally investigate or prosecute any alcohol or drug abuse patient.[facility] HospitalIn the event this information is protected by the Federal Confidentiality of Alcohol and Drug Abuse Patient Records regulations: The Federal rules restrict any use of the information to criminally investigate or prosecute any alcohol or drug abuse patient.[facility] HospitalIn the event this information is protected by the Federal Confidentiality of Alcohol and Drug Abuse Patient Records regulations: The Federal rules restrict any use of the information to criminally investigate or prosecute any alcohol or drug abuse patient.[facility] HospitalIn the event this information is protected by the Federal Confidentiality of Alcohol and Drug Abuse Patient Records regulations: The Federal rules restrict any use of the information to criminally investigate or prosecute any alcohol or drug abuse patient.[facility] HospitalIn the event this information is protected by the Federal Confidentiality of Alcohol and Drug Abuse Patient Records regulations: The Federal rules restrict any use of the information to criminally investigate or prosecute any alcohol or drug abuse patient.[facility] HospitalIn the event this information is protected by the Federal Confidentiality of Alcohol and Drug Abuse Patient Records regulations: The Federal rules restrict any use of the information to criminally investigate or prosecute any alcohol or drug abuse patient.[facility] HospitalIn the event this information is protected by the Federal Confidentiality of Alcohol and Drug Abuse Patient Records regulations: The Federal rules restrict any use of the information to criminally investigate or prosecute any alcohol or drug abuse patient.[facility] HospitalIn the event this information is protected by the Federal Confidentiality of Alcohol and Drug Abuse Patient Records regulations: The Federal rules restrict any use of the information to criminally investigate or prosecute any alcohol or drug abuse patient.[facility] HospitalIn the event this information is protected by the Federal Confidentiality of Alcohol and Drug Abuse Patient Records regulations: The Federal rules restrict any use of the information to criminally investigate or prosecute any alcohol or drug abuse patient.[facility] HospitalIn the event this information is protected by the Federal Confidentiality of Alcohol and Drug Abuse Patient Records regulations: The Federal rules restrict any use of the information to criminally investigate or prosecute any alcohol or drug abuse patient.[facility] HospitalIn the event this information is protected by the Federal Confidentiality of Alcohol and Drug Abuse Patient Records regulations: The Federal rules restrict any use of the information to criminally investigate or prosecute any alcohol or drug abuse patient.[facility] HospitalIn the event this information is protected by the Federal Confidentiality of Alcohol and Drug Abuse Patient Records regulations: The Federal rules restrict any use of the information to criminally investigate or prosecute any alcohol or drug abuse patient.[facility] HospitalIn the event this information is protected by the Federal Confidentiality of Alcohol and Drug Abuse Patient Records regulations: The Federal rules restrict any use of the information to criminally investigate or prosecute any alcohol or drug abuse patient.[facility] HospitalIn the event this information is protected by the Federal Confidentiality of Alcohol and Drug Abuse Patient Records regulations: The Federal rules restrict any use of the information to criminally investigate or prosecute any alcohol or drug abuse patient.[facility] HospitalIn the event this information is protected by the Federal Confidentiality of Alcohol and Drug Abuse Patient Records regulations: The Federal rules restrict any use of the information to criminally investigate or prosecute any alcohol or drug abuse patient.[facility] HospitalIn the event this information is protected by the Federal Confidentiality of Alcohol and Drug Abuse Patient Records regulations: The Federal rules restrict any use of the information to criminally investigate or prosecute any alcohol or drug abuse patient.[facility] HospitalIn the event this information is protected by the Federal Confidentiality of Alcohol and Drug Abuse Patient Records regulations: The Federal rules restrict any use of the information to criminally investigate or prosecute any alcohol or drug abuse patient.[facility] HospitalIn the event this information is protected by the Federal Confidentiality of Alcohol and Drug Abuse Patient Records regulations: The Federal rules restrict any use of the information to criminally investigate or prosecute any alcohol or drug abuse patient.[facility] HospitalIn the event this information is protected by the Federal Confidentiality of Alcohol and Drug Abuse Patient Records regulations: The Federal rules restrict any use of the information to criminally investigate or prosecute any alcohol or drug abuse patient.[facility] HospitalIn the event this information is protected by the Federal Confidentiality of Alcohol and Drug Abuse Patient Records regulations: The Federal rules restrict any use of the information to criminally investigate or prosecute any alcohol or drug abuse patient.[facility] HospitalIn the event this information is protected by the Federal Confidentiality of Alcohol and Drug Abuse Patient Records regulations: The Federal rules restrict any use of the information to criminally investigate or prosecute any alcohol or drug abuse patient.[facility] HospitalIn the event this information is protected by the Federal Confidentiality of Alcohol and Drug Abuse Patient Records regulations: The Federal rules restrict any use of the information to criminally investigate or prosecute any alcohol or drug abuse patient.[facility] HospitalIn the event this information is protected by the Federal Confidentiality of Alcohol and Drug Abuse Patient Records regulations: The Federal rules restrict any use of the information to criminally investigate or prosecute any alcohol or drug abuse patient.[facility] HospitalIn the event this information is protected by the Federal Confidentiality of Alcohol and Drug Abuse Patient Records regulations: The Federal rules restrict any use of the information to criminally investigate or prosecute any alcohol or drug abuse patient.[facility] HospitalIn the event this information is protected by the Federal Confidentiality of Alcohol and Drug Abuse Patient Records regulations: The Federal rules restrict any use of the information to criminally investigate or prosecute any alcohol or drug abuse patient.[facility] Reason for Visit (unrecogniz ed section and content) Reason Comments Follow Up Specialty Diagnoses / Procedures Referred By Contac t Referred To Contact Diagnoses ELISA (generalized anxiety disorder) Post- depression Procedures PROVIDER ORDERED FOLLOW UP OFFICE/OUTPATIENT [facility] 60 MINUTES Moni Pavon APRN.SCHOOL PHOTOGRAPHER [address] [place] [address] Phone: tel: fax: Referral ID Status Reason Start Date Expiration Date V isits Requested Visits Authorized [id number] Closed PCP Requested Referral 11/01/2024 2025 1 1 Reason Comments Physical Therapy Specialty Diagnoses / Procedures Referred By Contac t Referred To Contact [facility] Diagnoses care following vaginal delivery Procedures CONSULT TO PHYSICAL THERAPY PHYSICAL THERAPY EVALUATION HIGH COMPLEX 45 MINS Marina Benitez APRN.CN [address] [place] [address] [facility] [address] [place] [address] Referral ID Status Reason Start Date Expiration Date Visits Requested Visits Authorized [id number] Authorized Auto-Generat ed Referral 06/30/2023 06/29/2024 30 30 Reason Comments Initial OB Visit Reason Comments Follow Up Specialty Diagnoses / Procedures Referred By Contac t Referred To Contact TREATMENT TECHNICIAN Diagnoses Procedures US PREG UTERUS > 1ST TRIMESTER ABDL EA GESTATIO Marina Benitez APRN.[facility] [address] [place] [address] Vb Developer Formerly [facility] [address] [place] [address] Referral ID Status Reason Start Date Expiration Date Visits Requested Visits Authorized [id number] Authorized Patient Cleared - Qualified 100% FAS 07/16/2022 10/14/2022 99 99 Reason Comments Appointment Referral ID Status Reason Start Date Expiration Date V isits Requested Visits Authorized [id number] Closed Patient Cleared - Qualified 100% FAS 07/16/2022 10/14/2022 99 99 Reason Comments Nurse Visit rhogam Reason Comments Care Reason Comments FMLA Paperwork Reason Comments Patient Question Reason Comments Track Sweeper - Other Reason Comments Orders PT initial examinati on form Reason Comments Anxiety Depression Specialty Diagnoses / Procedures Referred By Contac t Referred To Contact Psychiatry / ADULT PSYCHIATRY Diagnoses Dx: anxiety [O99.345, F41.8 (ICD-10-CM)] Procedures VIDEO PSYC/PSYL Marina Kramer APRN.CN [address] [place] [address] Nettie Asif APRN.SCHOOL PHOTOGRAPHER [address] [place] [address] Referral ID Status Reason Start Date Expiration Date V isits Requested Visits Authorized [id number] Authorized 06/30/2023 06/29/2024 99 99 Reason Comments PT Eval Patient Education Reason Comments Depression Anxiety Specialty Diagnoses / Procedures Referred By Contac t Referred To Contact Diagnoses ELISA (generalized anxiety disorder) Procedures PROVIDER ORDERED FOLLOW UP OFFICE/OUTPATIENT NEW HIGH MDM 60 MINUTES Nettie Asif APRN.SCHOOL PHOTOGRAPHER [address] [place] [address] Referral ID Status Reason Start Date Expiration Date V isits Requested Visits Authorized [id number] Closed PCP Requested Referral 2023 08/03/2024 1 1 Reason Comments Jet Dyeing Machine Operator Exam Reason Onset Date Comments Refill Request 02/12/2024 Specialty Diagnoses / Procedures Referred By Mihaela t Referred To Contact Psychiatry / ADULT PSYCHIATRY Diagnoses AKIKO former Nettie Asif pt/ med check Procedures VIDEO PSYC/PSYL CHNG PROV Self Moni Pavon APRN.SCHOOL PHOTOGRAPHER [address], [place] [id number] Referral ID Status Reason Start Date Expiration Date V isits Requested Visits Authorized [id number] Outside PCP 03/24/2024 06/22/2024 1 1 Reason Comments No Show Specialty Diagnoses / Procedures Referred By Mihaela t Referred To Contact Diagnoses ELISA (generalized anxiety disorder) Post- depression anxiety Procedures PROVIDER ORDERED FOLLOW UP OFFICE/OUTPATIENT NEW HIGH MDM 60 MINUTES Moni Pavon, [place]ARRO.SCHOOL PHOTOGRAPHER [address], [facility] [address] [place] [id number] Referral ID Status Reason Start Date Expiration Date Visits Requested Visits Authorized [id number] Authorized PCP Requested Referral 03/24/2025 1 1 Reason Comments Refill Request Reason Comments Med Change Request Reason Comments Initial OB Visit Care Teams (unrecognized sec tion and content) Change Management Expert Relationship Specialty Start Date End Date Caren Travis APRN.TREVON [address] [place] [place] [id number] Sp[employer] TREATMENT TECHNICIAN 02/03/23 Change Management Expert Relationship Specialty Start Date End Date AngyCaren degroot, CREDIT ASSOCIATE.CNM [address] [place] [address] Sp[employer] TREATMENT TECHNICIAN 02/03/23 Change Management Expert Relationship Specialty Start Date End Date AngyCaren degroot, CREDIT ASSOCIATE.CNM [address] [place] [address] [employer]pper TREATMENT TECHNICIAN 02/03/23 Change Management Expert Relationship Specialty Start Date End Date AngyCaren degroot, CREDIT ASSOCIATE.CNM [address] [place] [address] Sp[employer]pper TREATMENT TECHNICIAN 02/03/23 Change Management Expert Relationship Specialty Start Date End Date AngyCaren degroot, CREDIT ASSOCIATE.CNM [address] [place] [address] [facility] Nurse 02/03/23 Change Management Expert Relationship Specialty Start Date End Date AngyCaren degroot, CREDIT ASSOCIATE.CNM [address] [place] [address] [facility] Nurse 02/03/23 Change Management Expert Relationship Specialty Start Date End Date AngyCaren degroot, CREDIT ASSOCIATE.CNM [address] [place] [address] [facility] Nurse 02/03/23 Change Management Expert Relationship Specialty Start Date End Date AngyCaren degroot, CREDIT ASSOCIATE.CNM [address] [place] [address] [facility] Nurse 02/03/23 Change Management Expert Relationship Specialty Start Date End Date AngyCaren degroot, CREDIT ASSOCIATE.CNM [address] [place] [address] [facility] Nurse 02/03/23 Change Management Expert Relationship Specialty Start Date End Date AngyCaren degroot, CREDIT ASSOCIATE.CNM [address] [place] [address] [facility] Nurse 02/03/23 Change Management Expert Relationship Specialty Start Date End Date AngyCaren degroot, CREDIT ASSOCIATE.CNM [address] [place] [address] [facility] Nurse 02/03/23 Change Management Expert Relationship Specialty Start Date End Date AngyCaren degroot, CREDIT ASSOCIATE.CNM [address] [place] [address] [facility] Nurse 02/03/23 Change Management Expert Relationship Specialty Start Date End Date AngyCaren degroot, CREDIT ASSOCIATE.CNM [address] [place] [address] [facility] Nurse 02/03/23 Change Management Expert Relationship Specialty Start Date End Date AngyCaren degroot, CREDIT ASSOCIATE.CNM [address] [place] [address] [facility] Nurse 02/03/23 Change Management Expert Relationship Specialty Start Date End Date Caren Travis, CREDIT ASSOCIATE.CNM [address] [place] [address] [facility] Nurse 02/03/23 Change Management Expert Relationship Specialty Start Date End Date AngyCaren degroot, CREDIT ASSOCIATE.CNM [address] [place] [address] [facility] Nurse 02/03/23 Change Management Expert Relationship Specialty Start Date End Date AngyCaren degroot, CREDIT ASSOCIATE.CNM [address] [place] [address] [facility] Nurse 02/03/23 Change Management Expert Relationship Specialty Start Date End Date AngyCaren degroot, CREDIT ASSOCIATE.CNM [address] [place] [address] [facility] Nurse 02/03/23 Change Management Expert Relationship Specialty Start Date End Date AngyCaren degroot, CREDIT ASSOCIATE.CNM [address] [place] [address] [facility] Nurse 02/03/23 Change Management Expert Relationship Specialty Start Date End Date AngyCaren, CREDIT ASSOCIATE.CNM [address] [place] [address] [facility] Nurse 02/03/23 Change Management Expert Relationship Specialty Start Date End Date AngyCaren degroot, CREDIT ASSOCIATE.CNM [address] [place] [address] [facility] Nurse 02/03/23 Change Management Expert Relationship Specialty Start Date End Date AngyCaren degroot, CREDIT ASSOCIATE.CNM [address] [place] [address] [facility] Nurse 02/03/23 Change Management Expert Relationship Specialty Start Date End Date Angy, Caren J, CREDIT ASSOCIATE.CN [address] [place] [address] [facility] Nurse 02/03/23 Change Management Expert Relationship Specialty Start Date End Date AngyCaren degroot CREDIT ASSOCIATE.CN [address] [place] [address] [facility] Nurse 02/03/23 Change Management Expert Relationship Specialty Start Date End Date AngyCaren degroot CREDIT ASSOCIATE.CN [address] [place] [address] [facility] Nurse 02/03/23 Change Management Expert Relationship Specialty Start Date End Date AngyCaren degroot APRN.CN [address] [place] [address] [facility] Nurse 02/03/23 FOR RECORDS PERTAINING TO PATIENTS WHO ARE OR HAVE BEEN ENROLLED IN A CHEMICAL DEPENDENCY/SUBSTANCEABUSE PROGRAM, SOME INFORMATION MAY BE OMITTED. This clinical summary was aggregated from multiple sources. Caution should be exercised in using it in the provision of clinical care. This summary normalizes information from multiple sources, and as a consequence, information in this document may materially change the coding, format and clinical context of patient data. In addition, data may be omitted in some cases. CLINICAL DECISIONS SHOULD BE BASED ON THE PRIMARY CLINICAL RECORDS. [facility] [employer] [facility]. provides no warranty or guarantee of the accuracy or completeness of information in this document.
[2025-01-07 08:05] VITALS: BP 108/56; PULSE 87
[2025-01-07 08:07] LABS: Hematocrit 33.1 % (36.0-48.0); Hemoglobin 11.3 g/dL (12.0-16.0); Immature Granulocytes Abs Auto 0.05 10^3/uL (0.00-0.03); Immature Granulocytes Pct Auto 0.4 % (0.0-0.5); Lymphocytes Absolute Auto 1.0 10^3/uL (1.2-3.8); Mean Corpuscular HGB Conc 34.1 g/dL (29.9-35.2); Mean Corpuscular Hemoglobin 29.7 pg (26.7-34.0); Mean Corpuscular Volume 86.9 fL (81.0-99.0); Platelet Count 179 10^3/uL (150-450); Red Blood Count 3.81 10^6/uL (4.20-5.40); White Blood Count 13.4 10^3/uL (4.0-11.0)
[2025-01-07 08:22] LABS: Alanine Aminotransferase 24 U/L (14-59); Albumin Globulin Ratio 0.7; Albumin Level 2.4 g/dL (3.4-5.0); Alkaline Phosphatase 70 U/L (46-116); Anion Gap 14.7; Aspartate Amino Transferase 19 U/L (15-37); Blood Urea Nitrogen 10.0 mg/dL (7.0-18.0); Calcium 8.3 mg/dL (8.5-10.1); Carbon Dioxide 22.6 mmol/L (21.0-32.0); Chloride 106 mmol/L (98-107); Estimated GFR (African America >60 (>=60 mL/min/1.73m^2); Estimated GFR (Non-African Ame >60 (>=60 mL/min/1.73m^2); Globulin 3.6 g/dL; Glucose 81 mg/dL (74-106); Potassium 3.3 mmol/L (3.5-5.1); Sodium 140 mmol/L (136-145); Total Protein 6.0 g/dL (6.4-8.2)
--- OUTSIDE RECORDS SUMMARY | 2025-01-07 08:26 | XMS_ITS | Encounter Summary ---
Author Organization [facility] Address [address] [place] [address] Care Team Providers Care Crane Mechanic Name Role Phone Caren Travis APRN.CNM Unavailable [phone] Source Comments In the event this information is protected by the Federal Confidentiality of Alcohol and Drug AbusePatient Records regulations: The Federal rules restrict any use of the information to criminally investigate or prosecute any alcohol or drug abuse patient.[facility] Encounter Details Date Type Department Care Team (Late st Contact Info) Description 09/18/2023 Patient Msg Psychiatry [address] [facility] [address] [phone] Nettie Asif, Research Nurse After-Visit Summary Social History Tobacco Use Types Packs/Day Years Used Date Smoking Tobacco: Former Cigarettes Q uit: 11/2019 Smokeless Tobacco: Never Alcohol Use Standard Drinks/Week Comments No 0 (1 standard drink = 0.6 oz pur e alcohol) PHQ-2 Answer Date Recorded PHQ-2 score 2 09/14/2023 [place] Depression Scale Answer Date Recorded [place] Depression Scale Total 21 07/10/2023 The thought of harming myself has occurred to me . Never 07/10/2023 Area Deprivation Index Answer Date Rafael rded National Score (1-100), lower number is lower ri sk 78 11/05/2022 State Score (1-10), lower number is lower risk 6 11/05/2022 Data from: https://www.neighborhoodatlas.medicine.[facility]/. Last address used for calculation 128 [...] EDT Routine Office Visit Maternal Medicine [address] [place], [place] [id number] Anatomy 01/20/2025 3:00 PM EDT Routine Office Visit Obstetrics/Gynecolog y [address] [address] Marina Manley, QUARTER SUPERVISOR.CNM [address] [place] [address] ob/ per Marina 02/10/2025 2:30 PM EDT Office Visit Obstetrics/Gynecolog y [address] [address] Marina Manley, QUARTER SUPERVISOR.CNM [address] [place] [address] Annual 02/22/2025 1:15 PM EDT Routine Office Visit Obstetrics/Gynecolog y [address] [address] Marina Manley, QUARTER SUPERVISOR.CNM [address] [place] [address] OB monthly 03/22/2025 10:45 AM EDT Routine Office Visit Obstetrics/Gynecolog y [address] [address] Marina Manley, QUARTER SUPERVISOR.CNM [address] [place] [address] OB bi-weekly 04/05/2025 10:45 AM EDT Routine Office Visit Obstetrics/Gynecolog y [address] [address] Marina Manley, QUARTER SUPERVISOR.CNM [address] [place] [address] OB bi-weekly 04/19/2025 10:30 AM EDT Routine Office Visit Obstetrics/Gynecolog y [address] [address] Marina Manley, QUARTER SUPERVISOR.CNM [address] [place] [address] OB bi-weekly 05/03/2025 8:45 AM EST Routine Office Visit Obstetrics/Gynecolog y [address] [address] Marina Manley, QUARTER SUPERVISOR.CNM [address] [place] [address] OB weekly 05/10/2025 8:45 AM EST Routine Office Visit Obstetrics/Gynecolog y [address] [address] Marina Manley, QUARTER SUPERVISOR.CNM [address] [place] [address] OB weekly 05/17/2025 8:45 AM EST Routine Office Visit Obstetrics/Gynecolog y [address] [address] Marina Manley, QUARTER SUPERVISOR.CNM [address] [place] [address] OB weekly 05/24/2025 8:45 AM EST Routine Office Visit Obstetrics/Gynecolog y [address] [address] Marina Manley, QUARTER SUPERVISOR.CNM [address] [place] [address] OB weekly 05/31/2025 8:45 AM EST Routine Office Visit Obstetrics/Gynecolog y [address] [address] Marina Manley, QUARTER SUPERVISOR.CNM [address] [place] [address] OB weekly 06/07/2025 8:45 AM EST Routine Office Visit Obstetrics/Gynecolog y [address] [address] Marina Manley, QUARTER SUPERVISOR.CNM [address] [place] [address] OB weekly documented as of this encounter Visit Diagnoses Not on filedocumented in this encounter Care Teams Crane Mechanic Relationship Specialty Start Date End Date Caren Travis, QUARTER SUPERVISOR.OSIRIS [address] [place] [address] Land Conservation Specialist Atmospheric Physicist 02/03/23 documented as of this encounter
--- OUTSIDE RECORDS SUMMARY | 2025-01-07 08:26 | XMS_ITS | Encounter Summary ---
Author Organization [facility] Address [address] [place] [address] Care Team Providers Care Loop Machine Operator Name Role Phone Caren Travis APRN.CNM Unavailable [phone] Source Comments In the event this information is protected by the Federal Confidentiality of Alcohol and Drug AbusePatient Records regulations: The Federal rules restrict any use of the information to criminally investigate or prosecute any alcohol or drug abuse patient.[facility] Encounter Details Date Type Department Care Team (Late st Contact Info) Description 12/02/2022 Patient Msg Obstetrics/Gynecology [address] [phone] Provider, Ccf please call to yasmani 12/16 Chrissie Patel Social History Tobacco Use Types Packs/Day Years Used Date Smoking Tobacco: Former Cigarettes Q uit: 11/2019 Smokeless Tobacco: Never Alcohol Use Standard Drinks/Week Comments No 0 (1 standard drink = 0.6 oz pur e alcohol) [place] Depression Scale Answer Date Recorded [place] Depression Scale Total 2 01/30/2021 The thought of harming myself has occurred to me . Never 01/30/2021 Area Deprivation Index Answer Date Rafael rded National Score (1-100), lower number is lower ri 78 11/05/2022 State Score (1-10), lower number is lower risk 6 11/05/2022 Data from: https://www.neighborhoodatlas.[facility]/. Last address used for calculation [...] EDT Routine Office Visit Maternal Medicine [address] [place] [address] Anatomy 01/20/2025 3:00 PM EDT Routine Office Visit Obstetrics/Gynecolog y 850 [facility] [address] [place] [address] Marina Manley, NURSING UNIT CLERK.CNM [address] [place] [address] ob/ per Marina 02/10/2025 2:30 PM EDT Office Visit Obstetrics/Gynecolog y [address] [address] Marina Manley, NURSING UNIT CLERK.CNM [address] [place] [address] Annual 02/22/2025 1:15 PM EDT Routine Office Visit Obstetrics/Gynecolog y [address] [address] Marina Manley, NURSING UNIT CLERK.CNM [address] [place] [address] OB monthly 03/22/2025 10:45 AM EDT Routine Office Visit Obstetrics/Gynecolog y [address] [address] Marina Manley, NURSING UNIT CLERK.CNM [address] [place] [address] OB bi-weekly 04/05/2025 10:45 AM EDT Routine Office Visit Obstetrics/Gynecolog y [address] [address] Marina Manley, NURSING UNIT CLERK.CNM [address] [place] [address] OB bi-weekly 04/19/2025 10:30 AM EDT Routine Office Visit Obstetrics/Gynecolog y [address] [address] Marina Manley, NURSING UNIT CLERK.CNM [address] [place] [address] OB bi-weekly 05/03/2025 8:45 AM EST Routine Office Visit Obstetrics/Gynecolog y [address] [address] Marina Manley, NURSING UNIT CLERK.CNM [address] [place] [address] OB weekly 05/10/2025 8:45 AM EST Routine Office Visit Obstetrics/Gynecolog y [address] [address] Marina Manley, NURSING UNIT CLERK.CNM [address] [place] [address] OB weekly 05/17/2025 8:45 AM EST Routine Office Visit Obstetrics/Gynecolog y [address] [address] Marina Manley, NURSING UNIT CLERK.CNM [address] [place] [address] OB weekly 05/24/2025 8:45 AM EST Routine Office Visit Obstetrics/Gynecolog y [address] [address] Marina Manley, NURSING UNIT CLERK.CNM [address] [place] [address] OB weekly 05/31/2025 8:45 AM EST Routine Office Visit Obstetrics/Gynecolog y [address] [address] Marina Manley, NURSING UNIT CLERK.CNM [address] [place] [address] OB weekly 06/07/2025 8:45 AM EST Routine Office Visit Obstetrics/Gynecolog y [address] [address] Marina Manley, NURSING UNIT CLERK.CNM [address] [place] [address] OB weekly documented as of this encounter Visit Diagnoses Not on filedocumented in this encounter Care Teams Loop Machine Operator Relationship Specialty Start Date End Date Caren Traivs APRN.CNM [address] [place] [address] Operations Logistics Analyst Care Support Representative 02/03/23 documented as of this encounter
--- OUTSIDE RECORDS SUMMARY | 2025-01-07 08:26 | XMS_ITS | Encounter Summary ---
Author Organization [facility] Address [address] [place] [address] Care Team Providers Care Napper Tender Name Role Phone Caren Travis APRN.CNM Unavailable [phone] Source Comments In the event this information is protected by the Federal Confidentiality of Alcohol and Drug AbusePatient Records regulations: The Federal rules restrict any use of the information to criminally investigate or prosecute any alcohol or drug abuse patient.[facility] Encounter Details Date Type Department Care Team (Late st Contact Info) Description 02/04/2023 [place] [address] [place] [phone] Provider, Ccf Director Revenue Enrollment Social History Tobacco Use Types Packs/Day Years Used Date Smoking Tobacco: Former Cigarettes Q uit: 11/2019 Smokeless Tobacco: Never Alcohol Use Standard Drinks/Week Comments No 0 (1 standard drink = 0.6 oz pur e alcohol) [place] Depression Scale Answer Date Recorded [place] Depression Scale Total 2 01/30/2021 The thought of harming myself has occurred to me . Never 01/30/2021 Area Deprivation Index Answer Date Rafael rded National Score (1-100), lower number is lower ri sk 78 11/05/2022 State Score (1-10), lower number is lower risk 6 11/05/2022 Data from: https://www.neighborhoodatlas.[facility]/. Last address used for calculation [...] EDT Routine Office Visit Maternal Medicine [address] [place] [address] Anatomy 01/20/2025 3:00 PM EDT Routine Office Visit Obstetrics/Gynecolog y 850 [facility] [address] [place] [address] Marina Manley, CHECK OUT CLERK.CNM [address] [place] [address] ob/ per Marina 02/10/2025 2:30 PM EDT Office Visit Obstetrics/Gynecolog y [address] [address] Marina Manley, CHECK OUT CLERK.CN [place] [address] Annual 02/22/2025 1:15 PM EDT Routine Office Visit Obstetrics/Gynecolog y [address] [address] Marina Manley, CHECK OUT CLERK.CN [address] [place] [address] OB monthly 03/22/2025 10:45 AM EDT Routine Office Visit Obstetrics/Gynecolog y [address] [address] Marina Manley, CHECK OUT CLERK.CNM [address] [place] [address] OB bi-weekly 04/05/2025 10:45 AM EDT Routine Office Visit Obstetrics/Gynecolog y [address] [address] Marina Manley, CHECK OUT CLERK.CN [address] [place] [address] OB bi-weekly 04/19/2025 10:30 AM EDT Routine Office Visit Obstetrics/Gynecolog y [address] [address] Marina Manley, CHECK OUT CLERK.CNM [address] [place] [address] OB bi-weekly 05/03/2025 8:45 AM EST Routine Office Visit Obstetrics/Gynecolog y [address] [address] Marina Manley, CHECK OUT CLERK.CNM [address] [place] [address] OB weekly 05/10/2025 8:45 AM EST Routine Office Visit Obstetrics/Gynecolog y [address] [address] Marina Manley, CHECK OUT CLERK.CNM [address] [place] [address] OB weekly 05/17/2025 8:45 AM EST Routine Office Visit Obstetrics/Gynecolog y [address] [address] Marina Manley, CHECK OUT CLERK.CNM [address] [place] [address] OB weekly 05/24/2025 8:45 AM EST Routine Office Visit Obstetrics/Gynecolog y [address] [address] Marina Manley, CHECK OUT CLERK.CNM [address] [place] [address] OB weekly 05/31/2025 8:45 AM EST Routine Office Visit Obstetrics/Gynecolog y [address] [address] Marina Manley, CHECK OUT CLERK.CNM [address] [place] [address] OB weekly 06/07/2025 8:45 AM EST Routine Office Visit Obstetrics/Gynecolog y [address] [address] Marina Manley, CHECK OUT CLERK.CNM [address] [place] [address] OB weekly documented as of this encounter Visit Diagnoses Not on filedocumented in this encounter Care Teams Napper Tender Relationship Specialty Start Date End Date Caren Travis APRN.TREVON [address] [place] [phone] International Account Executive Fish Roe Processor 02/03/23 documented as of this encounter
--- OUTSIDE RECORDS SUMMARY | 2025-01-07 08:26 | XMS_ITS | Encounter Summary ---
Author Organization [facility] Address [address] [place] [address] Care Team Providers Care Big Data Engineer Name Role Phone Caren Travis APRN.CNM Unavailable Source Comments In the event this information is protected by the Federal Confidentiality of Alcohol and Drug AbusePatient Records regulations: The Federal rules restrict any use of the information to criminally investigate or prosecute any alcohol or drug abuse patient.[facility] Encounter Details Date Type Department Care Team (Late st Contact Info) Description 01/13/2024 Patient [facility] [address] [place] [address] Provider, Ccdaniela HEWITT APPNT WITH Lauro CASTILLO Social History Tobacco Use Types Packs/Day Years Used Date Smoking Tobacco: Former Cigarettes Q uit: 11/2019 Smokeless Tobacco: Never Alcohol Use Standard Drinks/Week Comments No 0 (1 standard drink = 0.6 oz pur e alcohol) PHQ-2 Answer Date Recorded PHQ-2 score 2 09/14/2023 [place] Depression Scale Answer Date Recorded [place] Depression Scale Total 21 07/10/2023 The thought of harming myself has occurred to me . Never 07/10/2023 Area Deprivation Index Answer Date Rafael rded National Score (1-100), lower number is lower ri sk 78 11/05/2022 State Score (1-10), lower number is lower risk 6 11/05/2022 Data from: https://www.neighborhoodatlas.medicine.[facility]/. Last address used for calculation [address] [...] EDT Routine Office Visit Maternal Medicine 850 [facility] [address] [place] [address] Anatomy 01/20/2025 3:00 PM EDT Routine Office Visit Obstetrics/Gynecolog y [address] [address] Marina Manley, CHANNEL MARKETING COORDINATOR.CNM [address] [place] [address] ob/ per Marina 02/10/2025 2:30 PM EDT Office Visit Obstetrics/Gynecolog y [address] [address] Marina Manley, CHANNEL MARKETING COORDINATOR.CNM [address] [place] [address] Annual 02/22/2025 1:15 PM EDT Routine Office Visit Obstetrics/Gynecolog y [address] [address] Marina Manley, CHANNEL MARKETING COORDINATOR.CNM [address] [place] [address] OB monthly 03/22/2025 10:45 AM EDT Routine Office Visit Obstetrics/Gynecolog y [address] [address] Marina Manley, CHANNEL MARKETING COORDINATOR.CNM [address] [place] [address] OB bi-weekly 04/05/2025 10:45 AM EDT Routine Office Visit Obstetrics/Gynecolog y [address] [address] Marina Manley, CHANNEL MARKETING COORDINATOR.CNM [address] [place] [address] OB bi-weekly 04/19/2025 10:30 AM EDT Routine Office Visit Obstetrics/Gynecolog y [address] [address] Marina Manley, CHANNEL MARKETING COORDINATOR.CNM [address] [place] [address] OB bi-weekly 05/03/2025 8:45 AM EST Routine Office Visit Obstetrics/Gynecolog y [address] [address] Marina Manley, CHANNEL MARKETING COORDINATOR.CNM [address] [place] [address] OB weekly 05/10/2025 8:45 AM EST Routine Office Visit Obstetrics/Gynecolog y [address] [address] Marina Manley, CHANNEL MARKETING COORDINATOR.CNM [address] [place] [address] OB weekly 05/17/2025 8:45 AM EST Routine Office Visit Obstetrics/Gynecolog y [address] [address] Marina Manley, CHANNEL MARKETING COORDINATOR.CNM [address] [place] [address] OB weekly 05/24/2025 8:45 AM EST Routine Office Visit Obstetrics/Gynecolog y [address] [address] Marina Manley, CHANNEL MARKETING COORDINATOR.CNM [address] [place] [address] OB weekly 05/31/2025 8:45 AM EST Routine Office Visit Obstetrics/Gynecolog y [address] [address] Marina Manley, CHANNEL MARKETING COORDINATOR.CNM [address] [place] [address] OB weekly 06/07/2025 8:45 AM EST Routine Office Visit Obstetrics/Gynecolog y [address] [address] Marina Manley, CHANNEL MARKETING COORDINATOR.OSIRISM [address] [place] [address] OB weekly documented as of this encounter Visit Diagnoses Not on filedocumented in this encounter Care Teams Big Data Engineer Relationship Specialty Start Date End Date Caren Travis, CHANNEL MARKETING COORDINATOR.OSIRIS [address] [place] [address] Breakfast Manager Veneer Grader 02/03/23 documented as of this encounter
--- OUTSIDE RECORDS SUMMARY | 2025-01-07 08:26 | XMS_ITS | Encounter Summary ---
Author Organization [facility] Address [address] [place] [address] Care Team Providers Care Evaluation Manager Name Role Phone Caren Travis APRN.CNM Unavailable [phone] Source Comments In the event this information is protected by the Federal Confidentiality of Alcohol and Drug AbusePatient Records regulations: The Federal rules restrict any use of the information to criminally investigate or prosecute any alcohol or drug abuse patient.[facility] Encounter Details Date Type Department Care Team (Late st Contact Info) Description 01/07/2023 Patient Msg [address] [address] Provider, Ccf Completed FMLA Social History Tobacco Use Types Packs/Day Years Used Date Smoking Tobacco: Former Cigarettes Q uit: 11/2019 Smokeless Tobacco: Never Alcohol Use Standard Drinks/Week Comments No 0 (1 standard drink = 0.6 oz pur e alcohol) [place] Depression Scale Answer Date Recorded [place] Depression Scale Total 2 01/30/2021 The thought of harming myself has occurred to me . Never 01/30/2021 Area Deprivation Index Answer Date Rafael rded National Score (1-100), lower number is lower ri sk 78 11/05/2022 State Score (1-10), lower number is lower risk 6 11/05/2022 Data from: https://www.neighborhoodatlas.[facility]/. Last address used for calculation [address] [...] EDT Routine Office Visit Maternal Medicine [address] [place] [address] Anatomy 01/20/2025 3:00 PM EDT Routine Office Visit Obstetrics/Gynecolog y [address] [place] [address] Marina Manley, BEEKEEPER FARMER.CNM [address] [place] [address] ob/ per Marina 02/10/2025 2:30 PM EDT Office Visit Obstetrics/Gynecolog y [address] [address] Marina Manley, BEEKEEPER FARMER.CNM [address] [place] [address] Annual 02/22/2025 1:15 PM EDT Routine Office Visit Obstetrics/Gynecolog y [address] [address] Marina Manley, BEEKEEPER FARMER.CN [address] [place] [address] OB monthly 03/22/2025 10:45 AM EDT Routine Office Visit Obstetrics/Gynecolog y [address] [address] Marina Manley, BEEKEEPER FARMER.CNM [address] [place] [address] OB bi-weekly 04/05/2025 10:45 AM EDT Routine Office Visit Obstetrics/Gynecolog y [address] [address] Marina Manley, BEEKEEPER FARMER.CNM [address] [place] [address] OB bi-weekly 04/19/2025 10:30 AM EDT Routine Office Visit Obstetrics/Gynecolog y [address] [address] Marina Manley, BEEKEEPER FARMER.CNM [address] [place] [address] OB bi-weekly 05/03/2025 8:45 AM EST Routine Office Visit Obstetrics/Gynecolog y [address] [address] Marina Manley, BEEKEEPER FARMER.CNM [address] [place] [address] OB weekly 05/10/2025 8:45 AM EST Routine Office Visit Obstetrics/Gynecolog y [address] [address] Marina Manley, BEEKEEPER FARMER.CNM [address] [place] [address] OB weekly 05/17/2025 8:45 AM EST Routine Office Visit Obstetrics/Gynecolog y [address] [address] Marina Manley, BEEKEEPER FARMER.CNM [address] [place] [address] OB weekly 05/24/2025 8:45 AM EST Routine Office Visit Obstetrics/Gynecolog y [address] [address] Marina Manley, BEEKEEPER FARMER.CNM [address] [place] [address] OB weekly 05/31/2025 8:45 AM EST Routine Office Visit Obstetrics/Gynecolog y [address] [address] Marina Manley, BEEKEEPER FARMER.CNM [address] [place] [address] OB weekly 06/07/2025 8:45 AM EST Routine Office Visit Obstetrics/Gynecolog y [address] [address] Marina Manley, BEEKEEPER FARMER.CNM [address] [place] [address] OB weekly documented as of this encounter Visit Diagnoses Not on filedocumented in this encounter Care Teams Evaluation Manager Relationship Specialty Start Date End Date Caren Travis APRN.TREVON [address] [place] [phone] Head Charrer Die Inspector 02/03/23 documented as of this encounter
--- OUTSIDE RECORDS SUMMARY | 2025-01-07 08:26 | XMS_ITS | Encounter Summary ---
Author Organization [facility] Address [address] [place] [address] Care Team Providers Care Career Information Specialist Name Role Phone Caren Travis APRN.CNM Unavailable [phone] Source Comments In the event this information is protected by the Federal Confidentiality of Alcohol and Drug AbusePatient Records regulations: The Federal rules restrict any use of the information to criminally investigate or prosecute any alcohol or drug abuse patient.[facility] Encounter Details Date Type Department Care Team (Late st Contact Info) Description 2023 Patient Msg Psychiatry [address] [facility] [address] [phone] Nettie Asif, Research Nurse After-Visit Summary. Social History Tobacco Use Types Packs/Day Years Used Date Smoking Tobacco: Former Cigarettes Q uit: 11/2019 Smokeless Tobacco: Never Alcohol Use Standard Drinks/Week Comments No 0 (1 standard drink = 0.6 oz pur e alcohol) PHQ-2 Answer Date Recorded PHQ-2 score 4 2023 [place] Depression Scale Answer Date Recorded [place] Depression Scale Total 21 07/10/2023 The thought of harming myself has occurred to me . Never 07/10/2023 Area Deprivation Index Answer Date Rafael rded National Score (1-100), lower number is lower ri sk 78 11/05/2022 State Score (1-10), lower number is lower risk 6 11/05/2022 Data from: https://www.neighborhoodatlas.medicine.[facility].edu/. Last address used for calculation [address] [...] Office Visit Maternal Medicine 850 [facility] RAS [address] [place] [address] Anatomy 01/20/2025 3:00 PM EDT Routine Office Visit Obstetrics/Gynecolog y [address] [address] Marina Manley, DATA ANALYTICS CHIEF SCIENTIST.CNM [address] [place] [address] ob/ per Marina 02/10/2025 2:30 PM EDT Office Visit Obstetrics/Gynecolog y [address] [address] Marina Manley, DATA ANALYTICS CHIEF SCIENTIST.CNM [address] [place] [address] Annual 02/22/2025 1:15 PM EDT Routine Office Visit Obstetrics/Gynecolog y [address] [address] Marina Manley, DATA ANALYTICS CHIEF SCIENTIST.CNM [address] [place] [address] OB monthly 03/22/2025 10:45 AM EDT Routine Office Visit Obstetrics/Gynecolog y [address] [address] Marina Manley, DATA ANALYTICS CHIEF SCIENTIST.CNM [address] [place] [address] OB bi-weekly 04/05/2025 10:45 AM EDT Routine Office Visit Obstetrics/Gynecolog y [address] [address] Marina Manley, DATA ANALYTICS CHIEF SCIENTIST.CNM [address] [place] [address] OB bi-weekly 04/19/2025 10:30 AM EDT Routine Office Visit Obstetrics/Gynecolog y [address] [address] Marina Manley, DATA ANALYTICS CHIEF SCIENTIST.CNM [address] [place] [address] OB bi-weekly 05/03/2025 8:45 AM EST Routine Office Visit Obstetrics/Gynecolog y [address] [address] Marina Manley, DATA ANALYTICS CHIEF SCIENTIST.CNM [address] [place] [address] OB weekly 05/10/2025 8:45 AM EST Routine Office Visit Obstetrics/Gynecolog y [address] [address] Marina Manley, DATA ANALYTICS CHIEF SCIENTIST.CNM [address] [place] [address] OB weekly 05/17/2025 8:45 AM EST Routine Office Visit Obstetrics/Gynecolog y [address] [address] Marina Manley, DATA ANALYTICS CHIEF SCIENTIST.CNM [address] [place] [address] OB weekly 05/24/2025 8:45 AM EST Routine Office Visit Obstetrics/Gynecolog y [address] [address] Marina Manley, DATA ANALYTICS CHIEF SCIENTIST.CNM [address] [place] [address] OB weekly 05/31/2025 8:45 AM EST Routine Office Visit Obstetrics/Gynecolog y [address] [address] Marina Manley, DATA ANALYTICS CHIEF SCIENTIST.CNM [address] [place] [address] OB weekly 06/07/2025 8:45 AM EST Routine Office Visit Obstetrics/Gynecolog y [address] [address] Marina Manley, DATA ANALYTICS CHIEF SCIENTIST.OSIRISM [address] [place] [address] OB weekly documented as of this encounter Visit Diagnoses Not on filedocumented in this encounter Care Teams Career Information Specialist Relationship Specialty Start Date End Date Caren Travis, DATA ANALYTICS CHIEF SCIENTIST.OSIRIS [address] [place] [address] Surveillance Agent Design Technician 02/03/23 documented as of this encounter
--- OUTSIDE RECORDS SUMMARY | 2025-01-07 08:27 | XMS_ITS | Encounter Summary ---
Author Organization [facility] Address [address] [place] [address] Care Team Providers Care Window Shade Cutter Name Role Phone Pcp, Liberty MAYFIELD Primary Care Provider Caren Wiggins APRN.[facility] Unavailable [phone] Source Comments In the event this information is protected by the Federal Confidentiality of Alcohol and Drug AbusePatient Records regulations: The Federal rules restrict any use of the information to criminally investigate or prosecute any alcohol or drug abuse patient.[facility] Encounter Details Date Type Department Care Team (Late st Contact Info) Description 01/30/2021 Patient Msg Obstetrics/Gynecology [address] [facility] [address] [place] [address] Provider, [facility] resources Social History Tobacco Use Types Packs/Day Years Used Date Smoking Tobacco: Former Cigarettes Q uit: 11/2019 Smokeless Tobacco: Never Alcohol Use Standard Drinks/Week Comments No 0 (1 standard drink = 0.6 oz pur e alcohol) [place] Depression Scale Answer Date Recorded [place] Depression Scale Total 2 01/30/2021 The thought of harming myself has occurred to me . Never 01/30/2021 Area Deprivation Index Answer Date Rafael rded National Score (1-100), lower number is lower ri sk Not on file 12/28/2020 State Score (1-10), lower number is lower risk N ot on file 12/28/2020 Data from: https://www.neighborhoodatlas.medicine.[facility]/. Last address used for calculation [...] [address] [place] [address] Anatomy 01/20/2025 3:00 PM EDT Routine Office Visit Obstetrics/Gynecolog y [address] [address] Marina Manley, RESEARCH SUBJECT.CNM 1450 [place] [address] ob/ per Marina 02/10/2025 2:30 PM EDT Office Visit Obstetrics/Gynecolog y [address] [address] Marina Manley, RESEARCH SUBJECT.CNM [address] [place] [address] Annual 02/22/2025 1:15 PM EDT Routine Office Visit Obstetrics/Gynecolog y [address] [address] Marina Manley, RESEARCH SUBJECT.CNM [address] [place] [address] OB monthly 03/22/2025 10:45 AM EDT Routine Office Visit Obstetrics/Gynecolog y [address] [address] Marina Manley, RESEARCH SUBJECT.CNM [address]50 [place] [address] OB bi-weekly 04/05/2025 10:45 AM EDT Routine Office Visit Obstetrics/Gynecolog y [address] [address] Marina Manley, RESEARCH SUBJECT.CNM [address]50 [place] [address] OB bi-weekly 04/19/2025 10:30 AM EDT Routine Office Visit Obstetrics/Gynecolog y [address] [address] Marina Manley, RESEARCH SUBJECT.CNM [address] [place] [address] OB bi-weekly 05/03/2025 8:45 AM EST Routine Office Visit Obstetrics/Gynecolog y [address] [address] Marina Manley, RESEARCH SUBJECT.CNM [address] [place] [address] OB weekly 05/10/2025 8:45 AM EST Routine Office Visit Obstetrics/Gynecolog y [address] [address] Marina Manley, RESEARCH SUBJECT.CNM [address] [place] [address] OB weekly 05/17/2025 8:45 AM EST Routine Office Visit Obstetrics/Gynecolog y [address] [address] Marina Manley, RESEARCH SUBJECT.CNM [address] [place] [address] OB weekly 05/24/2025 8:45 AM EST Routine Office Visit Obstetrics/Gynecolog y [address] [address] Marina Manley, RESEARCH SUBJECT.CN [address] [place] [address] OB weekly 05/31/2025 8:45 AM EST Routine Office Visit Obstetrics/Gynecolog y [address] [address] Marina Manley, RESEARCH SUBJECT.CNM [address] [place] [address] OB weekly 06/07/2025 8:45 AM EST Routine Office Visit Obstetrics/Gynecolog y [address] [place] [address] Marina Manley, RESEARCH SUBJECT.TREVON [address] [place] [address] OB weekly documented as of this encounter Visit Diagnoses Not on filedocumented in this encounter Care Teams Window Shade Cutter Relationship Specialty Start Date End Date Liberty Darling APRN PCP - General 10/18/20 05/29/21 Caren Travis, RESEARCH SUBJECT.CN [address] [place] [address] Deicer Element Winder Machine Pottery Decoration Designer 02/03/23 documented as of this encounter
--- OUTSIDE RECORDS SUMMARY | 2025-01-07 08:27 | XMS_ITS | Encounter Summary ---
Author Organization [facility] Address [address] [place] [address] Care Team Providers Care Anatomic Pathology Manager Name Role Phone Caren Travis APRN.CNM Unavailable [phone] Source Comments In the event this information is protected by the Federal Confidentiality of Alcohol and Drug AbusePatient Records regulations: The Federal rules restrict any use of the information to criminally investigate or prosecute any alcohol or drug abuse patient.[facility] Encounter Details Date Type Department Care Team (Late st Contact Info) Description 04/30/2024 Patient Msg Psychiatry [address] [place] [address] Provider, [facility] Appt Social History Tobacco Use Types Packs/Day Years Used Date Smoking Tobacco: Former Cigarettes Q uit: 11/2019 Smokeless Tobacco: Never Alcohol Use Standard Drinks/Week Comments No 0 (1 standard drink = 0.6 oz pur e alcohol) PHQ-2 Answer Date Recorded PHQ-2 score 1 04/30/2024 [place] Depression Scale Answer Date Recorded [place] Depression Scale Total 21 07/10/2023 The thought of harming myself has occurred to me . Never 07/10/2023 Area Deprivation Index Answer Date Rafael rded National Score (1-100), lower number is lower ri 78 11/05/2022 State Score (1-10), lower number is lower risk 6 11/05/2022 Data from: https://www.neighborhoodatlas.medicine.[facility]/. Last address used for calculation [...] Author No 02/05/2023 7:49 AM EDT Darya Mkceon APRN.CNM documented in this encounter Plan of Treatment Upcoming Encounters Date Type Department Care Team (Late st Contact Info) Description 01/10/2025 6:00 PM EDT Routine Office Visit Maternal Medicine [address] [place] [address] Anatomy 01/20/2025 3:00 PM EDT Routine Office Visit Obstetrics/Gynecolog y [address] [address] Marina Manley, CADD INSTRUCTOR.CNM 1450 [place] [address] ob/ per Marina 02/10/2025 2:30 PM EDT Office Visit Obstetrics/Gynecolog y [address] [address] Marina Manley, CADD INSTRUCTOR.CNM [address] [place] [address] Annual 02/22/2025 1:15 PM EDT Routine Office Visit Obstetrics/Gynecolog y [address] [address] Marina Manley, CADD INSTRUCTOR.CNM [address] [place] [address] OB monthly 03/22/2025 10:45 AM EDT Routine Office Visit Obstetrics/Gynecolog y [address] [address] Marina Manley, CADD INSTRUCTOR.CNM [address] [place] [address] OB bi-weekly 04/05/2025 10:45 AM EDT Routine Office Visit Obstetrics/Gynecolog y [address] [address] Marina Manley, CADD INSTRUCTOR.CNM [address] [place] [address] OB bi-weekly 04/19/2025 10:30 AM EDT Routine Office Visit Obstetrics/Gynecolog y [address] [address] Marina Manley, CADD INSTRUCTOR.CNM [address] [place] [address] OB bi-weekly 05/03/2025 8:45 AM EST Routine Office Visit Obstetrics/Gynecolog y [address] [address] Marina Manley, CADD INSTRUCTOR.CNM [address] [place] [address] OB weekly 05/10/2025 8:45 AM EST Routine Office Visit Obstetrics/Gynecolog y [address] [address] Marina Manley, CADD INSTRUCTOR.CNM [address] [place] [address] OB weekly 05/17/2025 8:45 AM EST Routine Office Visit Obstetrics/Gynecolog y [address] [address] Marina Manley, CADD INSTRUCTOR.CNM [address] [place] [address] OB weekly 05/24/2025 8:45 AM EST Routine Office Visit Obstetrics/Gynecolog y [address] [address] Marina Manley, CADD INSTRUCTOR.CNM [address] [place] [address] OB weekly 05/31/2025 8:45 AM EST Routine Office Visit Obstetrics/Gynecolog y [address] [address] Marina Manley, CADD INSTRUCTOR.CNM [address] [place] [address] OB weekly 06/07/2025 8:45 AM EST Routine Office Visit Obstetrics/Gynecolog y [address] [address] Marina Manley, CADD INSTRUCTOR.CNM [address] [place] [address] OB weekly documented as of this encounter Visit Diagnoses Not on filedocumented in this encounter Care Teams Anatomic Pathology Manager Relationship Specialty Start Date End Date Caren Travis APRN.CNM [address] [place] [address] Peanut Cleaner Reactor Service Operator 02/03/23 documented as of this encounter
--- OUTSIDE RECORDS SUMMARY | 2025-01-07 08:27 | XMS_ITS | Encounter Summary ---
Author Organization [facility] Address [id number] [address] [place] [address] Care Team Providers Care Experimental Box Tester Name Role Phone Unavailable Primary Care Provider Unavailabl e Reason for Referral * Diagnostic Imaging (Routine) - Closed Specialty Diagnoses / Procedures Referred By Contac t Referred To Contact Radiology Diagnoses Pain Procedures MR brain with and without contrast [facility] [employer] [facility] [address] [place] [phone] Phone: tel: fax: Referral ID Status Reason Start Date Expiration Date Visits Re quested Visits Authorized [id number] Closed 05/13/2022 05/13/2023 1 1 Encounter Details Date Type Department Care Team (Late st Contact Info) Description 05/13/2022 Orders Only [facility] [address] [place] [phone] Transcribe, Orders Support User Pain (Primary [...]
--- OUTSIDE RECORDS SUMMARY | 2025-01-07 08:27 | XMS_ITS | Encounter Summary ---
Author Organization [facility] Address [address] [place] [address] Care Team Providers Care Lead Installer Name Role Phone Caren Travis CNM Unavailable [phone] Source Comments In the event this information is protected by the Federal Confidentiality of Alcohol and Drug AbusePatient Records regulations: The Federal rules restrict any use of the information to criminally investigate or prosecute any alcohol or drug abuse patient.[facility] Encounter Details Date Type Department Care Team (Late st Contact Info) Description 12/30/2024 Get Medical Advice Obstetrics/Gynecology [address] [place] [phone] Marina Manley APRN.M [address] [place] [address] Anti-emetic Social History Tobacco Use Types Packs/Day Years Used Date Smoking Tobacco: Former Cigarettes Q uit: 11/2019 Passive Smoke Exposure: Never Smokeless Tobacco: Never Alcohol Use Standard Drinks/Week Comments No 0 (1 standard drink = 0.6 oz pur e alcohol) PHQ-2 Answer Date Recorded PHQ-2 score 1 10/31/2024 [place] Depression Scale Answer Date Recorded [place] Depression Scale Total 21 07/10/2023 The thought of harming myself has occurred to me . Never 07/10/2023 Area Deprivation Index Answer Date Rafael rded National Score (1-100), lower number is lower ri sk 65 10/13/2024 State Score (1-10), lower number is lower risk 4 10/13/2024 Data from: https://www.neighborhoodatlas.[facility]/. Last address used for calculation [address] [...] EDT Routine Office Visit Maternal Medicine [address] [address] Anatomy 01/20/2025 3:00 PM EDT Routine Office Visit Obstetrics/Gynecolog y [address] [address] Marina Manley, SOA INTEGRATION DEVELOPER.CNM [address] [place] [address] ob/ per Marina 02/10/2025 2:30 PM EDT Office Visit Obstetrics/Gynecolog y [address] [address] Marina Manley, SOA INTEGRATION DEVELOPER.CNM [address] [place] [address] Annual 02/22/2025 1:15 PM EDT Routine Office Visit Obstetrics/Gynecolog y [address] [address] Marina Manley, SOA INTEGRATION DEVELOPER.CNM [address] [place] [address] OB monthly 03/22/2025 10:45 AM EDT Routine Office Visit Obstetrics/Gynecolog y [address] [address] Marina Manley, SOA INTEGRATION DEVELOPER.CNM [address] [place] [address] OB bi-weekly 04/05/2025 10:45 AM EDT Routine Office Visit Obstetrics/Gynecolog y [address] [address] Marina Manley, SOA INTEGRATION DEVELOPER.CNM [address] [place] [address] OB bi-weekly 04/19/2025 10:30 AM EDT Routine Office Visit Obstetrics/Gynecolog y [address] [address] Marina Manley, SOA INTEGRATION DEVELOPER.CNM [address] [place] [address] OB bi-weekly 05/03/2025 8:45 AM EST Routine Office Visit Obstetrics/Gynecolog y [address] [address] Marina Manley, SOA INTEGRATION DEVELOPER.CNM [address] [place] [address] OB weekly 05/10/2025 8:45 AM EST Routine Office Visit Obstetrics/Gynecolog y [address] [address] Marina Manley, SOA INTEGRATION DEVELOPER.CNM [address] [place] [address] OB weekly 05/17/2025 8:45 AM EST Routine Office Visit Obstetrics/Gynecolog y [address] [address] Marina Manley, SOA INTEGRATION DEVELOPER.CNM [address] [place] [address] OB weekly 05/24/2025 8:45 AM EST Routine Office Visit Obstetrics/Gynecolog y [address] [address] Marina Manley, SOA INTEGRATION DEVELOPER.CNM [address] [place] [address] OB weekly 05/31/2025 8:45 AM EST Routine Office Visit Obstetrics/Gynecolog y [address] [address] Marina Manley, SOA INTEGRATION DEVELOPER.CNM [address] [place] [address] OB weekly 06/07/2025 8:45 AM EST Routine Office Visit Obstetrics/Gynecolog y [address] [place] [address] Marina Manley, SOA INTEGRATION DEVELOPER.TREVON [address] [place] [address] OB weekly documented as of this encounter Visit Diagnoses Not on filedocumented in this encounter Care Teams Lead Installer Relationship Specialty Start Date End Date Caren Travis, SOA INTEGRATION DEVELOPER.TREVON [address] [place] [address] Shagger Claim Processing Specialist 02/03/23 documented as of this encounter
--- OUTSIDE RECORDS SUMMARY | 2025-01-07 08:27 | XMS_ITS | Encounter Summary ---
Author Organization [facility] Address [address] [place] [address] Care Team Providers Care Supervisor Fabrication And Assembly Name Role Phone Caren Travis CNM Unavailable [phone] Source Comments In the event this information is protected by the Federal Confidentiality of Alcohol and Drug AbusePatient Records regulations: The Federal rules restrict any use of the information to criminally investigate or prosecute any alcohol or drug abuse patient.[facility] Encounter Details Date Type Department Care Team (Late st Contact Info) Description 12/17/2024 [place] [address] [place] [address] Marina Manley APRN.CNM [address] [place] [address] Social History Tobacco Use Types Packs/Day Years Used Date Smoking Tobacco: Former Cigarettes Q uit: 11/2019 Passive Smoke Exposure: Never Smokeless Tobacco: Never Alcohol Use Standard Drinks/Week Comments No 0 (1 standard drink = 0.6 oz pur e alcohol) PHQ-2 Answer Date Recorded PHQ-2 score 1 10/31/2024 [place] Depression Scale Answer Date Recorded [place] Depression Scale Total 21 07/10/2023 The thought of harming myself has occurred to me . Never 07/10/2023 Area Deprivation Index Answer Date Rafael rded National Score (1-100), lower number is lower ri sk 65 10/13/2024 State Score (1-10), lower number is lower risk 4 10/13/2024 Data from: https://www.neighborhoodatlas.medicine.[facility]/. Last address used for calculation [address] [...] EDT Routine Office Visit Maternal Medicine [address] [address] Anatomy 01/20/2025 3:00 PM EDT Routine Office Visit Obstetrics/Gynecolog y [address] [address] Marina Manley, ENTERTAINER & COMIC.CNM [address] [place] [address] ob/ per Marina 02/10/2025 2:30 PM EDT Office Visit Obstetrics/Gynecolog y [address] [address] Marina Manley, ENTERTAINER & COMIC.CNM [address] [place] [address] Annual 02/22/2025 1:15 PM EDT Routine Office Visit Obstetrics/Gynecolog y [address] [address] Marina Manley, ENTERTAINER & COMIC.CNM [address] [place] [address] OB monthly 03/22/2025 10:45 AM EDT Routine Office Visit Obstetrics/Gynecolog y [address] [address] Marina Manley, ENTERTAINER & COMIC.CNM [address] [place] [address] OB bi-weekly 04/05/2025 10:45 AM EDT Routine Office Visit Obstetrics/Gynecolog y [address] [address] Marina Manley, ENTERTAINER & COMIC.CNM [address] [place] [address] OB bi-weekly 04/19/2025 10:30 AM EDT Routine Office Visit Obstetrics/Gynecolog y [address] [address] Marina Manley, ENTERTAINER & COMIC.CNM [address] [place] [address] OB bi-weekly 05/03/2025 8:45 AM EST Routine Office Visit Obstetrics/Gynecolog y [address] [address] Marina Manley, ENTERTAINER & COMIC.CNM [address] [place] [address] OB weekly 05/10/2025 8:45 AM EST Routine Office Visit Obstetrics/Gynecolog y [address] [address] Marina Manley, ENTERTAINER & COMIC.CNM [address] [place] [address] OB weekly 05/17/2025 8:45 AM EST Routine Office Visit Obstetrics/Gynecolog y [address] [address] Marina Manley, ENTERTAINER & COMIC.CNM [address] [place] [address] OB weekly 05/24/2025 8:45 AM EST Routine Office Visit Obstetrics/Gynecolog y [address] [address] Marina Manley, ENTERTAINER & COMIC.CNM [address] [place] [address] OB weekly 05/31/2025 8:45 AM EST Routine Office Visit Obstetrics/Gynecolog y [address] [address] Marina Manley, ENTERTAINER & COMIC.CNM [address] [place] [address] OB weekly 06/07/2025 8:45 AM EST Routine Office Visit Obstetrics/Gynecolog y [address] [place] [address] Marina Manley, ENTERTAINER & COMIC.TREVON [address] [place] [address] OB weekly documented as of this encounter Visit Diagnoses Not on filedocumented in this encounter Care Teams Supervisor Fabrication And Assembly Relationship Specialty Start Date End Date Caren Travis, ENTERTAINER & COMIC.TREVON [address] [place] [address] Health Club Attendant Linen Supervisor 02/03/23 documented as of this encounter
--- OUTSIDE RECORDS SUMMARY | 2025-01-07 08:27 | XMS_ITS | Encounter Summary ---
Author [facility] [id number] [address] [place] [address] Care Team Providers Care Handcrew Foreman Name Role Phone Unavailable Primary Care Provider Unavailabl e Encounter Details Date Type Department Care Team (Late st Contact Info) Description 08/28/2022 Orders Only [facility] - ENT [address] [place] [address], [address] [place] [phone] Christian Bryan MD [address] [place] [address] [address] [place] [address] Social History Tobacco Use Types Packs/Day Years [...]
--- OUTSIDE RECORDS SUMMARY | 2025-01-07 08:27 | XMS_ITS | Encounter Summary ---
Author Organization [facility] Address [address] [place] [address] Care Team Providers Care Welder Fitter Gas Name Role Phone Caren Travis APRN.CNM Unavailable [phone] Source Comments In the event this information is protected by the Federal Confidentiality of Alcohol and Drug AbusePatient Records regulations: The Federal rules restrict any use of the information to criminally investigate or prosecute any alcohol or drug abuse patient.[facility] Encounter Details Date Type Department Care Team (Late st Contact Info) Description 05/14/2024 Patient Msg Psychiatry [address] [place] [address] Provider, Ccf Appointment Request Social History Tobacco Use Types Packs/Day Years Used Date Smoking Tobacco: Former Cigarettes Q uit: 11/2019 Smokeless Tobacco: Never Alcohol Use Standard Drinks/Week Comments No 0 (1 standard drink = 0.6 oz pur e alcohol) PHQ-2 Answer Date Recorded PHQ-2 score 1 04/30/2024 [place] Depression Scale Answer Date Recorded [place] Depression Scale Total 21 07/10/2023 The thought of harming myself has occurred to me . Never 07/10/2023 Area Deprivation Index Answer Date Rafael rded National Score (1-100), lower number is lower ri 78 11/05/2022 State Score (1-10), lower number is lower risk 6 11/05/2022 Data from: https://www.neighborhoodatlas.[facility].[place] healthcare.[facility]/. Last address used for calculation [address] [...] EDT Routine Office Visit Maternal Medicine [address] [facility] [address] [place] [address] Anatomy 01/20/2025 3:00 PM EDT Routine Office Visit Obstetrics/Gynecolog y [address] [address] Marina Manley, TANK TRUCK MECHANIC.CNM [address] [place] [address] ob/ per Marina 02/10/2025 2:30 PM EDT Office Visit Obstetrics/Gynecolog y [address] [address] Marina Manley, TANK TRUCK MECHANIC.CNM [address] [place] [address] Annual 02/22/2025 1:15 PM EDT Routine Office Visit Obstetrics/Gynecolog y [address] [address] Marina Manley, TANK TRUCK MECHANIC.CNM [address] [place] [address] OB monthly 03/22/2025 10:45 AM EDT Routine Office Visit Obstetrics/Gynecolog y [address] [address] Marina Manley, TANK TRUCK MECHANIC.CNM [address] [place] [address] OB bi-weekly 04/05/2025 10:45 AM EDT Routine Office Visit Obstetrics/Gynecolog y [address] [address] Marina Manley, TANK TRUCK MECHANIC.CNM [address] [place] [address] OB bi-weekly 04/19/2025 10:30 AM EDT Routine Office Visit Obstetrics/Gynecolog y [address] [address] Marina Manley, TANK TRUCK MECHANIC.CNM [address] [place] [address] OB bi-weekly 05/03/2025 8:45 AM EST Routine Office Visit Obstetrics/Gynecolog y [address] [address] Marina Manley, TANK TRUCK MECHANIC.CNM [address] [place] [address] OB weekly 05/10/2025 8:45 AM EST Routine Office Visit Obstetrics/Gynecolog y [address] [address] Marina Manley, TANK TRUCK MECHANIC.CNM [address] [place] [address] OB weekly 05/17/2025 8:45 AM EST Routine Office Visit Obstetrics/Gynecolog y [address] [address] Marina Manley, TANK TRUCK MECHANIC.CNM [address] [place] [address] OB weekly 05/24/2025 8:45 AM EST Routine Office Visit Obstetrics/Gynecolog y [address] [address] Marina Manley, TANK TRUCK MECHANIC.CNM [address] [place] [address] OB weekly 05/31/2025 8:45 AM EST Routine Office Visit Obstetrics/Gynecolog y [address] [address] Marina Manley, TANK TRUCK MECHANIC.CNM [address] [place] [address] OB weekly 06/07/2025 8:45 AM EST Routine Office Visit Obstetrics/Gynecolog y [address] [address] Marina Manley, TANK TRUCK MECHANIC.CNM [address] [place] [address] OB weekly documented as of this encounter Visit Diagnoses Not on filedocumented in this encounter Care Teams Welder Fitter Gas Relationship Specialty Start Date End Date Caren Travis APRN.CNM [address] [place] [address] Foreign Car Mechanic Liquor Merchant 02/03/23 documented as of this encounter
--- OUTSIDE RECORDS SUMMARY | 2025-01-07 08:27 | XMS_ITS | Encounter Summary ---
Author Organization [facility] Address [address] [place] [address] Care Team Providers Care Carbon Setter Name Role Phone Caren Travis APRN.CNM Unavailable [phone] Source Comments In the event this information is protected by the Federal Confidentiality of Alcohol and Drug AbusePatient Records regulations: The Federal rules restrict any use of the information to criminally investigate or prosecute any alcohol or drug abuse patient.[facility] Encounter Details Date Type Department Care Team (Late st Contact Info) Description 06/24/2024 Patient Msg Psychiatry [address] [place] [address] Provider, Ccf neuro psych testing Social History Tobacco Use Types Packs/Day Years Used Date Smoking Tobacco: Former Cigarettes Q uit: 11/2019 Smokeless Tobacco: Never Alcohol Use Standard Drinks/Week Comments No 0 (1 standard drink = 0.6 oz pur e alcohol) PHQ-2 Answer Date Recorded PHQ-2 score 2 06/23/2024 [place] Depression Scale Answer Date Recorded [place] Depression Scale Total 21 07/10/2023 The thought of harming myself has occurred to me . Never 07/10/2023 Area Deprivation Index Answer Date Rafael rded National Score (1-100), lower number is lower ri 78 11/05/2022 State Score (1-10), lower number is lower risk 6 11/05/2022 Data from: https://www.neighborhoodatlas.medicine.[facility]/. Last address used for [...] Routine Office Visit Maternal Medicine [address] [facility] [address] [place] [address] Anatomy 01/20/2025 3:00 PM EDT Routine Office Visit Obstetrics/Gynecolog y [address] [address] Marina Manley, MEND WORKER.CNM 1450 [place] [address] ob/ per Marina 02/10/2025 2:30 PM EDT Office Visit Obstetrics/Gynecolog y [address] [address] Marina Manley, MEND WORKER.CNM [address] [place] [address] Annual 02/22/2025 1:15 PM EDT Routine Office Visit Obstetrics/Gynecolog y [address] [address] Marina Manley, MEND WORKER.CNM [address] [place] [address] OB monthly 03/22/2025 10:45 AM EDT Routine Office Visit Obstetrics/Gynecolog y [address] [address] Marina Manley, MEND WORKER.CNM [address]50 [place] [address] OB bi-weekly 04/05/2025 10:45 AM EDT Routine Office Visit Obstetrics/Gynecolog y [address] [address] Marina Manley, MEND WORKER.CNM [address]50 [place] [address] OB bi-weekly 04/19/2025 10:30 AM EDT Routine Office Visit Obstetrics/Gynecolog y [address] [address] Marina Manley, MEND WORKER.CNM [address] [place] [address] OB bi-weekly 05/03/2025 8:45 AM EST Routine Office Visit Obstetrics/Gynecolog y [address] [address] Marina Manley, MEND WORKER.CNM [address] [place] [address] OB weekly 05/10/2025 8:45 AM EST Routine Office Visit Obstetrics/Gynecolog y [address] [address] Marina Manley, MEND WORKER.CNM [address] [place] [address] OB weekly 05/17/2025 8:45 AM EST Routine Office Visit Obstetrics/Gynecolog y [address] [address] Marina Manley, MEND WORKER.CNM [address] [place] [address] OB weekly 05/24/2025 8:45 AM EST Routine Office Visit Obstetrics/Gynecolog y [address] [address] Marina Manley, MEND WORKER.CNM [address] [place] [address] OB weekly 05/31/2025 8:45 AM EST Routine Office Visit Obstetrics/Gynecolog y [address] [address] Marina Manley, MEND WORKER.CNM [address] [place] [address] OB weekly 06/07/2025 8:45 AM EST Routine Office Visit Obstetrics/Gynecolog y [address] [address] Marina Manley, MEND WORKER.CNM [address] [place] [address] OB weekly documented as of this encounter Visit Diagnoses Not on filedocumented in this encounter Care Teams Carbon Setter Relationship Specialty Start Date End Date Caren Travis APRN.CNM [address] [place] [address] Commercial Specialist Putty And Patch Worker 02/03/23 documented as of this encounter
--- OUTSIDE RECORDS SUMMARY | 2025-01-07 08:27 | XMS_ITS | Encounter Summary ---
Author Organization [facility] Address [address] [place] [address] Care Team Providers Care Track Laminating Machine Tender Name Role Phone Caren Travis APRN.CNM Unavailable [phone] Source Comments In the event this information is protected by the Federal Confidentiality of Alcohol and Drug AbusePatient Records regulations: The Federal rules restrict any use of the information to criminally investigate or prosecute any alcohol or drug abuse patient.[facility] Encounter Details Date Type Department Care Team (Late st Contact Info) Description 06/11/2022 [place] [address] Provider, Ccf Questionnaire Submission Social History Tobacco Use Types Packs/Day Years Used Date Smoking Tobacco: Former Cigarettes Q uit: 11/2019 Smokeless Tobacco: Never Alcohol Use Standard Drinks/Week Comments No 0 (1 standard drink = 0.6 oz pur e alcohol) [place] Depression Scale Answer Date Recorded [place] Depression Scale Total 2 01/30/2021 The thought of harming myself has occurred to me . Never 01/30/2021 Area Deprivation Index Answer Date Rafael rded National Score (1-100), lower number is lower ri sk Not on file 12/28/2020 State Score (1-10), lower number is lower risk N ot on file 12/28/2020 Data from: https://www.[facility] hospitalatlas.[facility]/. Last address used for calculation [...] Assessment Author No 01/10/2021 10:30 AM EDT Chrisetn Smith RN documented as of this encounter [...] EDT Routine Office Visit Maternal Medicine [address] [place] [address] Anatomy 01/20/2025 3:00 PM EDT Routine Office Visit Obstetrics/Gynecolog y [address] [place] [address] Marina Manley, SEISMIC PROSPECTING OBSERVER.CNM [address] [place] [address] ob/ per Marina 02/10/2025 2:30 PM EDT Office Visit Obstetrics/Gynecolog y [address] [place] [address] Marina Manley, SEISMIC PROSPECTING OBSERVER.CNM [address] [place] [address] Annual 02/22/2025 1:15 PM EDT Routine Office Visit Obstetrics/Gynecolog y [address] [place] [address] Marina Manley, SEISMIC PROSPECTING OBSERVER.CNM [address] [place] [address] OB monthly 03/22/2025 10:45 AM EDT Routine Office Visit Obstetrics/Gynecolog y [address] [address] Marina Manley, SEISMIC PROSPECTING OBSERVER.CNM [address]50 [place] [address] OB bi-weekly 04/05/2025 10:45 AM EDT Routine Office Visit Obstetrics/Gynecolog y [address] [address] Marina Manley, SEISMIC PROSPECTING OBSERVER.CNM [address] [place] [address] OB bi-weekly 04/19/2025 10:30 AM EDT Routine Office Visit Obstetrics/Gynecolog y [address] [address] Marina Manley, SEISMIC PROSPECTING OBSERVER.CNM [address] [place] [address] OB bi-weekly 05/03/2025 8:45 AM EST Routine Office Visit Obstetrics/Gynecolog y [address] [place] [address] Marina Manley, SEISMIC PROSPECTING OBSERVER.CNM [address] [place] [address] OB weekly 05/10/2025 8:45 AM EST Routine Office Visit Obstetrics/Gynecolog y [address] [address] Marina Manley, SEISMIC PROSPECTING OBSERVER.CNM [address] [place] [address] OB weekly 05/17/2025 8:45 AM EST Routine Office Visit Obstetrics/Gynecolog y [address] [address] Marina Manley, SEISMIC PROSPECTING OBSERVER.CNM [address] [place] [address] OB weekly 05/24/2025 8:45 AM EST Routine Office Visit Obstetrics/Gynecolog y [address] [address] Marina Manley, SEISMIC PROSPECTING OBSERVER.CNM [address] [place] [address] OB weekly 05/31/2025 8:45 AM EST Routine Office Visit Obstetrics/Gynecolog y [address] [address] Marina Manley, SEISMIC PROSPECTING OBSERVER.CNM [address] [place] [address] OB weekly 06/07/2025 8:45 AM EST Routine Office Visit Obstetrics/Gynecolog y [address] [address] Marina Manley, SEISMIC PROSPECTING OBSERVER.CNM [address] [place] [address] OB weekly documented as of this encounter Visit Diagnoses Not on filedocumented in this encounter Care Teams Track Laminating Machine Tender Relationship Specialty Start Date End Date Caren Travis APRN.OSIRIS [address] [place] [id number] Maintenance Worker Swimming Pool Coordinator Integrated Marketing 02/03/23 documented as of this encounter
--- OUTSIDE RECORDS SUMMARY | 2025-01-07 08:27 | XMS_ITS | Clinical Summary ---
Author Organization [employer] Address [id number] [address] [place] [address] Care Team Providers Care Associate Account Director Name Role Phone Unavailable Primary Care Provider [...] every 6 (six) hours as needed. Active vit,[id number] -folic 29 mg iron- 1 mg tablet [...] exists Medical Devices Not on file [facility]
--- OUTSIDE RECORDS SUMMARY | 2025-01-07 08:27 | XMS_ITS | Encounter Summary ---
Author Organization [facility] Address [address] [place] [address] Care Team Providers Care Data Management Manager Name Role Phone Caren Travis APRN.CNM Unavailable [phone] Source Comments In the event this information is protected by the Federal Confidentiality of Alcohol and Drug AbusePatient Records regulations: The Federal rules restrict any use of the information to criminally investigate or prosecute any alcohol or drug abuse patient.[facility] Encounter Details Date Type Department Care Team (Late st Contact Info) Description 01/10/2023 Patient Msg Obstetrics/Gynecolog y [address] [place] [address] Tamy Rand MD [address] [place] [address] Questionnaire Submission Social History Tobacco Use Types [...] is lower risk 6 11/05/2022 Data from: https://www.neighborhoodatlas.medicine.[facility]/. Last address used for calculation [address] [...] EDT Routine Office Visit Maternal Medicine 850 [place] [address] Anatomy 01/20/2025 3:00 PM EDT Routine Office Visit Obstetrics/Gynecolog y [address] [address] Marina Manley, COMMUNICATIONS COORDINATOR.CNM [address] [place] [address] ob/ per Marina 02/10/2025 2:30 PM EDT Office Visit Obstetrics/Gynecolog y [address] [address] Marina Manley, COMMUNICATIONS COORDINATOR.CNM [address] [place] [address] Annual 02/22/2025 1:15 PM EDT Routine Office Visit Obstetrics/Gynecolog y [address] [address] Marina Manley, COMMUNICATIONS COORDINATOR.CNM [address] [place] [address] OB monthly 03/22/2025 10:45 AM EDT Routine Office Visit Obstetrics/Gynecolog y [address] [address] Marina Manley, COMMUNICATIONS COORDINATOR.CNM [address] [place] [address] OB bi-weekly 04/05/2025 10:45 AM EDT Routine Office Visit Obstetrics/Gynecolog y [address] [address] Marina Manley, COMMUNICATIONS COORDINATOR.CNM [address] [place] [address] OB bi-weekly 04/19/2025 10:30 AM EDT Routine Office Visit Obstetrics/Gynecolog y [address] [address] Marina Manley, COMMUNICATIONS COORDINATOR.CNM [address] [place] [address] OB bi-weekly 05/03/2025 8:45 AM EST Routine Office Visit Obstetrics/Gynecolog y [address] [address] Marina Manley, COMMUNICATIONS COORDINATOR.CNM [address] [place] [address] OB weekly 05/10/2025 8:45 AM EST Routine Office Visit Obstetrics/Gynecolog y [address] [address] Marina Manley, COMMUNICATIONS COORDINATOR.CNM [address] [place] [address] OB weekly 05/17/2025 8:45 AM EST Routine Office Visit Obstetrics/Gynecolog y [address] [address] Marina Manley, COMMUNICATIONS COORDINATOR.CNM [address] [place] [address] OB weekly 05/24/2025 8:45 AM EST Routine Office Visit Obstetrics/Gynecolog y [address] [address] Marina Manley, COMMUNICATIONS COORDINATOR.CNM [address] [place] [address] OB weekly 05/31/2025 8:45 AM EST Routine Office Visit Obstetrics/Gynecolog y [address] [address] Marina Manley, COMMUNICATIONS COORDINATOR.CNM [address] [place] [address] OB weekly 06/07/2025 8:45 AM EST Routine Office Visit Obstetrics/Gynecolog y [address] [address] Marina Manley, COMMUNICATIONS COORDINATOR.CNM [address] [place] [address] OB weekly documented as of this encounter Visit Diagnoses Not on filedocumented in this encounter Care Teams Data Management Manager Relationship Specialty Start Date End Date Caren Travis APRN.TREVON [address] [place] [address] Bench Worker Binding Rail Car Repairer 02/03/23 documented as of this encounter
--- OUTSIDE RECORDS SUMMARY | 2025-01-07 08:27 | XMS_ITS | Encounter Summary ---
Author Organization [facility] Address [address] [place] [address] Care Team Providers Care Spindle Plumber Name Role Phone Caren Travis APRN.CNM Unavailable [phone] Source Comments In the event this information is protected by the Federal Confidentiality of Alcohol and Drug AbusePatient Records regulations: The Federal rules restrict any use of the information to criminally investigate or prosecute any alcohol or drug abuse patient.[facility] Encounter Details Date Type Department Care Team (Late st Contact Info) Description 10/08/2024 Patient Msg Gynecology [address] [place] [id number] Torito Zavala, Research Coordinator [facility] Researchers seek your help with a study Social History Tobacco Use Types Packs/Day Years Used Date Smoking Tobacco: Former Cigarettes Q uit: 11/2019 Smokeless Tobacco: Never Alcohol Use Standard Drinks/Week Comments No 0 (1 standard drink = 0.6 oz pur e alcohol) PHQ-2 Answer Date Recorded PHQ-2 score 1 08/03/2024 [place] Depression Scale Answer Date Recorded [place] Depression Scale Total 21 07/10/2023 The thought of harming myself has occurred to me . Never 07/10/2023 Area Deprivation Index Answer Date Rafael rded National Score (1-100), lower number is lower ri sk 78 11/05/2022 State Score (1-10), lower number is lower risk 6 11/05/2022 Data from: https://www.neighborhoodatlas.medicine.[facility].edu/. Last address used for calculation [address] [...] Author No 02/05/2023 7:49 AM EDT Darya Mcekon APRN.CNM * Do you have serious difficulty [...] Maternal Medicine [address] [place] [address] Anatomy 01/20/2025 3:00 PM EDT Routine Office Visit Obstetrics/Gynecolog y [address] [address] Marina Manley, PIECER UP.CNM [address] [place] [address] ob/ per Marina 02/10/2025 2:30 PM EDT Office Visit Obstetrics/Gynecolog y [address] [address] Marina Manley, PIECER UP.CNM [address] [place] [address] Annual 02/22/2025 1:15 PM EDT Routine Office Visit Obstetrics/Gynecolog y [address] [address] Marina Manley, PIECER UP.CNM [address] [place] [address] OB monthly 03/22/2025 10:45 AM EDT Routine Office Visit Obstetrics/Gynecolog y [address] [address] Marina Manley, PIECER UP.CNM [address] [place] [address] OB bi-weekly 04/05/2025 10:45 AM EDT Routine Office Visit Obstetrics/Gynecolog y [address] [address] Marina Manley, PIECER UP.CNM [address] [place] [address] OB bi-weekly 04/19/2025 10:30 AM EDT Routine Office Visit Obstetrics/Gynecolog y [address] [address] Marina Manley, PIECER UP.CNM [address] [place] [address] OB bi-weekly 05/03/2025 8:45 AM EST Routine Office Visit Obstetrics/Gynecolog y [address] [address] Marina Manley, PIECER UP.CNM [address] [place] [address] OB weekly 05/10/2025 8:45 AM EST Routine Office Visit Obstetrics/Gynecolog y [address] [address] Marina Manley, PIECER UP.CN [address] [place] [address] OB weekly 05/17/2025 8:45 AM EST Routine Office Visit Obstetrics/Gynecolog y [address] [address] Marina Manley, PIECER UP.CNM [address] [place] [address] OB weekly 05/24/2025 8:45 AM EST Routine Office Visit Obstetrics/Gynecolog y [address] [address] Marina Manley, PIECER UP.CN [address] [place] [address] OB weekly 05/31/2025 8:45 AM EST Routine Office Visit Obstetrics/Gynecolog y [address] [address] Marina Manley, PIECER UP.CNM [address] [place] [address] OB weekly 06/07/2025 8:45 AM EST Routine Office Visit Obstetrics/Gynecolog y [address] [address] Marina Manley, PIECER UP.OSIRISM [address] [place] [address] OB weekly documented as of this encounter Visit Diagnoses Not on filedocumented in this encounter Care Teams Spindle Plumber Relationship Specialty Start Date End Date Caren Travis, PIECER UP.TREVON [address] [place] [address] Melter Supervisor Oxygen Furnace Churner 02/03/23 documented as of this encounter
--- OUTSIDE RECORDS SUMMARY | 2025-01-07 08:27 | XMS_ITS | Clinical Summary ---
Author Organization [facility] Address [facility] [place] [address] Care Team Providers Care Citizen Participation Specialist Name Role Phone Caren Travis APRN.CNM Unavailable [phone] Allergies No known active allergies Medications budesonide-form [...] Date Diagnosed Date [facility] Overview (10/13/2024): Care Checklist Vaccines: [] [...] (28-30 weeks): [] Consent [] Contraception [] Electrodynamicist [] TeamBirth handout Third trimester (36-40 weeks): [...] having a repeat US at 32wks at [facility]. Will provide copy of US after completion. [...] 12/30/2024 Get Medical Advice Obstetrics/Gynecol ogy 850 [facility] [address] [place] [address] Marina Manley APRN.CNM Anti-emetic 12/17/2024 [place] [address] [place] [address] Marina Manley APRN.CNM 12/16/2024 9:00 AM EDT Routine Office Visit Obstetrics/Gynecol ogy 850 [facility] [address] [place] [address] Marina Manley APRN.CNM 15 weeks gestation of (HCC) (Primary Dx); care, subsequent in second trimester (HCC) 12/14/2024 Travel 12/02/2024 Refill Psychiatry [address] [facility] [address] [place] [address] Camille Pavon APRN.MANAGER EMPLOYMENT Refill Request 11/11/2024 9:00 AM EDT Routine Office Visit Obstetrics/Gynecol ogy 850 [facility] [address] [place] [address] Marina Manley APRN.CNM care, subsequent in first trimester (HCC) (Primary Dx) 11/11/2024 Travel 11/05/2024 Get Medical Advice Obstetrics/Gynecol ogy [address] [place] [address] Marina Manley APRN.CNM Appt on 11/1111/02/2024 9:30 AM EDT [facility] Psychiatry [address] [place] [address] Camille Pavon APRN.MANAGER EMPLOYMENT Obsessive-compulsive disorder, unspecified type (Primary Dx); ELISA (generalized anxiety disorder); Post- depression 10/13/2024 9:30 AM EDT Initial Office Visit Obstetrics/Gynecol ogy [address] [place] [address] Marina Manley APRN.CNM care, subsequent in first trimester (HCC) (Primary Dx); 6 weeks gestation of (HCC) [Z3A.01] 10/13/2024 Get Medical Advice Obstetrics/Gynecol ogy [address] [place] [address] Marina Manley APRN.CNM Question about restrictions 10/13/2024 Get Medical Advice Psychiatry [address] [place] [id number] Provider, Ccf Medication change 10/08/2024 Patient Msg Gynecology [address] [address] Torito Zavala, Research Coordinator [facility] and [facility] Researchers seek your help with a study [...] Answer Date Recorded PHQ-2 score 1 10/31/2024 [place] Depression Scale Answer Date Recorded [place] Depression Scale Total 21 07/10/2023 The thought of harming myself has occurred to me . Never 07/10/2023 Area Deprivation Index Answer Date Rafael rded National Score (1-100), lower number is lower ri sk 65 10/13/2024 State Score (1-10), lower number is lower risk 4 10/13/2024 Data from: https://www.neighborhoodatlas.medicine.[facility].edu/. Last address used for calculation [address] [...] Medicine 850 [facility] [address] [place] [address] Anatomy 01/20/2025 3:00 PM EDT Routine Office Visit Obstetrics/Gynecolog y [address] [address] Marina Manley, PROCESSING [employer] BORATE SUPERVISOR.CNM [address] [place] [address] ob/ per Marina 02/10/2025 2:30 PM EDT Office Visit Obstetrics/Gynecolog y [address] [address] Marina Manley, PROCESSING [employer]AL[employer] BORATE SUPERVISOR.CNM [address] [place] [address] Annual 02/22/2025 1:15 PM EDT Routine Office Visit Obstetrics/Gynecolog y [address] [address] Marina Manley, PROCESSING [employer]AL[employer] BORATE SUPERVISOR.CNM [address] [place] [address] OB monthly 03/22/2025 10:45 AM EDT Routine Office Visit Obstetrics/Gynecolog y [address] [address] Marina Manley, PROCESSING [employer]AL[employer] B[employer]ATE SUPERVISOR.CNM [address] [place] [address] OB bi-weekly 04/05/2025 10:45 AM EDT Routine Office Visit Obstetrics/Gynecolog y [address] [address] Marina Manley, PROCESSING [employer]AL[employer] BORATE SUPERVISOR.CNM [address] [place] [address] OB bi-weekly 04/19/2025 10:30 AM EDT Routine Office Visit Obstetrics/Gynecolog y [address] [address] Marina Manley, PROCESSING [employer] BORATE SUPERVISOR.CNM [address] [place] [address] OB bi-weekly 05/03/2025 8:45 AM EST Routine Office Visit Obstetrics/Gynecolog y [address] [address] Marina Manley, PROCESSING [employer] B[employer]ATE SUPERVISOR.CNM [address] [place] [address] OB weekly 05/10/2025 8:45 AM EST Routine Office Visit Obstetrics/Gynecolog y [address] [address] Marina Manley, PROCESSING TAL[employer] BORATE SUPERVISOR.CNM [address] [place] [address] OB weekly 05/17/2025 8:45 AM EST Routine Office Visit Obstetrics/Gynecolog y [address] [address] Marina Manley, PROCESSING TAL[employer] BORATE SUPERVISOR.CNM [address] [place] [address] OB weekly 05/24/2025 8:45 AM EST Routine Office Visit Obstetrics/Gynecolog y [address] [address] Marina Manley, PROCESSING TAL[employer] BORATE SUPERVISOR.CNM [address] [place] [address] OB weekly 05/31/2025 8:45 AM EST Routine Office Visit Obstetrics/Gynecolog y [address] [place] [address] Marina Manley, PROCESSING TAL[employer] BORATE SUPERVISOR.CNM [address] [place] [address] OB weekly 06/07/2025 8:45 AM EST Routine Office Visit Obstetrics/Gynecolog y [address] [place] [address] Marina Manley, PROCESSING TAL[employer] BORATE SUPERVISOR.CNM [address] [place] [address] OB weekly Health Maintenance Due Date Last [...] care, subsequent in first trimester (HCC) POC BASIC COMBATANT SWIMMER ULTRASOUND Routine 10/13/2024 9:3 6 AM EDT care, subsequent in first trimester (HCC) PAP TEST Routine 02/03/2024 2:46 PM EDT Encounter for screening for malignant neoplasm of cervix from Last 3 Months or Most Recently Relevant to Health Maintenance Results * PROTEIN / CREATININE RATIO (12/16/2024 12:20 PM EDT) Protein, Urine Random <4 0 - 20 mg/dL 12/16/2024 6:25 PM EDT [facility] Creatinine, Ur Random (UCRR) 55.1 20.0 - 300.0 mg/dL 12/16/2024 6:25 PM EDT [facility] Protein/Creat Ratio <0.07 <0.15 mg/mg 12/16/2024 6:25 PM EDT [facility] Comment: Adult Proteinuria Categories: <0.15 mg/mg [...] Marina Manley APRN.[facility] Final Res ult [facility] [address] [facility] [address] [address], * SYPHILIS TREPONEMAL W/REFLEX (12/16/2024 8:40 AM EDT) Syphilis Treponemal Screen Nonreactive Nonreactive 12/16/2024 9:18 PM EDT [facility] Syphilis Interpretation Cannot exclude recent Treponemal infection if specimen collected within 7-10 days after appearance of suspect lesions or 2-3 weeks after an exposure. Clinical correlation is required. 12/16/2024 9:18 PM EDT [facility] Blood BLOOD SPECIMEN / Unknown Venipuncture / Unknown 12/16/2024 8:40 AM EDT 12/16/2024 8:41 AM EDT us Marina T Vineet PROCESSING TAL[employer] BORATE SUPERVISOR.CNM LABORATORY Final Res ult Performing Organization Address [facility]/ZIP Co de Phone Number [facility] [address] [address], [place] * HIV 1/2 COMBO WITH REFLEX TO DIFFERENTIATION (12/16/2024 8:40 AM EDT) HIV 12 Combo (Ag/Ab) Nonreactive Nonreactive 12/16/2024 9:14 PM EDT [facility] HIV-1/2 AB (Confirmatory) 12/16/2024 9:14 PM EDT [facility] Comment:Test not indicated. HIV Interpretation 12/16/2024 9:14 PM EDT [facility] Comment: No evidence of HIV-1 or HIV-2 infection. Should recent infection be suspected, repeat testing may be considered 2-3 weeks after this draw. Trigg Rev. Code 3701.243(E): This information has been [...] 8:41 AM EDT us Marina T Vineet PROCESSING TALC AND BORATE SUPERVISOR.CNM LABORATORY Final Res ult Performing Organization Address City/[facility]/ZIP Co de Phone Number [facility] [address] [facility] [address] [address], [place] * RUBELLA IGG ANTIBODY (12/16/2024 8:40 AM EDT) Rubella IgG, Qual Positive Positive 12/16/2024 10:14 PM EDT [facility] Comment:The result suggests recent or past exposure to Rubella virus or history of Rubella vaccination. Positive result may also be seen due to presence of passively-transferred antibodies. Please correlate with patient's history. Blood BLOOD SPECIMEN / Unknown Venipuncture / Unknown 12/16/2024 8:40 AM EDT 12/16/2024 8:41 AM EDT Marina Manley APRN.CNBest LABORATORY Final Res ult Performing Organization Address [facility] Co de Phone Number [facility] [address] [place], [place] [address], [place] * VITAMIN D 25 HYDROXY (12/16/2024 8:40 AM EDT) Pathologist [facility] Vitamin D 25 Hydroxy 33.5 31.0 - 80.0 ng/mL 12/16/2024 10:15 PM EDT [facility] Blood BLOOD SPECIMEN / Unknown Venipuncture / Unknown 12/16/2024 8:40 AM EDT 12/16/2024 8:41 AM EDT Marina Manley APRN.CN LABORATORY Final Res ult Performing Organization Address City/[facility]/ZIP Co de Phone Number [facility] [address] [place], [place] [address], [place] * THYROID STIMULATING HORMONE (12/16/2024 8:40 AM EDT) TSH 3.510 0.270 - 4.200 mIU/L 12/16/2024 8:37 PM EDT [facility] Comment: If the patient is , TSH reference range varies by gestational period: First Trimester (weeks 9-12): 0.180-2.990 mIU/L Second Trimester: 0.110-3.980 mIU/L Third Trimester: 0.480-4.710 mIU/L Ld Machado et al. A Practical Approach for the Verifications and Determination of Site- and Trimester-Specific Reference Intervals for Thyroid Function tests in . Thyroid, 2019:29:3:412-420. Percy Barrios et al. 2017 Guidelines of the [place] Thyroid Association for the Diagnosis and Management of Thyroid Disease during and the . Thyroid, 2017:27:3:315-389. Blood BLOOD SPECIMEN / Unknown Venipuncture / Unknown 12/16/2024 8:40 AM EDT 12/16/2024 8:41 AM EDT us Marina T Vineet PROCESSING TALC AND BORATE SUPERVISOR.CN LABORATORY Final Res ult Performing Organization Address [facility] Co de Phone Number [facility] [address] [place] [address], [place] * HEMOGLOBIN A1C (12/16/2024 8:40 AM EDT) Pathologist [facility] Hemoglobin A1C 4.8 4.3 - 5.6 % 12/16/2024 10:15 PM EDT [facility] Comment:[place] Diabetes As sociation guidelines indicate that patients with HgbA1c in the range 5.7-6.4% are at increased risk for development of diabetes, and intervention by lifestyle modification may be beneficial. HgbA1c greater or equal to 6.5% is considered diagnostic of diabetes. Estimated Average Glucose 91 mg/dL 12/16/2024 10:15 PM EDT [facility] Comment:eAG: (Estimated aver age glucose) is a calculated value from HgbA1c and is insurance claim representative of the average blood glucose level in the last 2-3 month period. Blood BLOOD SPECIMEN / Unknown Venipuncture / Unknown 12/16/2024 8:40 AM EDT 12/16/2024 8:41 AM EDT us Marina T Vineet PROCESSING TALC AND BORATE SUPERVISOR.CNM LABORATORY Final Res ult Performing Organization Address City/[facility]/ZIP Co de Phone Number [facility] [address] [place] [address], [place] * HEPATITIS B SURFACE ANTIGEN (12/16/2024 8:40 AM EDT) [facility] HBsAg Negative Negative 12/16/2024 9:13 PM EDT [facility] Blood BLOOD SPECIMEN / Unknown Venipuncture / Unknown 12/16/2024 8:40 AM EDT 12/16/2024 8:41 AM EDT us Marina Manley PROCESSING TAL[employer] AND BORATE SUPERVISOR.CNM LABORATORY Final Res ult [facility] [address] [facility] [address] [place] [address], [place] * (ABNORMAL) COMPREHENSIVE METABOLIC PANEL (12/16/2024 8:40 AM EDT) [facility] Protein, Total 6.3 6.3 - 8.0 g/dL 12/16/2024 8:33 PM EDT [facility] Albumin 3.6(L) 3.9 - 4.9 g/dL 12/16/2024 8:33 PM EDT [facility] Calcium, Total 9.1 8.5 - 10.2 mg/dL 12/16/2024 8:33 PM EDT [facility] Bilirubin, Total 0.2 0.2 - 1.3 mg/dL 12/16/2024 8:33 PM EDT [facility] Alkaline Phosphatase 75 34 - 123 U/L 12/16/2024 8:33 PM EDT [facility] AST 23 13 - 35 U/L 12/16/2024 8:33 PM EDT [facility] ALT 19 7 - 38 U/L 12/16/2024 8:33 PM EDT [facility] Glucose 71(L) 74 - 99 mg/dL 12/16/2024 8:33 PM EDT [facility] Comment: The [place] Diabetes Association (ADA) provides guidance for cutoff [...] Standards of Medical Care in Diabetes 2016, [place] Diabetes Association. Diabetes Care. 2016.39(Suppl 1). BUN 7 7 - 21 mg/dL 12/16/2024 8:33 PM EDT [facility] Creatinine 0.60 0.58 - 0.96 mg/dL 12/16/2024 8:33 PM EDT [facility] Sodium 136 136 - 144 mmol/L 12/16/2024 8:33 PM EDT [facility] Potassium 3.8 3.7 - 5.1 mmol/L 12/16/2024 8:33 PM EDT [facility] Chloride 104 98 - 107 mmol/L 12/16/2024 8:33 PM EDT [facility] CO2 19(L) 22 - 30 mmol/L 12/16/2024 8:33 PM EDT [facility] Anion Gap 13 8 - 15 mmol/L 12/16/2024 8:33 PM EDT [facility] Estimated Glomerular Filtration Rate 122 >=60 mL/min/1.7 3m 12/16/2024 8:33 PM EDT [facility] Comment:Estimated Glomerular Filtration Rate (eGFR) is [...] 12/16/2024 8:41 AM EDT us Marina Manley PROCESSING TAL[employer] AND BORATE SUPERVISOR.OSIRISM LABORATORY Final Res ult [facility] [address] [address], [place] * COMPLETE BLOOD COUNT (12/16/2024 8:40 AM EDT) WBC 7.49 3.70 - 11.00 k/uL 12/16/2024 12:01 PM EDT [facility] RBC 4.17 3.90 - 5.20 m/uL 12/16/2024 12:01 PM EDT [facility] Hemoglobin 12.0 11.5 - 15.5 g/dL 12/16/2024 12:01 PM EDT [facility] Hematocrit 36.5 36.0 - 46.0 % 12/16/2024 12:01 PM EDT [facility] MCV 87.5 80.0 - 100.0 fL 12/16/2024 12:01 PM EDT [facility] MCH 28.8 26.0 - 34.0 pg 12/16/2024 12:01 PM EDT [facility] MCHC 32.9 30.5 - 36.0 g/dL 12/16/2024 12:01 PM EDT [facility] RDW-CV 13.2 11.5 - 15.0 % 12/16/2024 12:01 PM EDT [facility] Platelet Count 215 150 - 400 k/uL 12/16/2024 12:01 PM EDT [facility] MPV 10.8 9.0 - 12.7 fL 12/16/2024 12:01 PM EDT [facility] Absolute nRBC <0.01 <0.01 k/uL 12/16/2024 12:01 PM EDT [facility] Blood BLOOD SPECIMEN / Unknown Venipuncture / Unknown 12/16/2024 8:40 AM EDT 12/16/2024 8:41 AM EDT us Marina Manley PROCESSING TAL[employer] AND BORATE SUPERVISOR.CNM LABORATORY Final Res ult [facility] [address] [place] [id number], [place] * TYPE + SCREEN (12/16/2024 8:40 AM EDT) Pathologist [facility] ABO A 12/16/2024 4:02 PM EDT MAIN [...] 12/16/2024 8:41 AM EDT us Marina Manley PROCESSING TALC AND BORATE SUPERVISOR.[facility] BLOOD BANK Edited Re sult - Final Performing Organization Address City/[facility]/ZIP Co de Phone Number [facility] [address] [address], [place] * HEPATITIS C ANTIBODY IA WITH CONFIRMATION (12/16/2024 8:40 AM EDT) [facility] Hep C Antibody IA Negative Negative 12/16/2024 9:51 PM EDT [facility] Comment:The result suggests no evidence of infection with Hepatitis C virus. Should recent infection be suspected, repeat testing may be considered 4-6 weeks after this draw. Blood BLOOD SPECIMEN / Unknown Venipuncture / Unknown 12/16/2024 8:40 AM EDT 12/16/2024 8:41 AM EDT us Marina Manley PROCESSING TAL[employer] AND BORATE SUPERVISOR.CNM LABORATORY Final Res ult Performing Organization Address City/[facility]/ZIP Co de Phone Number [facility] [address] [address], [place] * URINE OB DIP B/O (12/16/2024) Pathologist [facility] Protein, Urine neg Neg mg/dL Glucose, Urine neg Neg mg/dL Back Office Procedure us Marina Manley APRN.CNM BACK OFFICE PROCEDURES Fi nal Result * BACTERIAL CULTURE, URINE (10/13/2024 10:27 AM EDT) Culture, Urine No growth (<1,000 CFU/ml) 10/14/2024 10:18 AM EDT [facility] Urine MID-STREAM URINE SPECIMEN / Unknown Non Blood / Unknown 10/13/2024 10:27 AM EDT 10/13/2024 3:54 PM EDT us Marina Manley APRN.CNM MICROBIOLOGY Final Res ult [facility] [address] [address], [place] * POC BASIC COMBATANT SWIMMER ULTRASOUND (10/13/2024 9:36 AM EDT) Anatomical Region [...] By: Marina Manley CNM Marina Manley APRN.CNM [facility] Final Res ult * PAP TEST (02/03/2024 2:46 PM EDT) Case Report Gynecologic Cytology Report Case: [id number] Authorizing Provider: Marina Manley APRN.CNM Collected: 02/03/2024 02:46 PM Ordering Location: Obstetrics/Gyneco logy Received: 02/03/2024 06:19 PM First Screen: Marissa Slater Rescreen: Rody Gilmore CT, ASCP Specimen: Pap Test, ThinPrep, Cervix 02/16/2024 9:19 AM EDT [facility] Specimen Adequacy Satisfactory for interpretation. 02/16/2024 9:19 AM EDT [facility] Interpretation Negative for intraepithelial lesion or malignancy. 02/16/2024 9:19 AM [facility] at 0919 EDT Clinical History Routine Exam 2023 9:19 AM EDT [facility] LMP 10/27/2023 02/16/2024 9:19 AM EDT [facility] HPV Reflex Yes HPV 02/16/2024 9:19 AM EDT [facility] Pap Disclaimer The Pap Smear is a screening test for cervical cancer. False negative results occur with all screening tests, emphasizing the need for rescreening at recommended intervals, and clinical correlation. 02/16/2024 9:19 AM EDT [facility] PAP Granulator Comment This specimen has been analyzed by the Gilt GroupePrep Imaging System, an automated imaging and review system, which assists the laboratory in evaluating cells on ThinPrep Pap tests. Following automated imaging, selected dotson from every slide are reviewed by a email manager. 02/16/2024 9:19 AM EDT [facility] Performing Lab Technical component, email manager screening performed at [facility], [address] [place] [address] CLIA# [id number] Diagnostic interpretation performed at [facility], [address] [place] [address] CLIA# [id number] Baggage Handler: Ck Matthews M.D. 02/16/2024 9:19 AM EDT [facility] Sterile Fluid/Body Fluid CERVICAL / Unknown Non Blood / Unknown 02/03/2024 2:46 PM EDT 02/03/2024 6:19 PM EDT us Marina Manley APRN.[facility] CYT[facility] Final Res ult [facility] [address] [place] [address], [facility] [address] [facility] [address] [place] [address], [facility] [employer] [facility] [address] [place] [address], from Last 3 Months or Most Recently Relevant to Health Maintenance Insurance [facility] PPO Care Teams Citizen Participation Specialist Relationship Specialty Start Date End Date Caren Travis APRN.CNM [address] [place] [address] Assistant Facility Manager Broach Grinder 02/03/23
--- OUTSIDE RECORDS SUMMARY | 2025-01-07 08:27 | XMS_ITS | Encounter Summary ---
Author Organization Address [address] [place] [address] Care Team Providers Care Emergency Department Coordinator Name Role Phone Caren Travis APRN.CNM Unavailable [phone] Source Comments In the event this information is protected by the Federal Confidentiality of Alcohol and Drug AbusePatient Records regulations: The Federal rules restrict any use of the information to criminally investigate or prosecute any alcohol or drug abuse patient. Encounter Details Date Type Department Care Team (Late st Contact Info) Description 07/16/2023 Patient Msg Obstetrics/Gynecology [address] [facility] [address] [place] [address] Provider, Ccf resources Social History Tobacco Use Types Packs/Day Years Used Date Smoking Tobacco: Former Cigarettes Q uit: 11/2019 Smokeless Tobacco: Never Alcohol Use Standard Drinks/Week Comments No 0 (1 standard drink = 0.6 oz pur e alcohol) [place] Depression Scale Answer Date Recorded [place] Depression Scale Total 21 07/10/2023 The thought of harming myself has occurred to me . Never 07/10/2023 Area Deprivation Index Answer Date Rafael rded National Score (1-100), lower number is lower ri sk 78 11/05/2022 State Score (1-10), lower number is lower risk 6 11/05/2022 Data from: https://www.neighborhoodatlas.[facility]/. Last address used for calculation [...] EDT Routine Office Visit Maternal Medicine [address] [place] [address] Anatomy 01/20/2025 3:00 PM EDT Routine Office Visit Obstetrics/Gynecolog y [address] [address] Marina Manley, OFFICE SYSTEMS TECHNOLOGY INSTRUCTOR.CNM [address] [place] [address] ob/ per Marina 02/10/2025 2:30 PM EDT Office Visit Obstetrics/Gynecolog y [address] [address] Marina Manley, OFFICE SYSTEMS TECHNOLOGY INSTRUCTOR.CNM [address] [place] [address] Annual 02/22/2025 1:15 PM EDT Routine Office Visit Obstetrics/Gynecolog y [address] [address] Marina Manley, OFFICE SYSTEMS TECHNOLOGY INSTRUCTOR.CNM [address] [place] [address] OB monthly 03/22/2025 10:45 AM EDT Routine Office Visit Obstetrics/Gynecolog y [address] [address] Marina Manley, OFFICE SYSTEMS TECHNOLOGY INSTRUCTOR.CNM [address] [place] [address] OB bi-weekly 04/05/2025 10:45 AM EDT Routine Office Visit Obstetrics/Gynecolog y [address] [address] Marina Manley, OFFICE SYSTEMS TECHNOLOGY INSTRUCTOR.CNM [address] [place] [address] OB bi-weekly 04/19/2025 10:30 AM EDT Routine Office Visit Obstetrics/Gynecolog y [address] [address] Marina Manley, OFFICE SYSTEMS TECHNOLOGY INSTRUCTOR.CNM [address] [place] [address] OB bi-weekly 05/03/2025 8:45 AM EST Routine Office Visit Obstetrics/Gynecolog y [address] [address] Marina Manley, OFFICE SYSTEMS TECHNOLOGY INSTRUCTOR.CNM [address] [place] [address] OB weekly 05/10/2025 8:45 AM EST Routine Office Visit Obstetrics/Gynecolog y [address] [address] Marina Manley, OFFICE SYSTEMS TECHNOLOGY INSTRUCTOR.CNM [address] [place] [address] OB weekly 05/17/2025 8:45 AM EST Routine Office Visit Obstetrics/Gynecolog y [address] [address] Marina Manley, OFFICE SYSTEMS TECHNOLOGY INSTRUCTOR.CNM [address] [place] [address] OB weekly 05/24/2025 8:45 AM EST Routine Office Visit Obstetrics/Gynecolog y [address] [address] Marina Manley, OFFICE SYSTEMS TECHNOLOGY INSTRUCTOR.CNM [address] [place] [address] OB weekly 05/31/2025 8:45 AM EST Routine Office Visit Obstetrics/Gynecolog y [address] [address] Marina Manley, OFFICE SYSTEMS TECHNOLOGY INSTRUCTOR.CNM [address] [place] [address] OB weekly 06/07/2025 8:45 AM EST Routine Office Visit Obstetrics/Gynecolog y [address] [address] Marina Manley, OFFICE SYSTEMS TECHNOLOGY INSTRUCTOR.CNM [address] [place] [address] OB weekly documented as of this encounter Visit Diagnoses Not on filedocumented in this encounter Care Teams Emergency Department Coordinator Relationship Specialty Start Date End Date Caren Travis APRN.TREVON [address] [place] [address] Inspector Plumbing Glove Machine Operator 02/03/23 documented as of this encounter
--- OUTSIDE RECORDS SUMMARY | 2025-01-07 08:27 | XMS_ITS | Encounter Summary ---
Author Organization [facility] Address [address] [place] [address] Care Team Providers Care Forging Press Lever Tender Name Role Phone Caren Travis APRN.CNM Unavailable [phone] Source Comments In the event this information is protected by the Federal Confidentiality of Alcohol and Drug AbusePatient Records regulations: The Federal rules restrict any use of the information to criminally investigate or prosecute any alcohol or drug abuse patient.[facility] Encounter Details Date Type Department Care Team (Late st Contact Info) Description 10/06/2024 Patient Msg Obstetrics/Gynecology 1450 [facility] [address] [place] [id number] Provider, Ccf Important: Your 10/13/24 Appointment Has Changed Times. Social History Tobacco Use Types Packs/Day Years Used Date Smoking Tobacco: Former Cigarettes Q uit: 11/2019 Smokeless Tobacco: Never Alcohol Use Standard Drinks/Week Comments No 0 (1 standard drink = 0.6 oz pur e alcohol) PHQ-2 Answer Date Recorded PHQ-2 score 1 08/03/2024 [place] Depression Scale Answer Date Recorded [place] Depression Scale Total 21 07/10/2023 The thought of harming myself has occurred to me . Never 07/10/2023 Area Deprivation Index Answer Date Rafael rded National Score (1-100), lower number is lower ri sk 78 11/05/2022 State Score (1-10), lower number is lower risk 6 11/05/2022 Data from: https://www.neighborhoodatlas.medicine.[facility]/. Last address used for calculation [...] EDT Routine Office Visit Maternal Medicine [address] [place] [address] Anatomy 01/20/2025 3:00 PM EDT Routine Office Visit Obstetrics/Gynecolog y [address] [address] Marina Manley, TECHNICAL PROPOSAL WRITER.CNM [address] [place] [address] ob/ per Marina 02/10/2025 2:30 PM EDT Office Visit Obstetrics/Gynecolog y [address] [address] Marina Manley, TECHNICAL PROPOSAL WRITER.CNM [address] [place] [address] Annual 02/22/2025 1:15 PM EDT Routine Office Visit Obstetrics/Gynecolog y [address] [address] Marina Manley, TECHNICAL PROPOSAL WRITER.CNM [address] [place] [address] OB monthly 03/22/2025 10:45 AM EDT Routine Office Visit Obstetrics/Gynecolog y [address] [address] Marina Manley, TECHNICAL PROPOSAL WRITER.CNM [address] [place] [address] OB bi-weekly 04/05/2025 10:45 AM EDT Routine Office Visit Obstetrics/Gynecolog y [address] [address] Marina Manley, TECHNICAL PROPOSAL WRITER.CNM [address] [place] [address] OB bi-weekly 04/19/2025 10:30 AM EDT Routine Office Visit Obstetrics/Gynecolog y [address] [address] Marina Manley, TECHNICAL PROPOSAL WRITER.CNM [address] [place] [address] OB bi-weekly 05/03/2025 8:45 AM EST Routine Office Visit Obstetrics/Gynecolog y 850 [facility] [address] [place] [address] Marina Manley, TECHNICAL PROPOSAL WRITER.CNM [address] [place] [address] OB weekly 05/10/2025 8:45 AM EST Routine Office Visit Obstetrics/Gynecolog y [address] [address] Marina Manley, TECHNICAL PROPOSAL WRITER.CN [address] [place] [address] OB weekly 05/17/2025 8:45 AM EST Routine Office Visit Obstetrics/Gynecolog y [address] [address] Marina Manley, TECHNICAL PROPOSAL WRITER.CNM [address] [place] [address] OB weekly 05/24/2025 8:45 AM EST Routine Office Visit Obstetrics/Gynecolog y [address] [address] Marnia Manley, TECHNICAL PROPOSAL WRITER.CN [address] [place] [address] OB weekly 05/31/2025 8:45 AM EST Routine Office Visit Obstetrics/Gynecolog y [address] [address] Marina Manley, TECHNICAL PROPOSAL WRITER.CNM [address] [place] [address] OB weekly 06/07/2025 8:45 AM EST Routine Office Visit Obstetrics/Gynecolog y [address] [address] Marina Manley, TECHNICAL PROPOSAL WRITER.TREVON [address] [place] [address] OB weekly documented as of this encounter Visit Diagnoses Not on filedocumented in this encounter Care Teams Forging Press Lever Tender Relationship Specialty Start Date End Date Caren Travis, TECHNICAL PROPOSAL WRITER.TREVON [address] [place] [address] Red Lead Burner Prompt Care Rn 02/03/23 documented as of this encounter
--- OUTSIDE RECORDS SUMMARY | 2025-01-07 08:27 | XMS_ITS | Encounter Summary ---
Author Organization [facility] Address [address] [place] [address] Care Team Providers Care Network Systems Operator Name Role Phone Caren Travis APRN.CNM Unavailable [phone] Source Comments In the event this information is protected by the Federal Confidentiality of Alcohol and Drug AbusePatient Records regulations: The Federal rules restrict any use of the information to criminally investigate or prosecute any alcohol or drug abuse patient.[facility] Encounter Details Date Type Department Care Team (Late st Contact Info) Description 01/13/2024 Patient Msg Physical Therapy [address] [place] [address] Christen Arce, PT [address] [place] [address] Appointment Request Social History Tobacco Use Types Packs/Day Years Used Date Smoking Tobacco: Former Cigarettes Q uit: 11/2019 Smokeless Tobacco: Never Alcohol Use Standard Drinks/Week Comments No 0 (1 standard drink = 0.6 oz pur e alcohol) PHQ-2 Answer Date Recorded PHQ-2 score 2 09/14/2023 [place] Depression Scale Answer Date Recorded [place] Depression Scale Total 21 07/10/2023 The thought of harming myself has occurred to me . Never 07/10/2023 Area Deprivation Index Answer Date Rafael rded National Score (1-100), lower number is lower ri sk 78 11/05/2022 State Score (1-10), lower number is lower risk 6 11/05/2022 Data from: https://www.neighborhoodatlas.medicine.[facility]/. Last address used for calculation [address] [...] Author No 02/05/2023 7:49 AM EDT Darya Mckeno APRN.CNM * Because of a physical, mental, [...] Maternal Medicine [address] [place] [address] Anatomy 01/20/2025 3:00 PM EDT Routine Office Visit Obstetrics/Gynecolog y [address] [address] Marina Manley, CAREER SPECIALIST.CNM 14[address] [place] [address] ob/ per Marina 02/10/2025 2:30 PM EDT Office Visit Obstetrics/Gynecolog y [address] [address] Marina Manley, CAREER SPECIALIST.CNM [address] [place] [address] Annual 02/22/2025 1:15 PM EDT Routine Office Visit Obstetrics/Gynecolog y [address] [address] Marina Manley, CAREER SPECIALIST.CNM [address] [place] [address] OB monthly 03/22/2025 10:45 AM EDT Routine Office Visit Obstetrics/Gynecolog y [address] [address] Marina Manley, CAREER SPECIALIST.CN [address] [place] [address] OB bi-weekly 04/05/2025 10:45 AM EDT Routine Office Visit Obstetrics/Gynecolog y [address] [address] Marina Manley, CAREER SPECIALIST.CNM [address] [place] [address] OB bi-weekly 04/19/2025 10:30 AM EDT Routine Office Visit Obstetrics/Gynecolog y [address] [address] Marina Manley, CAREER SPECIALIST.CNM [address] [place] [address] OB bi-weekly 05/03/2025 8:45 AM EST Routine Office Visit Obstetrics/Gynecolog y [address] [address] Marina Manley, CAREER SPECIALIST.CNM [address] [place] [address] OB weekly 05/10/2025 8:45 AM EST Routine Office Visit Obstetrics/Gynecolog y [address] [address] Marina Manley, CAREER SPECIALIST.CNM [address] [place] [address] OB weekly 05/17/2025 8:45 AM EST Routine Office Visit Obstetrics/Gynecolog y [address] [address] Marina Manley, CAREER SPECIALIST.CNM [address] [place] [address] OB weekly 05/24/2025 8:45 AM EST Routine Office Visit Obstetrics/Gynecolog y [address] [address] Marina Manley, CAREER SPECIALIST.CNM [address] [place] [address] OB weekly 05/31/2025 8:45 AM EST Routine Office Visit Obstetrics/Gynecolog y [address] [address] Marina Manley, CAREER SPECIALIST.CNM [address] [place] [address] OB weekly 06/07/2025 8:45 AM EST Routine Office Visit Obstetrics/Gynecolog y [address] [address] Marina Manley, CAREER SPECIALIST.TREVON [address] [place] [address] OB weekly documented as of this encounter Visit Diagnoses Not on filedocumented in this encounter Care Teams Network Systems Operator Relationship Specialty Start Date End Date Caren Travis, CAREER SPECIALIST.TREVON [address] [place] [address] Earthmoving Labourer Watch And Clock Maker And Repairer 02/03/23 documented as of this encounter
--- OUTSIDE RECORDS SUMMARY | 2025-01-07 08:27 | XMS_ITS | Encounter Summary ---
Author Organization [facility] Address [address] [place] [address] Care Team Providers Care Diesel Service Technician Name Role Phone Caren Travis APRN.CNM Unavailable [phone] Source Comments In the event this information is protected by the Federal Confidentiality of Alcohol and Drug AbusePatient Records regulations: The Federal rules restrict any use of the information to criminally investigate or prosecute any alcohol or drug abuse patient.[facility] Encounter Details Date Type Department Care Team (Late st Contact Info) Description 10/01/2024 [place] [address] Provider, Ccf Resource Guide Social History Tobacco Use Types Packs/Day Years Used Date Smoking Tobacco: Former Cigarettes Q uit: 11/2019 Smokeless Tobacco: Never Alcohol Use Standard Drinks/Week Comments No 0 (1 standard drink = 0.6 oz pur e alcohol) PHQ-2 Answer Date Recorded PHQ-2 score 1 08/03/2024 [place] Depression Scale Answer Date Recorded [place] Depression Scale Total 21 07/10/2023 The thought of harming myself has occurred to me . Never 07/10/2023 Area Deprivation Index Answer Date Rafael rded National Score (1-100), lower number is lower ri sk 78 11/05/2022 State Score (1-10), lower number is lower risk 6 11/05/2022 Data from: https://www.neighborhoodatlas.[facility]/. Last address used for calculation [...] EDT Routine Office Visit Maternal Medicine [address] [place] [address] Anatomy 01/20/2025 3:00 PM EDT Routine Office Visit Obstetrics/Gynecolog y [address] [address] Marina Manley, CASTING ASSOCIATE.CNM [address] [place] [address] ob/ per Marina 02/10/2025 2:30 PM EDT Office Visit Obstetrics/Gynecolog y [address] [address] Marina Manley, CASTING ASSOCIATE.CNM [address] [place] [address] Annual 02/22/2025 1:15 PM EDT Routine Office Visit Obstetrics/Gynecolog y [address] [address] Marina Manley, CASTING ASSOCIATE.CNM [address] [place] [address] OB monthly 03/22/2025 10:45 AM EDT Routine Office Visit Obstetrics/Gynecolog y [address] [address] Marina Manley, CASTING ASSOCIATE.CNM [address] [place] [address] OB bi-weekly 04/05/2025 10:45 AM EDT Routine Office Visit Obstetrics/Gynecolog y [address] [address] Marina Manley, CASTING ASSOCIATE.CNM [address] [place] [address] OB bi-weekly 04/19/2025 10:30 AM EDT Routine Office Visit Obstetrics/Gynecolog y [address] [address] Marina Manley, CASTING ASSOCIATE.CNM [address] [place] [address] OB bi-weekly 05/03/2025 8:45 AM EST Routine Office Visit Obstetrics/Gynecolog y [address] [address] Marina Manley, CASTING ASSOCIATE.CNM [address] [place] [address] OB weekly 05/10/2025 8:45 AM EST Routine Office Visit Obstetrics/Gynecolog y [address] [address] Marina Manley, CASTING ASSOCIATE.CNM [address] [place] [address] OB weekly 05/17/2025 8:45 AM EST Routine Office Visit Obstetrics/Gynecolog y [address] [address] Marina Manley, CASTING ASSOCIATE.CNM [address] [place] [address] OB weekly 05/24/2025 8:45 AM EST Routine Office Visit Obstetrics/Gynecolog y [address] [address] Marina Manley, CASTING ASSOCIATE.CNM [address] [place] [address] OB weekly 05/31/2025 8:45 AM EST Routine Office Visit Obstetrics/Gynecolog y [address] [address] Marina Manley, CASTING ASSOCIATE.CNM [address] [place] [address] OB weekly 06/07/2025 8:45 AM EST Routine Office Visit Obstetrics/Gynecolog y [address] [address] Marina Manley, CASTING ASSOCIATE.CNM [address] [place] [address] OB weekly documented as of this encounter Visit Diagnoses Not on filedocumented in this encounter Care Teams Diesel Service Technician Relationship Specialty Start Date End Date Caren Travis APRN.TREVON [address] [place] [address] Director Sales Training Sourcing Consultant 02/03/23 documented as of this encounter
[2025-01-07] MEDS: PROMETHAZINE HCL 12.5 MG in 0.9 % SODIUM CHLORIDE 50 ML 202 MG IV (08:29)
[2025-01-07 08:31] VITALS: BP 87/46; PULSE 90
[2025-01-07 08:46] VITALS: BP 94/44; PULSE 93
[2025-01-07 11:44] VITALS: BP 91/55; PULSE 95
== END 2025-01-07 15:16 | disposition home or self-care (01) ==
PROVIDERS: Admitting Provider Obstetrics & Gynecology; PCP Family Medicine; Visit Provider Obstetrics & Gynecology
DX: O26.892 Other specified pregnancy related conditions, second trimester (principal); R42 Dizziness and giddiness; Z3A.18 18 weeks gestation of pregnancy
CPT/HCPCS: 36415; 80053; 84450; 84460; 85025; 93005; 93308; 96365; G0378; G0379; J2550